=== PATIENT | female | born 1990 | race Caucasian/White ===

== ENCOUNTER 2016-12-13 23:50 | Emergency (ER) | payer OTHER ==
[2016-12-13 23:59] VITALS: BP 150/94; PULSE 74; TEMP 97.6; BMI 31.1
[2016-12-14] MEDS ORDERED: PSEUDOEPHEDRINE HCL 30 MG TABLET PO STA (01:52)
[2016-12-14] MEDS ORDERED: SULFAMETHOXAZOLE/TRIMETHOPRIM 800MG/160MG D.S. TABLET PO ONE (01:52)
[2016-12-14] MEDS ORDERED: ONDANSETRON *ODT* 4 MG TABLET SL ONE (01:52)
[2016-12-14] MEDS ORDERED: OXYCODONE/APAP 5/325MG COMBO TABLET PO ONE (01:52)
--- NOTE | 2016-12-14 01:52 | PDOC ---
History of Present Illness - General History Source: Patient Exam Limitations: No Limitations - History of Present Illness Initial Comments: 12/14/16 01:58 The patient is a 26 year old female with significant past medical history of HTN (non compliant with meds), hyperlipidemia, lupus and kidney disease who presents to the ED with 1 day of right ear pain. Patient states her pain initially began as a dull ache that built to a stabbing sharp pain and 10/10, in severity. She took tylenol earlier this evening with no improvement. Patient has had ear pain in the past, but never this bad. She states having chronic red eyes, which are normal. The patient denies fever, chills, cough, SOB, chest pain, and palpitations. The patient denies abdominal pain, nausea, vomiting, and diarrhea. Allergies: doxycycline, penicillin, clindamycin Past surgical history: Appendectomy Social history: No alcohol, tobacco or drug use reported. <Cornelia Montiel - Last Filed: 12/14/16 01:58> - General History Source: Patient <Jimbo Obrien - Last Filed: 12/14/16 02:25> - General Chief Complaint: Ear Problem Stated Complaint: EAR PROBLEM Time Seen by Provider: 12/14/16 01:51 Past History <Cornelia Montiel - Last Filed: 12/14/16 01:58> - Past Medical History Anemia: No Asthma: No Cancer: No Cardiac Disorders: Yes CVA: No COPD: No CHF: No Dementia: No Diabetes: No GI Disorders: No Disorders: Yes (kidney, LEAKS PROTEIN) HTN: Yes Hypercholesterolemia: No Liver Disease: No Seizures: No Thyroid Disease: No Other medical history: Lupus - Surgical History Abdominal Surgery: Yes Appendectomy: Yes Cardiac Surgery: No Cholecystectomy: No Lung Surgery: No Neurologic Surgery: No Orthopedic Surgery: No - Psycho/Social/Smoking Cessation Hx Anxiety: No Suicidal Ideation: No Smoking Status: No Smoking History: Never smoked Have you smoked in the past 12 months: No Number of Cigarettes Smoked Daily: 0 Hx Alcohol Use: No Drug/Substance Use Hx: No Substance Use Type: None Hx Substance Use Treatment: No <Jimbo Obrien - Last Filed: 12/14/16 02:25> - Past Medical History Allergies/Adverse Reactions: Allergies Allergy/AdvReac Type Severity Reaction Status Date / Time clindamycin Allergy Severe ANAPHLACTIC Verified 12/13/16 23:57 REACTION doxycycline Allergy Severe ANAPHYLACTIC Verified 12/13/16 23:57 REACTION Penicillins Allergy Severe ANAPHYLACTIC Verified 12/13/16 23:57 REACTION SEAFOOD Allergy Severe ANAPHYLACTIC Uncoded 12/13/16 23:57 REACTION Home Medications: Ambulatory Orders Ibuprofen 800 mg PO TID #30 tablet 12/14/16 Pseudoephedrine HCl [Sudafed] 30 mg PO Q6H #20 tablet 12/14/16 Sulfamethoxazole/Trimethoprim [Bactrim *Ds*] 1 tab PO BID #20 tablet 12/14/16 Review of Systems - Review of Systems Able to Perform ROS?: Yes Comments:: 12/14/16 01:58 CONSTITUTIONAL: Absent: fever, no chills, no fatigue EYES: Absent: visual changes ENT: +right ear pain Absent: no sore throat CARDIOVASCULAR: Absent: chest pain, no palpitations RESPIRATORY: Absent: cough, no SOB GI: Absent: abdominal pain, no nausea, no vomiting, no constipation, no diarrhea GENITOURINARY: Absent: dysuria, no frequency, no hematuria MUSKULOSKELETAL: Absent: back pain, no arthralgia, no myalgia SKIN: Absent: rash NEURO: Absent: headache <Bharrat,Cornelia - Last Filed: 12/14/16 01:58> *Physical Exam - Vital Signs Last Vital Signs Temp Pulse Resp BP Pulse Ox 97.6 F 74 18 150/94 100 12/13/16 23:57 12/13/16 23:57 12/13/16 23:57 12/13/16 23:57 12/13/16 23:57 - Physical Exam Comments: 12/14/16 01:58 GENERAL: Well-appearing, well-nourished. No apparent distress. HEENT: Normocephalic, atraumatic. PERRL, EOM intact. Mild scleral injection. Right ear canal is erythematous, TM is bulging, fluid behind TM, and positive otalgia. Left TM is normal. CARDIOVASCULAR: Normal S1, S2. Regular rate and rhythm. PULMONARY: Clear to auscultation bilaterally. ABDOMEN: Soft, non-distended, non-tender. EXTREMITIES: Normal ROM in all four extremities. No gross deformities. SKIN: Warm, dry. No rash NEUROLOGICAL: No focal neurological deficits. <Cornelia Montiel - Last Filed: 12/14/16 01:58> - Vital Signs Last Vital Signs Temp Pulse Resp BP Pulse Ox 97.6 F 74 18 150/94 100 12/13/16 23:57 12/13/16 23:57 12/13/16 23:57 12/13/16 23:57 12/13/16 23:57 <Jimbo Obrien - Last Filed: 12/14/16 02:25> Medical Decision Making - Medical Decision Making 12/14/16 02:25 Dr. Obrien: The scribe's documentation has been prepared under my direction and personally reviewed by me in its entirery. I confirm that the note above accurately reflects all work, treatment, procedures, and medical decision making performed by me. <Jimbo Obrien - Last Filed: 12/14/16 02:25> *DC/Admit/Observation/Transfer - Attestations Scribe Attestion: 12/14/16 01:59 Documentation prepared by Cornelia Montiel, acting as medical office assistant for Jimbo Obrien MD <Cornelia Montiel - Last Filed: 12/14/16 01:58> - Discharge Dispostion Admit: No <Jimbo Obrien - Last Filed: 12/14/16 02:25> Diagnosis at time of Disposition: Otitis media Qualifiers: Otitis media type: suppurative Laterality: right Chronicity: acute Spontaneous tympanic membrane rupture: without spontaneous rupture - Discharge Dispostion Disposition: HOME Condition at time of disposition: Stable - Prescriptions Prescriptions: Sulfamethoxazole/Trimethoprim [Bactrim *Ds*] 1 tab PO BID #20 tablet Ibuprofen 800 mg PO TID #30 tablet Pseudoephedrine HCl [Sudafed] 30 mg PO Q6H #20 tablet - Patient Instructions Printed Discharge Instructions: DI for Otitis Media (Middle Ear Infection)- Child, Middle Ear Infection
[2016-12-14] MEDS ORDERED: PSEUDOEPHEDRINE HCL 60 MG TABLET ONE (02:19)
[2016-12-14] MEDS ORDERED: SULFAMETHOXAZOLE/TRIMETHOPRIM 800MG/160MG D.S. TABLET ONE (02:19)
[2016-12-14] MEDS ORDERED: OXYCODONE/APAP 5/325MG COMBO TABLET ONE (02:19)
[2016-12-14] MEDS ORDERED: ONDANSETRON 8 MG TABLET (FP) PO ONE (02:20)
[2016-12-14] MEDS ORDERED: ONDANSETRON *ODT* 4 MG TABLET ONE (02:20)
== END 2016-12-14 02:51 | disposition home or self-care (01) ==
LOC: JER 23:50
DX: H66.91 Otitis media, unspecified, right ear (principal); I10 Essential (primary) hypertension; E78.5 Hyperlipidemia, unspecified; N28.9 Disorder of kidney and ureter, unspecified; M32.9 Systemic lupus erythematosus, unspecified
CPT/HCPCS: 99281-25

== ENCOUNTER 2017-02-14 18:41 | Inpatient (IN) | payer OTHER ==
[2017-02-14] MEDS ORDERED: ONDANSETRON 4 MG/2 ML VIAL ONE ×3 (18:53→23:34)
[2017-02-14 18:58] VITALS: BMI 29.2
[2017-02-14] MEDS ORDERED: ONDANSETRON 4 MG/2 ML VIAL IVPUSH ONE (19:50)
[2017-02-14] MEDS ORDERED: hydrALAZINE HCL 20 MG/ML VIAL IVPUSH ONE ×2 (19:50→22:24)
[2017-02-14] MEDS ORDERED: hydrALAZINE HCL 20 MG/ML VIAL ONE ×2 (19:58→22:49)
--- NOTE | 2017-02-14 20:01 | PDOC ---
History of Present Illness - General History Source: Patient Exam Limitations: No Limitations - History of Present Illness Initial Comments: 02/14/17 20:11 The patient is a 26 year old female with significant past medical history of HTN , hyperlipidemia, lupus and kidney disease who presents to the ED with persistent headache and dizziness that began earlier today. Patient reports she was in her usual state of health when she developed a headache that progressively gotten worse throughout the day with associated dizziness. States having 7 episodes of dizziness that she describes as feeling off balance. Denies LOC or changes in vision and states she was aware of each episode. Patient admits to being compliant with her blood pressure medications. She also has complaints of nausea and several episodes of vomiting that is secondary to her headache and dizziness. Denies lightheadedness, diaphoresis, chest pain, SOB , palpitations, jaw pain, shoulder pain, arm pain, or leg swelling. The patient denies fever, chills, cough, abdominal pain, and diarrhea. Allergies: doxycycline, penicillin, clindamycin Social history: No alcohol, tobacco or drug use reported. Past surgical history: Appendectomy PCP: Dr. Chris Cruz <Cornelia Montiel - Last Filed: 02/14/17 20:28> - General History Source: Patient <Jimbo Obrien - Last Filed: 02/16/17 06:20> - General Chief Complaint: Blood Pressure Problem Stated Complaint: DIZZY Time Seen by Provider: 02/14/17 20:01 Past History <Cornelia Montiel - Last Filed: 02/14/17 20:28> - Past Medical History Anemia: No Asthma: No Cancer: No Cardiac Disorders: Yes CVA: No COPD: No CHF: No Dementia: No Diabetes: No GI Disorders: No Disorders: Yes (kidney, LEAKS PROTEIN) HTN: Yes Hypercholesterolemia: No Liver Disease: No Seizures: No Thyroid Disease: No Other medical history: LUPUS. - Surgical History Abdominal Surgery: Yes Appendectomy: Yes Cardiac Surgery: No Cholecystectomy: No Lung Surgery: No Neurologic Surgery: No Orthopedic Surgery: No - Reproductive History Is Patient Now?: No - Psycho/Social/Smoking Cessation Hx Anxiety: No Suicidal Ideation: No Smoking Status: No Smoking History: Never smoked Have you smoked in the past 12 months: No Number of Cigarettes Smoked Daily: 0 Hx Alcohol Use: No Drug/Substance Use Hx: No Substance Use Type: None Hx Substance Use Treatment: No <Jimbo Obrien - Last Filed: 02/16/17 06:20> - Past Medical History Allergies/Adverse Reactions: Allergies Allergy/AdvReac Type Severity Reaction Status Date / Time clindamycin Allergy Severe ANAPHLACTIC Verified 02/14/17 18:54 REACTION doxycycline Allergy Severe ANAPHYLACTIC Verified 02/14/17 18:54 REACTION Penicillins Allergy Severe ANAPHYLACTIC Verified 02/14/17 18:54 REACTION shellfish derived Allergy Severe anaphylactic Verified 02/14/17 18:54 reaction SEAFOOD Allergy Severe ANAPHYLACTIC Uncoded 02/14/17 18:54 REACTION Home Medications: Ambulatory Orders NK [No Known Home Medication] 02/14/17 Review of Systems - Review of Systems Able to Perform ROS?: Yes Comments:: 02/14/17 20:11 CONSTITUTIONAL: Absent: fever, no chills, no fatigue EYES: Absent: visual changes ENT: Absent: ear pain, no sore throat CARDIOVASCULAR: Absent: chest pain, no palpitations RESPIRATORY: Absent: cough, no SOB GI: +nausea, vomiting Absent: abdominal pain, no constipation, no diarrhea GENITOURINARY: Absent: dysuria, no frequency, no hematuria MUSCULOSKELETAL: Absent: back pain, no arthralgia, no myalgia SKIN: Absent: rash NEURO: +headache, dizziness <Cornelia Montiel - Last Filed: 02/14/17 20:28> *Physical Exam - Vital Signs Last Vital Signs Temp Pulse Resp BP Pulse Ox 98.0 F 90 20 177/138 100 02/14/17 18:54 02/14/17 20:10 02/14/17 20:00 02/14/17 20:10 02/14/17 20:00 - Physical Exam Comments: 02/14/17 20:13 GENERAL: Well-appearing, well-nourished. No apparent distress. HEENT: Normocephalic, atraumatic. PERRL, EOM intact. CARDIOVASCULAR: Normal S1, S2. Regular rate and rhythm. PULMONARY: Clear to auscultation bilaterally. ABDOMEN: Soft, non-distended, non-tender. EXTREMITIES: Normal ROM in all four extremities. No gross deformities. SKIN: Warm, dry. No rash NEUROLOGICAL: No focal neurological deficits. <Cornelia Montiel - Last Filed: 02/14/17 20:28> - Vital Signs Last Vital Signs Temp Pulse Resp BP Pulse Ox 98.0 F 100 H 20 199/143 100 02/14/17 18:54 02/14/17 18:54 02/14/17 18:54 02/14/17 18:54 02/14/17 19:05 <Jimbo Obrien - Last Filed: 02/16/17 06:20> Heart Score/ECG Review - ECG Impressions Comment:: 02/14/17 20:29 NSR @89bpm Possible L atrial enlargement Borderline ECG <Cornelia Montiel - Last Filed: 02/14/17 20:28> ED Treatment Course - LABORATORY CBC & Chemistry Diagram: 02/14/17 20:15 - Medications Given in the ED: ED Medications Discontinued Medications Generic Name Dose Route Start Last Admin Trade Name Thangq PRN Reason Stop Dose Admin Hydralazine HCl 10 mg 02/14/17 19:50 02/14/17 20:05 Apresoline Injection - IVPUSH 02/14/17 19:51 10 mg ONCE ONE Administration Ondansetron HCl 4 mg 02/14/17 19:50 02/14/17 20:05 Zofran Injection IVPUSH 02/14/17 19:51 4 mg ONCE ONE Administration <Cornelia Montiel - Last Filed: 02/14/17 20:28> - LABORATORY CBC & Chemistry Diagram: 02/15/17 07:07 02/15/17 07:07 - RADIOLOGY Radiology Studies Ordered: Category Date Time Status HEAD CT WITHOUT CONTRAST [CT] Stat CT Scan 02/14/17 19:49 Ordered <Jimbo Obrien - Last Filed: 02/16/17 06:20> Medical Decision Making - Medical Decision Making 02/14/17 23:17 BP 150/110 at this time. 02/15/17 02:38 Pt still hypertensive, despite all medications given for pain or blood pressure. Pt will be admitted to Tele and started on Nitro drip 02/16/17 06:20 Dr. Obrien: The scribe's documentation has been prepared under my direction and personally reviewed by me in its entirery. I confirm that the note above accurately reflects all work, treatment, procedures, and medical decision making performed by me. <Jimbo Obrien - Last Filed: 02/16/17 06:20> *DC/Admit/Observation/Transfer - Attestations Scribe Attestion: 02/14/17 20:13 Documentation prepared by Cornelia Montiel, acting as medical assistant per diem for Jimbo Obrien MD <Cornelia Montiel - Last Filed: 02/14/17 20:28> - Discharge Dispostion Admit: Yes <Jimbo Obrien - Last Filed: 02/16/17 06:20> Diagnosis at time of Disposition: Uncontrolled hypertension - Referrals
[2017-02-14 20:34] LABS: BASOPHIL 0.6 % (0-2.0); EOSINOPHIL 1.1 % (0-4.5); MCH 29.5 pg (25.7-33.7); MCHC 33.6 g/dl (32.0-36.0); MEAN CELL VOLUME 87.7 fl (80-96); MEAN PLT VOLUME 9.1 fl (7.5-11.1); NEUTROPHILS 76.9 % (42.8-82.8); PLATELET COUNT 339 K/MM3 (134-434); RDW 12.7 % (11.6-15.6); WHITE BLOOD COUNT 13.3 K/mm3 (4.0-10.0)
[2017-02-14 20:46] LABS: INR 1.01 (0.82-1.09); PROTHROMBIN TIME (PATIENT) 11.1 SEC (9.98-11.88)
[2017-02-14] MEDS ORDERED: METOCLOPRAMIDE HCL INJECTION 10 MG/2 ML VIAL IVPUSH ONE (20:58)
[2017-02-14] MEDS ORDERED: morphine CARPU-JECT 2 MG/1 ML DISP.SYRIN IVPUSH ONE (20:58)
[2017-02-14] MEDS ORDERED: morphine CARPU-JECT 2 MG/1 ML DISP.SYRIN ONE (21:11)
[2017-02-14] MEDS ORDERED: morphine CARPU-JECT 4 MG/1 ML DISP.SYRIN ONE (21:12)
[2017-02-14] MEDS ORDERED: METOCLOPRAMIDE HCL INJECTION 10 MG/2 ML VIAL ONE (21:12)
[2017-02-14 22:54] LABS: ALBUMIN 1.9 g/dl (3.4-5.0); ANION GAP 11 (8-16); BILIRUBIN,TOTAL 0.2 mg/dL (0.2-1.0); CALCIUM 7.6 mg/dL (8.5-10.1); CO2 21 mmol/L (21-32); COCKROFT - GAULT 162.7835; CREATININE 0.6 mg/dL (0.55-1.02); GLUCOSE,RANDOM 111 mg/dL (74-106); SGOT/AST 14 U/L (15-37); SGPT/ALT 15 U/L (12-78); TOT PROT 4.8 g/dl (6.4-8.2)
[2017-02-14 22:58] LABS: ALK PHOS 57 U/L (45-117); TROPONIN I < 0.02 ng/ml (0.00-0.05)
[2017-02-14] MEDS ORDERED: LABETALOL HCL 5 MG/1 ML (100MG/20 ML VIAL) IVPUSH ONE (23:21)
[2017-02-14] MEDS ORDERED: LABETALOL HCL 5 MG/1 ML (200MG/40ML VIAL) IVPB ONE (23:34)
[2017-02-14] MEDS ORDERED: LORAZEPAM CARPU-JECT 2 MG/ML DISP.SYRIN IVPUSH ONE (23:52)
[2017-02-14] MEDS ORDERED: LORAZEPAM CARPU-JECT 2 MG/ML DISP.SYRIN ONE (23:57)
[2017-02-15] MEDS ORDERED: HYDROmorphone HCL CARPU-JECT 1 MG/1 ML DISP.SYRIN IVPUSH ONE (01:31)
[2017-02-15] MEDS ORDERED: HYDROmorphone HCL CARPU-JECT 1 MG/1 ML DISP.SYRIN ONE (02:20)
[2017-02-15] MEDS ORDERED: NITROGLYCERIN 25MG/D5W 250ML 250 ML IVPB SCH (02:45)
--- NOTE | 2017-02-15 03:09 | HP ---
CHIEF COMPLAINT:Headache, Dizziness PCP: Nancy Npehrologist: Kirill HISTORY OF PRESENT ILLNESS: Patient is a 26 year old female with PMH of Lupus Nephritis, CKD, HTN, HLD who presented to ED with headache for 1 day. Patient states she had a headache this morning that has progressively gotten worse. Pain is across bilateral forehead and radiates towards back of head. She states that she went to the gym today and afterwards the headache became much more severe and was accompanied by dizziness. She also has had several episodes of nausea & vomiting. Denies fever , chills, shortness of breath, visual changes, chest pain or palpitations. BP in ED found to be 199/143. Patient states she has been on antihypertensives for years but stopped taking them 2 months ago after implementing dieting & exercise into her lifestyle. ER course was notable for: (1)BP still uncontrolled after Hydralazine 10mg IV x2, Labetalol 20mg IV (2)Head CT (-) for acute pathology (3)Nitro drip started Recent Travel: NONE REPORTED PAST MEDICAL HISTORY: ABOVE PAST SURGICAL HISTORY: APPENDECTOMY Social History: Smoking: NONE REPORTED Alcohol: NONE REPORTED Drugs: NONE REPORTED Family History: DM (Father), GI issues (Mother) Allergies clindamycin Allergy (Severe, Verified 02/14/17 18:54) ANAPHLACTIC REACTION doxycycline Allergy (Severe, Verified 02/14/17 18:54) ANAPHYLACTIC REACTION Penicillins Allergy (Severe, Verified 02/14/17 18:54) ANAPHYLACTIC REACTION shellfish derived Allergy (Severe, Verified 02/14/17 18:54) anaphylactic reaction SEAFOOD Allergy (Severe, Uncoded 02/14/17 18:54) ANAPHYLACTIC REACTION HOME MEDICATIONS: Home Medications Medication Instructions Recorded NK [No Known Home Medication] 02/14/17 REVIEW OF SYSTEMS CONSTITUTIONAL: Absent: fever, chills, diaphoresis, generalized weakness, malaise, loss of appetite, weight change HEENT: Absent: rhinorrhea, nasal congestion, throat pain, throat swelling, difficulty swallowing, mouth swelling, ear pain, eye pain, visual changes CARDIOVASCULAR: (+)lightheadedness, Absent: chest pain, syncope, palpitations, irregular heart rate, peripheral edema RESPIRATORY: Absent: cough, shortness of breath, dyspnea with exertion, orthopnea, wheezing, stridor, hemoptysis GASTROINTESTINAL: (+)nausea, vomiting, Absent: abdominal pain, abdominal distension, diarrhea, constipation, melena, hematochezia GENITOURINARY: Absent: dysuria, frequency, urgency, hesitancy, hematuria, flank pain, genital pain MUSCULOSKELETAL: Absent: myalgia, arthralgia, joint swelling, back pain, neck pain SKIN: Absent: rash, itching, pallor HEMATOLOGIC/IMMUNOLOGIC: Absent: easy bleeding, easy bruising, lymphadenopathy, frequent infections ENDOCRINE: Absent: unexplained weight gain, unexplained weight loss, heat intolerance, cold intolerance NEUROLOGIC: (+)headache, dizziness, unsteady gait, Absent: focal weakness or paresthesias, seizure, mental status changes, bladder or bowel incontinence PSYCHIATRIC: Absent: anxiety, depression, suicidal or homicidal ideation, hallucinations. PHYSICAL EXAMINATION Vital Signs - 24 hr 02/14/17 02/14/17 02/14/17 18:54 19:05 20:00 Temperature 98.0 F Pulse Rate 100 H Pulse Rate [ 98 H Apical] Respiratory 20 20 Rate Blood Pressure 199/143 Blood Pressure 180/126 [Left Arm] O2 Sat by Pulse 100 100 100 Oximetry (%) 02/14/17 02/14/17 02/14/17 20:07 20:10 21:18 Temperature Pulse Rate Pulse Rate [ 90 90 88 Apical] Respiratory 20 Rate Blood Pressure Blood Pressure 197/137 177/138 159/119 [Left Arm] O2 Sat by Pulse 100 Oximetry (%) 02/14/17 02/14/17 22:24 23:41 Temperature Pulse Rate Pulse Rate [ 80 120 H Apical] Respiratory Rate Blood Pressure Blood Pressure 163/123 195/130 [Left Arm] O2 Sat by Pulse Oximetry (%) GENERAL: Awake, alert, and fully oriented, in mild distress due to headache. HEENT: Atraumatic, EOMI, PERRLA, No lymphadenopathy, Moist membranes LUNGS: Breath sounds equal, clear to auscultation bilaterally. No wheezes, and no crackles. No accessory muscle use. HEART: Regular rate and rhythm, normal S1 and S2 without murmur, rub or gallop. ABDOMEN: Soft, nontender, not distended, normoactive bowel sounds MUSCULOSKELETAL: Normal range of motion at all joints. No bony deformities or tenderness. No CVA tenderness. UPPER EXTREMITIES: 2+ pulses, warm, well-perfused. No cyanosis. No clubbing. No peripheral edema. LOWER EXTREMITIES: 2+ pulses, warm, well-perfused. No calf tenderness. Trace pitting edema. NEUROLOGICAL: Cranial nerves II-XII intact. Normal speech. Gait not observed. PSYCHIATRIC: Cooperative. Good eye contact. Appropriate mood and affect. SKIN: Warm, dry, normal turgor, no rashes or lesions noted, normal capillary refill. Laboratory Results - last 24 hr 02/14/17 02/14/17 02/14/17 20:15 20:15 20:15 WBC 13.3 H RBC 5.03 Hgb 14.8 Hct 44.1 MCV 87.7 MCHC 33.6 RDW 12.7 Plt Count 339 D MPV 9.1 Neutrophils % 76.9 Lymphocytes % 15.5 Monocytes % 5.9 Eosinophils % 1.1 Basophils % 0.6 INR 1.01 Sodium Potassium Chloride Carbon Dioxide Anion Gap BUN Creatinine Creat Clearance w eGFR Random Glucose Calcium Total Bilirubin AST ALT Alkaline Phosphatase Creatine Kinase Troponin I Total Protein Albumin Serum , Qual Negative 02/14/17 22:00 WBC RBC Hgb Hct MCV MCHC RDW Plt Count MPV Neutrophils % Lymphocytes % Monocytes % Eosinophils % Basophils % INR Sodium 143 Potassium 3.6 Chloride 111 H Carbon Dioxide 21 Anion Gap 11 BUN 11 Creatinine 0.6 D Creat Clearance w eGFR > 60 Random Glucose 111 H D Calcium 7.6 L Total Bilirubin 0.2 D AST 14 L D ALT 15 D Alkaline Phosphatase 57 Creatine Kinase 33 Troponin I < 0.02 Total Protein 4.8 L Albumin 1.9 L Serum , Qual ASSESSMENT/PLAN: 26 year old female with PMH of Lupus Nephritis, CKD, HTN, HLD who presented to ED with headache for 1 day. BP found to be 199/143. #Uncontrolled hypertension -likely secondary to CKD & recent poor compliance with anti-hypertensives (has been on Nadolol, Lisinopril) -given multiple IV pushes of hydralazine, Labetalol with poor control of BP -Currently BP better controlled on Nitro drip -admitted to telemetry for continuous cardiac monitoring -restarted Lisinopril, Nadolol #Headache -improving with BP control -Tylenol pain management -Head CT (-) #Hx of Lupus Nephritis -IVF NS @ 75cc/hr -f/u with [employer] Dr Roy in AM Prophylaxis -Early ambulation encouraged -no PPI indicated FEN: Sodium-controlled monitor electrolytes Visit type - Emergency Visit Emergency Visit: Yes ED Registration Date: 02/15/17 Care time: The patient presented to the Emergency Department on the above date and was hospitalized for further evaluation of their emergent condition. - New Patient This patient is new to me today: Yes Date on this admission: 02/15/17 - Critical Care Critical Care patient: No
[2017-02-15] MEDS ORDERED: NITROGLYCERIN 25MG/D5W 250ML 250 ML IVPB ONE (03:25)
--- NOTE | 2017-02-15 06:39 | PN ---
[id number] the resident's note and discussed the case with the resident. I agree with the resident's findings and plan as documented. SUBJECTIVE: 26 y/o female presented to ED with severe headache and several episodes of vomiting today. On examination BP found to be very elevated and patient admitted for controll of hypertension. PMH: Lupus nephritis. OBJECTIVE: CBCD WBC 13.3 K/mm3 (4.0-10.0) H 02/14/17 20:15 RBC 5.03 M/mm3 (3.60-5.2) 02/14/17 20:15 Hgb 14.8 GM/dL (10.7-15.3) 02/14/17 20:15 Hct 44.1 % (32.4-45.2) 02/14/17 20:15 MCV 87.7 fl (80-96) 02/14/17 20:15 MCHC 33.6 g/dl (32.0-36.0) 02/14/17 20:15 RDW 12.7 % (11.6-15.6) 02/14/17 20:15 Plt Count 339 K/MM3 (134-434) D 02/14/17 20:15 MPV 9.1 fl (7.5-11.1) 02/14/17 20:15 CMP Sodium 143 mmol/L (136-145) 02/14/17 22:00 Potassium 3.6 mmol/L (3.5-5.1) 02/14/17 22:00 Chloride 111 mmol/L (98-107) H 02/14/17 22:00 Carbon Dioxide 21 mmol/L (21-32) 02/14/17 22:00 Anion Gap 11 (8-16) 02/14/17 22:00 BUN 11 mg/dL (7-18) 02/14/17 22:00 Creatinine 0.6 mg/dL (0.55-1.02) D 02/14/17 22:00 Creat Clearance w eGFR > 60 (>60) 02/14/17 22:00 Random Glucose 111 mg/dL (74-106) H D 02/14/17 22:00 Calcium 7.6 mg/dL (8.5-10.1) L 02/14/17 22:00 Total Bilirubin 0.2 mg/dL (0.2-1.0) D 02/14/17 22:00 AST 14 U/L (15-37) L D 02/14/17 22:00 ALT 15 U/L (12-78) D 02/14/17 22:00 Alkaline Phosphatase 57 U/L (45-117) 02/14/17 22:00 Total Protein 4.8 g/dl (6.4-8.2) L 02/14/17 22:00 Albumin 1.9 g/dl (3.4-5.0) L 02/14/17 22:00 CARDIAC ENZYMES Creatine Kinase 33 IU/L (26-192) 02/14/17 22:00 Troponin I < 0.02 ng/ml (0.00-0.05) 02/14/17 22:00 ASSESSMENT AND PLAN: HTN Emergency most likely secondary to Lupus- Nitro IVPB titrate as needed and continue home medications. Patient counselled on medication compliance
[2017-02-15] MEDS ORDERED: SODIUM CHLORIDE 1,000 ML IV SCH ×3 (07:00→19:15)
[2017-02-15 07:44] LABS: MCH 30.1 pg (25.7-33.7); MCHC 34.5 g/dl (32.0-36.0); MEAN CELL VOLUME 87.2 fl (80-96); MEAN PLT VOLUME 8.3 fl (7.5-11.1); PLATELET COUNT 339 K/MM3 (134-434); WHITE BLOOD COUNT 14.4 K/mm3 (4.0-10.0)
[2017-02-15 08:09] LABS: ALBUMIN 2.1 g/dl (3.4-5.0); ANION GAP 9 (8-16); CO2 26 mmol/L (21-32); COCKROFT - GAULT 108.5195; CREATININE 0.9 mg/dL (0.55-1.02); GLUCOSE,RANDOM 126 mg/dL (74-106); SGOT/AST 15 U/L (15-37); SGPT/ALT 15 U/L (12-78)
[2017-02-15 08:13] LABS: ALK PHOS 62 U/L (45-117); BILIRUBIN,TOTAL 0.4 mg/dL (0.2-1.0)
[2017-02-15] MEDS ORDERED: LISINOPRIL 20 MG TABLET (FP) PO SCH (10:00)
[2017-02-15] MEDS ORDERED: NADOLOL 40 MG TABLET (FP) PO SCH ×2 (10:00→18:45)
[2017-02-15] MEDS ORDERED: ONDANSETRON 4 MG/2 ML VIAL ONE ×2 (10:18→13:38)
[2017-02-15] MEDS ORDERED: morphine CARPU-JECT 2 MG/1 ML DISP.SYRIN ONE ×2 (10:18→13:38)
[2017-02-15] MEDS: ONDANSETRON 4 MG/2 ML VIAL IVPB PRN ×2 (10:20→13:55)
[2017-02-15] MEDS: morphine CARPU-JECT 2 MG/1 ML DISP.SYRIN IVPUSH PRN ×2 (10:48→13:55)
[2017-02-15] MEDS ORDERED: LISINOPRIL 20 MG TABLET (FP) ONE ×2 (11:05→18:14)
[2017-02-15] MEDS ORDERED: NADOLOL 20 MG TABLET (FP) PO SCH (11:24)
--- NOTE | 2017-02-15 13:45 | CON.CARD ---
Consult Consult Specialty:: Cardiology Referred by:: BELKIS Hernandez Reason for Consultation:: hypertension - History of Present Illness Chief Complaint: headache, dizziness History of Present Illness: 26 year old woman history of HTN, SLE nephritis, chol, self dcd medications 1-2 months ago in favor of diet and TLC, tension headaches, workup for secondary hypertension negative in the past (unremarkable echo 2013, renal duplex negative 2015) came to ER with 1 day of frontal severe headache, nausea with vomiting and dizziness. Took tylenol with codiene and fell without loc. No head trauma. No palpitations, chest pain, orthopnea, pnd or edema. Baseline exercise tolerance is without limits. Given her PO meds (lisinopril 20mg and nadolol 20 mg) and hydralazine 10 mg iv x 2, labetolol x 1, started on ntg drip. - History Source History Provided By: Patient, Family Member, Medical Record Limitations to Obtaining History: No Limitations - Past Medical History [employer]: Yes: Other (tension headaches) Cardio/Vascular: Yes: HTN, Hyperlipdemia Renal/: Yes: Other (lupus nephritis) ...LMP: 11/27/15 ...: No Heme/Onc: Yes: Other (lupus anticoagulant) Rheumatology: Yes: Lupus - Past Surgical History Past Surgical History: Yes: Appendectomy, Tonsillectomy - Alcohol/Substance Use Hx Alcohol Use: No History of Substance Use: reports: None - Smoking History Smoking history: Never smoked Have you smoked in the past 12 months: No Aproximately how many cigarettes per day: 0 - Social History Usual Living Arrangement: With Spouse Home Medications - Allergies Allergies/Adverse Reactions: Allergies Allergy/AdvReac Type Severity Reaction Status Date / Time clindamycin Allergy Severe ANAPHLACTIC Verified 02/14/17 18:54 REACTION doxycycline Allergy Severe ANAPHYLACTIC Verified 02/14/17 18:54 REACTION Penicillins Allergy Severe ANAPHYLACTIC Verified 02/14/17 18:54 REACTION shellfish derived Allergy Severe anaphylactic Verified 02/14/17 18:54 reaction SEAFOOD Allergy Severe ANAPHYLACTIC Uncoded 02/14/17 18:54 REACTION - Home Medications Home Medications: Ambulatory Orders NK [No Known Home Medication] 02/14/17 Review of Systems - Review of Systems Constitutional: reports: No Symptoms Eyes: reports: No Symptoms HENT: reports: No Symptoms Neck: reports: No Symptoms, Decreased ROM Neurological: reports: Dizziness Pain Intensity: 8 Vital Signs: Vital Signs Temperature 98.0 F 02/14/17 18:54 Pulse Rate 78 02/15/17 12:57 Respiratory Rate 20 02/15/17 12:57 Blood Pressure 185/126 02/15/17 12:57 O2 Sat by Pulse Oximetry (%) 100 02/15/17 12:57 Constitutional: Yes: Well Nourished, No Distress, Calm Eyes: Yes: WNL, Conjunctiva Clear, EOM Intact HENT: Yes: WNL, Atraumatic, Normocephalic Neck: Yes: WNL, Supple, Trachea Midline Respiratory: Yes: WNL, Regular, CTA Bilaterally Gastrointestinal: Yes: WNL, Normal Bowel Sounds Renal/: Yes: WNL Cardiovascular: Yes: WNL, Regular Rate and Rhythm Musculoskeletal: Yes: WNL Extremities: Yes: WNL Edema: No Peripheral Pulses WNL: Yes Integumentary: Yes: WNL Neurological: Yes: WNL, Alert, Oriented ...Motor Strength: WNL Psychiatric: Yes: WNL, Alert, Oriented - Other Data Labs, Other Data: CBC, BMP 02/15/17 07:07 02/15/17 07:07 INR, PTT INR 1.01 (0.82-1.09) 02/14/17 20:15 Troponin, BNP 02/15/17 07:07 B-Natriuretic Peptide 881.79 H Troponin, BNP 02/15/17 07:07 B-Natriuretic Peptide 881.79 H Echo: Pending Ejection Fraction %: LVEF > or = 40 % Imaging - Results Chest X-ray: Report Reviewed (CLEMENTE) Cat Scan: Report Reviewed (negative) Problem List - Problems (1) Uncontrolled hypertension Assessment/Plan: Needs better pain and nausea control, as this will also contribute to her elevated blood pressure. Would increase lisinopril to 40 mg daily, increase nadolol to 40 mg daily, taper iv ntg to off. Echocardiogram Would not repeat TIMA umaña. Would start clonidine 0.1 mg bid if no relief on bp from higher dose nadolol and lisinopril. Check orthostatic blood pressure. Admit for evaluation. Code(s): I10 - ESSENTIAL (PRIMARY) HYPERTENSION
--- NOTE | 2017-02-15 15:41 | EKG ---
Test Reason : Blood Pressure : / mmHG Vent. Rate : 089 BPM Atrial Rate : 089 BPM P-R Int : 180 ms QRS Dur : 068 ms QT Int : 366 ms P-R-T Axes : 045 043 010 degrees QTc Int : 445 ms NORMAL SINUS RHYTHM POSSIBLE LEFT ATRIAL ENLARGEMENT BORDERLINE ECG WHEN COMPARED WITH ECG OF 18-MAY-2015 14:24, NO SIGNIFICANT CHANGE WAS FOUND Confirmed by HAMILTON GONZALEZ MD ([id number]) on 02/15/2017 3:41:02 PM Referred By: Confirmed By:HAMILTON GONZALEZ MD
[2017-02-15] MEDS: LISINOPRIL 20 MG TABLET (FP) PO SCH (18:17)
[2017-02-15] MEDS ORDERED: METOCLOPRAMIDE HCL INJECTION 10 MG/2 ML VIAL IVPB ONE (18:40)
[2017-02-15] MEDS ORDERED: methylPREDNISolone NA SUCC 125 MG/2 ML VIAL IVPB ONE (18:41)
--- NOTE | 2017-02-15 18:45 | PN ---
Physical Exam: SUBJECTIVE: Patient seen and examined in ED. Headache started three days ago after a workout. Muscles in neck felt tight and headache developed thereafter. Has been nauseous and vomiting today. OBJECTIVE: Vital Signs Period Temp Pulse Resp BP Sys/Sanders Pulse Ox Last 24 Hr 78-102 18-22 141-185/103-126 95-100 GENERAL: The patient is awake, alert, and fully oriented, in mild distress secondary to headache pain. HEAD: Normal with no signs of trauma. EYES: PERRL, extraocular movements intact, sclera injected appearance, conjunctiva clear. No ptosis. NECK: Trachea midline, bilateral SCMs are tense with point tenderness LUNGS: Breath sounds equal, clear to auscultation bilaterally, no wheezes, no crackles, no accessory muscle use. HEART: Regular rate and rhythm, S1, S2 without murmur, rub or gallop. ABDOMEN: Soft, nontender, nondistended, normoactive bowel sounds, no guarding, no rebound, no hepatosplenomegaly, no masses. EXTREMITIES: 2+ pulses, warm, well-perfused, no edema. NEUROLOGICAL: Cranial nerves II through XII grossly intact. Normal speech, gait not observed. Laboratory Results - last 24 hr 02/15/17 02/15/17 07:07 07:07 WBC 14.4 H RBC 4.87 Hgb 14.6 Hct 42.5 MCV 87.2 MCHC 34.5 RDW 13.0 Plt Count 339 MPV 8.3 Sodium 141 Potassium 4.1 Chloride 106 Carbon Dioxide 26 D Anion Gap 9 BUN 12 Creatinine 0.9 D Creat Clearance w eGFR > 60 Random Glucose 126 H Calcium 8.0 L Total Bilirubin 0.4 D AST 15 ALT 15 Alkaline Phosphatase 62 B-Natriuretic Peptide 881.79 H Total Protein 5.0 L Albumin 2.1 L Active Medications Generic Name Dose Route Start Last Admin Trade Name Freq PRN Reason Stop Dose Admin Acetaminophen 1,000 mg 02/15/17 06:55 Tylenol - PO Q6H PRN FEVER OR PAIN Cyclobenzaprine HCl 5 mg 02/15/17 19:00 Flexeril - PO TID SAMMIE Nitroglycerin/Dextrose 250 mls @ 6 mls/hr 02/15/17 02:45 02/15/17 16:30 Nitroglycerin 25mg/D5w 250ml IVPB 6 mcg/min TITR SAMMIE Titration 10 MCG/MIN Sodium Chloride 1,000 mls @ 125 mls/hr 02/15/17 07:00 Normal Saline - IV 02/15/17 14:59 ASDIR SAMMIE Lisinopril 40 mg 02/15/17 17:45 02/15/17 18:17 Prinivil PO 40 mg DAILY SAMMIE Administration Methylprednisolone Sodium Succinate 125 mg 02/15/17 18:41 Solu-Medrol - IVPB 02/15/17 18:42 ONCE ONE Metoclopramide HCl 10 mg 02/15/17 18:40 Reglan Injection - IVPB 02/15/17 18:41 ONCE ONE Nadolol 40 mg 02/15/17 18:45 Corgard - PO DAILY SAMMIE Ondansetron HCl 4 mg 02/15/17 03:41 02/15/17 13:55 Zofran Injection IVPB 4 mg Q6H PRN Administration NAUSEA ASSESSMENT/PLAN: 26 year-old woman with a PMH of HTN, HLD, and SLE nephritis, who self dc'd all medications 1-2 months ago in favor of diet and life-style changes. Admitted for hypertensive urgency. Hypertensive urgency --BP 197/137 on arrival --increase lisinopril to 40mg daily, nadolol to 40mg daily, taper nitro drip to off --add clonidine 0.1mg BID if needed --echo pending --orthostatics Tension headache Nausea/vomiting --CT head negative --solumedrol 125mg x 1 --Zofran, Reglan PRN --Flexeril PO TID --IV fluids F/E/N Fluids: NS @ 75mL/hr Electrolytes: replete as indicated Nutrition: low sodium DVT prophylaxis: oob, ambulation Dispo: continues to require inpatient care. Visit type - Emergency Visit Emergency Visit: Yes ED Registration Date: 02/15/17 Care time: The patient presented to the Emergency Department on the above date and was hospitalized for further evaluation of their emergent condition. - New Patient This patient is new to me today: Yes Date on this admission: 02/15/17 - Critical Care Critical Care patient: No
[2017-02-15] MEDS ORDERED: METOCLOPRAMIDE HCL INJECTION 10 MG/2 ML VIAL ONE (18:55)
[2017-02-15] MEDS ORDERED: methylPREDNISolone NA SUCC 125 MG/2 ML VIAL ONE (18:56)
[2017-02-15] MEDS ORDERED: CYCLOBENZAPRINE HCL 10 MG TABLET (FP) ONE (19:59)
[2017-02-15] MEDS: CYCLOBENZAPRINE HCL 10 MG TABLET (FP) PO SCH ×2 (20:09→22:12)
[2017-02-15] MEDS ORDERED: DEXAMETHASONE SOD PHOSPHATE 4 MG/1 ML VIAL IVPB SCH (21:00)
[2017-02-15] MEDS ORDERED: PT OWN MED DRAWER 7, Y5N ONE (22:05)
[2017-02-15] MEDS: ACETAMINOPHEN 500 MG TABLET (FP) PO PRN (22:11)
[2017-02-16] MEDS: CYCLOBENZAPRINE HCL 10 MG TABLET (FP) PO SCH ×3 (05:42→21:20)
[2017-02-16 07:36] LABS: BASOPHIL 0.2 % (0-2.0); MCH 30.7 pg (25.7-33.7); MCHC 35.2 g/dl (32.0-36.0); MEAN CELL VOLUME 87.1 fl (80-96); MEAN PLT VOLUME 8.7 fl (7.5-11.1); NEUTROPHILS 90.1 % (42.8-82.8); PLATELET COUNT 382 K/MM3 (134-434); RDW 12.9 % (11.6-15.6); WHITE BLOOD COUNT 12.9 K/mm3 (4.0-10.0)
[2017-02-16 08:02] LABS: ANION GAP 9 (8-16); CALCIUM 8.2 mg/dL (8.5-10.1); CO2 26 mmol/L (21-32); GLUCOSE,RANDOM 117 mg/dL (74-106); MAGNESIUM 1.9 mg/dL (1.8-2.4)
[2017-02-16 08:05] LABS: ALK PHOS 62 U/L (45-117); BILIRUBIN,TOTAL 0.5 mg/dL (0.2-1.0); CREATININE 0.8 mg/dL (0.55-1.02); PHOSPHOROUS 3.8 mg/dL (2.5-4.9); SGOT/AST 11 U/L (15-37); SGPT/ALT 12 U/L (12-78); TOT PROT 4.9 g/dl (6.4-8.2)
[2017-02-16] MEDS: ACETAMINOPHEN 500 MG TABLET (FP) PO PRN (08:45)
[2017-02-16] MEDS: LISINOPRIL 20 MG TABLET (FP) PO SCH (10:11)
[2017-02-16] MEDS: NADOLOL 40 MG TABLET (FP) PO SCH (10:12)
[2017-02-16] MEDS ORDERED: ACETAMINOPHEN/CAFFEINE/BUTALBITAL 1 TAB PO PRN (12:44)
[2017-02-16] MEDS ORDERED: SUMAtriptan SUCCINATE 50 MG TABLET PO ONE (12:45)
--- NOTE | 2017-02-16 12:50 | CONSULT ---
Consult - text type - Consultation Consultation Note: Neurology The patient is a 26 year old female with significant past medical history of HTN , hyperlipidemia, lupus and kidney disease who presents to the ED with persistent headache and dizziness that began earlier today. Patient reports she was in her usual state of health when she developed a headache that progressively gotten worse throughout the day with associated dizziness. States having 7 episodes of dizziness that she describes as feeling off balance. Denies LOC or changes in vision and states she was aware of each episode. Patient admits to being compliant with her blood pressure medications. Discussed with her several treatment options. WIll order Fioricet and Imitrex. Also offered short course of a few doses of steroids, but patient was reluctant for this. CT head reviewed and normal. Past History - Past Medical History Anemia: No Asthma: No Cancer: No Cardiac Disorders: Yes CVA: No COPD: No CHF: No Dementia: No Diabetes: No GI Disorders: No Disorders: Yes (kidney, LEAKS PROTEIN) HTN: Yes Hypercholesterolemia: No Liver Disease: No Seizures: No Thyroid Disease: No Other medical history: LUPUS. - Surgical History Abdominal Surgery: Yes Appendectomy: Yes Cardiac Surgery: No Cholecystectomy: No Lung Surgery: No Neurologic Surgery: No Orthopedic Surgery: No - Reproductive History Is Patient Now?: No - Psycho/Social/Smoking Cessation Hx Anxiety: No Suicidal Ideation: No Smoking Status: No Smoking History: Never smoked Have you smoked in the past 12 months: No Number of Cigarettes Smoked Daily: 0 Hx Alcohol Use: No Drug/Substance Use Hx: No Substance Use Type: None Hx Substance Use Treatment: No - Past Medical History Allergies/Adverse Reactions: Allergies Allergy/AdvReac Type Severity Reaction Status Date / Time clindamycin Allergy Severe ANAPHLACTIC Verified 02/14/17 18:54 REACTION doxycycline Allergy Severe ANAPHYLACTIC Verified 02/14/17 18:54 REACTION Penicillins Allergy Severe ANAPHYLACTIC Verified 02/14/17 18:54 REACTION shellfish derived Allergy Severe anaphylactic Verified 02/14/17 18:54 reaction SEAFOOD Allergy Severe ANAPHYLACTIC Uncoded 02/14/17 18:54 REACTION Review of Systems Absent: fever, no chills, no fatigue EYES: Absent: visual changes ENT: Absent: ear pain, no sore throat CARDIOVASCULAR: Absent: chest pain, no palpitations RESPIRATORY: Absent: cough, no SOB GI: +nausea, vomiting Absent: abdominal pain, no constipation, no diarrhea GENITOURINARY: Absent: dysuria, no frequency, no hematuria MUSCULOSKELETAL: Absent: back pain, no arthralgia, no myalgia SKIN: Absent: rash NEURO: +headache, dizziness *Physical Exam - Vital Signs Last Vital Signs Temp Pulse Resp BP Pulse Ox 98.0 F 90 20 177/138 100 02/14/17 18:54 02/14/17 20:10 02/14/17 20:00 02/14/17 20:10 02/14/17 20:00 GENERAL: Well-appearing, well-nourished. No apparent distress. HEENT: Normocephalic, atraumatic. PERRL, EOM intact. CARDIOVASCULAR: Normal S1, S2. Regular rate and rhythm. PULMONARY: Clear to auscultation bilaterally. ABDOMEN: Soft, non-distended, non-tender. EXTREMITIES: Normal ROM in all four extremities. No gross deformities. SKIN: Warm, dry. No rash NEUROLOGICAL: CN intact Strenght normal sensory intact Finger to nose normal Medical Decision Making 26 year old female with significant past medical history of HTN, hyperlipidemia , lupus and kidney disease who presents to the ED with persistent headache and dizziness that began earlier today. Patient reports she was in her usual state of health when she developed a headache that progressively gotten worse throughout the day with associated dizziness. States having 7 episodes of dizziness that she describes as feeling off balance. Denies LOC or changes in vision and states she was aware of each episode. Patient admits to being compliant with her blood pressure medications. Discussed with her several treatment options. WIll order Fioricet and Imitrex. Also offered short course of a few doses of steroids, but patient was reluctant for this. Recommend tighter BP control.
--- NOTE | 2017-02-16 13:21 | PN ---
Progress Note (short form) - Note Progress Note: Pt follows with Dr. Roy for her Renal function. Was last seen in the office in October. Will place consult for them to follow Thank you Taz Buenrostro DO
--- NOTE | 2017-02-16 13:43 | PN ---
Progress Note, Physician Chief Complaint: headache persists but improving slowly. History of Present Illness: 26 year old woman history of HTN, SLE nephritis, chol, self dcd medications 1-2 months ago in favor of diet and TLC, tension headaches, workup for secondary hypertension negative in the past (unremarkable echo 2013, renal duplex negative 2015) came to ER with 1 day of frontal severe headache, nausea with vomiting and dizziness. Took tylenol with codiene and fell without loc. No head trauma. No palpitations, chest pain, orthopnea, pnd or edema. Baseline exercise tolerance is without limits. Given her PO meds (lisinopril 20mg and nadolol 20 mg) and hydralazine 10 mg iv x 2, labetolol x 1, started on ntg drip. Echocardiogram 02/15/17 normal EF mild MR/TR - Current Medication List Current Medications: Active Medications Acetaminophen (Tylenol -) 1,000 mg PO Q6H PRN PRN Reason: FEVER OR PAIN Last Admin: 02/16/17 08:45 Dose: 1,000 mg Acetaminophen/Butalbital/Caffeine (Fioricet -) 1 tablet PO Q6H PRN PRN Reason: HEADACHE Cyclobenzaprine HCl (Flexeril -) 5 mg PO TID [facility] Last Admin: 02/16/17 05:42 Dose: 5 mg Sodium Chloride (Normal Saline -) 1,000 mls @ 75 mls/hr IV ASDIR [facility] Last Admin: 02/15/17 22:26 Dose: 75 mls/hr Lisinopril (Prinivil) 40 mg PO DAILY [facility] Last Admin: 02/16/17 10:11 Dose: 40 mg Nadolol (Corgard -) 40 mg PO DAILY [facility] Last Admin: 02/16/17 10:12 Dose: 40 mg Ondansetron HCl (Zofran Injection) 4 mg IVPB Q6H PRN PRN Reason: NAUSEA Last Admin: 02/15/17 13:55 Dose: 4 mg - Objective Vital Signs: Vital Signs Temperature 98.4 F 02/16/17 09:00 Pulse Rate 74 02/16/17 09:00 Respiratory Rate 18 02/16/17 09:00 Blood Pressure 142/98 02/16/17 09:00 O2 Sat by Pulse Oximetry (%) 94 L 02/15/17 21:40 Eyes: Yes: WNL, Conjunctiva Clear HENT: Yes: WNL, Atraumatic, Normocephalic Neck: Yes: WNL, Supple, Trachea Midline Cardiovascular: Yes: WNL, Regular Rate and Rhythm Respiratory: Yes: WNL, Regular, CTA Bilaterally Gastrointestinal: Yes: WNL, Normal Bowel Sounds Musculoskeletal: Yes: WNL Extremities: Yes: WNL Edema: No Integumentary: Yes: WNL Neurological: Yes: WNL, Alert, Oriented ...Motor Strength: WNL Psychiatric: Yes: WNL Labs: CBC, BMP 02/16/17 06:00 02/16/17 06:00 INR, PTT INR 1.01 (0.82-1.09) 02/14/17 20:15 Problem List - Problems (1) Uncontrolled hypertension Assessment/Plan: Continue imitrex and fiorcet for pain control, as this will also contribute to her elevated blood pressure. Continue lisinopril 40 mg daily, Continue nadolol 40 mg daily. Echocardiogram is normal. Would not repeat TIMA umaña. She is not orthostatic. Code(s): I10 - ESSENTIAL (PRIMARY) HYPERTENSION
--- NOTE | 2017-02-16 16:37 | PN ---
Physical Exam: SUBJECTIVE: Patient seen and examined at bedside. Headache is better but still 6 /10. Feels her trapezius muscles are tight and the pain radiates up into the back of her head. OBJECTIVE: Vital Signs Period Temp Pulse Resp BP Sys/Sanders Pulse Ox Last 24 Hr 97.7 F-99.4 F 73-88 18-20 122-158/86-114 94-97 GENERAL: The patient is awake, alert, and fully oriented, in no acute distress. HEAD: Normal with no signs of trauma. EYES: PERRL, extraocular movements intact, sclera anicteric, conjunctiva clear. No ptosis. NECK: Trachea midline, bilateral SCMs and trapezius muscles are tight, contracted with point tenderness LUNGS: Breath sounds equal, clear to auscultation bilaterally, no wheezes, no crackles, no accessory muscle use. HEART: Regular rate and rhythm, S1, S2 without murmur, rub or gallop. ABDOMEN: Soft, nontender, nondistended, normoactive bowel sounds, no guarding, no rebound, no hepatosplenomegaly, no masses. EXTREMITIES: 2+ pulses, warm, well-perfused, no edema. NEUROLOGICAL: Cranial nerves II through XII grossly intact. Normal speech, gait not observed. Laboratory Results - last 24 hr 02/16/17 02/16/17 06:00 06:00 WBC 12.9 H RBC 4.91 Hgb 15.0 Hct 42.8 MCV 87.1 MCHC 35.2 RDW 12.9 Plt Count 382 MPV 8.7 Neutrophils % 90.1 H Lymphocytes % 7.7 L D Monocytes % 2.0 L Eosinophils % 0.0 D Basophils % 0.2 Sodium 142 Potassium 4.5 Chloride 107 Carbon Dioxide 26 Anion Gap 9 BUN 13 Creatinine 0.8 Creat Clearance w eGFR > 60 Random Glucose 117 H Calcium 8.2 L Phosphorus 3.8 Magnesium 1.9 Total Bilirubin 0.5 D AST 11 L D ALT 12 Alkaline Phosphatase 62 Total Protein 4.9 L Albumin 2.0 L Active Medications Generic Name Dose Route Start Last Admin Trade Name Freq PRN Reason Stop Dose Admin Acetaminophen/Butalbital/Caffeine 1 tablet 02/16/17 12:44 Fioricet - PO Q6H PRN HEADACHE Cyclobenzaprine HCl 5 mg 02/15/17 19:00 02/16/17 14:34 Flexeril - PO 5 mg TID SAMMIE Administration Lisinopril 40 mg 02/15/17 17:45 02/16/17 10:11 Prinivil PO 40 mg DAILY SAMMIE Administration Nadolol 40 mg 02/16/17 10:00 02/16/17 10:12 Corgard - PO 40 mg DAILY SAMMIE Administration Ondansetron HCl 4 mg 02/15/17 03:41 02/15/17 13:55 Zofran Injection IVPB 4 mg Q6H PRN Administration NAUSEA ASSESSMENT/PLAN: 26 year-old woman with a PMH of HTN, HLD, and SLE nephritis, who self dc'd all medications 1-2 months ago in favor of diet and life-style changes. Admitted for hypertensive urgency. Hypertensive urgency --BP elevated again this afternoon 142/108 --add clonidine 0.1mg BID --continue lisinopril, nadolol --echo unremarkable Tension headache Nausea/vomiting --CT head negative --Imitrex, fioricet PRN --Zofran, Reglan PRN --Flexeril PO TID F/E/N Fluids: PO intake adequate Electrolytes: replete as indicated Nutrition: low sodium DVT prophylaxis: oob, ambulation Dispo: continues to require inpatient care. Visit type - Emergency Visit Emergency Visit: Yes ED Registration Date: 02/15/17 Care time: The patient presented to the Emergency Department on the above date and was hospitalized for further evaluation of their emergent condition. - New Patient This patient is new to me today: No - Critical Care Critical Care patient: No
[2017-02-16 16:43] LABS: URINE APPEARANCE CLEAR; URINE BILIRUBIN NEGATIVE (NEGATIVE); URINE COLOR LTYELLOW; URINE GLUCOSE (UA) NEGATIVE (NEGATIVE); URINE KETONE NEGATIVE (NEGATIVE); URINE LEUK ESTERASE NEGATIVE (NEGATIVE); URINE NITRITE NEGATIVE (NEGATIVE); URINE UROBILINOGEN NEGATIVE E.U./dl (0.2-1.0)
[2017-02-16 17:39] LABS: URINE BLOOD 1+ (NEGATIVE); URINE PROTEIN 3+ (NEGATIVE)
[2017-02-16 19:11] LABS: URINE BACTERIA RARE /hpf (NONE SEEN); URINE HYALINE CAST 5 /lpf; URINE MUCUS RARE; URINE RBC 12 /hpf (0-3); URINE WBC 2 /hpf (3-5)
[2017-02-17] MEDS: CYCLOBENZAPRINE HCL 10 MG TABLET (FP) PO SCH ×3 (05:57→22:19)
[2017-02-17] MEDS ORDERED: PT OWN MED DRAWER 7, Y5N ONE ×2 (10:14→23:03)
[2017-02-17] MEDS: cloNIDine HCL 0.1 MG TABLET PO SCH ×2 (10:17→22:18)
[2017-02-17] MEDS: LISINOPRIL 20 MG TABLET (FP) PO SCH (10:17)
[2017-02-17] MEDS: NADOLOL 40 MG TABLET (FP) PO SCH (10:18)
[2017-02-17] MEDS: ONDANSETRON 4 MG/2 ML VIAL IVPB PRN (10:32)
--- NOTE | 2017-02-17 12:17 | PN ---
Progress Note (short form) - Note Progress Note: Neurology The patient is a 26 year old female with significant past medical history of HTN , hyperlipidemia, lupus and kidney disease who presents to the ED with persistent headache and dizziness that began earlier today. Patient reports she was in her usual state of health when she developed a headache that progressively gotten worse throughout the day with associated dizziness. Imitrex tried yesterday and Fioricet this morning. Patient reports no relief. She feels it may be more cervicogenic and pointed to occipito-cervical junction. Has been given Flexiril as well. Past History - Past Medical History Anemia: No Asthma: No Cancer: No Cardiac Disorders: Yes CVA: No COPD: No CHF: No Dementia: No Diabetes: No GI Disorders: No Disorders: Yes (kidney, LEAKS PROTEIN) HTN: Yes Hypercholesterolemia: No Liver Disease: No Seizures: No Thyroid Disease: No Other medical history: LUPUS. - Surgical History Abdominal Surgery: Yes Appendectomy: Yes Cardiac Surgery: No Cholecystectomy: No Lung Surgery: No Neurologic Surgery: No Orthopedic Surgery: No - Reproductive History Is Patient Now?: No - Psycho/Social/Smoking Cessation Hx Anxiety: No Suicidal Ideation: No Smoking Status: No Smoking History: Never smoked Have you smoked in the past 12 months: No Number of Cigarettes Smoked Daily: 0 Hx Alcohol Use: No Drug/Substance Use Hx: No Substance Use Type: None Hx Substance Use Treatment: No - Past Medical History Allergies/Adverse Reactions: Allergies Allergy/AdvReac Type Severity Reaction Status Date / Time clindamycin Allergy Severe ANAPHLACTIC Verified 02/14/17 18:54 REACTION doxycycline Allergy Severe ANAPHYLACTIC Verified 02/14/17 18:54 REACTION Penicillins Allergy Severe ANAPHYLACTIC Verified 02/14/17 18:54 REACTION shellfish derived Allergy Severe anaphylactic Verified 02/14/17 18:54 reaction SEAFOOD Allergy Severe ANAPHYLACTIC Uncoded 02/14/17 18:54 REACTION Review of Systems Absent: fever, no chills, no fatigue EYES: Absent: visual changes ENT: Absent: ear pain, no sore throat CARDIOVASCULAR: Absent: chest pain, no palpitations RESPIRATORY: Absent: cough, no SOB GI: +nausea, vomiting Absent: abdominal pain, no constipation, no diarrhea GENITOURINARY: Absent: dysuria, no frequency, no hematuria MUSCULOSKELETAL: Absent: back pain, no arthralgia, no myalgia SKIN: Absent: rash NEURO: +headache, dizziness *Physical Exam - Vital Signs Vital Signs Temperature 97.6 F 02/17/17 10:25 Pulse Rate 70 02/17/17 10:25 Respiratory Rate 20 02/17/17 10:25 Blood Pressure 161/112 02/17/17 10:25 O2 Sat by Pulse Oximetry (%) 96 02/17/17 01:00 GENERAL: Well-appearing, well-nourished. No apparent distress. HEENT: Normocephalic, atraumatic. PERRL, EOM intact. CARDIOVASCULAR: Normal S1, S2. Regular rate and rhythm. PULMONARY: Clear to auscultation bilaterally. ABDOMEN: Soft, non-distended, non-tender. EXTREMITIES: Normal ROM in all four extremities. No gross deformities. SKIN: Warm, dry. No rash NEUROLOGICAL: CN intact Strenght normal sensory intact Finger to nose normal Medical Decision Making 26 year old female with significant past medical history of HTN, hyperlipidemia , lupus and kidney disease who presents to the ED with persistent headache and dizziness that began earlier today. Patient reports she was in her usual state of health when she developed a headache that progressively gotten worse throughout the day with associated dizziness. Imitrex tried yesterday and Fioricet this morning. Patient reports no relief. She feels it may be more cervicogenic and pointed to occipito-cervical junction. Has been given Flexiril as well. Consider low dose of generalized pain reliever (tramdol? ultram?) which may have patient's symptoms. May benefit from PT though not sure if this can done over the weekend.
--- NOTE | 2017-02-17 12:41 | PN ---
Progress Note, Physician Chief Complaint: still occipetal and cervical headache. History of Present Illness: 26 year old woman history of HTN, SLE nephritis, chol, self dcd medications 1-2 months ago in favor of diet and TLC, tension headaches, workup for secondary hypertension negative in the past (unremarkable echo 2013, renal duplex negative 2015) came to ER with 1 day of frontal severe headache, nausea with vomiting and dizziness. Took tylenol with codiene and fell without loc. No head trauma. No palpitations, chest pain, orthopnea, pnd or edema. Baseline exercise tolerance is without limits. Given her PO meds (lisinopril 20mg and nadolol 20 mg) and hydralazine 10 mg iv x 2, labetolol x 1, started on ntg drip. Echocardiogram 02/15/17 normal EF mild MR/TR - Current Medication List Current Medications: Active Medications Acetaminophen/Butalbital/Caffeine (Fioricet -) 1 tablet PO Q6H PRN PRN Reason: HEADACHE Last Admin: 02/17/17 10:17 Dose: 1 tablet Clonidine (Catapres -) 0.1 mg PO BID [facility] Last Admin: 02/17/17 10:17 Dose: 0.1 mg Cyclobenzaprine HCl (Flexeril -) 5 mg PO TID [facility] Last Admin: 02/17/17 05:57 Dose: Not Given Lisinopril (Prinivil) 40 mg PO DAILY [facility] Last Admin: 02/17/17 10:17 Dose: 40 mg Nadolol (Corgard -) 40 mg PO DAILY [facility] Last Admin: 02/17/17 10:18 Dose: 40 mg Ondansetron HCl (Zofran Injection) 4 mg IVPB Q6H PRN PRN Reason: NAUSEA Last Admin: 02/17/17 10:32 Dose: 4 mg - Objective Vital Signs: Vital Signs Temperature 97.6 F 02/17/17 10:25 Pulse Rate 70 02/17/17 10:25 Respiratory Rate 20 02/17/17 10:25 Blood Pressure 161/112 02/17/17 10:25 O2 Sat by Pulse Oximetry (%) 96 02/17/17 01:00 Eyes: Yes: WNL, Conjunctiva Clear HENT: Yes: WNL, Atraumatic, Normocephalic Neck: Yes: WNL, Supple, Trachea Midline Cardiovascular: Yes: WNL, Regular Rate and Rhythm Respiratory: Yes: WNL, Regular, CTA Bilaterally Gastrointestinal: Yes: WNL, Normal Bowel Sounds Musculoskeletal: Yes: WNL Extremities: Yes: WNL Edema: No Integumentary: Yes: WNL Neurological: Yes: WNL, Alert, Oriented ...Motor Strength: WNL Psychiatric: Yes: WNL Labs: CBC, BMP 02/16/17 06:00 02/16/17 06:00 INR, PTT INR 1.01 (0.82-1.09) 02/14/17 20:15 Problem List - Problems (1) Uncontrolled hypertension Assessment/Plan: Continue efforts for pain control, as this will also contribute to her elevated blood pressure. Continue lisinopril 40 mg daily, Continue nadolol 40 mg daily. Echocardiogram is normal. Would not repeat TIMA umaña. She is not orthostatic. Code(s): I10 - ESSENTIAL (PRIMARY) HYPERTENSION
[2017-02-17] MEDS ORDERED: IBUPROFEN 800 MG/8 ML IJ IVPB PRN (14:19)
--- NOTE | 2017-02-17 19:25 | PN ---
Physical Exam: SUBJECTIVE: Patient seen and examined. Has had no relief from headache. Today at 3:30pm developed wavy lines and blurry vision in right eye. Had similar episode two years ago when under a great deal of stress. OBJECTIVE: Vital Signs Period Temp Pulse Resp BP Sys/Sanders Pulse Ox Last 24 Hr 97.6 F-98.1 F 58-73 20-20 133-161/88-112 96-96 GENERAL: The patient is awake, alert, and fully oriented, in no acute distress. HEAD: Normal with no signs of trauma. EYES: PERRL, extraocular movements intact, sclera anicteric, conjunctiva clear. No ptosis. ENT: Ears normal, nares patent, oropharynx clear without exudates, moist mucous membranes. NECK: Trachea midline, full range of motion, supple. LUNGS: Breath sounds equal, clear to auscultation bilaterally, no wheezes, no crackles, no accessory muscle use. HEART: Regular rate and rhythm, S1, S2 without murmur, rub or gallop. ABDOMEN: Soft, nontender, nondistended, normoactive bowel sounds, no guarding, no rebound EXTREMITIES: 2+ pulses, warm, well-perfused, no edema. NEUROLOGICAL: Cranial nerves II through XII grossly intact. Normal speech, steady gait. Laboratory Results - last 24 hr 02/16/17 15:45 Urine RBC 12 Urine WBC 2 Ur Epithelial Cells Rare Urine Bacteria Rare Hyaline Casts 5 Urine Mucus Rare Current Medications Generic Name Dose Route Start Last Admin Trade Name Freq PRN Reason Stop Dose Admin Acetaminophen/Butalbital/Caffeine 1 tablet 02/16/17 12:44 02/17/17 10:17 Fioricet - PO 1 tablet Q6H PRN Administration HEADACHE Clonidine 0.1 mg 02/17/17 10:00 02/17/17 10:17 Catapres - PO 0.1 mg BID SAMMIE Administration Cyclobenzaprine HCl 5 mg 02/15/17 19:00 02/17/17 14:35 Flexeril - PO Not Given TID SAMMIE Hydralazine HCl 10 mg 02/17/17 20:00 Apresoline Injection - IVPUSH 02/17/17 20:01 ONCE ONE Hydralazine HCl 10 mg 02/17/17 22:00 Apresoline - PO TID SAMMIE Lisinopril 40 mg 02/15/17 17:45 02/17/17 10:17 Prinivil PO 40 mg DAILY SAMMIE Administration Nadolol 40 mg 02/16/17 10:00 02/17/17 10:18 Corgard - PO 40 mg DAILY SAMMIE Administration Ondansetron HCl 4 mg 02/15/17 03:41 02/17/17 10:32 Zofran Injection IVPB 4 mg Q6H PRN Administration NAUSEA ASSESSMENT/PLAN: 26 year-old woman with a PMH of HTN, HLD, and SLE nephritis, who self dc'd all medications 1-2 months ago in favor of diet and life-style changes. Admitted for hypertensive urgency, headache. Hypertensive urgency --BP remains elevated --clonidine 0.1mg BID --continue lisinopril, nadolol, clonidine, add hydralazine IVP x 1 and then PO --echo unremarkable Tension v. migraine headache with visual changes --onset of right eye visual disturbance described as wavy lines and double vision ("I see two clocks, one above the other") --MRI brain and c-spine pending --continue flexeril TID (patient agrees to take, previously refusing) --Naprosyn BID F/E/N Fluids: PO intake adequate Electrolytes: replete as indicated Nutrition: low sodium DVT prophylaxis: oob, ambulation Dispo: continues to require inpatient care. Visit type - Emergency Visit Emergency Visit: Yes ED Registration Date: 02/15/17 Care time: The patient presented to the Emergency Department on the above date and was hospitalized for further evaluation of their emergent condition. - New Patient This patient is new to me today: No - Critical Care Critical Care patient: No
[2017-02-17] MEDS ORDERED: hydrALAZINE HCL 20 MG/ML VIAL IVPUSH ONE (20:00)
[2017-02-17] MEDS: hydrALAZINE HCL 10 MG TABLET PO SCH (22:19)
[2017-02-17] MEDS: NAPROXEN 500 MG TABLET (FP) PO SCH (22:44)
[2017-02-18] MEDS: CYCLOBENZAPRINE HCL 10 MG TABLET (FP) PO SCH ×2 (05:33→13:51)
[2017-02-18] MEDS: hydrALAZINE HCL 10 MG TABLET PO SCH ×2 (05:34→13:52)
[2017-02-18 07:25] LABS: BASOPHIL 0.8 % (0-2.0); EOSINOPHIL 4.4 % (0-4.5); MCHC 34.1 g/dl (32.0-36.0); MEAN PLT VOLUME 8.5 fl (7.5-11.1); NEUTROPHILS 57.1 % (42.8-82.8); PLATELET COUNT 342 K/MM3 (134-434); WHITE BLOOD COUNT 10.8 K/mm3 (4.0-10.0)
[2017-02-18 07:44] LABS: ALBUMIN 1.8 g/dl (3.4-5.0); ALK PHOS 46 U/L (45-117); ANION GAP 9 (8-16); BILIRUBIN,TOTAL 0.3 mg/dL (0.2-1.0); CALCIUM 7.6 mg/dL (8.5-10.1); CO2 26 mmol/L (21-32); COCKROFT - GAULT 139.5275; CREATININE 0.7 mg/dL (0.55-1.02); GLUCOSE,RANDOM 90 mg/dL (74-106); MAGNESIUM 1.9 mg/dL (1.8-2.4); SGOT/AST 11 U/L (15-37); SGPT/ALT 13 U/L (12-78); TOT PROT 4.1 g/dl (6.4-8.2)
[2017-02-18 08:17] LABS: C-REACTIVE PROTEIN < 0.3 MG/DL (0.00-0.3)
[2017-02-18 09:16] LABS: ERYTHROCYTE SEDIMENTATION RATE 55 mm/hr (0-20)
[2017-02-18] MEDS: LISINOPRIL 20 MG TABLET (FP) PO SCH (10:13)
[2017-02-18] MEDS: cloNIDine HCL 0.1 MG TABLET PO SCH (10:13)
[2017-02-18] MEDS: NADOLOL 40 MG TABLET (FP) PO SCH (10:14)
--- NOTE | 2017-02-18 11:41 | PN ---
Progress Note, Physician Chief Complaint: still with cervical pain and occipetal headache - Current Medication List Current Medications: Active Medications Acetaminophen/Butalbital/Caffeine (Fioricet -) 1 tablet PO Q6H PRN PRN Reason: HEADACHE Last Admin: 02/17/17 10:17 Dose: 1 tablet Clonidine (Catapres -) 0.1 mg PO BID [facility] Last Admin: 02/18/17 10:13 Dose: 0.1 mg Cyclobenzaprine HCl (Flexeril -) 5 mg PO TID [facility] Last Admin: 02/18/17 05:33 Dose: 5 mg Hydralazine HCl (Apresoline -) 10 mg PO TID [facility] Last Admin: 02/18/17 05:34 Dose: 10 mg Lisinopril (Prinivil) 40 mg PO DAILY [facility] Last Admin: 02/18/17 10:13 Dose: 40 mg Nadolol (Corgard -) 40 mg PO DAILY [facility] Last Admin: 02/18/17 10:14 Dose: 40 mg Naproxen (Naprosyn -) 500 mg PO BID [facility] Last Admin: 02/17/17 22:44 Dose: 500 mg Ondansetron HCl (Zofran Injection) 4 mg IVPB Q6H PRN PRN Reason: NAUSEA Last Admin: 02/17/17 10:32 Dose: 4 mg - Objective Vital Signs: Vital Signs Temperature 98.0 F 02/18/17 09:00 Pulse Rate 65 02/18/17 09:00 Respiratory Rate 19 02/18/17 09:00 Blood Pressure 127/88 02/18/17 09:00 O2 Sat by Pulse Oximetry (%) 96 02/17/17 01:00 Eyes: Yes: WNL, Conjunctiva Clear HENT: Yes: WNL, Atraumatic, Normocephalic Neck: Yes: WNL, Supple, Trachea Midline Cardiovascular: Yes: WNL, Regular Rate and Rhythm Respiratory: Yes: WNL, Regular, CTA Bilaterally Gastrointestinal: Yes: WNL, Normal Bowel Sounds Musculoskeletal: Yes: WNL Extremities: Yes: WNL Edema: No Integumentary: Yes: WNL Neurological: Yes: WNL, Alert, Oriented ...Motor Strength: WNL Psychiatric: Yes: WNL Labs: CBC, BMP 02/18/17 06:15 02/18/17 06:15 INR, PTT INR 1.01 (0.82-1.09) 02/14/17 20:15 Problem List - Problems (1) Uncontrolled hypertension Assessment/Plan: BP is much better. Continue efforts for pain control, as this will also contribute to her elevated blood pressure. Continue current regimen. Echocardiogram is normal. Would not repeat TIMA CAMPBELL as outpatient. Code(s): I10 - ESSENTIAL (PRIMARY) HYPERTENSION
[2017-02-18] MEDS: NAPROXEN 500 MG TABLET (FP) PO SCH (11:44)
[2017-02-18 13:55] VITALS: BP 139/87; PULSE 60; TEMP 98.8
--- NOTE | 2017-02-18 17:16 | DS ---
Physical Exam: SUBJECTIVE: Patient seen and examined OBJECTIVE: Vital Signs Period Temp Pulse Resp BP Sys/Sanders Pulse Ox Last 24 Hr 97.8 F-98.8 F 57-65 18-20 104-148/59-103 96-96 PHYSICAL EXAM GENERAL: The patient is awake, alert, and fully oriented, in no acute distress. HEAD: Normal with no signs of trauma. EYES: PERRL, extraocular movements intact, sclera anicteric, conjunctiva clear. No ptosis. ENT: Ears normal, nares patent, oropharynx clear without exudates, moist mucous membranes. NECK: Trachea midline, full range of motion, supple. LUNGS: Breath sounds equal, clear to auscultation bilaterally, no wheezes, no crackles, no accessory muscle use. HEART: Regular rate and rhythm, S1, S2 without murmur, rub or gallop. ABDOMEN: Soft, nontender, nondistended, normoactive bowel sounds, no guarding, no rebound EXTREMITIES: 2+ pulses, warm, well-perfused, no edema. NEUROLOGICAL: Cranial nerves II through XII grossly intact. Normal speech, steady gait. Laboratory Results - last 24 hr 02/18/17 02/18/17 06:15 06:15 WBC 10.8 H RBC 4.59 Hgb 13.8 Hct 40.4 MCV 88.0 MCHC 34.1 RDW 13.0 Plt Count 342 MPV 8.5 Neutrophils % 57.1 D Lymphocytes % 31.6 D Monocytes % 6.1 D Eosinophils % 4.4 D Basophils % 0.8 D ESR 55 H Sodium 144 Potassium 4.0 Chloride 109 H Carbon Dioxide 26 Anion Gap 9 BUN 15 Creatinine 0.7 Creat Clearance w eGFR > 60 Random Glucose 90 D Calcium 7.6 L Magnesium 1.9 Total Bilirubin 0.3 D AST 11 L ALT 13 Alkaline Phosphatase 46 D C-Reactive Protein < 0.3 Total Protein 4.1 L Albumin 1.8 L HOSPITAL COURSE: Date of Admission:02/15/17 Date of Discharge: 02/18/17 26 year-old woman with a PMH of HTN, HLD, and SLE nephritis, who self dc'd all medications 1-2 months ago in favor of diet and life-style changes. Admitted for hypertensive urgency, headache. Hypertensive urgency --BP 197/137 on arrival --over the course of the hospital stay, four medications were required to bring BP under control: lisinopril 40mg, nadolol 40mg, clonidine 0.1mg BID, and hydralazine 10mg TID --02/16/17 Echo: LV normal; RV normal; mild MR, mild TR Tension v. 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 Lisinopril 2. Nadolol 3. Clonidine 4. Hydralazine Take these medications as directed. It is VERY important you follow up this week with Dr. Montano, your professor of fine art. As we discussed, you may also want to follow up with the following providers: Dr. Blaine Mukherjee - opthalmologist - info enclosed in this packet Dr. Joe Davis, professor of fine art at [employer]; [address] [place] [address] [address], [place] [address] [phone] Dr. Jennifer Brown - orthopedic surgeon - [facility] You have been provided with copies of imaging reports prepared during your hospital stay. If you want copies of the actual images you can obtain them from Medical Records during normal business hours. RETURN TO THE EMERGENCY ROOM FOR ANY NEW OR WORSENING SYMPTOMS. Referrals: Ania Roy MD [Staff Physician] - Disposition: HOME - Home Medications Comprehensive Discharge Medication List: Ambulatory Orders Clonidine HCl [Catapres -] 0.1 mg PO BID #60 tablet 02/18/17 Hydralazine HCl [Apresoline -] 10 mg PO TID #90 tablet 02/18/17 Lisinopril [Prinivil] 40 mg PO DAILY #30 tablet 02/18/17 Nadolol [Corgard -] 40 mg PO DAILY #30 tablet 02/18/17 This patient is new to me today: No Emergency Visit: Yes ED Registration Date: 02/15/17 Care time: The patient presented to the Emergency Department on the above date and was hospitalized for further evaluation of their emergent condition. Critical Care patient: No - Discharge Referral Referred to [facility] Med P.C.: No
== END 2017-02-18 17:51 | disposition home or self-care (01) | DRG 199 ==
LOC: JER 18:41 → JERBED 02-15 02:36 → UNDOADMOB 02-15 02:46 → JERBED 02-15 02:46 → OBSVTOIN 02-15 03:41 → J4S 02-15 21:39
PROVIDERS: ADMIT Internal Medicine; ATTEND Nurse Practitioner Acute Care
DX: I16.0 Hypertensive urgency (principal); M32.14 Glomerular disease in systemic lupus erythematosus; E78.00 Pure hypercholesterolemia, unspecified; G44.209 Tension-type headache, unspecified, not intractable; R11.2 Nausea with vomiting, unspecified; Z88.0 Allergy status to penicillin
CPT/HCPCS: 36415; 70450-TC; 70551-TC; 71010-TC; 72141-TC; 80053; 81003; 81015; 82550; 83735; 83880; 84100; 84484; 84703; 85025; 85027; 85610; 85651; 86140; 87086; 93005; 93010; 93306-TC; 99285-25; G0378

== ENCOUNTER 2017-11-20 03:06 | Inpatient (IN) | payer OTHER ==
[2017-11-20 03:29] VITALS: BMI 30.2
[2017-11-20] MEDS ORDERED: ONDANSETRON 4 MG/2 ML VIAL IVPUSH STA ×2 (03:33→05:28)
[2017-11-20] MEDS ORDERED: morphine CARPU-JECT 2 MG/1 ML DISP.SYRIN IVPUSH ONE (03:33)
[2017-11-20] MEDS ORDERED: morphine CARPU-JECT 10 MG/1 ML DISP.SYRIN ONE ×2 (03:34→17:49)
[2017-11-20] MEDS ORDERED: ONDANSETRON 4 MG/2 ML VIAL ONE ×4 (03:34→20:43)
--- NOTE | 2017-11-20 03:35 | PDOC ---
History of Present Illness - History of Present Illness Initial Comments: 11/20/17 03:42 The patient is a 27 year old female with significant past medical history of HTN , hyperlipidemia, lupus and kidney disease who presents to the ED with chest pain, back pain, dizziness and vomit that began around 11pm yesterday. Patient reports that out of nowhere she began experiencing a burning sensation down the right side of her chest that radiates to her back near her kidney. At first she thought she was laying on her side wrong but after an hour passed and the pain persisted, she realized that was not the case. She also admits to dizziness and vomiting. She denies SOB, fever, chills, cough, abdominal pain, dysuria, & frequency. She denies recent travel, denies taking control. Allergies: doxycycline, penicillin, clindamycin Social history: No alcohol, tobacco or drug use reported. Past surgical history: Appendectomy PCP: Dr. Chris Cruz <Nayeli Troy - Last Filed: 11/20/17 03:58> - General History Source: Patient <Jimbo Obrien - Last Filed: 11/20/17 19:16> - General Chief Complaint: Pain, Acute Stated Complaint: KIDNEY PAIN Time Seen by Provider: 11/20/17 03:31 Past History <Nayeli Troy - Last Filed: 11/20/17 03:58> - Past Medical History Anemia: No Asthma: No Cancer: No Cardiac Disorders: Yes CVA: No COPD: No CHF: No Dementia: No Diabetes: No GI Disorders: No Disorders: Yes (kidney, LEAKS PROTEIN) HTN: Yes Hypercholesterolemia: No Liver Disease: No Seizures: No Thyroid Disease: No - Surgical History Abdominal Surgery: Yes Appendectomy: Yes Cardiac Surgery: No Cholecystectomy: No Lung Surgery: No Neurologic Surgery: No Orthopedic Surgery: No - Suicide/Smoking/Psychosocial Hx Smoking Status: No Smoking History: Never smoked Have you smoked in the past 12 months: No Number of Cigarettes Smoked Daily: 0 Information on smoking cessation initiated: No Hx Alcohol Use: No Drug/Substance Use Hx: No Substance Use Type: None Hx Substance Use Treatment: No <Jimbo Obrien - Last Filed: 11/20/17 19:16> - Past Medical History Allergies/Adverse Reactions: Allergies Allergy/AdvReac Type Severity Reaction Status Date / Time clindamycin Allergy Severe ANAPHLACTIC Verified 11/20/17 03:26 REACTION doxycycline Allergy Severe ANAPHYLACTIC Verified 11/20/17 03:26 REACTION Penicillins Allergy Severe ANAPHYLACTIC Verified 11/20/17 03:26 REACTION shellfish derived Allergy Severe anaphylactic Verified 11/20/17 03:26 reaction SEAFOOD Allergy Severe ANAPHYLACTIC Uncoded 11/20/17 03:26 REACTION Home Medications: Ambulatory Orders Lisinopril [Prinivil] 40 mg PO DAILY #30 tablet 02/18/17 Review of Systems - Review of Systems Comments:: 11/20/17 03:43 CONSTITUTIONAL: Absent: fever, no chills, no fatigue EYES: Absent: visual changes ENT: Absent: ear pain, no sore throat CARDIOVASCULAR: Absent: chest pain, no palpitations RESPIRATORY: Absent: cough, no SOB GI: Absent: abdominal pain, no nausea, no vomiting, no constipation, no diarrhea GENITOURINARY: Absent: dysuria, no frequency, no hematuria MUSCULOSKELETAL: Present: right-sided CVA tenderness. Absent: no arthralgia, no myalgia SKIN: Absent: rash <Nayeli Troy - Last Filed: 11/20/17 03:58> *Physical Exam - Vital Signs Last Vital Signs Temp Pulse Resp BP Pulse Ox 97.6 F 89 14 200/150 100 11/20/17 03:27 11/20/17 03:27 11/20/17 03:27 11/20/17 03:27 11/20/17 03:27 - Physical Exam Comments: 11/20/17 03:44 GENERAL: Well-appearing, well-nourished. Moderate distress HEENT: Normocephalic, atraumatic. PERRL, EOM intact. CARDIOVASCULAR: Normal S1, S2. Regular rate and rhythm. PULMONARY: Clear to auscultation bilaterally. ABDOMEN: Soft, non-distended, non-tender. BACK: Right CVA tenderness. EXTREMITIES: Normal ROM in all four extremities. No gross deformities. SKIN: Warm, dry. No rash NEUROLOGICAL: No focal neurological deficits. <Nayeli Troy - Last Filed: 11/20/17 03:58> - Vital Signs Last Vital Signs Temp Pulse Resp BP Pulse Ox 97.6 F 89 14 200/150 100 11/20/17 03:27 11/20/17 03:27 11/20/17 03:27 11/20/17 03:27 11/20/17 03:27 <Jimbo Obrien - Last Filed: 11/20/17 19:16> Heart Score/ECG Review - ECG Intrepretation Comment:: 11/20/17 03:58 Normal sinus rhythm Possible left atrial enlargement Vent rate. 72 bpm <Nayeli Troy - Last Filed: 11/20/17 03:58> ED Treatment Course - LABORATORY CBC & Chemistry Diagram: 11/20/17 03:55 11/20/17 03:55 <Jimbo Obrien - Last Filed: 11/20/17 19:16> Medical Decision Making - Medical Decision Making 11/20/17 05:[address] Micah: The scribe's documentation has been prepared under my direction and personally reviewed by me in its entirery. I confirm that the note above accurately reflects all work, treatment, procedures, and medical decision making performed by me. All labs include urinalysis return to be normal. Patient has frequent urinary tract infections, actual symptoms. Patient will receive antibiotics and encouraged to follow up with her primary care physician. 11/20/17 19:16 Pt is now admitted for further evaluation. <Jimbo Obrien - Last Filed: 11/20/17 19:16> *DC/Admit/Observation/Transfer - Attestations Scribe Attestion: 11/20/17 03:45 Documentation prepared by Nayeli Troy, acting as medical support assistant for Jimbo Obrien MD. <Nayeli Troy - Last Filed: 11/20/17 03:58> <Jimbo Obrien - Last Filed: 11/20/17 19:16> Diagnosis at time of Disposition: Right flank pain Lupus (systemic lupus erythematosus) Qualifiers: Systemic lupus erythematosus type: unspecified Systemic lupus erythematosus organ involvement: unspecified Qualified Code(s): M32.9 - Systemic lupus erythematosus, unspecified - Discharge Dispostion Condition at time of disposition: Fair
[2017-11-20 04:07] LABS: BASO % 0.7 % (0-2.0); HEMATOCRIT 46.1 % (32.4-45.2); HEMOGLOBIN 15.7 GM/dL (10.7-15.3); LYMPH % 19.9 % (8-40); MCH 29.8 pg (25.7-33.7); MEAN CELL VOLUME 87.9 fl (80-96); MEAN PLT VOLUME 9.4 fl (7.5-11.1); NEUT % 69.4 % (42.8-82.8); PLATELET COUNT 360 K/MM3 (134-434); RBC 5.25 M/mm3 (3.60-5.2); RDW 13.1 % (11.6-15.6); WHITE BLOOD COUNT 11.9 K/mm3 (4.0-10.0)
[2017-11-20 04:18] LABS: INR 0.91 (0.82-1.09); PROTHROMBIN TIME (PATIENT) 10.3 SEC (9.98-11.88)
[2017-11-20 04:31] LABS: ALBUMIN 2.2 g/dl (3.4-5.0); ANION GAP 11 (8-16); BILIRUBIN,TOTAL 0.3 mg/dL (0.2-1.0); BLOOD UREA NITROGEN 11 mg/dL (7-18); CALCIUM 7.8 mg/dL (8.5-10.1); CHLORIDE 110 mmol/L (98-107); CO2 23 mmol/L (21-32); CREATININE 0.8 mg/dL (0.55-1.02); GLUCOSE,RANDOM 100 mg/dL (74-106); SGPT/ALT 20 U/L (12-78); SODIUM 144 mmol/L (136-145); TOT PROT 5.2 g/dl (6.4-8.2)
[2017-11-20 04:33] LABS: ALK PHOS 66 U/L (45-117)
[2017-11-20] MEDS ORDERED: HYDROmorphone HCL CARPU-JECT 1 MG/1 ML DISP.SYRIN IVPUSH ONE ×2 (04:33→08:15)
[2017-11-20] MEDS ORDERED: METOCLOPRAMIDE HCL INJECTION 10 MG/2 ML VIAL IVPUSH ONE (04:33)
[2017-11-20 04:36] LABS: MAGNESIUM 1.7 mg/dL (1.8-2.4); SGOT/AST 26 U/L (15-37)
[2017-11-20] MEDS ORDERED: METOCLOPRAMIDE HCL INJECTION 10 MG/2 ML VIAL ONE (04:38)
[2017-11-20] MEDS ORDERED: HYDROmorphone HCL CARPU-JECT 1 MG/1 ML DISP.SYRIN ONE ×2 (04:38→08:53)
[2017-11-20 05:13] LABS: URINE APPEARANCE CLEAR; URINE BILIRUBIN NEGATIVE (NEGATIVE); URINE BLOOD NEGATIVE (NEGATIVE); URINE COLOR STRAW; URINE GLUCOSE (UA) NEGATIVE (NEGATIVE); URINE KETONE NEGATIVE (NEGATIVE); URINE LEUK ESTERASE NEGATIVE (NEGATIVE); URINE NITRITE NEGATIVE (NEGATIVE); URINE UROBILINOGEN NEGATIVE mg/dL (0.2-1.0)
[2017-11-20 05:30] LABS: URINE PROTEIN 3+ (NEGATIVE)
[2017-11-20 05:31] LABS: EPI CELLS RARE /HPF (FEW); URINE BACTERIA RARE /hpf (NONE SEEN); URINE HYALINE CAST 4 /lpf; URINE MUCUS RARE
[2017-11-20] MEDS ORDERED: LEVOFLOXACIN 500 MG IVPB 500 MG/100 ML BAG IVPB ONE ×2 (05:45→05:49)
[2017-11-20] MEDS ORDERED: hydrALAZINE HCL 20 MG/ML VIAL IVPUSH ONE (06:32)
[2017-11-20] MEDS ORDERED: hydrALAZINE HCL 20 MG/ML VIAL ONE ×2 (06:34→18:11)
[2017-11-20] MEDS ORDERED: ONDANSETRON 4 MG/2 ML VIAL IVPUSH ONE (08:15)
[2017-11-20] MEDS ORDERED: SODIUM CHLORIDE 1,000 ML IV ONE (08:15)
--- NOTE | 2017-11-20 08:33 | PDOC ---
*Physical Exam - Vital Signs Last Vital Signs Temp Pulse Resp BP Pulse Ox 97.6 F 122 H 22 175/135 99 11/20/17 03:27 11/20/17 08:01 11/20/17 08:01 11/20/17 08:01 11/20/17 08:01 <Ashtyn Rashid - Last Filed: 11/20/17 09:40> - Vital Signs Last Vital Signs Temp Pulse Resp BP Pulse Ox 97.6 F 122 H 22 175/135 99 11/20/17 03:27 11/20/17 08:01 11/20/17 08:01 11/20/17 08:01 11/20/17 08:01 - Physical Exam Comments: 11/20/17 08:29 Blood pressure 160 systolic, heart rate 1:30 in the setting of recurring pain and now nausea/vomiting, actively retching and spitting saliva Slight discomfort to the right flank, no bruising or swelling Abdomen is benign, cardiopulmonary exam is normal Neurologically intact <Carlos Orosco - Last Filed: 11/20/17 09:53> ED Treatment Course - LABORATORY CBC & Chemistry Diagram: 11/20/17 03:55 11/20/17 03:55 - ADDITIONAL ORDERS Additional order review: Laboratory Results 11/20/17 11/20/17 11/20/17 04:05 04:05 03:55 PT with INR INR Sodium 144 Potassium 4.0 Chloride 110 H Carbon Dioxide 23 Anion Gap 11 BUN 11 Creatinine 0.8 Creat Clearance w eGFR > 60 Random Glucose 100 Calcium 7.8 L Magnesium 1.7 L Total Bilirubin 0.3 AST 26 D ALT 20 D Alkaline Phosphatase 66 Creatine Kinase 72 Troponin I < 0.02 Total Protein 5.2 L D Albumin 2.2 L Serum , Qual Negative Urine Color Straw Urine Appearance Clear Urine pH 7.0 Ur Specific [place] 1.010 Urine Protein 3+ H Urine Glucose (UA) Negative Urine Ketones Negative Urine Blood Negative Urine Nitrite Negative Urine Bilirubin Negative Urine Urobilinogen Negative Ur Leukocyte Esterase Negative Urine WBC (Auto) 3 Urine RBC (Auto) 2 Ur Epithelial Cells Rare Urine Bacteria Rare Hyaline Casts 4 Urine Mucus Rare 11/20/17 03:55 PT with INR 10.30 INR 0.91 Sodium Potassium Chloride Carbon Dioxide Anion Gap BUN Creatinine Creat Clearance w eGFR Random Glucose Calcium Magnesium Total Bilirubin AST ALT Alkaline Phosphatase Creatine Kinase Troponin I Total Protein Albumin Serum , Qual Urine Color Urine Appearance Urine pH Ur Specific [place] Urine Protein Urine Glucose (UA) Urine Ketones Urine Blood Urine Nitrite Urine Bilirubin Urine Urobilinogen Ur Leukocyte Esterase Urine WBC (Auto) Urine RBC (Auto) Ur Epithelial Cells Urine Bacteria Hyaline Casts Urine Mucus 11/20/17 03:55 RBC 5.25 H MCV 87.9 MCHC 34.0 RDW 13.1 MPV 9.4 D Neutrophils % 69.4 D Lymphocytes % 19.9 D Monocytes % 6.0 Eosinophils % 4.0 Basophils % 0.7 - Medications Given in the ED: ED Medications Discontinued Medications Generic Name Dose Route Start Last Admin Trade Name Freq PRN Reason Stop Dose Admin Hydralazine HCl 10 mg 11/20/17 06:32 11/20/17 06:42 Apresoline Injection - IVPUSH 11/20/17 06:33 10 mg ONCE ONE Administration Hydromorphone HCl 0.5 mg 11/20/17 04:33 11/20/17 04:37 Dilaudid Injection - IVPUSH 11/20/17 04:34 0.5 mg ONCE ONE Administration Hydromorphone HCl 1 mg 11/20/17 08:15 11/20/17 09:03 Dilaudid Injection - IVPUSH 11/20/17 08:16 1 mg ONCE ONE Administration Levofloxacin 500 mg in 100 mls @ 100 mls/hr 11/20/17 05:45 11/20/17 06:01 Levaquin 500 Mg Premixed Ivpb - IVPB 11/20/17 06:44 100 mls/hr ONCE ONE Administration Sodium Chloride 1,000 mls @ 1,000 mls/hr 11/20/17 08:15 11/20/17 09:04 Normal Saline - IV 11/20/17 09:14 1,000 mls/hr ONCE ONE Administration Metoclopramide HCl 10 mg 11/20/17 04:33 11/20/17 04:37 Reglan Injection - IVPUSH 11/20/17 04:34 10 mg ONCE ONE Administration Morphine Sulfate 8 mg 11/20/17 03:33 11/20/17 03:59 Morphine Injection - IVPUSH 11/20/17 03:34 8 mg ONCE ONE Administration Ondansetron HCl 4 mg 11/20/17 03:33 11/20/17 03:59 Zofran Injection IVPUSH 11/20/17 03:34 4 mg ONCE STA Administration Ondansetron HCl 4 mg 11/20/17 05:28 11/20/17 05:35 Zofran Injection IVPUSH 11/20/17 05:29 4 mg ONCE STA Administration Ondansetron HCl 4 mg 11/20/17 08:15 11/20/17 09:00 Zofran Injection IVPUSH 11/20/17 08:16 4 mg ONCE ONE Administration <Ashtyn Rashid - Last Filed: 11/20/17 09:40> - LABORATORY CBC & Chemistry Diagram: 11/20/17 03:55 11/20/17 03:55 - ADDITIONAL ORDERS Additional order review: Laboratory Results 11/20/17 11/20/17 11/20/17 04:05 04:05 03:55 PT with INR INR Sodium 144 Potassium 4.0 Chloride 110 H Carbon Dioxide 23 Anion Gap 11 BUN 11 Creatinine 0.8 Creat Clearance w eGFR > 60 Random Glucose 100 Calcium 7.8 L Magnesium 1.7 L Total Bilirubin 0.3 AST 26 D ALT 20 D Alkaline Phosphatase 66 Creatine Kinase 72 Troponin I < 0.02 Total Protein 5.2 L D Albumin 2.2 L Serum , Qual Negative Urine Color Straw Urine Appearance Clear Urine pH 7.0 Ur Specific [place] 1.010 Urine Protein 3+ H Urine Glucose (UA) Negative Urine Ketones Negative Urine Blood Negative Urine Nitrite Negative Urine Bilirubin Negative Urine Urobilinogen Negative Ur Leukocyte Esterase Negative Urine WBC (Auto) 3 Urine RBC (Auto) 2 Ur Epithelial Cells Rare Urine Bacteria Rare Hyaline Casts 4 Urine Mucus Rare 11/20/17 03:55 PT with INR 10.30 INR 0.91 Sodium Potassium Chloride Carbon Dioxide Anion Gap BUN Creatinine Creat Clearance w eGFR Random Glucose Calcium Magnesium Total Bilirubin AST ALT Alkaline Phosphatase Creatine Kinase Troponin I Total Protein Albumin Serum , Qual Urine Color Urine Appearance Urine pH Ur Specific [place] Urine Protein Urine Glucose (UA) Urine Ketones Urine Blood Urine Nitrite Urine Bilirubin Urine Urobilinogen Ur Leukocyte Esterase Urine WBC (Auto) Urine RBC (Auto) Ur Epithelial Cells Urine Bacteria Hyaline Casts Urine Mucus 11/20/17 03:55 RBC 5.25 H MCV 87.9 MCHC 34.0 RDW 13.1 MPV 9.4 D Neutrophils % 69.4 D Lymphocytes % 19.9 D Monocytes % 6.0 Eosinophils % 4.0 Basophils % 0.7 - RADIOLOGY Radiology Studies Ordered: Category Date Time Status CHEST X-RAY PORTABLE* [RAD] Stat Radiology 11/20/17 08:18 Ordered - Medications Given in the ED: ED Medications Discontinued Medications Generic Name Dose Route Start Last Admin Trade Name Freq PRN Reason Stop Dose Admin Hydralazine HCl 10 mg 11/20/17 06:32 11/20/17 06:42 Apresoline Injection - IVPUSH 11/20/17 06:33 10 mg ONCE ONE Administration Hydromorphone HCl 0.5 mg 11/20/17 04:33 11/20/17 04:37 Dilaudid Injection - IVPUSH 11/20/17 04:34 0.5 mg ONCE ONE Administration Levofloxacin 500 mg in 100 mls @ 100 mls/hr 11/20/17 05:45 11/20/17 06:01 Levaquin 500 Mg Premixed Ivpb - IVPB 11/20/17 06:44 100 mls/hr ONCE ONE Administration Metoclopramide HCl 10 mg 11/20/17 04:33 11/20/17 04:37 Reglan Injection - IVPUSH 11/20/17 04:34 10 mg ONCE ONE Administration Morphine Sulfate 8 mg 11/20/17 03:33 11/20/17 03:59 Morphine Injection - IVPUSH 11/20/17 03:34 8 mg ONCE ONE Administration Ondansetron HCl 4 mg 11/20/17 03:33 11/20/17 03:59 Zofran Injection IVPUSH 11/20/17 03:34 4 mg ONCE STA Administration Ondansetron HCl 4 mg 11/20/17 05:28 11/20/17 05:35 Zofran Injection IVPUSH 11/20/17 05:29 4 mg ONCE STA Administration <Carlos Orosco - Last Filed: 11/20/17 09:53> Medical Decision Making - Medical Decision Making 11/20/17 08:29 Received signout on this 27-year-old female with significant medical history of hypertension, lupus presents with acute onset of right flank/mid back pain that began acutely last night while lying in bed. Associated symptoms of nausea/ vomiting, no urinary complaints. Noted to be hypertensive on arrival, treated with hydralazine with some response Received morphine and then hydromorphone for pain with some relief, pain now recurring Labs notable for white count of 14, normal creatinine, urinalysis with low white and red blood cells. Initial suspicion of dysuria so she was treated empirically with antibiotics. CT of the abdomen and pelvis without contrast was ordered and shows no acute pathology. Discussed risk of possible renal infarct or vascular process given her history of lupus and significantly elevated blood pressures. Patient has severe contrast ALLERGY, so will defer IV contrast study at this time. Treat pain and nausea, reassess blood pressure 1 more comfortable. We'll check renal ultrasound with Dopplers, will need admission. Primary physician is Dr. Cruz, hospitalist called. 11/20/17 09:[address] Bartholomew, accepted for inpatient med/surg by Dr. Thompson <Carlos Orosco - Last Filed: 11/20/17 09:53> *DC/Admit/Observation/Transfer <Ashtyn Rashid - Last Filed: 11/20/17 09:40> - Discharge Dispostion Admit: Yes <Carlos Orosco - Last Filed: 11/20/17 09:53> Diagnosis at time of Disposition: Right flank pain Lupus (systemic lupus erythematosus) Qualifiers: Systemic lupus erythematosus type: unspecified Systemic lupus erythematosus organ involvement: unspecified Qualified Code(s): M32.9 - Systemic lupus erythematosus, unspecified - Discharge Dispostion Condition at time of disposition: Fair - Referrals Referrals: Chris Cruz MD [Primary Care Provider] - - Patient Instructions - Post Discharge Activity
--- NOTE | 2017-11-20 09:34 | HP ---
CHIEF COMPLAINT: Back pain radiating to chest PCP: Dr. Cruz Cardio: Dr. Alonzo Nephro: Dr. Roy HISTORY OF PRESENT ILLNESS: 27 y/o F w/PMH of lupus nephritis, HTN, frequent UTIs presents to the ER with sudden onset of R sided lower back pain (rated 10/10) that started at approximately 11 pm yesterday night. The pain radiated from back to chest but there was no radiation elsewhere including to jaw or to arms. Pt also denies any tearing type pain in chest. She states this is the first time she has felt this combination of symptoms and symptoms did not change with position. She did not take any medication to help relieve symptoms. She has felt nauseous due to pain and has vomited since arriving in ER. Vomitus was clear in color with no blood. She states she is only on lisinopril for blood pressure management and has run out of her lisinopril for 1 week now otherwise she had been taking the medication as prescribed. She denies fevers, chills, SOB, abdominal pain, lower extremity swelling, dysuria, constipation, diarrhea, blood in urine, HU, photophobia, visual changes , focal weakness, dysarthria, light-headedness, sick contacts, recent travel. Pain is now better at time of interview (rated 6/10). Pt states she feels better as BP has come down. Pt also states she has had hypertensive emergency/urgency in the past when she did not take her anti-hypertensives. Pt also mentioned that her diagnosis of lupus nephritis is not definitive and she had her second kidney biopsy in October and is awaiting results for biopsy. ER course was notable for: (1) Abd/Pelvis non-contrast CT (pt has severe contrast allergy); CXR (2) HZN, Levaquin, dilaudid, morphine, zofran, reglan (3) Recent Travel: denies PAST MEDICAL HISTORY: Lupus nephritis (on-going investigation for definitive diagnosis); HTN, frequent UTIs PAST SURGICAL HISTORY: appendectomy, tonsillectomy, "ortho surgeries in past" as per pt Social History: Smoking: denies Alcohol: denies Drugs: denies Family History: Father: Diabetes Allergies clindamycin Allergy (Severe, Verified 11/20/17 03:26) ANAPHLACTIC REACTION doxycycline Allergy (Severe, Verified 11/20/17 03:26) ANAPHYLACTIC REACTION Penicillins Allergy (Severe, Verified 11/20/17 03:26) ANAPHYLACTIC REACTION shellfish derived Allergy (Severe, Verified 11/20/17 03:26) anaphylactic reaction SEAFOOD Allergy (Severe, Uncoded 11/20/17 03:26) ANAPHYLACTIC REACTION HOME MEDICATIONS: Home Medications Medication Instructions Recorded Lisinopril [Prinivil] 40 mg PO DAILY #30 tablet 02/18/17 REVIEW OF SYSTEMS CONSTITUTIONAL: Absent: fever, chills HEENT: Absent: visual changes CARDIOVASCULAR: +chest pain (radiated from R back), palpitations Absent: syncope, lightheadedness, peripheral edema RESPIRATORY: Absent: cough, shortness of breath, dyspnea with exertion GASTROINTESTINAL: +nausea, vomiting Absent: abdominal pain, abdominal distension, diarrhea, constipation, hematochezia GENITOURINARY: Absent: dysuria, frequency NEUROLOGIC: Absent: headache, focal weakness, dizziness PHYSICAL EXAMINATION Vital Signs - 24 hr 11/20/17 11/20/17 11/20/17 03:27 06:37 08:01 Temperature 97.6 F Pulse Rate 89 Pulse Rate [ 96 H 122 H Right Apical] Respiratory 14 18 22 Rate Blood Pressure 200/150 Blood Pressure 186/132 175/135 [Right Arm] O2 Sat by Pulse 100 98 99 Oximetry (%) GENERAL: Awake, alert, and fully oriented, in no acute distress. EYES: Pupils equal, round and reactive to light, extraocular movements intact, sclera anicteric, conjunctiva clear. EARS, NOSE, THROAT: Moist mucous membranes. NECK: Normal range of motion LUNGS: Breath sounds equal, clear to auscultation bilaterally. No wheezes, and no crackles. No accessory muscle use. HEART: Tachycardic, normal S1 and S2 without murmur, rub or gallop. ABDOMEN: Soft, nontender, not distended, normoactive bowel sounds, no guarding, no rebound, no masses. MUSCULOSKELETAL: +R CVA tenderness. 5/5 UE strength bilaterally. LOWER EXTREMITIES: warm, well-perfused. No peripheral edema. NEUROLOGICAL: Cranial nerves II-XII grossly intact. Normal speech. No uvula deviation. B/L UE strength 5/5 and equal. Facial muscles symmetrical and equal in strength. PSYCHIATRIC: Cooperative. Good eye contact. Appropriate mood and affect. SKIN: Warm, dry Laboratory Results - last 24 hr 11/20/17 11/20/17 11/20/17 03:55 03:55 03:55 WBC 11.9 H RBC 5.25 H Hgb 15.7 H D Hct 46.1 H MCV 87.9 MCH 29.8 MCHC 34.0 RDW 13.1 Plt Count 360 MPV 9.4 D Neutrophils % 69.4 D Lymphocytes % 19.9 D Monocytes % 6.0 Eosinophils % 4.0 Basophils % 0.7 PT with INR 10.30 INR 0.91 Sodium 144 Potassium 4.0 Chloride 110 H Carbon Dioxide 23 Anion Gap 11 BUN 11 Creatinine 0.8 Creat Clearance w eGFR > 60 Random Glucose 100 Calcium 7.8 L Magnesium 1.7 L Total Bilirubin 0.3 AST 26 D ALT 20 D Alkaline Phosphatase 66 Creatine Kinase 72 Troponin I < 0.02 Total Protein 5.2 L D Albumin 2.2 L Serum , Qual Urine Color Urine Appearance Urine pH Ur Specific [place] Urine Protein Urine Glucose (UA) Urine Ketones Urine Blood Urine Nitrite Urine Bilirubin Urine Urobilinogen Ur Leukocyte Esterase Urine WBC (Auto) Urine RBC (Auto) Ur Epithelial Cells Urine Bacteria Hyaline Casts Urine Mucus 11/20/17 11/20/17 04:05 04:05 WBC RBC Hgb Hct MCV MCH MCHC RDW Plt Count MPV Neutrophils % Lymphocytes % Monocytes % Eosinophils % Basophils % PT with INR INR Sodium Potassium Chloride Carbon Dioxide Anion Gap BUN Creatinine Creat Clearance w eGFR Random Glucose Calcium Magnesium Total Bilirubin AST ALT Alkaline Phosphatase Creatine Kinase Troponin I Total Protein Albumin Serum , Qual Negative Urine Color Straw Urine Appearance Clear Urine pH 7.0 Ur Specific [place] 1.010 Urine Protein 3+ H Urine Glucose (UA) Negative Urine Ketones Negative Urine Blood Negative Urine Nitrite Negative Urine Bilirubin Negative Urine Urobilinogen Negative Ur Leukocyte Esterase Negative Urine WBC (Auto) 3 Urine RBC (Auto) 2 Ur Epithelial Cells Rare Urine Bacteria Rare Hyaline Casts 4 Urine Mucus Rare Imaging: CXR: No acute pathology Abd/Pelvis non-contrast CT: 1. No evidence of urinary tract calculi or obstructive uropathy. 2. Large L adnexal cyst, otherwise normal CT scan of the abdomen and pelvis with no evidence of acute pathology. Active Medications Heparin Sodium (Porcine) (Heparin -) 5,000 unit SQ TID SAMMIE Last Admin: 11/20/17 14:26 Dose: Not Given Hydralazine HCl (Apresoline Injection -) 10 mg IVPUSH Q6H PRN PRN Reason: HYPERTENSION Last Admin: 11/20/17 18:15 Dose: 10 mg Lisinopril (Prinivil) 40 mg PO DAILY SAMMIE Morphine Sulfate (Morphine Injection -) 2 mg IVPUSH Q4H PRN PRN Reason: PAIN LEVEL 6-10 Last Admin: 11/20/17 18:00 Dose: 2 mg Morphine Sulfate (Morphine Injection -) 1 mg IVPUSH Q4H PRN PRN Reason: PAIN LEVEL 1-5 Ondansetron HCl (Zofran Injection) 4 mg IVPUSH Q6H PRN PRN Reason: NAUSEA AND/OR VOMITING ASSESSMENT/PLAN: 27 y/o F w/PMH of lupus nephritis, HTN, frequent UTIs presents to the ER with sudden onset of R sided lower back pain (rated 10/10) found to have elevated BP at 200/150 on initial presentation. Admitted for hypertensive emergency. -Hypertensive Emergency -Goal BP <160/110 over next 24 hours -c/w lisinopril 40 mg PO qd (home med) starting tomorrow -c/w hydralazine 10 mg IVP q4H until BP under control. To be stopped once BP controlled. -Monitor vitals q4h -Neuro checks q6h -F/u Renal U/S w/dopplers; Inital trop neg. F/u trops. -Nausea secondary to pain and hypertensive emergency -Zofran 4mg IV q6h -Monitor QTc interval -R lower back pain secondary to possible hypertensive emergency -Morphine 2mg IV q4h PRN for pain 6-10 -Morphine 1mg IV q4h PRN for pain 1-5 -May come down on pain meds as pt improves -f/u Renal U/S w/dopplers -pt w/no urinary symptoms and negative UA - will not start abx at this time, unlikely to be UTI/pyelo at this time. -DVT ppx -Heparin 5000 units SQ q8h -FEN -No fluids at this time -Monitor electrolytes. Mg repleted. -Regular diet -Dispo: -Admit to m/s Problem List - Problem (1) Lupus nephritis Code(s): M32.14 - GLOMERULAR DISEASE IN SYSTEMIC LUPUS ERYTHEMATOSUS (2) Hypertensive emergency Code(s): I16.1 - HYPERTENSIVE EMERGENCY (3) Flank pain Code(s): R10.9 - UNSPECIFIED ABDOMINAL PAIN (4) Leukocytosis Code(s): D72.829 - ELEVATED WHITE BLOOD CELL COUNT, UNSPECIFIED Visit type - Emergency Visit Emergency Visit: Yes ED Registration Date: 11/20/17 Care time: The patient presented to the Emergency Department on the above date and was hospitalized for further evaluation of their emergent condition. - New Patient This patient is new to me today: Yes Date on this admission: 11/20/17 - Critical Care Critical Care patient: No
[2017-11-20] MEDS ORDERED: morphine CARPU-JECT 10 MG/1 ML DISP.SYRIN IVPUSH PRN (09:35)
--- NOTE | 2017-11-20 10:20 | EKG ---
Test Reason : Blood Pressure : / mmHG Vent. Rate : 072 BPM Atrial Rate : 072 BPM P-R Int : 174 ms QRS Dur : 070 ms QT Int : 414 ms P-R-T Axes : 020 011 -01 degrees QTc Int : 453 ms NORMAL SINUS RHYTHM POSSIBLE LEFT ATRIAL ENLARGEMENT BORDERLINE ECG WHEN COMPARED WITH ECG OF 14-FEB-2017 19:03, NO SIGNIFICANT CHANGE WAS FOUND Confirmed by YAHAIRA CHERRY, DMITRY ([id number]) on 11/20/2017 10:20:11 AM Referred By: Confirmed By:DMITRY SYED MD
[2017-11-20] MEDS ORDERED: MAGNESIUM SULF 50% (8.12 MEQ/2 ML-1 GM VIAL) IVPB ONE (10:40)
--- NOTE | 2017-11-20 11:23 | PN ---
Teaching Attending Note Name of Resident: Harley Ascencio ATTENDING PHYSICIAN STATEMENT I saw and evaluated the patient. I reviewed the resident's note and discussed the case with the resident. I agree with the resident's findings and plan as documented. SUBJECTIVE: This is a 27 year old woman with history of HTN, hyperlipidemia, lupus nephritis, frequent UTIs who comes to the ER with severe right low back pain with nausea and vomiting. Symptoms started around 11 pm last night. She denies fever, chills, dysuria, hematuria, urinary frequency. She reports running out of lisinopril about 1 week ago. OBJECTIVE: Vital Signs Period Temp Pulse Resp BP Sys/Sanders Pulse Ox Last 24 Hr 97.6 F 89-122 14-22 162-200/132-150 98-100 HEART: S1S2, tachycardic LUNGS: Clear ABDOMEN: Soft, non-tender, non-distended, normal BS, (+) right CVA tenderness EXTREMITIES: No edema Laboratory Tests 11/20/17 11/20/17 11/20/17 03:55 03:55 03:55 WBC 11.9 H RBC 5.25 H Hgb 15.7 H D Hct 46.1 H MCV 87.9 MCH 29.8 MCHC 34.0 RDW 13.1 Plt Count 360 MPV 9.4 D Neutrophils % 69.4 D Lymphocytes % 19.9 D Monocytes % 6.0 Eosinophils % 4.0 Basophils % 0.7 PT with INR 10.30 INR 0.91 Sodium 144 Potassium 4.0 Chloride 110 H Carbon Dioxide 23 Anion Gap 11 BUN 11 Creatinine 0.8 Creat Clearance w eGFR > 60 Random Glucose 100 Calcium 7.8 L Magnesium 1.7 L Total Bilirubin 0.3 AST 26 D ALT 20 D Alkaline Phosphatase 66 Creatine Kinase 72 Troponin I < 0.02 Total Protein 5.2 L D Albumin 2.2 L Serum , Qual Urine Color Urine Appearance Urine pH Ur Specific [place] Urine Protein Urine Glucose (UA) Urine Ketones Urine Blood Urine Nitrite Urine Bilirubin Urine Urobilinogen Ur Leukocyte Esterase Urine WBC (Auto) Urine RBC (Auto) Ur Epithelial Cells Urine Bacteria Hyaline Casts Urine Mucus 11/20/17 11/20/17 04:05 04:05 WBC RBC Hgb Hct MCV MCH MCHC RDW Plt Count MPV Neutrophils % Lymphocytes % Monocytes % Eosinophils % Basophils % PT with INR INR Sodium Potassium Chloride Carbon Dioxide Anion Gap BUN Creatinine Creat Clearance w eGFR Random Glucose Calcium Magnesium Total Bilirubin AST ALT Alkaline Phosphatase Creatine Kinase Troponin I Total Protein Albumin Serum , Qual Negative Urine Color Straw Urine Appearance Clear Urine pH 7.0 Ur Specific [place] 1.010 Urine Protein 3+ H Urine Glucose (UA) Negative Urine Ketones Negative Urine Blood Negative Urine Nitrite Negative Urine Bilirubin Negative Urine Urobilinogen Negative Ur Leukocyte Esterase Negative Urine WBC (Auto) 3 Urine RBC (Auto) 2 Ur Epithelial Cells Rare Urine Bacteria Rare Hyaline Casts 4 Urine Mucus Rare Home Medications Medication Instructions Recorded Lisinopril [Prinivil] 40 mg PO DAILY #30 tablet 02/18/17 ASSESSMENT AND PLAN: This is a 27 year old woman with a history of HTN, hyperlipidemia, lupus nephritis, and frequent UTIs who presented to the ED with severe right low back pain, nausea, and vomiting. She was found to have BP 200/150, WBC 11.9, Mg 1.7, 3+ proteinuria. 1. Hypertensive urgency - Continue Hydralazine - Restart Lisinopril once BP is better controlled 2. Right flank pain - No evidence of UTI/pyelonephritis - has leukocytosis and tachycardia, but no fever, no pyuria - No evidence of nephrolithiasis on CT - Renal US ordered 3. Hypomagnesemia - Supplement magnesium 4. Lupus nephritis
[2017-11-20] MEDS ORDERED: MAGNESIUM 1GM/D5W - 1 GM/100 ML IVPB IVPB ONE (11:30)
[2017-11-20] MEDS: HEPARIN NA (PORCINE) 5,000 UNITS/ML 1ML VIAL SQ SCH ×2 (14:26→22:23)
[2017-11-20] MEDS: morphine CARPU-JECT 10 MG/1 ML DISP.SYRIN IVPUSH PRN (18:00)
[2017-11-20] MEDS: hydrALAZINE HCL 20 MG/ML VIAL IVPUSH PRN (18:15)
[2017-11-20] MEDS: ONDANSETRON 4 MG/2 ML VIAL IVPUSH PRN (20:49)
[2017-11-20] MEDS ORDERED: METOPROLOL TARTRATE 5 MG/5 ML VIAL IVPUSH ONE (23:30)
[2017-11-20] MEDS ORDERED: METOPROLOL TARTRATE 5 MG/5 ML VIAL ONE (23:32)
[2017-11-21] MEDS: HEPARIN NA (PORCINE) 5,000 UNITS/ML 1ML VIAL SQ SCH ×3 (06:30→22:54)
[2017-11-21] MEDS ORDERED: morphine CARPU-JECT 10 MG/1 ML DISP.SYRIN ONE ×2 (06:36→19:32)
[2017-11-21] MEDS: morphine CARPU-JECT 10 MG/1 ML DISP.SYRIN IVPUSH PRN ×2 (06:45→19:50)
[2017-11-21] MEDS: hydrALAZINE HCL 20 MG/ML VIAL IVPUSH PRN (07:07)
[2017-11-21 07:29] LABS: BASO % 0.5 % (0-2.0); EOS % 0.7 % (0-4.5); HEMATOCRIT 44.5 % (32.4-45.2); HEMOGLOBIN 15.1 GM/dL (10.7-15.3); LYMPH % 15.1 % (8-40); MCH 30.1 pg (25.7-33.7); MEAN CELL VOLUME 88.6 fl (80-96); MONO % 6.5 % (3.8-10.2); NEUT % 77.2 % (42.8-82.8); PLATELET COUNT 365 K/MM3 (134-434); RBC 5.02 M/mm3 (3.60-5.2); WHITE BLOOD COUNT 18.3 K/mm3 (4.0-10.0)
[2017-11-21 07:53] LABS: ALBUMIN 2.2 g/dl (3.4-5.0); ANION GAP 10 (8-16); BLOOD UREA NITROGEN 12 mg/dL (7-18); CALCIUM 8.4 mg/dL (8.5-10.1); CHLORIDE 107 mmol/L (98-107); CO2 24 mmol/L (21-32); GLUCOSE,RANDOM 94 mg/dL (74-106); MAGNESIUM 1.9 mg/dL (1.8-2.4); POTASSIUM 3.7 mmol/L (3.5-5.1); SGOT/AST 16 U/L (15-37); SGPT/ALT 16 U/L (12-78); SODIUM 141 mmol/L (136-145)
[2017-11-21 07:55] LABS: ALK PHOS 57 U/L (45-117); BILIRUBIN,TOTAL 0.6 mg/dL (0.2-1.0)
--- NOTE | 2017-11-21 08:37 | PN ---
Physical Exam: SUBJECTIVE: Patient seen and examined by me this AM. - Pt complaining of diffuse BL HU. Still complaining of lightheadness. N/V overnight, no hematemesis. BL trace LE edema. OBJECTIVE: Vital Signs Intake & Output 11/18/17 11/19/17 11/20/17 11/21/17 23:59 23:59 23:59 23:59 Weight 74.843 kg Period Temp Pulse Resp BP Sys/Sanders Pulse Ox Last 24 Hr 97.9 F-99.4 F 96-128 18-20 161-183/105-152 96-100 GENERAL: The patient is awake, alert, and fully oriented, in no acute distress. HEAD: Normal with no signs of trauma. EYES: PERRL, extraocular movements intact, sclera anicteric, conjunctiva clear. No ptosis. ENT: Ears normal, nares patent, oropharynx clear without exudates, moist mucous membranes. NECK: Trachea midline, full range of motion, supple. LUNGS: Trace crackles at bases, slight wheezing in LLL. no accessory muscle use. HEART: Tachycardic. Regular rate and rhythm, S1, S2 without murmur, rub or gallop. ABDOMEN: Soft, nontender, nondistended, normoactive bowel sounds, no guarding, no rebound, no hepatosplenomegaly, no masses. R CVA tenderness, RLQ/RUQ tenderness. EXTREMITIES: 2+ pulses, warm, well-perfused, Trace non-pitting edema to knees BL. NEUROLOGICAL: Cranial nerves II through XII grossly intact. Normal speech, gait not observed. PSYCH: Normal mood, normal affect. SKIN: Warm, dry, normal turgor, no rashes or lesions noted Laboratory Results - last 24 hr CBC, BMP 11/21/17 07:11 11/21/17 07:08 11/20/17 11/21/17 11/21/17 11:50 07:08 07:11 WBC 18.3 H D RBC 5.02 Hgb 15.1 Hct 44.5 MCV 88.6 MCH 30.1 MCHC 34.0 RDW 13.0 Plt Count 365 MPV 9.0 Neutrophils % 77.2 Lymphocytes % 15.1 D Monocytes % 6.5 Eosinophils % 0.7 D Basophils % 0.5 Sodium 141 Potassium 3.7 Chloride 107 Carbon Dioxide 24 Anion Gap 10 BUN 12 Creatinine 1.0 Creat Clearance w eGFR > 60 Random Glucose 94 Calcium 8.4 L Magnesium 1.9 Total Bilirubin 0.6 D AST 16 D ALT 16 Alkaline Phosphatase 57 Troponin I < 0.02 Total Protein 5.0 L Albumin 2.2 L Active Medications Generic Name Dose Route Start Last Admin Trade Name Freq PRN Reason Stop Dose Admin Heparin Sodium (Porcine) 5,000 unit 11/20/17 14:00 11/21/17 06:30 Heparin - SQ 5,000 unit TID SAMMIE Administration Hydralazine HCl 10 mg 11/20/17 10:32 11/21/17 07:07 Apresoline Injection - IVPUSH 10 mg Q6H PRN Administration HYPERTENSION Hydralazine HCl 10 mg 11/21/17 14:00 Apresoline - PO TID SAMMIE Lisinopril 40 mg 11/21/17 10:00 Prinivil PO DAILY SAMMIE Morphine Sulfate 2 mg 11/20/17 09:35 11/20/17 18:00 Morphine Injection - IVPUSH 2 mg Q4H PRN Administration PAIN LEVEL 6-10 Morphine Sulfate 1 mg 11/20/17 09:35 11/21/17 06:45 Morphine Injection - IVPUSH 1 mg Q4H PRN Administration PAIN LEVEL 1-5 Ondansetron HCl 4 mg 11/20/17 10:40 11/20/17 20:49 Zofran Injection IVPUSH 4 mg Q6H PRN Administration NAUSEA AND/OR VOMITING No recent micro CXR: No acute pathology Abd/Pelvis non-contrast CT: 1. No evidence of urinary tract calculi or obstructive uropathy. 2. Large L adnexal cyst, otherwise normal CT scan of the abdomen and pelvis with no evidence of acute pathology. ASSESSMENT/PLAN: 27 yo woman w/ pmh of HTN, lupus nephritis who presents with hypertensive urgency, R flank/back pain and N/V in the setting of one week of non-compliance w/ home BP meds (lisinopril). #Hypertensive Urgency - suspected multifactorial etiology; anxiety, noncompliance, dehydration and/or infection - Cardiac monitoring - Cardiology consulted, recs appreciated - Hydralazine TID - Labetalol 10mg IV PRN q4h - IVFs - Anxiolytic - valium PO - Vitals q4h - C/w home lisinopril - Morphine for pain control #Leukocytosis - Likely reactive from stress, however must r/o infectious process ; Pt afebrile; WBC ~18 today - u/a neg - CT abdomen/pelvis negative for any acute infectious pathology - Trend fever, WBC curve - Repeat CXR after hydration given RLL rales on exam #R Flank Pain - MSK vs. gastroenteritis - Consider RUQ U/S - Morphine for pain control #Persistent N/V - HTN vs. Stress vs. gastroenteritis - Zofran 4mg prn for N/V # Anxiety - Valium PO PRN PPX Heparin SubQ PPI FEN NS 83cc/hr Daily BMPs Cardiac diet Plan discussed with attending, Dr. Tonya Mcfadden, PGY1 Visit type - Emergency Visit Emergency Visit: Yes ED Registration Date: 11/20/17 Care time: The patient presented to the Emergency Department on the above date and was hospitalized for further evaluation of their emergent condition. - New Patient This patient is new to me today: Yes Date on this admission: 11/22/17 - Critical Care Critical Care patient: No
[2017-11-21] MEDS ORDERED: ONDANSETRON 4 MG/2 ML VIAL ONE ×2 (09:17→19:32)
[2017-11-21] MEDS ORDERED: LISINOPRIL 20 MG TABLET (FP) ONE (09:17)
[2017-11-21] MEDS: LISINOPRIL 20 MG TABLET (FP) PO SCH (09:19)
[2017-11-21] MEDS: ONDANSETRON 4 MG/2 ML VIAL IVPUSH PRN ×2 (09:19→19:50)
[2017-11-21] MEDS ORDERED: diazePAM CARPU-JECT 10 MG/2 ML DISP.SYRIN IVPUSH ONE ×2 (10:05→10:15)
[2017-11-21] MEDS ORDERED: SODIUM CHLORIDE 1,000 ML IV STA (10:05)
[2017-11-21] MEDS ORDERED: LABETALOL HCL 5 MG/1 ML (200MG/40ML VIAL) IVPB ONE (10:50)
[2017-11-21] MEDS: LABETALOL HCL 5 MG/1 ML (100MG/20 ML VIAL) IVPUSH PRN ×2 (10:57→16:40)
[2017-11-21] MEDS ORDERED: LORazepam 2 MG/ML SDV VIAL IVPUSH ONE (11:04)
[2017-11-21] MEDS ORDERED: LORazepam 2 MG/ML SDV VIAL ONE (11:27)
--- NOTE | 2017-11-21 11:34 | EKG ---
Test Reason : Blood Pressure : / mmHG Vent. Rate : 122 BPM Atrial Rate : 122 BPM P-R Int : 150 ms QRS Dur : 070 ms QT Int : 330 ms P-R-T Axes : 052 028 021 degrees QTc Int : 470 ms SINUS TACHYCARDIA POSSIBLE LEFT ATRIAL ENLARGEMENT BORDERLINE ECG WHEN COMPARED WITH ECG OF 20-NOV-2017 03:54, VENT. RATE HAS INCREASED BY 50 BPM Confirmed by ILSA CHERRY, GIANFRANCO ([id number]) on 11/21/2017 11:34:01 AM Referred By: Confirmed By:GIANFRANCO ROSENBAUM MD
--- NOTE | 2017-11-21 12:50 | PN ---
Teaching Attending Note Name of Resident: Sunny Mcfadden ATTENDING PHYSICIAN STATEMENT Time of evaluation: 9:15 AM I saw and evaluated the patient. I reviewed the resident's note and discussed the case with the resident. I agree with the resident's findings and plan as documented. SUBJECTIVE: Patient seen and examined. right sided flank pain improved. Some headache and nausea earlier, none currently. Also anxious, has been vomiting with minimal PO intake. patient reports had right sided 'burning' flank back pain with burning radiating across her chest. Was followed by nausea, vomitting and has had minimal oral intake over last 3 days. Denies any urinary symptoms. Positive chills but no fevers. No chest pain, palpitations, dyspnea noted. reports anxiety from the above. OBJECTIVE: Vital Signs Period Temp Pulse Resp BP Sys/Sanders Pulse Ox Last 24 Hr 97.9 F-99.4 F 96-128 18-20 133-183/91-152 95-100 Intake & Output 11/18/17 11/19/17 11/20/17 11/21/17 23:59 23:59 23:59 23:59 Weight 165 lb General: sitting in bed, anxious, restless but in no acute distress CVS:S1S2 regular tachycardic Chest: few right basilar rales Abdomen: soft, NT, ND, positive bowel sounds, no CVA tenderness Extremities: no edema, strong bilateral radial and DP pulses neuro; AAOX3, PERRLA, EOMI, power 5/5, facial symmetry Active Medications Generic Name Dose Route Start Last Admin Trade Name Freq PRN Reason Stop Dose Admin Heparin Sodium (Porcine) 5,000 unit 11/20/17 14:00 11/21/17 06:30 Heparin - SQ 5,000 unit TID SAMMIE Administration Hydralazine HCl 10 mg 11/20/17 10:32 11/21/17 07:07 Apresoline Injection - IVPUSH 10 mg Q6H PRN Administration HYPERTENSION Hydralazine HCl 10 mg 11/21/17 14:00 Apresoline - PO TID SAMMIE Sodium Chloride 1,000 mls @ 83 mls/hr 11/21/17 12:30 Normal Saline - IV ASDIR SAMMIE Labetalol HCl 10 mg 11/21/17 10:03 11/21/17 10:57 Normodyne Injection - IVPUSH 10 mg Q4H PRN Administration High blood pressure Lisinopril 40 mg 11/21/17 10:00 11/21/17 09:19 Prinivil PO 40 mg DAILY SAMMIE Administration Morphine Sulfate 2 mg 11/20/17 09:35 11/20/17 18:00 Morphine Injection - IVPUSH 2 mg Q4H PRN Administration PAIN LEVEL 6-10 Morphine Sulfate 1 mg 11/20/17 09:35 11/21/17 06:45 Morphine Injection - IVPUSH 1 mg Q4H PRN Administration PAIN LEVEL 1-5 Ondansetron HCl 4 mg 11/20/17 10:40 11/21/17 09:19 Zofran Injection IVPUSH 4 mg Q6H PRN Administration NAUSEA AND/OR VOMITING Laboratory Results - last 24 hr 11/21/17 11/21/17 07:08 07:11 WBC 18.3 H D RBC 5.02 Hgb 15.1 Hct 44.5 MCV 88.6 MCH 30.1 MCHC 34.0 RDW 13.0 Plt Count 365 MPV 9.0 Neutrophils % 77.2 Lymphocytes % 15.1 D Monocytes % 6.5 Eosinophils % 0.7 D Basophils % 0.5 Sodium 141 Potassium 3.7 Chloride 107 Carbon Dioxide 24 Anion Gap 10 BUN 12 Creatinine 1.0 Creat Clearance w eGFR > 60 Random Glucose 94 Calcium 8.4 L Magnesium 1.9 Total Bilirubin 0.6 D AST 16 D ALT 16 Alkaline Phosphatase 57 Total Protein 5.0 L Albumin 2.2 L ASSESSMENT AND PLAN: 27 yof with PMHX of lupus nephritis, HTN, admitted with hypertensive urgency, right flank pain, nausea, vomitting with decresaed PO intake and not taking her lisinopril over last 1 week. -Hypertensive urgency, suspect multifactorial from medication non compliance, hypovolumia mediated vasocontriction, pain and anxiety, no s/s concerning for neurological process or end organ damage currently -Nausea/vomiting, ?food poisoning vs related to hypertension -Right flank pain, ?musculoskeletal, no chest symptoms or EKG changes concerning for cardiac/thoracic process -Leucocytosis, ?stress mediated, r/o infectious process Plan: Trial 1L IVF bolus if BP improves, place on standing hydration. Valium 5 mg IV trial, for anxiety and right flank symptoms. If clinical improvement, will place on prn dosing. u/a and CT A/p Neg for infectious process. right basilar rales, CT chest to r/o infectious process. May repeat CXR post hydration if indicated. Change hydralazine to labetalol IV prn. Lisinopril resumed. Start hydralazine TID. Cardiology consulted with Dr. Darby. telemetry and close vitals monitoring. No neurological symptoms or concerning headache to warrant additional imaging, monitor for now. DVTPPX with heparin Dispo - pending improvement in clinical symptoms. Plan discussed with patient in detail, all questions answered.
[2017-11-21] MEDS: hydrALAZINE HCL 10 MG TABLET PO SCH ×2 (14:46→22:54)
[2017-11-21] MEDS: SODIUM CHLORIDE 1,000 ML IV SCH (14:47)
--- NOTE | 2017-11-21 15:12 | CON.CARD ---
Consult Consult Specialty:: Cardiology Reason for Consultation:: Chest pain - History of Present Illness Chief Complaint: Chest pain History of Present Illness: This is a 27 year old female with a PMH of HTN, HLD, Lupus and kidney disease. She presents to the ED with chest pain, back pain, dizziness and vomit that began around 11pm yesterday. She states that the chest pain was right sided and started in her right lower flank and radiated up towards the right side of her chest. The chest pain resolved on its own. - Past Medical History SYSTEM CONSULTANT: Yes: Other (tension headaches) Cardio/Vascular: Yes: HTN, Hyperlipdemia Renal/: Yes: Other (lupus nephritis) ...LMP: 02/14/17 Rheumatology: Yes: Lupus - Past Surgical History Past Surgical History: Yes: Appendectomy, Tonsillectomy - Alcohol/Substance Use Hx Alcohol Use: No History of Substance Use: reports: None - Smoking History Smoking history: Never smoked Have you smoked in the past 12 months: No Aproximately how many cigarettes per day: 0 - Social History Usual Living Arrangement: With Spouse Home Medications - Allergies Allergies/Adverse Reactions: Allergies Allergy/AdvReac Type Severity Reaction Status Date / Time clindamycin Allergy Severe ANAPHLACTIC Verified 11/20/17 03:26 REACTION doxycycline Allergy Severe ANAPHYLACTIC Verified 11/20/17 03:26 REACTION Penicillins Allergy Severe ANAPHYLACTIC Verified 11/20/17 03:26 REACTION shellfish derived Allergy Severe anaphylactic Verified 11/20/17 03:26 reaction SEAFOOD Allergy Severe ANAPHYLACTIC Uncoded 11/20/17 03:26 REACTION - Home Medications Home Medications: Ambulatory Orders Lisinopril [Prinivil] 40 mg PO DAILY #30 tablet 02/18/17 Review of Systems Findings/Remarks: As per HPI Vital Signs: Vital Signs Temperature 98.4 F 11/21/17 14:00 Pulse Rate 115 H 11/21/17 14:00 Respiratory Rate 16 11/21/17 14:00 Blood Pressure 164/102 11/21/17 14:00 O2 Sat by Pulse Oximetry (%) 95 11/21/17 09:00 Constitutional: Yes: No Distress HENT: Yes: WNL Neck: Yes: WNL Respiratory: Yes: CTA Bilaterally Gastrointestinal: Yes: Soft Cardiovascular: Yes: Regular Rate and Rhythm (NL S1S12, No MRHG) JVD: No Murmur: Yes: Systolic Murmur Extremities: Yes: WNL Edema: No Neurological: Yes: Alert, Oriented (NL S1S2, No MRHG) - Other Data Labs, Other Data: CBC, BMP 11/21/17 07:11 11/21/17 07:08 INR, PTT INR 0.91 (0.82-1.09) 11/20/17 03:55 Assessment/Plan Chest pain Atypical for cardiac pain and not typical for pericarditis However, would obtain an Echocardiogram to rule out pericardial effusion and vegetation. Tachycardia noted, it is a reactive sinus tachycardia secondary to pain, infection, and/or a Lupus flare No need to artificially slow with beta blockers, rather would try to determine and treat the underlying cause HTN 164/102 mmHg presently Was lower earlier Continue Lisinopril May require additional agents such as Norvasc Will follow with you.
[2017-11-21] MEDS ORDERED: diazePAM 2 MG TABLET ONE (16:44)
[2017-11-21] MEDS: diazePAM 2 MG TABLET PO PRN (16:46)
[2017-11-22] MEDS: HEPARIN NA (PORCINE) 5,000 UNITS/ML 1ML VIAL SQ SCH ×3 (05:45→22:18)
[2017-11-22] MEDS: hydrALAZINE HCL 10 MG TABLET PO SCH (05:45)
--- NOTE | 2017-11-22 06:10 | PN ---
Physical Exam: SUBJECTIVE: Patient seen and examined by me this AM - No major overnight events. Denies any further N/V. Still w/ BL dull headache, which patient states is secondary to neck pain from laying in bed. Still with R- sided back pain, but now endorses worsening RLQ pain radiating along inguinal canal to groin. Pt denies any hx of gallstones. Denies any chest pain, SOB, couhg, N/V, peripheral numbness/weakness, vision changes, dysuria, diarrhea. Pt endorses no BM since admission. OBJECTIVE: Vital Signs Intake & Output 11/19/17 11/20/17 11/21/17 11/22/17 23:59 23:59 23:59 23:59 Intake Total 415 Balance 415 Weight 74.843 kg Period Temp Pulse Resp BP Sys/Sanders Pulse Ox Last 24 Hr 98.0 F-99.3 F 115-135 16-20 133-164/87-128 95-99 GENERAL: The patient is awake, alert, and fully oriented, in no acute distress. HEAD: Normal with no signs of trauma. EYES: PERRL, extraocular movements intact, sclera anicteric, conjunctiva clear. No ptosis. ENT: Ears normal, nares patent, oropharynx clear without exudates, moist mucous membranes. NECK: Trachea midline, full range of motion, supple. LUNGS: CTABL. No wheezes, rhonchi or crackles noted. no accessory muscle use. HEART: Tachycardic. Regular rate and rhythm, S1, S2 without murmur, rub or gallop. ABDOMEN: Very TTP in RUQ/RLQ. Negative rebound tenderness. Negative rovsing. Negative samayoa's sign. Negative malaika/matthew oleary sign. Soft, nondistended, normoactive bowel sounds, voluntary guarding noted, no hepatosplenomegaly, no masses. Mild R CVA tenderness EXTREMITIES: 2+ pulses, warm, well-perfused, Trace non-pitting edema to knees BL. NEUROLOGICAL: Cranial nerves II through XII grossly intact. Normal speech, gait not observed. PSYCH: Normal mood, normal affect. SKIN: Warm, dry, normal turgor, no rashes or lesions noted Laboratory Results - last 24 hr CBC, BMP 11/22/17 05:35 11/22/17 05:35 11/21/17 11/21/17 07:08 07:11 WBC 18.3 H D RBC 5.02 Hgb 15.1 Hct 44.5 MCV 88.6 MCH 30.1 MCHC 34.0 RDW 13.0 Plt Count 365 MPV 9.0 Neutrophils % 77.2 Lymphocytes % 15.1 D Monocytes % 6.5 Eosinophils % 0.7 D Basophils % 0.5 Sodium 141 Potassium 3.7 Chloride 107 Carbon Dioxide 24 Anion Gap 10 BUN 12 Creatinine 1.0 Creat Clearance w eGFR > 60 Random Glucose 94 Calcium 8.4 L Magnesium 1.9 Total Bilirubin 0.6 D AST 16 D ALT 16 Alkaline Phosphatase 57 Total Protein 5.0 L Albumin 2.2 L Active Medications Generic Name Dose Route Start Last Admin Trade Name Freq PRN Reason Stop Dose Admin Diazepam 2 mg 11/21/17 13:30 11/21/17 16:46 Valium - PO 2 mg Q6H PRN Administration ANXIETY Heparin Sodium (Porcine) 5,000 unit 11/20/17 14:00 11/22/17 05:45 Heparin - SQ 5,000 unit TID SAMMIE Administration Hydralazine HCl 10 mg 11/21/17 14:00 11/22/17 05:45 Apresoline - PO 10 mg TID SAMMIE Administration Sodium Chloride 1,000 mls @ 83 mls/hr 11/21/17 12:30 11/21/17 14:47 Normal Saline - IV 83 mls/hr ASDIR SAMMIE Administration Labetalol HCl 10 mg 11/21/17 10:03 11/21/17 16:40 Normodyne Injection - IVPUSH 10 mg Q4H PRN Administration High blood pressure Lisinopril 40 mg 11/21/17 10:00 11/21/17 09:19 Prinivil PO 40 mg DAILY SAMMIE Administration Morphine Sulfate 2 mg 11/20/17 09:35 11/20/17 18:00 Morphine Injection - IVPUSH 2 mg Q4H PRN Administration PAIN LEVEL 6-10 Morphine Sulfate 1 mg 11/20/17 09:35 11/21/17 19:50 Morphine Injection - IVPUSH 1 mg Q4H PRN Administration PAIN LEVEL 1-5 Ondansetron HCl 4 mg 11/20/17 10:40 11/21/17 19:50 Zofran Injection IVPUSH 4 mg Q6H PRN Administration NAUSEA AND/OR VOMITING No micro pending CXR: No acute pathology Abd/Pelvis non-contrast CT: 1. No evidence of urinary tract calculi or obstructive uropathy. 2. Large L adnexal cyst, otherwise normal CT scan of the abdomen and pelvis with no evidence of acute pathology. Chest CT 11/21 - 1. Essentially clear lungs. 2. Small hiatal hernia. 3. Hyperattenuating fluid level within the gallbladder may be artifactual or secondary to sludge and/or cholelithiasis. Renal U/S 11/20 - IMPRESSION: Bilateral echogenic kidneys compatible with chronic medical renal disease. 10 mm echogenic density in the right renal upper/ midportion without posterior shadowing that may represent an angiomyolipoma. There is no evidence of hydronephrosis in both kidneys. Normal vascular flow in the renal artery and vein of both kidneys Non-Con CT head 11/22 - No evidence of a focal intracranial lesion or hemorrhage seen. TVUS 11/22 - IMPRESSION: Large ovarian/paraovarian cyst is again seen in the lower pelvis, in the midline posterior to the uterus and abutting the right and left ovary, the side of which is not clear on this exam. It is unchanged in size since prior CT scan of the abdomen and pelvis dated 11/20/2012 and has slightly increased in size since prior pelvis ultrasound dated 08/31/2016. No doppler evidence of torsion per addendum, however sensitivity 70% Abdominal U/S 11/22 - IMPRESSION: 1. Questionable right renal mass. CT follow-up recommended. 2. Otherwise normal abdominal sonogram. Please see above discussion. ASSESSMENT/PLAN: 27 yo woman w/ pmh of HTN, lupus nephritis who presents with hypertensive urgency, R flank/back pain and N/V in the setting of one week of non-compliance w/ home BP meds (lisinopril). Pt now complaining of new 6/10 RLQ pain, radiating to groin, worsened by positioning. Concerning for ovarian torsion vs. rupture given prior ovarian cyst on imaging. #Hypertensive Urgency - likely multifactorial etiology; Most likely secondary to renal dz with anxiety/pain component; renal doppler negative last year - c/w cardiac monitoring - Cardiology consulted - Renal consulted - d/c hydralazine given risk of drug induced lupus. 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 SBO vs. other etiology #Lupus nephritis - Bx proven w/ nephrotic syndrom - Renal consulted - f/u ESR, CRP, TOBIAS - No indication for immunosuppression per renal recs #Leukocytosis - likely reactive; downtrending 17.6 -> 15.2 today - u/a neg - CT abdomen/pelvis negative for any acute infectious pathology - Trend fever, WBC curve - Repeat CXR after hydration given RLL rales on exam #HU - non-con CT negative - likely chronic from neck injury; possible secondary to hypertension - Fioricet for pain relief #Persistent N/V - HTN vs. Stress vs. gastroenteritis - c/w Zofran 4mg prn for N/V # Anxiety - Valium PO PRN PPX Heparin SubQ PPI FEN NS 83cc/hr Daily BMPs Cardiac diet Plan discussed with attending, Dr. Tonya Mcfadden, PGY1 Visit type - Emergency Visit Emergency Visit: Yes ED Registration Date: 11/20/17 Care time: The patient presented to the Emergency Department on the above date and was hospitalized for further evaluation of their emergent condition. - New Patient This patient is new to me today: No - Critical Care Critical Care patient: No
--- NOTE | 2017-11-22 07:39 | MSN ---
Progress Note (short form) - Note Progress Note: SUBJECTIVE CC: chest pain HPI: Pt is a 27 y/o F with PMHx HTN and lupus nephritis who was seen at the ED for R flank pain, R chest pain, back pain, n/v, dizziness and decreased PO intake over last 1 week. She sees budget director, Dr. Roy in [place] and PCP is Dr. Cruz. Pt was seen and examined today. Overnight, pt had a few episodes of tachycardia ranging 140s on tele. She is now 122 BPM on tele. Otherwise, no other acute events. Today, pt c/o progressively worsening headache that starts in occipital region and radiates around both sides of head and in "hair line" region. She states it is worse than yesterday and she has had headaches like this at home, for which she takes Excedrin. She also reports that she woke up with abdominal pressure, states it felt "like gas" and it hurt to sit up this morning. It has improved since the AM and she can now ambulate to the restroom. The abdominal pressure is in the R flank radiating to the groin. Her last BM was 2 days ago; she reports it was a little soft. She denies feeling constipated, any difficulty or pain when urinating. Back pain has improved since admission. She felt "thumping in my chest" yesterday PM but denies it currently. She denies fever, nausea, vomiting, chills and reports her appetite has improved, though she is "taking it light". She felt light headed this morning but denies loss of consciousness. She states her current budget director is a bit aggressive in treatment plan and expressed she is searching for a different budget director. OBJECTIVE Last Vital Signs Temp Pulse Resp BP Pulse Ox 99.3 F 120 H 18 159/100 97 11/22/17 06:00 11/22/17 06:00 11/22/17 06:00 11/22/17 06:00 11/21/17 23:13 General: Pt was sitting up in bed, in no acute distress. Breathing comfortably on room air. Eyes: No scleroicterus. Clear conjunctiva. PERRLA. EOMI. Throat: Moist mucus membranes. Good dentition. Heart: Tachycardic rate, regular rhythm. No murmurs or rubs appreciated. Lungs: Clear to auscultation B/L. Equal breath sounds. No crackles, rales or rhonchi appreciated. Abdomen: Non distended. Normoactive bowel sounds in all four quadrants. Tympanic to percussion in all four quadrants. Tender to light and deep palpation in RLQ - localized sharp pain. Diffusely tender to palpation in suprapubic and LLQ. Negative obturator sign, psoas sign, rebound tenderness, Rovsing's sign, negative straight leg raise test. Extremities: 2+ radial pulses. 2+ DP pulses. Trace edema at B/L ankles. Neurological: CN II-XII grossly intact. Gag reflex not tested. Intact to light sensation all throughout UE and LE. Symmetric sensation. Gait is slow but coordinated. CBC, BMP 11/22/17 05:35 11/22/17 05:35 Laboratory Results - last 24 hr 11/22/17 11/22/17 11/22/17 05:35 05:35 05:35 WBC 17.6 H RBC 4.57 Hgb 13.7 Hct 41.1 MCV 89.9 MCH 30.0 MCHC 33.4 RDW 13.2 Plt Count 321 MPV 9.2 Neutrophils % 81.0 Lymphocytes % 10.4 D Monocytes % 7.9 Eosinophils % 0.4 Basophils % 0.3 Sodium 142 Potassium 3.6 Chloride 109 H Carbon Dioxide 24 Anion Gap 9 BUN 9 Creatinine 0.9 Creat Clearance w eGFR > 60 Random Glucose 95 Calcium 7.2 L Magnesium 1.7 L Cancelled Total Bilirubin 0.7 AST 11 L ALT 13 Alkaline Phosphatase 51 Total Protein 4.2 L Albumin 1.8 L Active Medications Generic Name Dose Route Start Last Admin Trade Name Freq PRN Reason Stop Dose Admin Acetaminophen/Butalbital/Caffeine 1 tablet 11/22/17 14:01 Fioricet - PO Q6H PRN HEADACHE Amlodipine Besylate 5 mg 11/22/17 14:00 Norvasc - PO DAILY SAMMIE Diazepam 2 mg 11/21/17 13:30 11/22/17 09:03 Valium - PO 2 mg Q6H PRN Administration ANXIETY Heparin Sodium (Porcine) 5,000 unit 11/20/17 14:00 11/22/17 05:45 Heparin - SQ 5,000 unit TID SAMMIE Administration Sodium Chloride 1,000 mls @ 83 mls/hr 11/21/17 12:30 11/22/17 09:03 Normal Saline - IV 83 mls/hr ASDIR SAMMIE Administration Labetalol HCl 10 mg 11/21/17 10:03 11/22/17 11:28 Normodyne Injection - IVPUSH 10 mg Q4H PRN Administration High blood pressure Lisinopril 40 mg 11/21/17 10:00 11/22/17 09:03 Prinivil PO 40 mg DAILY SAMMIE Administration Morphine Sulfate 2 mg 11/20/17 09:35 11/20/17 18:00 Morphine Injection - IVPUSH 2 mg Q4H PRN Administration PAIN LEVEL 6-10 Morphine Sulfate 1 mg 11/20/17 09:35 11/21/17 19:50 Morphine Injection - IVPUSH 1 mg Q4H PRN Administration PAIN LEVEL 1-5 Ondansetron HCl 4 mg 11/20/17 10:40 11/21/17 19:50 Zofran Injection IVPUSH 4 mg Q6H PRN Administration NAUSEA AND/OR VOMITING Home Medications Medication Instructions Recorded Lisinopril [Prinivil] 40 mg PO DAILY #30 tablet 02/18/17 08/31/16 (previous visit) - Transvaginal US 1. no Doppler evidence of ovarian torsion 2. Nonspecific 8 x 6.7 x 5.3 cm unilocular R ovarian cyst noted which appears increased in size in comparison to prior US study of 12/10/2015. On prior exam, this R ovarian cyst had maximum diameter of approximately 6.4 cm. CXR: No acute pathology Abd/Pelvis non-contrast CT: 1. No evidence of urinary tract calculi or obstructive uropathy. 2. Large L adnexal cyst, otherwise normal CT scan of the abdomen and pelvis with no evidence of acute pathology. Renal U/S 11/20 - IMPRESSION: Bilateral echogenic kidneys compatible with chronic medical renal disease. 10 mm echogenic density in the right renal upper/ midportion without posterior shadowing that may represent an angiomyolipoma. There is no evidence of hydronephrosis in both kidneys. Normal vascular flow in the renal artery and vein of both kidneys Chest CT 11/21 11:06 - IMPRESSION: 1. Essentially clear lungs. 2. Small hiatal hernia. 3. Hyperattenuating fluid level within the gallbladder may be artifactual or secondary to sludge and/or cholelithiasis. Abd US stat - pending official read Transvaginal US - pending AUSTYN Ab with reflex, Complement total CH50 stat, DNA ab-ds, Sjogrens AB SSA, SSB - pending Urine Cr - pending Urine total protein, random, stat - pending CT head - pending EKG - pending CRP, ESR - pending Urine Test Results Urine Color Straw 11/20/17 04:05 Urine Appearance Clear 11/20/17 04:05 Urine pH 7.0 (5.0-8.0) 11/20/17 04:05 Ur Specific [place] 1.010 (1.001-1.035) 11/20/17 04:05 Urine Protein 3+ (NEGATIVE) H 11/20/17 04:05 Urine Glucose (UA) Negative (NEGATIVE) 11/20/17 04:05 Urine Ketones Negative (NEGATIVE) 11/20/17 04:05 Urine Blood Negative (NEGATIVE) 11/20/17 04:05 Urine Nitrite Negative (NEGATIVE) 11/20/17 04:05 Urine Bilirubin Negative (NEGATIVE) 11/20/17 04:05 Ur Leukocyte Esterase Negative (NEGATIVE) 11/20/17 04:05 Ur Epithelial Cells Rare /HPF (FEW) 11/20/17 04:05 Urine Bacteria Rare /hpf (NONE SEEN) 11/20/17 04:05 Urine Mucus Rare 11/20/17 04:05 ASSESSMENT Pt is a 27 y/o F with PMHx HTN and lupus nephritis who was seen at the ED for chest pain, back pain, n/v, dizziness and decreased PO intake over last 1 week. She was admitted with hypertensive urgency. PLAN 1. Hypertensive urgency * likely 2/2 multifactorial process * pt has not taken home med Lisinopril 40 mg PO daily for the last 3 weeks, pt reports her medications ran out. Pt was very anxious upon arrival and reported poor PO intake, can have component of vasoconstriction due to hypovolemia. Also , may be secondary to pain. * Valium 2mg PO q6h PRN anxiety to r/o component anxiety induced HTN * Zofran 4mg IV q6h PRN n/v. Symptoms likely secondary to HTN urgency. * EKG ordered given tachycardic episodes overnight. 2. Headache from occipital to frontal lobe * likely secondary to tension headache given musculoskeletal strain, sleeping in hospital environment and previous hx of neck injury * neurological physical exam was negative; likely not neurological etiology * Head CT stat ordered to r/o intracranial pathology 3. R flank pain, R chest pain, back pain * likely lupus flare vs. 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 * Cardiology consulted -- Dr. Darby - chest pain, atypical for cardiac etiology , not typical for pericarditis. Recommended EKG to r/o pericardial effusion and vegetation. Tachycardic likely reactive sinus tachycardia secondary to pain, infection and/or lupus flare. States no need to artificially slow HR with BB; determine and tx underlying cause. Continue lisinopril; may add additional such as Norvasc. * Nephro consult -- given hx of lupus nephritis -- Dr. Buenrostro: Started Norvasc 5mg PO daily in addition to other HTN meds. Ordered serology for lupus nephritis. check UPCr. No acute indication for immunosuppressive meds at this time. Change NS to 1/2 NS if pt needs IVF. Abd pain, etiology unclear. ? possibility of thrombosis given hx of antiphospholipid syndrome. D/C Hydralazine 10mg TID * UA and CT were negative for renal pathology. will f/u on lupus repeat serology , urine Cr, urine total protein, CRP, ESR, Abd US and Transvag US * Lisinopril 40 mg PO daily, Labetalol 10 mg IV q4h PRN 4. Leukocytosis * likely stress induced vs. infectious etiology * WBC count has improved from yesterday. 18.3 yesterday, 17.6 today. * UA and CT abdomen - negative for infectious pathology. CT chest showed hyperattenuating fluid that may be artifact, sludge or cholelithiasis. Given negative Pearson's sign and CT of abdomen/pelvis negative for stones; no clinical suspicion at this time for liver/gallbladder pathology. * F/u on transvag US, abdomen US and all serum/urine studies to r/o infectious source. 3. Lupus nephritis * Will monitor for now, pt not on any home medications. * plan as per above, nephro consult recommendations 4. FEN * fluids: NS 1000 mls @83 cc/hr --> will change to 1/2 NS as per nephro rec. * electrolytes: hyperchloremia, will monitor, likely secondary to dehydration and contraction alkalosis. * nutrition: cardiac diet, vegan. 5. PPX * DVT ppx: Hep 5000U SQ * GI ppx: no indications for stress ulcer ppx at this time. 6. Dispo * Tele - pt is tachycardic and hypertensive still.
[2017-11-22 07:42] LABS: BASO % 0.3 % (0-2.0); EOS % 0.4 % (0-4.5); HEMATOCRIT 41.1 % (32.4-45.2); HEMOGLOBIN 13.7 GM/dL (10.7-15.3); LYMPH % 10.4 % (8-40); MCHC 33.4 g/dl (32.0-36.0); MEAN CELL VOLUME 89.9 fl (80-96); MEAN PLT VOLUME 9.2 fl (7.5-11.1); MONO % 7.9 % (3.8-10.2); PLATELET COUNT 321 K/MM3 (134-434); RBC 4.57 M/mm3 (3.60-5.2); RDW 13.2 % (11.6-15.6); WHITE BLOOD COUNT 17.6 K/mm3 (4.0-10.0)
[2017-11-22 08:23] LABS: CHLORIDE 109 mmol/L (98-107); POTASSIUM 3.6 mmol/L (3.5-5.1); SODIUM 142 mmol/L (136-145)
[2017-11-22 08:32] LABS: ALBUMIN 1.8 g/dl (3.4-5.0); ALK PHOS 51 U/L (45-117); ANION GAP 9 (8-16); BILIRUBIN,TOTAL 0.7 mg/dL (0.2-1.0); BLOOD UREA NITROGEN 9 mg/dL (7-18); CALCIUM 7.2 mg/dL (8.5-10.1); CO2 24 mmol/L (21-32); CREATININE 0.9 mg/dL (0.55-1.02); GLUCOSE,RANDOM 95 mg/dL (74-106); SGOT/AST 11 U/L (15-37); SGPT/ALT 13 U/L (12-78); TOT PROT 4.2 g/dl (6.4-8.2)
[2017-11-22] MEDS: SODIUM CHLORIDE 1,000 ML IV SCH ×2 (09:03→12:30)
[2017-11-22] MEDS: LISINOPRIL 20 MG TABLET (FP) PO SCH (09:03)
[2017-11-22] MEDS: diazePAM 2 MG TABLET PO PRN ×2 (09:03→17:20)
[2017-11-22] MEDS: LABETALOL HCL 5 MG/1 ML (100MG/20 ML VIAL) IVPUSH PRN ×2 (11:28→17:20)
[2017-11-22 12:46] LABS: MAGNESIUM 1.7 mg/dL (1.8-2.4)
--- NOTE | 2017-11-22 13:35 | PN ---
Teaching Attending Note Name of Resident: Sunny Mcfadden ATTENDING PHYSICIAN STATEMENT Time of evaluation: 10:30 Am I saw and evaluated the patient. I reviewed the resident's note and discussed the case with the resident. I agree with the resident's findings and plan as documented. SUBJECTIVE: Patient seen and examined. Some headache today, valium helps with headache. Right flank pain resolved, but some right sided abdominal pain today. No chest pain, palpitations, dyspnea, dizziness or urinary symptoms. Has been urinating well. OBJECTIVE: Vital Signs Period Temp Pulse Resp BP Sys/Sanders Pulse Ox Last 24 Hr 98.4 F-99.3 F 97-135 16-18 139-173/87-128 97 Intake & Output 11/19/17 11/20/17 11/21/17 11/22/17 23:59 23:59 23:59 23:59 Intake Total 415 Balance 415 Weight 165 lb General: ambulating in room, anxious but no acute distress CVS:S1S2 regular, tachycardic Chest: CTAB, no rales or wheezing abdomen: soft, RLQ/right keyona-umbilical/RMQ tenderness on deep palpation, no voluntary or involuntary guarding or rigidity, positive bowel sounds, no CVA tenderness. Extremities: positive pulses bilaterally, trace pedal edema NeuroAAOx3, power 5/5, EOMI, PERRLA, sensation positive to light touch and symmetric bilaterally, toes down going Active Medications Generic Name Dose Route Start Last Admin Trade Name Freq PRN Reason Stop Dose Admin Amlodipine Besylate 5 mg 11/22/17 14:00 Norvasc - PO DAILY SAMMIE Diazepam 2 mg 11/21/17 13:30 11/22/17 09:03 Valium - PO 2 mg Q6H PRN Administration ANXIETY Heparin Sodium (Porcine) 5,000 unit 11/20/17 14:00 11/22/17 05:45 Heparin - SQ 5,000 unit TID SAMMIE Administration Sodium Chloride 1,000 mls @ 83 mls/hr 11/21/17 12:30 11/22/17 09:03 Normal Saline - IV 83 mls/hr ASDIR SAMMIE Administration Labetalol HCl 10 mg 11/21/17 10:03 11/22/17 11:28 Normodyne Injection - IVPUSH 10 mg Q4H PRN Administration High blood pressure Lisinopril 40 mg 11/21/17 10:00 11/22/17 09:03 Prinivil PO 40 mg DAILY SAMMIE Administration Morphine Sulfate 2 mg 11/20/17 09:35 11/20/17 18:00 Morphine Injection - IVPUSH 2 mg Q4H PRN Administration PAIN LEVEL 6-10 Morphine Sulfate 1 mg 11/20/17 09:35 11/21/17 19:50 Morphine Injection - IVPUSH 1 mg Q4H PRN Administration PAIN LEVEL 1-5 Ondansetron HCl 4 mg 11/20/17 10:40 11/21/17 19:50 Zofran Injection IVPUSH 4 mg Q6H PRN Administration NAUSEA AND/OR VOMITING Laboratory Results - last 24 hr 11/22/17 11/22/17 11/22/17 05:35 05:35 05:35 WBC 17.6 H RBC 4.57 Hgb 13.7 Hct 41.1 MCV 89.9 MCH 30.0 MCHC 33.4 RDW 13.2 Plt Count 321 MPV 9.2 Neutrophils % 81.0 Lymphocytes % 10.4 D Monocytes % 7.9 Eosinophils % 0.4 Basophils % 0.3 Sodium 142 Potassium 3.6 Chloride 109 H Carbon Dioxide 24 Anion Gap 9 BUN 9 Creatinine 0.9 Creat Clearance w eGFR > 60 Random Glucose 95 Calcium 7.2 L Magnesium 1.7 L Cancelled Total Bilirubin 0.7 AST 11 L ALT 13 Alkaline Phosphatase 51 Total Protein 4.2 L Albumin 1.8 L telemetry: Sinus tach 140s overnight ASSESSMENT AND PLAN: 27 yof with PMHX of lupus nephritis, HTN, admitted with hypertensive urgency, right flank pain, nausea, vomitting with decresaed PO intake and not taking her lisinopril over last 1 week. -Hypertensive urgency, improved, with new right sided abdominal pain and some headache today -right sided abdominal pain, r/o pelvic/ovarian etiology/torsion -Nausea/vomiting, ?food poisoning vs related to hypertension, resolved -Right flank pain, resolved now -Leucocytosis, ?stress mediated, r/o infectious process -?H/o Lupus nephritis Plan: BP improved with hydration, benzos and resumption of oral anti-hypertensives. Continue lisinopril, hydralazine, increase hyralazine to 10 mg QID. Labetalol prn. Right sided abdominal pain and tenderness today. patient is s/p appendectomy. Evidence of right ovarian cyst on prior imaging. check Abdominal /pelvic/transvaginal ultrasound, gynecology consult. Serial exams. Unclear if leucocytosis from the same. CT chest neg for infectious process. Gall bladder findings noted, abdominal ultrasound as above. Headache persistent, but improved from valium. Has prior similar history when seen by neurology. Will place on fioricet. Check CT brain but low suspicion for now. H/o lupus nephritis, hypertensive now, nephrology consult with Dr. Roy ( patient has seen her in the past). Cardiology input appreciated. repeat 2D echo. telemetry and close vitals monitoring. DVTPPX with heparin Dispo - pending improvement in clinical symptoms. Plan discussed with patient in detail, all questions answered.
[2017-11-22] MEDS ORDERED: ACETAMINOPHEN/CAFFEINE/BUTALBITAL 1 TAB PO PRN (14:01)
--- NOTE | 2017-11-22 14:11 | CON.NEP ---
Consult Consult Specialty:: Nephrology Referred by:: Dr. Peña Reason for Consultation:: Hypertensive Uregency, Lupus Nephritis - History of Present Illness Chief Complaint: Flank pain History of Present Illness: This is a 27 year old woman with PMhx of Lupus Nephritis (biopsy proven) with nephrotic syndrome and preserved kidney function, Hypertension and Anti- phosphlipid Ab + (? syndrome) presented with flank pain and admitted with hypertensive urgency. Pt denies any systemic symptoms of SLE. No Hx of DVT in the past. No N/V/D. Flank pain has now moved to the anterior abdomen. No Fever, chills, dysuria, hematuria. Pt on Lisinopril. Denies any NSAID use. 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: Other (tension headaches) Cardio/Vascular: Yes: HTN, Hyperlipdemia Renal/: Yes: Other (lupus nephritis) ...LMP: 10/20/17 ...: No Rheumatology: Yes: Lupus - Past Surgical History Past Surgical History: Yes: Appendectomy, Tonsillectomy - Alcohol/Substance Use Hx Alcohol Use: No History of Substance Use: reports: None - Smoking History Smoking history: Never smoked Have you smoked in the past 12 months: No Aproximately how many cigarettes per day: 0 - Social History Usual Living Arrangement: With Spouse Home Medications - Allergies Allergies/Adverse Reactions: Allergies Allergy/AdvReac Type Severity Reaction Status Date / Time clindamycin Allergy Severe ANAPHLACTIC Verified 11/20/17 03:26 REACTION doxycycline Allergy Severe ANAPHYLACTIC Verified 11/20/17 03:26 REACTION Penicillins Allergy Severe ANAPHYLACTIC Verified 11/20/17 03:26 REACTION shellfish derived Allergy Severe anaphylactic Verified 11/20/17 03:26 reaction SEAFOOD Allergy Severe ANAPHYLACTIC Uncoded 11/20/17 03:26 REACTION - Home Medications Home Medications: Ambulatory Orders Lisinopril [Prinivil] 40 mg PO DAILY #30 tablet 02/18/17 Review of Systems - Review of Systems Constitutional: reports: No Symptoms Eyes: reports: No Symptoms HENT: reports: No Symptoms Neck: reports: No Symptoms Cardiovascular: reports: Palpitations. denies: Chest Pain, Edema Respiratory: denies: Cough, Orthopnea, SOB, Wheezing Gastrointestinal: reports: Abdominal Pain Genitourinary: reports: Flank Pain Musculoskeletal: reports: No Symptoms Integumentary: reports: No Symptoms Nephrology Consult - Height Height: 5 ft 2 in - Weight Weight: 74.843 kg - BMI Body Mass Index (BMI): 30.2 - Lab Results CBC,BMP: CBC, BMP 11/22/17 05:35 11/22/17 05:35 Anion Gap: Anion Gap Anion Gap 9 (8-16) 11/22/17 05:35 - Imaging Chest X-ray: Report Reviewed Cat Scan: Report Reviewed - Physical Examination Vital Signs: Vital Signs Temperature 99.3 F 11/22/17 06:00 Pulse Rate 97 H 11/22/17 11:29 Respiratory Rate 18 11/22/17 06:00 Blood Pressure 157/109 11/22/17 11:29 O2 Sat by Pulse Oximetry (%) 97 11/21/17 23:13 Constitutional: Yes: No Distress Eyes: Yes: Conjunctiva Clear HENT: Yes: Atraumatic Neck: Yes: Supple Cardiovascular: Yes: Tachycardia, S1, S2. No: JVD, Rub Respiratory: Yes: Regular, CTA Bilaterally Renal/: No: Anuria, Bladder Distention, CVA Tenderness - Left, CVA Tenderness - Right, Daniels Present Extremities: No: Cold, Cool, Cyanosis Edema: No Neurological: Yes: Alert, Oriented Assessment/Plan 27 year old woman with PMhx of Lupus Nephritis (biopsy proven) with nephrotic syndrome and preserved kidney function, Hypertension and Anti-phosphlipid Ab + ( ? syndrome) presented with flank pain and admitted with hypertensive urgency. #Hypertensive Urgency Goal BP < 160/100 today D/c Hydralazine continue Linsinopril 40mg Daily start amlodpine 5mg daily, can give additional 5mg this evening if BP not controlled Renal Artery Doppler done last year was negative Pain control, anti-anxiety meds Low salt diet change NS to 1/2 NS if pt warrents IVF #Hx of Lupus Nephritis with proteinuria Will repeat all serologic studies check UPCR no acute indication for immunosuppressive meds trend BUN/Cr #Abd pain etiology unclear to have Vaginal US pain control no stones seen on CT given hx of antiphospholipid syndrome ? possiblity of thrombosis #Leukocytosis trend check cultures Thank you Taz Buenrostro Do
[2017-11-22] MEDS ORDERED: SODIUM CHLORIDE 0.45% 1,000 ML IV SCH (15:15)
[2017-11-22] MEDS ORDERED: MAGNESIUM SULF 50% (8.12 MEQ/2 ML-1 GM VIAL) IVPB ONE (16:00)
[2017-11-22] MEDS: amLODIPine BESYLATE 5 MG TABLET (FP) PO SCH (16:25)
[2017-11-22] MEDS ORDERED: morphine CARPU-JECT 10 MG/1 ML DISP.SYRIN IVPUSH ONE (17:59)
[2017-11-22] MEDS ORDERED: DEXTROSE 5%-0.45% SALINE 1,000 ML IV SCH (21:00)
[2017-11-22] MEDS: SENNOSIDES 8.6MG TABLET (FP) PO SCH (22:19)
[2017-11-22 22:27] LABS: HEMATOCRIT 41.9 % (32.4-45.2); HEMOGLOBIN 14.2 GM/dL (10.7-15.3); MCH 30.3 pg (25.7-33.7); MCHC 33.9 g/dl (32.0-36.0); MEAN CELL VOLUME 89.5 fl (80-96); MEAN PLT VOLUME 9.4 fl (7.5-11.1); PLATELET COUNT 346 K/MM3 (134-434); RBC 4.68 M/mm3 (3.60-5.2); RDW 13.1 % (11.6-15.6); WHITE BLOOD COUNT 15.2 K/mm3 (4.0-10.0)
--- NOTE | 2017-11-22 22:28 | CONS ---
DATE OF CONSULTATION: 11/22/2017 TIME OF CONSULTATION: 9 p.m. REASON FOR CONSULTATION: Right-sided pelvic pain. The patient is a 27-year-old female, 2, para 1-0-0-1, with 1 previous section and past medical history of lupus and lupus nephritis, who was admitted from the emergency room with complaint of right-sided abdominal pain radiating to the flank and groin area, and was in hypertensive crisis, was admitted for abdominal pain. CT scan and transvaginal sonogram were done. The patient has a prior history of ovarian cyst and sonogram showed a large 9 x 6 x 8.5 x 5.6 cm lower pelvic simple cyst. The patient was admitted on Sunday and still continues to have pain. I was asked to see the patient today. On examination, patient states that the pain is scale of 6 out of 10 after being medicated for pain. Abdomen was soft. No rebound. Tender lower pelvic area with palpation. No CVA tenderness. Pelvic exam: Patient has her period, started yesterday. Vagina with moderate amount of dark blood discharge. Cervix was no gross lesion. Uterus and adnexa were tender with palpable cystic mass in the pelvic area, mostly in the midline to the right side and tender. IMPRESSION: Pelvic pain consistent with a large simple cyst, possible para-ovarian cyst, although torsion of the ovary could not be ruled out despite sonogram showing blood flow to the ovary. In view of severe pain, and patient being symptomatic and possibility of torsion of the ovary, was advised surgical intervention. [facility], therefore will place at n.p.o. and will ask for medical clearance from her medical certification specialist and medical doctor prior to surgery. Patient agreed to have surgery. HOSSEIN ROBLEDO M.D. [id number]
--- NOTE | 2017-11-22 23:47 | HOSP ---
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 Pt is currently tachycardic 117, hypertensive 153/91, and in significant pain despite morphine. Pt states the pain is in her right abdomen, nonradiating, 7/10 , sharp. VS 99.3F, HR 117, BP 153/91, RR 12, 97% on RA. AAOx3 HEENT: moist membranes, NCAT, PERRL, EOMI Cardiac: tachycardic, S1, S2 no murmurs appreciated Lungs: CTAL b/l Abdomen: +BS, soft. RLQ TTP with rebound and guarding. Pearson's negative. No organomegally detected. Extremities: trace edema. Strong pulses Pt is a 27 y/o F w/ PMH SLE, Lupus nephritis, s/p appendectomy in 1995 who presented to ED with R sided abdominal pain. #HTN/Tachycardia -BP brought down from 200/150 to 153/91 during hospital stay. -HR 117 -EKG sig for twi in V1-V6, poor R progression. Tn neg on 11/20/2017 -possibly due to pain #Pain control Pt has been receiving morphine IV. -increased morphine to 2 q6 for pain 1-5 HTN and Tachycardia improved during hospital stay. Medically optimized for surgery pending labs. Physical Examination Vital Signs: Vital Signs Temperature 99.3 F 11/22/17 06:00 Pulse Rate 97 H 11/22/17 11:29 Respiratory Rate 18 11/22/17 06:00 Blood Pressure 157/109 11/22/17 11:29 O2 Sat by Pulse Oximetry (%) 97 11/22/17 09:00 Labs: CBC, BMP 11/22/17 14:18 11/22/17 05:35 Visit type - Emergency Visit Emergency Visit: No - New Patient This patient is new to me today: Yes Date on this admission: 11/23/17 - Critical Care Critical Care patient: No
[2017-11-23] MEDS: diazePAM 2 MG TABLET PO PRN (01:27)
--- NOTE | 2017-11-23 04:53 | PN ---
Physical Exam: SUBJECTIVE: Patient seen and examined by me this AM - Pt seen by Dr. Mar last night. Per note, wishes to take pt to OR this AM for ovarian cyst removal. - Pt states pain is better controlled today. However, now complaining of L sided pain and discomfort, primarily in LLQ, worsened by voiding and movement. Pt states HU resolved since yesterday, able to sleep better overnight. Denies any fever, HU, vision changes, CP, cough, dysuria, N/V, peripheral numbness/ weakness. No BM overnight. - Per medical record review, patient w/ LEFT ovarian cyst, however crosses midline so appear to be continuous with R ovary. Multiple conflicting radiologic reads. OBJECTIVE: Vital Signs Intake & Output 11/20/17 11/21/17 11/22/17 11/23/17 23:59 23:59 23:59 23:59 Intake Total 415 1000 Balance 415 1000 Weight 74.843 kg 74.843 kg Period Temp Pulse Resp BP Sys/Sanders Pulse Ox Last 24 Hr 98.7 F-99.3 F 97-122 16-18 151-173/88-124 97-97 GENERAL: The patient is awake, alert, and fully oriented, in no acute distress, lying in bed HEAD: Normal with no signs of trauma. EYES: PERRL, extraocular movements intact, sclera anicteric, conjunctiva clear. No ptosis. ENT: Ears normal, nares patent, oropharynx clear without exudates, moist mucous membranes. NECK: Trachea midline, full range of motion, supple. LUNGS: CTABL. no wheezes, no crackles, no accessory muscle use. HEART: Regular rate and rhythm, S1, S2 without murmur, rub or gallop. ABDOMEN: TTP in LUQ/LLQ. + rebound tenderness. Soft abdomen. normoactive bowel sounds, no hepatosplenomegaly, no masses. Negative samayoa's EXTREMITIES: 2+ pulses, warm, well-perfused, no edema. Trace non-pitting edema BL to knees. NEUROLOGICAL: Cranial nerves II through XII grossly intact. Normal speech, gait not observed. 5/5 strength in all extremities. Sensation to light touch preserved diffusely. PSYCH: Normal mood, normal affect. SKIN: Warm, dry, normal turgor, no rashes or lesions noted Laboratory Results - last 24 hr CBC, BMP 11/22/17 14:18 11/22/17 05:35 11/22/17 11/22/17 11/22/17 05:35 05:35 05:35 WBC 17.6 H RBC 4.57 Hgb 13.7 Hct 41.1 MCV 89.9 MCH 30.0 MCHC 33.4 RDW 13.2 Plt Count 321 MPV 9.2 Neutrophils % 81.0 Lymphocytes % 10.4 D Monocytes % 7.9 Eosinophils % 0.4 Basophils % 0.3 Sodium 142 Potassium 3.6 Chloride 109 H Carbon Dioxide 24 Anion Gap 9 BUN 9 Creatinine 0.9 Creat Clearance w eGFR > 60 Random Glucose 95 Calcium 7.2 L Magnesium 1.7 L Cancelled Total Bilirubin 0.7 AST 11 L ALT 13 Alkaline Phosphatase 51 Total Protein 4.2 L Albumin 1.8 L Beta HCG, Quant 11/22/17 11/22/17 14:18 18:35 WBC 15.2 H RBC 4.68 Hgb 14.2 Hct 41.9 MCV 89.5 MCH 30.3 MCHC 33.9 RDW 13.1 Plt Count 346 MPV 9.4 Neutrophils % Lymphocytes % Monocytes % Eosinophils % Basophils % Sodium Potassium Chloride Carbon Dioxide Anion Gap BUN Creatinine Creat Clearance w eGFR Random Glucose Calcium Magnesium Total Bilirubin AST ALT Alkaline Phosphatase Total Protein Albumin Beta HCG, Quant < 1.0 Active Medications Generic Name Dose Route Start Last Admin Trade Name Freq PRN Reason Stop Dose Admin Acetaminophen/Butalbital/Caffeine 1 tablet 11/22/17 14:01 Fioricet - PO Q6H PRN HEADACHE Amlodipine Besylate 5 mg 11/22/17 14:00 11/22/17 16:25 Norvasc - PO 5 mg DAILY SAMMIE Administration Diazepam 2 mg 11/21/17 13:30 11/23/17 01:27 Valium - PO 2 mg Q6H PRN Administration ANXIETY Docusate Sodium 100 mg 11/23/17 10:00 Colace - PO DAILY SAMMIE Heparin Sodium (Porcine) 5,000 unit 11/20/17 14:00 11/22/17 22:18 Heparin - SQ 5,000 unit TID SAMMIE Administration Dextrose/Sodium Chloride 1,000 mls @ 83 mls/hr 11/22/17 21:00 11/22/17 22:18 D5-1/2ns - IV 83 mls/hr ASDIR SAMMIE Administration Labetalol HCl 10 mg 11/21/17 10:03 11/22/17 17:20 Normodyne Injection - IVPUSH 10 mg Q4H PRN Administration High blood pressure Lisinopril 40 mg 11/21/17 10:00 11/22/17 09:03 Prinivil PO 40 mg DAILY SAMMIE Administration Morphine Sulfate 2 mg 11/20/17 09:35 11/20/17 18:00 Morphine Injection - IVPUSH 2 mg Q4H PRN Administration PAIN LEVEL 6-10 Ondansetron HCl 4 mg 11/20/17 10:40 11/21/17 19:50 Zofran Injection IVPUSH 4 mg Q6H PRN Administration NAUSEA AND/OR VOMITING Senna 1 tab 11/22/17 22:00 11/22/17 22:19 Senna - PO Not Given BID SAMMIE No micro pending CXR: No acute pathology Abd/Pelvis non-contrast CT: 1. No evidence of urinary tract calculi or obstructive uropathy. 2. Large L adnexal cyst, otherwise normal CT scan of the abdomen and pelvis with no evidence of acute pathology. Chest CT 11/21 - 1. Essentially clear lungs. 2. Small hiatal hernia. 3. Hyperattenuating fluid level within the gallbladder may be artifactual or secondary to sludge and/or cholelithiasis. Renal U/S 11/20 - IMPRESSION: Bilateral echogenic kidneys compatible with chronic medical renal disease. 10 mm echogenic density in the right renal upper/ midportion without posterior shadowing that may represent an angiomyolipoma. There is no evidence of hydronephrosis in both kidneys. Normal vascular flow in the renal artery and vein of both kidneys Non-Con CT head 11/22 - No evidence of a focal intracranial lesion or hemorrhage seen. TVUS 11/22 - IMPRESSION: Large ovarian/paraovarian cyst is again seen in the lower pelvis, in the midline posterior to the uterus and abutting the right and left ovary, the side of which is not clear on this exam. It is unchanged in size since prior CT scan of the abdomen and pelvis dated 11/20/2012 and has slightly increased in size since prior pelvis ultrasound dated 08/31/2016. No doppler evidence of torsion per addendum, however sensitivity 70% Abdominal U/S 11/22 - IMPRESSION: 1. Questionable right renal mass. CT follow-up recommended. 2. Otherwise normal abdominal sonogram. Please see above discussion. ASSESSMENT/PLAN: 27 yo woman w/ pmh of HTN, lupus nephritis who presents with hypertensive urgency, R flank/back pain and N/V in the setting of one week of non-compliance w/ home BP meds (lisinopril). #R ovarian cyst/abdominal pain - likely secondary to mass effect from ovarian cyst - NPO after midnight - OR w/ Dr. Mar today for cyst removal - Post-op care per surgical team - GC/Chlamydia panel - B-HCG #Hypertensive Urgency - better controlled overnight; systolics in 150s - Amlodipine 5mg for HTN - D/c'ed hydralazine yesterday 2/2 risk of DIL - Labetalol PRN IV push q4h for HTN, tachy - cardiac monitoring - cardiology consulted, recs appreciated - morphine for pain control, valium for anxiety #Leukocytosis - likely reactive at this point; no signs of active infection - No fever overnight - WBC 15.2 yesterday, downtrending - monitor for infectious symptoms #Lupus nephritis - bx confirmed - renal consulted - f/u LN studies - daily BMPs, monitor CR - No immunosuppresant per renal #HU - resolved - Fiorecet for HU - Morphine for pain control #Anxiety - Valium for anxiety PO #constipation -senna, colace PPX Heparin SubQ PPI FEN NS 83cc/hr, however pt refused overnight due to arm pain Daily BMPs NPO after midnight Plan discussed with attending, Dr. Tonya Mcfadden, PGY1 Visit type - Emergency Visit Emergency Visit: Yes ED Registration Date: 11/20/17 Care time: The patient presented to the Emergency Department on the above date and was hospitalized for further evaluation of their emergent condition. - New Patient This patient is new to me today: No - Critical Care Critical Care patient: No
[2017-11-23] MEDS: HEPARIN NA (PORCINE) 5,000 UNITS/ML 1ML VIAL SQ SCH (06:10)
[2017-11-23 06:42] LABS: BASO % 0.5 % (0-2.0); EOS % 1.9 % (0-4.5); HEMATOCRIT 39.4 % (32.4-45.2); HEMOGLOBIN 13.4 GM/dL (10.7-15.3); LYMPH % 14.4 % (8-40); MCH 30.7 pg (25.7-33.7); MCHC 34.2 g/dl (32.0-36.0); MEAN CELL VOLUME 89.8 fl (80-96); MEAN PLT VOLUME 9.1 fl (7.5-11.1); MONO % 7.6 % (3.8-10.2); NEUT % 75.6 % (42.8-82.8); PLATELET COUNT 313 K/MM3 (134-434); RBC 4.38 M/mm3 (3.60-5.2); RDW 12.9 % (11.6-15.6); WHITE BLOOD COUNT 12.7 K/mm3 (4.0-10.0)
[2017-11-23 07:01] LABS: INR 1.05 (0.82-1.09); PROTHROMBIN TIME (PATIENT) 11.9 SEC (9.98-11.88)
[2017-11-23 07:04] LABS: ACTIVATED PTT 32.1 SECONDS (26.9-34.4)
[2017-11-23 07:24] LABS: ALBUMIN 1.6 g/dl (3.4-5.0); ANION GAP 8 (8-16); BILIRUBIN,TOTAL 0.8 mg/dL (0.2-1.0); BLOOD UREA NITROGEN 7 mg/dL (7-18); CALCIUM 7.6 mg/dL (8.5-10.1); CHLORIDE 108 mmol/L (98-107); CO2 26 mmol/L (21-32); CREATININE 0.8 mg/dL (0.55-1.02); GLUCOSE,RANDOM 93 mg/dL (74-106); POTASSIUM 3.8 mmol/L (3.5-5.1); SGOT/AST 40 U/L (15-37); SGPT/ALT 35 U/L (12-78); SODIUM 142 mmol/L (136-145); TOT PROT 4.1 g/dl (6.4-8.2)
[2017-11-23 07:25] LABS: ALK PHOS 53 U/L (45-117)
--- NOTE | 2017-11-23 07:25 | MSN ---
Progress Note (short form) - Note Progress Note: SUBJECTIVE CC: RLQ/LLQ abdominal pressure HPI: Pt is a 27 y/o F with PMHx HTN, lupus nephritis, s/p appendectomy who was seen at the ED for R flank pain, R chest pain, back pain, n/v, dizziness and decreased PO intake over last 1 week. She sees transcribing machine operator, Dr. Roy in [place] and PCP is Dr. Cruz. Pt was seen and examined today. Overnight, hospitalist team was called by Ob/ Cardiac Exercise Physiologist (Dr. Griggs) for pre-op optimization for ovarian cystectomy. Pt was tachycardic at 117 BPM, BP 153/91 and in significant pain despite Valium, and 4mg Morphine. EKG was significant for TWI in V1-V6 with poor R progression. She was medically optimized for surgery pending labs. Pt was kept NPO post MN for possibility of OR in AM for ovarian cystectomy. She c/o L sided abdominal pain medicated with valium with good effect. She refused IVF and was educated for need for hydration. Pt currently menstruating. Pt seen and examined today. She denies feeling thumping in chest, no nausea, vomiting, fever, chills, no lightheadness. She c/o mild headache occipital to frontal region, improved from yesterday. She reports her pain is aggravated with movement. She has been intubated in past; she reports pneumonia after intubation for C section in 2010, and as a child, for her tonsillectomy and appendectomy, she reports violent outbursts post procedure. She believes this may be due to previous childhood trauama. She has never had problems during her surgeries or problems waking up after intubation. OBJECTIVE Last Vital Signs Temp Pulse Resp BP Pulse Ox 99.3 F 120 H 18 159/100 97 11/22/17 06:00 11/22/17 06:00 11/22/17 06:00 11/22/17 06:00 11/21/17 23:13 General: Pt was sitting up in bed, in no acute distress. Breathing comfortably on room air. Eyes: No scleroicterus. Clear conjunctiva. PERRLA. EOMI. Throat: Moist mucus membranes. Good dentition. Heart: Tachycardic rate, regular rhythm. No murmurs or rubs appreciated. Lungs: Clear to auscultation B/L. Equal breath sounds. No crackles, rales or rhonchi appreciated. Abdomen: Non distended. Normoactive bowel sounds in all four quadrants. Tympanic to percussion in all four quadrants. Tender to light and deep palpation in RLQ - localized, pressure. Pain in suprapubic area. Extremities: 2+ radial pulses. 2+ DP pulses. Trace edema at B/L ankles. Neurological: CN II-XII grossly intact. Gag reflex not tested. Intact to light sensation all throughout UE and LE. Symmetric sensation. CBC, BMP 11/23/17 05:35 11/23/17 05:35 Laboratory Results - last 24 hr 11/22/17 11/22/17 11/23/17 14:18 18:35 05:35 WBC 15.2 H RBC 4.68 Hgb 14.2 Hct 41.9 MCV 89.5 MCH 30.3 MCHC 33.9 RDW 13.1 Plt Count 346 MPV 9.4 Neutrophils % Lymphocytes % Monocytes % Eosinophils % Basophils % ESR PT with INR INR PTT (Actin FS) Sodium 142 Potassium 3.8 Chloride 108 H Carbon Dioxide 26 Anion Gap 8 BUN 7 Creatinine 0.8 Creat Clearance w eGFR > 60 Random Glucose 93 Calcium 7.6 L Magnesium 2.0 Total Bilirubin 0.8 AST 40 H ALT 35 Alkaline Phosphatase 53 Creatine Kinase 23 L Troponin I < 0.02 C-Reactive Protein 11.8 H Total Protein 4.1 L Albumin 1.6 L Beta HCG, Quant < 1.0 U Random Total Protein Urine Creatinine Blood Type Antibody Screen 11/23/17 11/23/17 11/23/17 05:35 05:35 06:00 WBC 12.7 H RBC 4.38 Hgb 13.4 Hct 39.4 MCV 89.8 MCH 30.7 MCHC 34.2 RDW 12.9 Plt Count 313 MPV 9.1 Neutrophils % 75.6 Lymphocytes % 14.4 D Monocytes % 7.6 Eosinophils % 1.9 D Basophils % 0.5 ESR 74 H PT with INR 11.90 H INR 1.05 PTT (Actin FS) 32.1 Sodium Potassium Chloride Carbon Dioxide Anion Gap BUN Creatinine Creat Clearance w eGFR Random Glucose Calcium Magnesium Total Bilirubin AST ALT Alkaline Phosphatase Creatine Kinase Cancelled Troponin I Cancelled C-Reactive Protein Total Protein Albumin Beta HCG, Quant U Random Total Protein Urine Creatinine Blood Type Antibody Screen 11/23/17 11/23/17 06:20 09:40 WBC RBC Hgb Hct MCV MCH MCHC RDW Plt Count MPV Neutrophils % Lymphocytes % Monocytes % Eosinophils % Basophils % ESR PT with INR INR PTT (Actin FS) Sodium Potassium Chloride Carbon Dioxide Anion Gap BUN Creatinine Creat Clearance w eGFR Random Glucose Calcium Magnesium Total Bilirubin AST ALT Alkaline Phosphatase Creatine Kinase Troponin I C-Reactive Protein Total Protein Albumin Beta HCG, Quant U Random Total Protein 276 H Urine Creatinine 38.1 Blood Type B POSITIVE Antibody Screen Negative INR, PTT INR 1.05 (0.82-1.09) 11/23/17 05:35 Active Medications Generic Name Dose Route Start Last Admin Trade Name Freq PRN Reason Stop Dose Admin Acetaminophen/Butalbital/Caffeine 1 tablet 11/22/17 14:01 Fioricet - PO Q6H PRN HEADACHE Amlodipine Besylate 5 mg 11/22/17 14:00 11/22/17 16:25 Norvasc - PO 5 mg DAILY SAMMIE Administration Diazepam 2 mg 11/21/17 13:30 11/23/17 01:27 Valium - PO 2 mg Q6H PRN Administration ANXIETY Docusate Sodium 100 mg 11/23/17 10:00 Colace - PO DAILY [facility] Heparin Sodium (Porcine) 5,000 unit 11/20/17 14:00 11/23/17 06:10 Heparin - SQ Not Given TID [facility] Dextrose/Sodium Chloride 1,000 mls @ 83 mls/hr 11/22/17 21:00 11/22/17 22:18 D5-1/2ns - IV 83 mls/hr ASDIR SAMMIE Administration Labetalol HCl 10 mg 11/21/17 10:03 11/22/17 17:20 Normodyne Injection - IVPUSH 10 mg Q4H PRN Administration High blood pressure Lisinopril 40 mg 11/21/17 10:00 11/22/17 09:03 Prinivil PO 40 mg DAILY SAMMIE Administration Morphine Sulfate 2 mg 11/20/17 09:35 11/20/17 18:00 Morphine Injection - IVPUSH 2 mg Q4H PRN Administration PAIN LEVEL 6-10 Ondansetron HCl 4 mg 11/20/17 10:40 11/21/17 19:50 Zofran Injection IVPUSH 4 mg Q6H PRN Administration NAUSEA AND/OR VOMITING Senna 1 tab 11/22/17 22:00 11/22/17 22:19 Senna - PO Not Given BID SAMMIE Home Medications Medication Instructions Recorded Lisinopril [Prinivil] 40 mg PO DAILY #30 tablet 02/18/17 08/31/16 (previous visit) - Transvaginal US 1. no Doppler evidence of ovarian torsion 2. Nonspecific 8 x 6.7 x 5.3 cm unilocular R ovarian cyst noted which appears increased in size in comparison to prior US study of 12/10/2015. On prior exam, this R ovarian cyst had maximum diameter of approximately 6.4 cm. CXR: No acute pathology Abd/Pelvis non-contrast CT: 1. No evidence of urinary tract calculi or obstructive uropathy. 2. Large L adnexal cyst, otherwise normal CT scan of the abdomen and pelvis with no evidence of acute pathology. Renal U/S 11/20 - IMPRESSION: Bilateral echogenic kidneys compatible with chronic medical renal disease. 10 mm echogenic density in the right renal upper/ midportion without posterior shadowing that may represent an angiomyolipoma. There is no evidence of hydronephrosis in both kidneys. Normal vascular flow in the renal artery and vein of both kidneys Chest CT 11/21 11:06 - IMPRESSION: 1. Essentially clear lungs. 2. Small hiatal hernia. 3. Hyperattenuating fluid level within the gallbladder may be artifactual or secondary to sludge and/or cholelithiasis. Non-Con CT head 11/22 - No evidence of a focal intracranial lesion or hemorrhage seen. TVUS 11/22 - IMPRESSION: Large ovarian/paraovarian cyst is again seen in the lower pelvis, in the midline posterior to the uterus and abutting the right and left ovary, the side of which is not clear on this exam. It is unchanged in size since prior CT scan of the abdomen and pelvis dated 11/20/2012 and has slightly increased in size since prior pelvis ultrasound dated 08/31/2016. No doppler evidence of torsion per addendum, however sensitivity 70% Abdominal U/S 11/22 - IMPRESSION: 1. Questionable right renal mass. CT follow-up recommended. 2. Otherwise normal abdominal sonogram. Please see above discussion. AUSTYN Ab with reflex, Complement total CH50 stat, DNA ab-ds, Sjogrens AB SSA, SSB - pending Urine Cr - pending Urine total protein, random, stat - pending CRP, ESR - pending Urine Test Results Urine Color Straw 11/20/17 04:05 Urine Appearance Clear 11/20/17 04:05 Urine pH 7.0 (5.0-8.0) 11/20/17 04:05 Ur Specific [place] 1.010 (1.001-1.035) 11/20/17 04:05 Urine Protein 3+ (NEGATIVE) H 11/20/17 04:05 Urine Glucose (UA) Negative (NEGATIVE) 11/20/17 04:05 Urine Ketones Negative (NEGATIVE) 11/20/17 04:05 Urine Blood Negative (NEGATIVE) 11/20/17 04:05 Urine Nitrite Negative (NEGATIVE) 11/20/17 04:05 Urine Bilirubin Negative (NEGATIVE) 11/20/17 04:05 Ur Leukocyte Esterase Negative (NEGATIVE) 11/20/17 04:05 Ur Epithelial Cells Rare /HPF (FEW) 11/20/17 04:05 Urine Bacteria Rare /hpf (NONE SEEN) 11/20/17 04:05 Urine Mucus Rare 11/20/17 04:05 ASSESSMENT Pt is a 27 y/o F with PMHx HTN and lupus nephritis who was seen at the ED for chest pain, back pain, n/v, dizziness and decreased PO intake over last 1 week. She was admitted with hypertensive urgency. PLAN 1. R flank pain, R chest pain, back pain * likely mass effect from R ovarian cyst. * Cardiology consult - note appreciated. Not likely cardiac etiology. * f/u serology for lupus nephritis * UA and CT were negative for renal pathology. will f/u on lupus repeat serology , urine Cr, urine total protein, CRP, ESR. * TV US showing enlarged cyst from previously; ELECTRICAL ENGINEERING TECHNICIAN saw pt and she will undergo ovarian cystectomy today. * Norvasc 5mg PO daily, Lisinopril 40 mg PO daily, Labetalol 10 mg IV q4h PRN; Senna 1 tab PO BID, Colace 100mg PO daily for constipation 2. Hypertensive urgency * likely 2/2 multifactorial process * pt has not taken home med Lisinopril 40 mg PO daily for the last 3 weeks, pt reports her medications ran out. Pt was very anxious upon arrival and reported poor PO intake, can have component of vasoconstriction due to hypovolemia. Also , may be secondary to pain. * Valium 2mg PO q6h PRN anxiety to r/o component anxiety induced HTN * Zofran 4mg IV q6h PRN n/v. Symptoms likely secondary to HTN urgency. * EKG indicating TWI in V1-V6, poor R wave progression, likely secondary to pain and vasospasm. Will speak to cardio regarding new TWI. 3. Headache from occipital to frontal lobe * likely secondary to tension headache given musculoskeletal strain, sleeping in hospital environment, anxiety and previous hx of neck injury * neurological physical exam was negative; likely not neurological etiology * Head CT negative for intracranial pathology * mild today, Fioricet PRN 4. Leukocytosis * likely stress induced * WBC count has improved from yesterday. 18.3 11/21, 17.6 11/22. 12.7 today. * UA and CT abdomen - negative for infectious pathology. CT chest showed hyperattenuating fluid that may be artifact, sludge or cholelithiasis. Given negative Pearson's sign and CT of abdomen/pelvis negative for stones; no clinical suspicion at this time for liver/gallbladder pathology. * TV US showing enlarged cyst from previous TV US in 2016. Will undergo cystectomy today. 5. Lupus nephritis * Will monitor for now, pt not on any home medications. * plan as per above, nephro consult recommendations 6. FEN * fluids: 1/2 NS 1000mls @83 mls/hr * electrolytes: chem panel, pending for today. f/u. * nutrition: NPO 6. PPX * DVT ppx: D/C Hep for surgery today. * GI ppx: no indications for stress ulcer ppx at this time. 7. Dispo * Tele
[2017-11-23] MEDS: LISINOPRIL 20 MG TABLET (FP) PO SCH (09:21)
[2017-11-23] MEDS: amLODIPine BESYLATE 5 MG TABLET (FP) PO SCH (09:21)
[2017-11-23] MEDS: morphine CARPU-JECT 10 MG/1 ML DISP.SYRIN IVPUSH PRN (09:41)
[2017-11-23] MEDS: SENNOSIDES 8.6MG TABLET (FP) PO SCH ×2 (09:45→22:51)
[2017-11-23 10:00] LABS: URINE CREATININE 38.1 mg/dL (20-320)
[2017-11-23] MEDS ORDERED: DOCUSATE SODIUM 100 MG CAPSULE (FP) PO SCH (10:00)
[2017-11-23 10:12] LABS: ERYTHROCYTE SEDIMENTATION RATE 74 mm/hr (0-20)
--- NOTE | 2017-11-23 12:11 | PN ---
Progress Note (short form) - Note Progress Note: Renal follow up for Lupus Nephropathy Pt seen and examined at the bedside awake and alert looks comfortable has right LUQ pain NPO for OR today BP improved no sob, chest pain, abd pain, N/V/D Vital Signs Temperature 98.1 F 11/23/17 09:00 Pulse Rate 98 H 11/23/17 09:00 Respiratory Rate 18 11/23/17 09:00 Blood Pressure 149/100 11/23/17 09:00 O2 Sat by Pulse Oximetry (%) 97 11/22/17 21:00 Intake & Output 11/20/17 11/21/17 11/22/17 11/23/17 23:59 23:59 23:59 23:59 Intake Total 415 1000 600 Balance 415 1000 600 Weight 74.843 kg 74.843 kg NAD tachycardic CTA Trace edema, no clubbing or cyanosis CBC, BMP 11/23/17 05:35 11/23/17 05:35 Current Medications Acetaminophen/Butalbital/Caffeine (Fioricet -) 1 tablet PO Q6H PRN PRN Reason: HEADACHE Amlodipine Besylate (Norvasc -) 5 mg PO DAILY [facility] Last Admin: 11/23/17 09:21 Dose: 5 mg Diazepam (Valium -) 2 mg PO Q6H PRN PRN Reason: ANXIETY Last Admin: 11/23/17 01:27 Dose: 2 mg Docusate Sodium (Colace -) 100 mg PO DAILY [facility] Last Admin: 11/23/17 09:45 Dose: Not Given Dextrose/Sodium Chloride (D5-1/2ns -) 1,000 mls @ 83 mls/hr IV ASDIR [facility] Last Admin: 11/22/17 22:18 Dose: 83 mls/hr Labetalol HCl (Normodyne Injection -) 10 mg IVPUSH Q4H PRN PRN Reason: High blood pressure Last Admin: 11/22/17 17:20 Dose: 10 mg Lisinopril (Prinivil) 40 mg PO DAILY [facility] Last Admin: 11/23/17 09:21 Dose: 40 mg Morphine Sulfate (Morphine Injection -) 2 mg IVPUSH Q4H PRN PRN Reason: PAIN LEVEL 6-10 Last Admin: 11/23/17 09:41 Dose: 2 mg Ondansetron HCl (Zofran Injection) 4 mg IVPUSH Q6H PRN PRN Reason: NAUSEA AND/OR VOMITING Last Admin: 11/21/17 19:50 Dose: 4 mg Senna (Senna -) 1 tab PO BID SAMMIE Last Admin: 11/23/17 09:45 Dose: Not Given 27 year old woman with PMhx of Lupus Nephritis (biopsy proven) with nephrotic syndrome and preserved kidney function, Hypertension and Anti-phosphlipid Ab + ( ? syndrome) presented with flank pain and admitted with hypertensive urgency. #Hypertensive Urgency BP has improved with Lisinopril and Amlodpine Continue low salt diet pain control can titate meds to goal BP < 140/90 during the hospitization #Hx of Lupus Nephritis with proteinuria Most recent biopsy report reviewed case discussed with Dr. 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 At this time her renal function is stable and she has nephrotic range proteinuria based on her UPCR She should be maintained on ACEi and statin if her lipids are abnormal persistent nephrotic range proteinuria is a indication for immunosuppressive therapy but no urgency to start that as a inpatient she is to follow up with Dr. Roy as a outpatient #Abd pain for OR today for adnexal cyst removal pain control #Leukocytosis improving Thank you Taz Buenrostro Do
--- NOTE | 2017-11-23 13:26 | EKG ---
Test Reason : Blood Pressure : / mmHG Vent. Rate : 101 BPM Atrial Rate : 101 BPM P-R Int : 154 ms QRS Dur : 070 ms QT Int : 336 ms P-R-T Axes : 036 018 -01 degrees QTc Int : 435 ms SINUS TACHYCARDIA T WAVE ABNORMALITY, CONSIDER ANTERIOR ISCHEMIA ABNORMAL ECG WHEN COMPARED WITH ECG OF 21-NOV-2017 10:40, NO SIGNIFICANT CHANGE WAS FOUND Confirmed by MD ANTHONY, NAY ([id number]) on 11/23/2017 1:26:40 PM Referred By: HOSPITALIST Confirmed By:NAY CRUZ MD
--- NOTE | 2017-11-23 14:11 | PN ---
Teaching Attending Note Name of Resident: Sunny Mcfadden ATTENDING PHYSICIAN STATEMENT Time of evaluation: 10:15 AM I saw and evaluated the patient. I reviewed the resident's note and discussed the case with the resident. I agree with the resident's findings and plan as documented. SUBJECTIVE: Patient seen and examined, still with right sided abdominal pain. Headache resolved. no chest pain, palpitations, dyspnea, dizziness, or urinary symptoms. Flank pain resolved. OBJECTIVE: Vital Signs Period Temp Pulse Resp BP Sys/Sanders Pulse Ox Last 24 Hr 98.1 F-99.6 F 98-122 16-18 149-167/79-124 97 Intake & Output 11/20/17 11/21/17 11/22/17 11/23/17 23:59 23:59 23:59 23:59 Intake Total 415 1000 600 Balance 415 1000 600 Weight 165 lb 165 lb General: lying in bed in no acute distress Abdomen:soft RLQ/right keyona-umbilical tenderness, minimal right sided tenderness when palpating LLQ, no voluntary or involuntary guarding or rigidity , positive bowel sounds extremities: no edema Neuro AAOx3, facial symmetry, power 5/5, PERRLA, EOMI Active Medications Generic Name Dose Route Start Last Admin Trade Name Freq PRN Reason Stop Dose Admin Acetaminophen/Butalbital/Caffeine 1 tablet 11/22/17 14:01 Fioricet - PO Q6H PRN HEADACHE Amlodipine Besylate 5 mg 11/22/17 14:00 11/23/17 09:21 Norvasc - PO 5 mg DAILY [facility] Administration Diazepam 2 mg 11/21/17 13:30 11/23/17 01:27 Valium - PO 2 mg Q6H PRN Administration ANXIETY Docusate Sodium 100 mg 11/23/17 10:00 11/23/17 09:45 Colace - PO Not Given DAILY [facility] Dextrose/Sodium Chloride 1,000 mls @ 83 mls/hr 11/22/17 21:00 11/22/17 22:18 D5-1/2ns - IV 83 mls/hr ASDIR [facility]E Administration Labetalol HCl 10 mg 11/21/17 10:03 11/22/17 17:20 Normodyne Injection - IVPUSH 10 mg Q4H PRN Administration High blood pressure Lisinopril 40 mg 11/21/17 10:00 11/23/17 09:21 Prinivil PO 40 mg DAILY [facility] Administration Morphine Sulfate 2 mg 11/20/17 09:35 11/23/17 09:41 Morphine Injection - IVPUSH 2 mg Q4H PRN Administration PAIN LEVEL 6-10 Ondansetron HCl 4 mg 11/20/17 10:40 11/21/17 19:50 Zofran Injection IVPUSH 4 mg Q6H PRN Administration NAUSEA AND/OR VOMITING Senna 1 tab 11/22/17 22:00 11/23/17 09:45 Senna - PO Not Given BID [facility] Laboratory Results - last 24 hr 11/22/17 11/22/17 11/23/17 14:18 18:35 05:35 WBC 15.2 H RBC 4.68 Hgb 14.2 Hct 41.9 MCV 89.5 MCH 30.3 MCHC 33.9 RDW 13.1 Plt Count 346 MPV 9.4 Neutrophils % Lymphocytes % Monocytes % Eosinophils % Basophils % ESR PT with INR INR PTT (Actin FS) Sodium 142 Potassium 3.8 Chloride 108 H Carbon Dioxide 26 Anion Gap 8 BUN 7 Creatinine 0.8 Creat Clearance w eGFR > 60 Random Glucose 93 Calcium 7.6 L Magnesium 2.0 Total Bilirubin 0.8 AST 40 H ALT 35 Alkaline Phosphatase 53 Creatine Kinase 23 L Troponin I < 0.02 C-Reactive Protein 11.8 H Total Protein 4.1 L Albumin 1.6 L Beta HCG, Quant < 1.0 U Random Total Protein Urine Creatinine Blood Type Antibody Screen 11/23/17 11/23/17 11/23/17 05:35 05:35 06:00 WBC 12.7 H RBC 4.38 Hgb 13.4 Hct 39.4 MCV 89.8 MCH 30.7 MCHC 34.2 RDW 12.9 Plt Count 313 MPV 9.1 Neutrophils % 75.6 Lymphocytes % 14.4 D Monocytes % 7.6 Eosinophils % 1.9 D Basophils % 0.5 ESR 74 H PT with INR 11.90 H INR 1.05 PTT (Actin FS) 32.1 Sodium Potassium Chloride Carbon Dioxide Anion Gap BUN Creatinine Creat Clearance w eGFR Random Glucose Calcium Magnesium Total Bilirubin AST ALT Alkaline Phosphatase Creatine Kinase Cancelled Troponin I Cancelled C-Reactive Protein Total Protein Albumin Beta HCG, Quant U Random Total Protein Urine Creatinine Blood Type Antibody Screen 11/23/17 11/23/17 06:20 09:40 WBC RBC Hgb Hct MCV MCH MCHC RDW Plt Count MPV Neutrophils % Lymphocytes % Monocytes % Eosinophils % Basophils % ESR PT with INR INR PTT (Actin FS) Sodium Potassium Chloride Carbon Dioxide Anion Gap BUN Creatinine Creat Clearance w eGFR Random Glucose Calcium Magnesium Total Bilirubin AST ALT Alkaline Phosphatase Creatine Kinase Troponin I C-Reactive Protein Total Protein Albumin Beta HCG, Quant U Random Total Protein 276 H Urine Creatinine 38.1 Blood Type B POSITIVE Antibody Screen Negative EKG sinus tachycardia 101, T wave inversion in III, aVF, V1-V6 (present on EKG on 11/21, overall unchanged) 2D echo reviewed Abdominal/Transvaginal ultrasound noted. ASSESSMENT AND PLAN: 27 yof with PMHX of lupus nephritis, HTN, admitted with hypertensive urgency, right flank pain, nausea, vomitting with decresaed PO intake and not taking her lisinopril over last 1 week. -Hypertensive urgency, improved, with new right sided abdominal pain and some headache today -right sided abdominal pain, possible intermittent adnexal cyst torsion -Nausea/vomiting, ?food poisoning vs related to hypertension, resolved -Right flank pain, resolved now -Leucocytosis, ?stress mediated, r/o infectious process -?H/o Lupus nephritis Plan: Gynecology input appreciated. PLan for adnexal cyst removal today. HR/BP improved, however suspect secondary to severe pain from above. Continue lisinopril, norvasc, and labetalolol prn. EKG with non specific changes overall unchanged from admission, 2D echo non concerning and neg Troponin, no concern for ACs or acute process currently. Cardiology input appreciated. Update cardiology of the same. BP improved with hydration, benzos and resumption of oral anti-hypertensives. Headache resolved, CT head neg for acute process. Nephrology input appreciated. Continue telemetry. DVTPPX with heparin, on hold for OR. Dispo - plan for OR today. Plan discussed with patient in detail, all questions answered.
[2017-11-23] MEDS ORDERED: ONDANSETRON 4 MG/2 ML VIAL IVPUSH PRN ×2 (15:03→16:18)
[2017-11-23] MEDS ORDERED: LACTATED RINGERS SOLUTION 1,000 ML IV SCH ×2 (15:15→16:30)
[2017-11-23] MEDS ORDERED: MIDAZOLAM HCL 2 MG/2 ML SINGLE DOSE VIAL ONE (15:21)
[2017-11-23] MEDS ORDERED: ROCURONIUM BROMIDE 50 MG/5 ML VIAL ONE (15:21)
--- NOTE | 2017-11-23 15:23 | PN ---
Progress Note, Physician Chief Complaint: RLQ pain Plan for OR for laparoscopic cyst removal No chest pain or sob. History of Present Illness: This is a 27 year old female with a PMH of HTN, HLD, Lupus and kidney disease. She presents to the ED with chest pain, back pain, dizziness and vomit that began around 11pm yesterday. She states that the chest pain was right sided and started in her right lower flank and radiated up towards the right side of her chest. The chest pain resolved on its own. - Current Medication List Current Medications: Active Medications Acetaminophen/Butalbital/Caffeine (Fioricet -) 1 tablet PO Q6H PRN PRN Reason: HEADACHE Amlodipine Besylate (Norvasc -) 5 mg PO DAILY [facility] Last Admin: 11/23/17 09:21 Dose: 5 mg Diazepam (Valium -) 2 mg PO Q6H PRN PRN Reason: ANXIETY Last Admin: 11/23/17 01:27 Dose: 2 mg Docusate Sodium (Colace -) 100 mg PO DAILY [facility] Last Admin: 11/23/17 09:45 Dose: Not Given Fentanyl (Sublimaze Injection -) 50 mcg IVPUSH Q5M PRN PRN Reason: PAIN-PACU ORDER X 4 DOSES ONLY Dextrose/Sodium Chloride (D5-1/2ns -) 1,000 mls @ 83 mls/hr IV ASDIR [facility] Last Admin: 11/22/17 22:18 Dose: 83 mls/hr Lactated Ringer's (Lactated Ringers Solution) 1,000 mls @ 75 mls/hr IV ASDIR [facility] Labetalol HCl (Normodyne Injection -) 10 mg IVPUSH Q4H PRN PRN Reason: High blood pressure Last Admin: 11/22/17 17:20 Dose: 10 mg Lisinopril (Prinivil) 40 mg PO DAILY [facility] Last Admin: 11/23/17 09:21 Dose: 40 mg Morphine Sulfate (Morphine Injection -) 2 mg IVPUSH Q4H PRN PRN Reason: PAIN LEVEL 6-10 Last Admin: 11/23/17 09:41 Dose: 2 mg Ondansetron HCl (Zofran Injection) 4 mg IVPUSH Q6H PRN PRN Reason: NAUSEA AND/OR VOMITING Last Admin: 11/21/17 19:50 Dose: 4 mg Ondansetron HCl (Zofran Injection) 4 mg IVPUSH Q6H PRN PRN Reason: NAUSEA AND/OR VOMITING Senna (Senna -) 1 tab PO BID [facility] Last Admin: 11/23/17 09:45 Dose: Not Given - Objective Vital Signs: Vital Signs Temperature 98.1 F 11/23/17 09:00 Pulse Rate 98 H 11/23/17 09:00 Respiratory Rate 18 11/23/17 09:00 Blood Pressure 149/100 11/23/17 09:00 O2 Sat by Pulse Oximetry (%) 97 11/23/17 09:00 Constitutional: Yes: Mild Distress Neck: Yes: Supple Cardiovascular: Yes: Tachycardia, S1, S2. No: JVD, Murmur Respiratory: Yes: CTA Bilaterally Gastrointestinal: Yes: Normal Bowel Sounds Edema: No Labs: CBC, BMP 11/23/17 05:35 11/23/17 05:35 INR, PTT INR 1.05 (0.82-1.09) 11/23/17 05:35 Assessment/Plan This is a 27 year old female with a PMH of HTN, HLD, Lupus and kidney disease. She has severe RLQ abdominal pain and with plan for abdominal laparoscopic surgery for cyst removal. Currently denies any chest pain or sob. No pnd, orthopnea, or palpitations. Sinus tachy on telemetry with no arrhythmias. EKG with nonspecific anterior T wave abnormalities. No cardiac complaints. Cardiac enzymes negative. Echocardiogram unremarkable with normal LV systolic function/wall motion. On erick-i and amlodipine for BP control. Has room to increase amlodipine. Give labetalol IV as needed as prefer BP below 150/90 for surgery. BP should also improve with pain relief/control. No further cardiac testing at this time. No known cardiac contraindications to surgery.
[2017-11-23] MEDS ORDERED: LIDOCAINE HCL/PF 2% SDV 5ML VIAL ONE (15:24)
[2017-11-23] MEDS ORDERED: oxyCODONE HCL 5 MG TABLET PO PRN (16:18)
--- NOTE | 2017-11-23 16:49 | PN ---
Progress Note (short form) - Note Progress Note: Patient seen an examined at bedside 27 yo known patient to our practice with hx/o HTN, Lupus, kidney disease with known hx/o right ovarian cyst (seen in 2015) admitted on 11/20/17 for chest pain, right-sided back pain, nausea and vomiting. She underwent CT and pelvic ultrasound which revealed a 9.6 cm pelvic mass. 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 Vogel, acute abdomen, recommended gynecologic surgical intervention Cleared by Primary Team and Cardiology for surgery Reviewed risks of procedure including infection, bleeding requiring transfusion , damage to surrounding organs such as bowel, bladder and ureters, risk of oophorectomy, risk of conversion to laparotomy. Reviewed hx/o prior surgeries makes patient at a higher risk of complication. Patient expressed understanding, will proceed to OR Full consult to follow
[2017-11-23] MEDS ORDERED: VANCOMYCIN 1,000 MG VIAL (RESTRICTED TO ID ONLY) IVPB ONE (16:50)
[2017-11-23] MEDS ORDERED: DEXAMETHASONE SOD PHOSPHATE 4 MG/1 ML VIAL ONE (17:33)
[2017-11-23] MEDS ORDERED: VANCOMYCIN 1,000 MG VIAL (RESTRICTED TO ID ONLY) ONE (17:33)
[2017-11-23] MEDS ORDERED: PHENYLEPHRINE HCL 10 MG/1 ML SINGLE DOSE VIAL ONE (17:33)
[2017-11-23] MEDS ORDERED: NEOSTIGMINE METHYLSULFATE 0.5 MG/ML - 10 ML MDV ONE (17:54)
[2017-11-23] MEDS ORDERED: GLYCOPYRROLATE 0.2 MG/1 ML VIAL ONE (19:27)
[2017-11-23] MEDS ORDERED: ONDANSETRON 4 MG/2 ML VIAL ONE (19:56)
--- NOTE | 2017-11-23 19:56 | OP ---
Operative Note - Note: Operative Date: 11/23/17 Pre-Operative Diagnosis: right adnexal mass Operation: laparoscopic right adnexal cystectomy, cystoscopy Findings: >10 cm smooth-walled cyst, separate from the ovary, likely arising from right fallopian tube, torsed > 2 times; normal ovaries bilaterally; cystoscopy R ureter stented without issue Post-Operative Diagnosis: Same as Pre-op Surgeon: Rufina Gautam (intraop consult: Jc) Bolt Sawyer: Philip Clarke Anesthesiologist/AUTO LOCATOR: Neda Khan Anesthesia: General Specimens Removed: right adnexal cyst, cyst fluid, pelvic washing Estimated Blood Loss (mls): 10 Operative Report Dictated: Yes
[2017-11-23] MEDS ORDERED: SIMETHICONE 80 MG TAB.CHEW (FP) PO PRN ×2 (20:02→20:15)
--- NOTE | 2017-11-23 20:02 | CON.OBG ---
Consult Consult Specialty:: gynecology - History of Present Illness Chief Complaint: adnexal cyst, pain History of Present Illness: 27 yo with PMH of HTN, lupus, kidney disease admitted 11/20 with chief complaint of R sided back pain radiating to chest, nausea and vomiting. She was admitted for BP management, underwent CT and ultrasound, noted to have 9 cm pelvic mass. Patient noted to have continued pain, gynecology consulted for possible surgical management. Patient's history is significant for an ED evaluation in 12/2015 for right-sided pelvic pain. She underwent pelvic imaging which revealed a 6.3 cm simple appearing right ovarian cyst with low suspicion of torsion. She followed up as an outpatient in our office, but has since been lost to follow up. She reports continued pain, however improved since admission. She denies nausea or vomiting. She denies chest pain or shortness of breast. She is currently NPO. She also reports her menses started today. 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 COVERER: Yes: Other (tension headaches) Cardio/Vascular: Yes: HTN, Hyperlipdemia Renal/: Yes: Other (lupus nephritis) ...LMP: 10/20/17 ...: No Rheumatology: Yes: Lupus - Past Surgical History Past Surgical History: Yes: Appendectomy, Tonsillectomy Additional Surgical History: Delivery - Alcohol/Substance Use Hx Alcohol Use: No History of Substance Use: reports: None - Smoking History Smoking history: Never smoked Have you smoked in the past 12 months: No Aproximately how many cigarettes per day: 0 - Social History Usual Living Arrangement: With Spouse Home Medications - Allergies Allergies/Adverse Reactions: Allergies Allergy/AdvReac Type Severity Reaction Status Date / Time clindamycin Allergy Severe ANAPHLACTIC Verified 11/20/17 03:26 REACTION doxycycline Allergy Severe ANAPHYLACTIC Verified 11/20/17 03:26 REACTION Penicillins Allergy Severe ANAPHYLACTIC Verified 11/20/17 03:26 REACTION shellfish derived Allergy Severe anaphylactic Verified 11/20/17 03:26 reaction SEAFOOD Allergy Severe ANAPHYLACTIC Uncoded 11/20/17 03:26 REACTION - Home Medications Home Medications: Ambulatory Orders Lisinopril [Prinivil] 40 mg PO DAILY #30 tablet 02/18/17 Family Disease History - Family Disease History Family History: Unremarkable Review of Systems - Review of Systems Constitutional: reports: No Symptoms HENT: reports: No Symptoms Neck: reports: No Symptoms Respiratory: reports: No Symptoms Musculoskeletal: reports: Other (Right sided pain, as described above) Integumentary: reports: No Symptoms Neurological: reports: No Symptoms Endocrine: reports: No Symptoms Hematology/Lymphatic: reports: No Symptoms Psychiatric: reports: No Symptoms 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 Signs: Vital Signs Temperature 97.9 F 11/23/17 13:00 Pulse Rate 110 H 11/23/17 13:00 Respiratory Rate 18 11/23/17 13:00 Blood Pressure 150/100 11/23/17 13:00 O2 Sat by Pulse Oximetry (%) 97 11/23/17 09:00 Constitutional: Yes: Calm Cardiovascular: Yes: Regular Rate and Rhythm Respiratory: Yes: Regular Gastrointestinal: Yes: Soft, Other (right sided tenderness, + rebound/guarding) Pelvis: Yes: Other (fullness noted in cul de sac) External Genitalia: Yes: Normal Vaginal Exam: Yes: Normal Cervix: Yes: Normal Uterus: Yes: Enlarged, Other (anteflexed) Edema: No Integumentary: Yes: WNL Neurological: Yes: Alert, Oriented Psychiatric: Yes: Alert, Oriented Labs: CBC, BMP 11/23/17 05:35 11/23/17 05:35 Assessment/Plan 27 yo right adnexal mass pelvic pain 1. Reviewed current imaging and laboratory studies as well as previous inpatient and outpatient images and records. Large mass likely arising from right adnexa. Given patient's acute abdomen will plan for surgical removal 2. Reviewed risks including but not limited to infection, bleeding, damage to surrounding organs such as bowel, bladder and ureters. Reviewed risk of conversion to laparotomy given hx/o prior abdominal surgeries. Reviewed risk of oophorectomy. Written consent obtained 3. Cleared by cardiology and primary team for surgery 4. Will proceed to OR
[2017-11-23] MEDS: ONDANSETRON 4 MG/2 ML VIAL IVPUSH PRN (20:05)
[2017-11-23] MEDS ORDERED: ACETAMINOPHEN 1000 MG/100 ML VIAL (NON FORMULARY) IVPB ONE (20:06)
[2017-11-23] MEDS ORDERED: ACETAMINOPHEN INJECTION 100 ML IVPB ONE (20:06)
[2017-11-23] MEDS ORDERED: HYDROmorphone HCL CARPU-JECT 2 MG/1 ML DISP.SYRIN ONE (20:07)
[2017-11-23] MEDS ORDERED: diazePAM 2 MG TABLET PO PRN (20:15)
[2017-11-23] MEDS: HYDROmorphone HCL CARPU-JECT 1 MG/1 ML DISP.SYRIN IVPUSH PRN ×2 (20:15→20:30)
[2017-11-23] MEDS ORDERED: DEXTROSE 5%-0.45% SALINE 1,000 ML IV SCH (20:15)
--- NOTE | 2017-11-23 23:48 | PN ---
Progress Note (short form) - Note Progress Note: Patient underwent laparoscopic right adnexal cystectomy. Intraoperative urology consult obtained for inability to identify right ureter. Dr. Greene performed cystocopy and stenting of right ureter, noted to be patent and low suspicion of ureteral injury. Reviewed surgical findings with patient and . Plan for routine postoperative care: 1. Routine care as per primary team 2. Will f/u final pathology 3. Regular diet ordered 4. Daniels DC'd 5. Encouraged oral pain control PRN 6. Patient to follow up next week for incision check, to call our office for appointment 7. DC planning as per primary team; postoperative surgical criteria for discharge to include voiding, passing flatus, adequate pain control and tolerating oral intake
[2017-11-24] MEDS: oxyCODONE HCL 5 MG TABLET PO PRN ×2 (06:54→12:26)
[2017-11-24 07:31] LABS: HEMATOCRIT 39.4 % (32.4-45.2); HEMOGLOBIN 13.3 GM/dL (10.7-15.3); MCH 30.2 pg (25.7-33.7); MCHC 33.6 g/dl (32.0-36.0); MEAN PLT VOLUME 9.3 fl (7.5-11.1); PLATELET COUNT 349 K/MM3 (134-434); RBC 4.38 M/mm3 (3.60-5.2); RDW 12.8 % (11.6-15.6); WHITE BLOOD COUNT 16.9 K/mm3 (4.0-10.0)
--- NOTE | 2017-11-24 07:40 | PN ---
Progress Note, Physician Chief Complaint: Cardiology follow up Abdominal pain controlled. No chest pain Telem NSR History of Present Illness: This is a 27 year old female with a PMH of HTN, HLD, Lupus and kidney disease. She presents to the ED with chest pain, back pain, dizziness and vomit that began around 11pm yesterday. She states that the chest pain was right sided and started in her right lower flank and radiated up towards the right side of her chest. The chest pain resolved on its own. She is post laperoscopic cystectomy. - Current Medication List Current Medications: Active Medications Acetaminophen/Butalbital/Caffeine (Fioricet -) 1 tablet PO Q6H PRN PRN Reason: HEADACHE Amlodipine Besylate (Norvasc -) 5 mg PO DAILY [facility] Diazepam (Valium -) 2 mg PO Q6H PRN PRN Reason: ANXIETY Last Admin: 11/24/17 01:20 Dose: 2 mg Docusate Sodium (Colace -) 100 mg PO DAILY [facility] Hydromorphone HCl (Dilaudid Injection -) 0.5 mg IVPUSH Q10M PRN PRN Reason: PAIN-PACU ORDER X 4 DOSES ONLY Last Admin: 11/23/17 20:30 Dose: 0.5 mg Dextrose/Sodium Chloride (D5-1/2ns -) 1,000 mls @ 83 mls/hr IV ASDIR [facility] Last Admin: 11/23/17 22:51 Dose: Not Given Labetalol HCl (Normodyne Injection -) 10 mg IVPUSH Q4H PRN PRN Reason: High blood pressure Lisinopril (Prinivil) 40 mg PO DAILY [facility] Ondansetron HCl (Zofran Injection) 4 mg IVPUSH Q6H PRN PRN Reason: NAUSEA AND/OR VOMITING Last Admin: 11/23/17 20:05 Dose: 4 mg Oxycodone HCl (Roxicodone -) 5 mg PO Q4H PRN PRN Reason: Pain Level > 4 Stop: 11/24/17 16:17 Last Admin: 11/24/17 06:54 Dose: 5 mg Senna (Senna -) 1 tab PO BID [facility] Last Admin: 11/23/17 22:51 Dose: Not Given Simethicone (Mylicon -) 80 mg PO QID PRN PRN Reason: GAS - Objective Vital Signs: Vital Signs Temperature 97.9 F 11/24/17 06:00 Pulse Rate 87 11/24/17 06:00 Respiratory Rate 18 11/24/17 06:00 Blood Pressure 139/61 11/24/17 06:00 O2 Sat by Pulse Oximetry (%) 97 11/23/17 22:00 Constitutional: Yes: Well Nourished, No Distress Eyes: Yes: WNL HENT: Yes: WNL Neck: Yes: WNL Cardiovascular: Yes: WNL, Regular Rate and Rhythm Respiratory: Yes: WNL, Regular, CTA Bilaterally Edema: No Labs: INR, PTT INR 1.05 (0.82-1.09) 11/23/17 05:35 Problem List - Problems (1) Flank pain Code(s): R10.9 - UNSPECIFIED ABDOMINAL PAIN Assessment/Plan 27 year old female with a PMH of HTN, HLD, Lupus and kidney disease. She has severe RLQ abdominal pain status post laparoscopic surgery for cyst removal. Currently denies any chest pain or sob. No pnd, orthopnea, or palpitations. on telemetry with no arrhythmias. EKG with nonspecific anterior T wave abnormalities. No cardiac complaints. Cardiac enzymes negative. Echocardiogram unremarkable with normal LV systolic function/wall motion. Her BP is reasonably controlled. COntinue pain relief and current anti hypertensives. Telemetry can be discontinued. Will see as needed.
[2017-11-24 08:06] LABS: CHLORIDE 106 mmol/L (98-107); POTASSIUM 4.2 mmol/L (3.5-5.1); SODIUM 138 mmol/L (136-145)
[2017-11-24 08:18] LABS: ALBUMIN 1.6 g/dl (3.4-5.0); ALK PHOS 55 U/L (45-117); ANION GAP 10 (8-16); BILIRUBIN,TOTAL 0.5 mg/dL (0.2-1.0); BLOOD UREA NITROGEN 18 mg/dL (7-18); CALCIUM 7.6 mg/dL (8.5-10.1); CO2 22 mmol/L (21-32); CREATININE 1.5 mg/dL (0.55-1.02); GLUCOSE,RANDOM 123 mg/dL (74-106); MAGNESIUM 2.1 mg/dL (1.8-2.4); PHOSPHOROUS 5.1 mg/dL (2.5-4.9); SGOT/AST 19 U/L (15-37); SGPT/ALT 23 U/L (12-78); TOT PROT 4.5 g/dl (6.4-8.2)
--- NOTE | 2017-11-24 08:31 | PN ---
Progress Note (short form) - Note Progress Note: Post op day#1.S/P Laproscopic ovarian cystectomy and cystoscopy under GA uneventful.Patient stable.No any anesthesia related problem.Patient DC from the anesthesia care.
[2017-11-24] MEDS ORDERED: BISACODYL 10 MG SUPP.RECT PR ONE (08:54)
[2017-11-24] MEDS ORDERED: POLYETHYLENE GLYCOL 3350 119 GM BTL PO ONE (08:55)
[2017-11-24] MEDS: SENNOSIDES 8.6MG TABLET (FP) PO SCH ×2 (09:33→23:48)
--- NOTE | 2017-11-24 09:34 | OP ---
DATE OF OPERATION: 11/23/2017 ATTENDING PHYSICIAN: Kale Mukherjee MD PREOPERATIVE DIAGNOSIS: Right adnexal mass and pain. POSTOPERATIVE DIAGNOSIS: Right adnexal mass. SURGERY: Laparoscopic right adnexal cystectomy and cystoscopy. FINDINGS: Greater than 10-cm smooth walled cyst from the ovary likely arising from a right fallopian tube torsed more than 2 times, normal ovaries bilaterally. Right cystoscopy revealed a right ureter that was stented without issue. SURGEON: Kale Mukherjee MD NAILHEAD OPERATOR: Philip Clarke MD INTRAOPERATIVE CONSULTATION: Gurpreet Ingram MD ANESTHESIA: General. SPECIMENS REMOVED: Right adnexa cyst wall, cyst fluid, and pelvic washing. ESTIMATED BLOOD LOSS: 10 mL. INDICATIONS: The patient is a 27-year-old with a known history of right ovarian cyst who presented to the emergency room for pain. She was admitted for pain control and was felt to have a 10-cm adnexal cyst. Given the amount of pain, she was taken to the operating room after medical and cardiac optimization. She was counseled regarding risks, benefits, alternatives, and complications of procedure including infection, bleeding, damage to surrounding organs such as bowel, bladder, and ureters, conversion to laparotomy, oophorectomy. She expressed understanding and was brought to the operating room. DESCRIPTION OF PROCEDURE: When anesthesia was found to be adequate, the patient was prepped and draped in the normal sterile fashion and placed in dorsal lithotomy position using Smith stirrups. A speculum was placed in the patient's vagina. A Hulka uterine manipulator was placed, and a Daniels catheter was placed. Attention was brought to the abdomen. A 5-mm incision was made to the abdomen. The intraperitoneal placement was confirmed using waterdrop test, and the abdomen was insufflated with carbon dioxide gas to an operating pressure of 18 mmHg. A 5-mm trocar was placed under direct visualization. A 5-mm trocar was placed on the right lower quadrant and left lower quadrant under direct visualization. At this point in time, she was the a large, smooth-walled cyst that appeared to be necrotic on the cul-de-sac. The ovaries were identified and noted to be normal bilaterally. The fallopian tube was noted to be twisted several times, and the fallopian tube was transected using the LigaSure and freed the adnexal mass. The adnexal mass was then drain using a needle, and approximately 100 mL of serosanguineous fluid was drained. The cyst wall was then removed from the 11-mm port site on the left lower quadrant, and all specimens were sent to Pathology. At this point in time, we identified the right ureter that was noted not to be peristalsing, so Urology was consulted, and Dr. Ingram presented. Cystoscopy was performed, right ureteral jet was noted from the ostia and a stent was placed to the right ureter. Attention was brought to the abdominal cavity. The abdomen was insufflated, and the area of dissection was noted not to have any urinoma or bleeding or any visual signs of injury to the ureter, so the stent and the Daniels were removed. All pedicles were found to be hemostatic. The pneumoperitoneum was released. All instruments were removed from the abdomen. The skin was closed using 4-0 Monocryl in an interrupted fashion. The patient was awaken from anesthesia and brought to the recovery room in stable condition. KALE MUKHERJEE M.D. [id number] MTDD
[2017-11-24] MEDS ORDERED: amLODIPine BESYLATE 5 MG TABLET (FP) PO SCH (10:00)
[2017-11-24] MEDS ORDERED: LISINOPRIL 20 MG TABLET (FP) PO SCH (10:00)
[2017-11-24] MEDS ORDERED: BISACODYL 10 MG SUPP.RECT RC ONE (10:00)
[2017-11-24] MEDS ORDERED: POLYETHYLENE GLYCOL 3350 119 GM BTL PO PRN (10:00)
[2017-11-24] MEDS ORDERED: DOCUSATE SODIUM 100 MG CAPSULE (FP) PO SCH (10:00)
[2017-11-24] MEDS ORDERED: SODIUM CHLORIDE 1,000 ML IV STA (10:42)
[2017-11-24] MEDS: DOCUSATE SODIUM 100 MG CAPSULE (FP) PO SCH ×2 (12:26→23:48)
--- NOTE | 2017-11-24 13:17 | PN ---
Teaching Attending Note Name of Resident: . ATTENDING PHYSICIAN STATEMENT SUBJECTIVE: patient seen and examined. soreness around surgical site but prior severe pain resolved. Passing gas but no BM since 11/20. No chest pain, palpitations, dyspnea , headache noted. OBJECTIVE: Vital Signs Period Temp Pulse Resp BP Sys/Sanders Pulse Ox Last 24 Hr 97.9 F-99.2 F 87-128 16-18 136-160/61-101 95-98 Intake & Output 11/21/17 11/22/17 11/23/17 11/24/17 23:59 23:59 23:59 23:59 Intake Total 415 1000 3000 Output Total 310 Balance 415 1000 2690 Weight 165 lb general; sitting in bed in no acute disterss Abdomen: mild tenderness around laparoscopic site, no RLQ/RMQ tenderness noted, no voluntary or involuntary guarding or rigidity, occsional bowel sounds extremities: no edema Chest: CTAB, no rales or wheezing Active Medications Generic Name Dose Route Start Last Admin Trade Name Freq PRN Reason Stop Dose Admin Acetaminophen/Butalbital/Caffeine 1 tablet 11/23/17 20:15 Fioricet - PO Q6H PRN HEADACHE Amlodipine Besylate 5 mg 11/24/17 10:00 11/24/17 09:34 Norvasc - PO 5 mg DAILY SAMMIE Administration Docusate Sodium 100 mg 11/24/17 10:00 11/24/17 12:26 Colace - PO 100 mg BID SAMMIE Administration Sodium Chloride 1,000 mls @ 100 mls/hr 11/24/17 10:45 Normal Saline - IV ASDIR SAMMIE Labetalol HCl 10 mg 11/23/17 20:15 Normodyne Injection - IVPUSH Q4H PRN High blood pressure Lisinopril 40 mg 11/24/17 10:00 11/24/17 09:33 Prinivil PO 40 mg DAILY SAMMIE Administration Ondansetron HCl 4 mg 11/23/17 20:15 11/23/17 20:05 Zofran Injection IVPUSH 4 mg Q6H PRN Administration NAUSEA AND/OR VOMITING Oxycodone HCl 5 mg 11/23/17 20:15 11/24/17 12:26 Roxicodone - PO 11/24/17 16:17 5 mg Q4H PRN Administration Pain Level > 4 Polyethylene Glycol 17 gm 11/24/17 10:00 11/24/17 12:28 Miralax (For Daily Use) - PO 17 grams DAILY PRN Administration CONSTIPATION Senna 1 tab 11/23/17 22:00 11/24/17 09:33 Senna - PO 1 tab BID SAMMIE Administration Simethicone 80 mg 11/23/17 20:15 11/24/17 09:33 Mylicon - PO 80 mg QID PRN Administration GAS Laboratory Results - last 24 hr 11/24/17 11/24/17 06:00 06:00 WBC 16.9 H D RBC 4.38 Hgb 13.3 Hct 39.4 MCV 90.0 MCH 30.2 MCHC 33.6 RDW 12.8 Plt Count 349 MPV 9.3 Sodium 138 Potassium 4.2 Chloride 106 Carbon Dioxide 22 Anion Gap 10 BUN 18 Creatinine 1.5 H Creat Clearance w eGFR 41.65 Random Glucose 123 H Calcium 7.6 L Phosphorus 5.1 H Magnesium 2.1 Total Bilirubin 0.5 D AST 19 ALT 23 Alkaline Phosphatase 55 Total Protein 4.5 L Albumin 1.6 L ASSESSMENT AND PLAN: 27 yof with PMHX of lupus nephritis, HTN, admitted with hypertensive urgency, right flank pain, nausea, vomitting with decresaed PO intake and not taking her lisinopril over last 1 week. -right adnexal cyst torsion s/p resection 11/23 -MARIBEL, LIkely hyopvolumic from NPO, minimal oral intake. -Hypertensive urgency from pain/torsion, improved -Sinus tachycardia, improved -Leuccoytosis, recurrent likely post operative -Lupus nephritis Plan: Doing well post op. 1L IVF bolus and increase IVF to 100 ml/hr. Strict I/Os. Already received lisinopril this Am, will need to hold if creatinine fails to improve. Continue ACEi/Amlodipine and labetalol prn for now. Aggressive bowel regimen. D/c valium. oxycodone for pain control, taper to off as improves. DVTPPX with heparin dispo planning in 24 hours if renal function improved and no new events. Plan discussed with patient in detail, all questions answered.
--- NOTE | 2017-11-24 13:54 | PN ---
Progress Note (SOAP) - Subjective Chief Complaint: Feels better postop, pain decreased. History of Present Illness: POD# 1 s/p laparoscopic excision of right adnexal mass, cystoscopy, right ureteral stenting - Current Medications Current Medications: Active Medications Acetaminophen/Butalbital/Caffeine (Fioricet -) 1 tablet PO Q6H PRN PRN Reason: HEADACHE Amlodipine Besylate (Norvasc -) 5 mg PO DAILY [facility] Last Admin: 11/24/17 09:34 Dose: 5 mg Docusate Sodium (Colace -) 100 mg PO BID [facility] Last Admin: 11/24/17 12:26 Dose: 100 mg Heparin Sodium (Porcine) (Heparin -) 5,000 unit SQ TID [facility] Sodium Chloride (Normal Saline -) 1,000 mls @ 100 mls/hr IV ASDIR [facility] Labetalol HCl (Normodyne Injection -) 10 mg IVPUSH Q4H PRN PRN Reason: High blood pressure Lisinopril (Prinivil) 40 mg PO DAILY [facility] Last Admin: 11/24/17 09:33 Dose: 40 mg Ondansetron HCl (Zofran Injection) 4 mg IVPUSH Q6H PRN PRN Reason: NAUSEA AND/OR VOMITING Last Admin: 11/23/17 20:05 Dose: 4 mg Oxycodone HCl (Roxicodone -) 5 mg PO Q4H PRN PRN Reason: Pain Level > 4 Stop: 11/24/17 16:17 Last Admin: 11/24/17 12:26 Dose: 5 mg Polyethylene Glycol (Miralax (For Daily Use) -) 17 gm PO DAILY PRN PRN Reason: CONSTIPATION Last Admin: 11/24/17 12:28 Dose: 17 grams Senna (Senna -) 1 tab PO BID [facility] Last Admin: 11/24/17 09:33 Dose: 1 tab Simethicone (Mylicon -) 80 mg PO QID PRN PRN Reason: GAS Last Admin: 11/24/17 09:33 Dose: 80 mg - Objective Vital Signs: Vital Signs Temperature 97.9 F 11/24/17 06:00 Pulse Rate 87 11/24/17 06:00 Respiratory Rate 18 11/24/17 10:00 Blood Pressure 139/61 11/24/17 06:00 O2 Sat by Pulse Oximetry (%) 97 11/24/17 08:42 Constitutional: Yes: Well Nourished, No Distress, Calm HENT: Yes: WNL, Atraumatic, Normocephalic Neck: Yes: WNL, Supple, Trachea Midline Cardiovascular: Yes: WNL, Regular Rate and Rhythm Respiratory: Yes: WNL, Regular, CTA Bilaterally Gastrointestinal: Yes: WNL, Normal Bowel Sounds, Soft Musculoskeletal: Yes: WNL Extremities: Yes: WNL Edema: No Integumentary: Yes: WNL Wound/Incision: Yes: Clean/Dry, Well Approximated, Sutures Intact, Dressing Removed Neurological: Yes: WNL, Alert, Oriented ...Motor Strength: Yes: WNL Psychiatric: Yes: WNL Labs Lab Results: CBC, BMP 11/24/17 06:00 11/24/17 06:00 Assessment/Plan POD# 1 s/p laparoscopic excision of right adnexal mass, cystoscopy, right ureteral stenting (stent twas removed intraop). Pt is doing well postop. I reviewed operative findings and surgery with the patient. Postop instructions were also reviewed. Advised to f/u in office after discharge w/in 1-2 week. Further medical management per Medical team. VOCATIONAL COUNSELOR will sign off. Please re- consult, if needed.
[2017-11-24] MEDS: SODIUM CHLORIDE 1,000 ML IV SCH (14:23)
[2017-11-24] MEDS: HEPARIN NA (PORCINE) 5,000 UNITS/ML 1ML VIAL SQ SCH ×2 (14:55→23:48)
[2017-11-24] MEDS: ONDANSETRON 4 MG/2 ML VIAL IVPUSH PRN (14:55)
[2017-11-24] MEDS: ACETAMINOPHEN/CAFFEINE/BUTALBITAL 1 TAB PO PRN (23:51)
[2017-11-25] MEDS: LABETALOL HCL 5 MG/1 ML (100MG/20 ML VIAL) IVPUSH PRN ×2 (02:14→15:30)
[2017-11-25] MEDS: HEPARIN NA (PORCINE) 5,000 UNITS/ML 1ML VIAL SQ SCH ×3 (06:31→21:31)
[2017-11-25 07:23] LABS: BASO % 0.4 % (0-2.0); EOS % 2.7 % (0-4.5); HEMATOCRIT 35.4 % (32.4-45.2); HEMOGLOBIN 11.9 GM/dL (10.7-15.3); LYMPH % 21.6 % (8-40); MCH 30.3 pg (25.7-33.7); MCHC 33.7 g/dl (32.0-36.0); MEAN PLT VOLUME 8.3 fl (7.5-11.1); MONO % 8.2 % (3.8-10.2); NEUT % 67.1 % (42.8-82.8); PLATELET COUNT 361 K/MM3 (134-434); RBC 3.94 M/mm3 (3.60-5.2); RDW 12.7 % (11.6-15.6); WHITE BLOOD COUNT 13.5 K/mm3 (4.0-10.0)
[2017-11-25 07:25] LABS: ANION GAP 8 (8-16); BLOOD UREA NITROGEN 19 mg/dL (7-18); CALCIUM 7.7 mg/dL (8.5-10.1); CHLORIDE 110 mmol/L (98-107); CO2 26 mmol/L (21-32); CREATININE 1.6 mg/dL (0.55-1.02); GLUCOSE,RANDOM 86 mg/dL (74-106); POTASSIUM 3.6 mmol/L (3.5-5.1); SODIUM 144 mmol/L (136-145)
[2017-11-25] MEDS: amLODIPine BESYLATE 10 MG TABLET (FP) PO SCH (09:00)
--- NOTE | 2017-11-25 10:20 | PN ---
Teaching Attending Note Name of Resident: . ATTENDING PHYSICIAN STATEMENT Time of evaluation: 9:30 AM SUBJECTIVE: Patient seen and examined. Some soreness around the surgical site but no prior abdominal or flank pain. Voiding freely, no suprapubic or flank pain. No headache or new concerns. Had a BM yesterday. OBJECTIVE: Vital Signs Period Temp Pulse Resp BP Sys/Sanders Pulse Ox Last 24 Hr 97.8 F-98.1 F 81-96 18-20 142-165/84-104 Intake & Output 11/22/17 11/23/17 11/24/17 11/25/17 23:59 23:59 23:59 23:59 Intake Total 1000 3000 1900 Output Total 310 1000 Balance 1000 2690 1900 -1000 Weight 165 lb General: lying in bed in no acute distress Abdomen: soreness around the surgical site, no RLQ/suprapubic/CVA tenderness, no voluntary or involuntary guarding or rigidity, positive bowel sounds, ND Extremities: no edema Chest: CTAB, no rales or wheezing Active Medications Generic Name Dose Route Start Last Admin Trade Name Freq PRN Reason Stop Dose Admin Acetaminophen/Butalbital/Caffeine 1 tablet 11/23/17 20:15 11/24/17 23:51 Fioricet - PO 1 tablet Q6H PRN Administration HEADACHE Amlodipine Besylate 10 mg 11/25/17 10:00 11/25/17 09:00 Norvasc - PO 10 mg DAILY SAMMIE Administration Docusate Sodium 100 mg 11/24/17 10:00 11/25/17 10:21 Colace - PO Not Given BID SAMMIE Heparin Sodium (Porcine) 5,000 unit 11/24/17 14:00 11/25/17 06:31 Heparin - SQ 5,000 unit TID SAMMIE Administration Sodium Chloride 1,000 mls @ 100 mls/hr 11/24/17 10:45 11/24/17 14:23 Normal Saline - IV 100 mls/hr ASDIR SAMMIE Administration Labetalol HCl 10 mg 11/23/17 20:15 11/25/17 02:14 Normodyne Injection - IVPUSH 10 mg Q4H PRN Administration High blood pressure Ondansetron HCl 4 mg 11/23/17 20:15 11/24/17 14:55 Zofran Injection IVPUSH 4 mg Q6H PRN Administration NAUSEA AND/OR VOMITING Polyethylene Glycol 17 gm 11/24/17 10:00 11/24/17 12:28 Miralax (For Daily Use) - PO 17 grams DAILY PRN Administration CONSTIPATION Senna 1 tab 11/23/17 22:00 11/25/17 10:21 Senna - PO Not Given BID SAMMIE Simethicone 80 mg 11/23/17 20:15 11/24/17 09:33 Mylicon - PO 80 mg QID PRN Administration GAS Laboratory Results - last 24 hr 11/22/17 11/25/17 11/25/17 18:35 05:45 05:45 WBC 13.5 H RBC 3.94 Hgb 11.9 D Hct 35.4 MCV 90.0 MCH 30.3 MCHC 33.7 RDW 12.7 Plt Count 361 MPV 8.3 D Neutrophils % 67.1 Lymphocytes % 21.6 D Monocytes % 8.2 Eosinophils % 2.7 Basophils % 0.4 Sodium 144 Potassium 3.6 Chloride 110 H Carbon Dioxide 26 Anion Gap 8 BUN 19 H Creatinine 1.6 H Random Glucose 86 Calcium 7.7 L TOBIAS Screen Negative SS-A/Ro Antibody 2.3 H SS-B/La Antibody <0.2 Double Strand DNA Ab 11 H Renal ultrasound pending ASSESSMENT AND PLAN: 27 yof with PMHX of lupus nephritis, HTN, admitted with hypertensive urgency, right flank pain, nausea, vomitting with decresaed PO intake and not taking her lisinopril over last 1 week. -right adnexal cyst torsion s/p resection 11/23 -MARIBEL, LIkely hyopvolumic from NPO, minimal oral intake. -Hypertensive urgency from pain/torsion, improved -Sinus tachycardia, improved -Leuccoytosis, recurrent likely post operative -Lupus nephritis Plan: Doing well post op. Still with MARIBEL, Continue IVF, hold lisinopril. Strict I/Os, discussed with patient and RN, to check post voidal urine. Check renal ultrasound as patient with right ureteral stent. Discussed with renal/urology if concerns. Increase amlodipine to 10 mg daily for now. Labetalol prn Bowel regimen, d/c narcotics, encourage ambualation. . DVTPPX with heparin dispo planning on hold given persistent MARIBEL and need for further monitoring and management. . Plan discussed with patient in detail, all questions answered
[2017-11-25] MEDS: DOCUSATE SODIUM 100 MG CAPSULE (FP) PO SCH ×2 (10:21→21:30)
[2017-11-25] MEDS: SENNOSIDES 8.6MG TABLET (FP) PO SCH ×2 (10:21→21:30)
[2017-11-25] MEDS: SODIUM CHLORIDE 1,000 ML IV SCH (11:00)
--- NOTE | 2017-11-25 22:25 | PN ---
Progress Note (short form) - Note Progress Note: lupus nephritis with normal renal function s/p ovarian cystectomy pain management now with elevated s creatinine Current Medications Acetaminophen/Butalbital/Caffeine (Fioricet -) 1 tablet PO Q6H PRN PRN Reason: HEADACHE Last Admin: 11/24/17 23:51 Dose: 1 tablet Amlodipine Besylate (Norvasc -) 10 mg PO DAILY [facility] Last Admin: 11/25/17 09:00 Dose: 10 mg Docusate Sodium (Colace -) 100 mg PO BID [facility] Last Admin: 11/25/17 21:30 Dose: Not Given Heparin Sodium (Porcine) (Heparin -) 5,000 unit SQ TID [facility] Last Admin: 11/25/17 21:31 Dose: 5,000 unit Sodium Chloride (Normal Saline -) 1,000 mls @ 100 mls/hr IV ASDIR [facility] Last Admin: 11/25/17 11:00 Dose: 100 mls/hr Labetalol HCl (Normodyne Injection -) 10 mg IVPUSH Q4H PRN PRN Reason: High blood pressure Last Admin: 11/25/17 15:30 Dose: 10 mg Ondansetron HCl (Zofran Injection) 4 mg IVPUSH Q6H PRN PRN Reason: NAUSEA AND/OR VOMITING Last Admin: 11/24/17 14:55 Dose: 4 mg Polyethylene Glycol (Miralax (For Daily Use) -) 17 gm PO DAILY PRN PRN Reason: CONSTIPATION Last Admin: 11/24/17 12:28 Dose: 17 grams Senna (Senna -) 1 tab PO BID [facility] Last Admin: 11/25/17 21:30 Dose: Not Given Simethicone (Mylicon -) 80 mg PO QID PRN PRN Reason: GAS Last Admin: 11/24/17 09:33 Dose: 80 mg Last Vital Signs Temp Pulse Resp BP Pulse Ox 98 F 98 H 20 136/89 98 11/25/17 18:09 11/25/17 18:09 11/25/17 18:09 11/25/17 18:09 11/25/17 09:00 c/o mild brief chilliness no dysuria mild sore throat from intubation no dry mouth or dizziness Lungs clear Heart reg rrr Abd soft nontender ext no edema CBC, BMP 11/25/17 05:45 11/25/17 05:45 IMP MARIBEL likely prerenal from decreased fluid intake HTN better control Plan- agree with holding acei and agree with trial of IVF monitor follow up labs urine output
[2017-11-26] MEDS: HEPARIN NA (PORCINE) 5,000 UNITS/ML 1ML VIAL SQ SCH ×3 (06:32→21:30)
--- NOTE | 2017-11-26 06:49 | PN ---
Physical Exam: SUBJECTIVE: Patient seen and examined by me this AM - POD3 from ovarian cyst removal and R ureteral stent placement; BM on night of 11/25; + menses - No overnight events; slept well - Pt complaining of abdominal pain tenderness. Frequent urination overnight, leading to abdominal pain; otherwise only complaining of occasional flushing, dry cough. Denies fever/chills, SOB, CP, N/V, peripheral numbness, diarrhea, constipation, melena. +menses, small amount of blood OBJECTIVE: Vital Signs Intake & Output 11/23/17 11/24/17 11/25/17 11/26/17 23:59 23:59 23:59 23:59 Intake Total 3000 7033 659 8928 Output Total 310 1800 4000 Balance 2690 1900 -1100 -2800 Period Temp Pulse Resp BP Sys/Sanders Pulse Ox Last 24 Hr 97.7 F-98.7 F 69-102 18-20 136-166/86-109 95-98 GENERAL: The patient is awake, alert, and fully oriented, in no acute distress, lying in bed HEAD: Normal with no signs of trauma. EYES: PERRL, extraocular movements intact, sclera anicteric, conjunctiva clear. No ptosis. ENT: Ears normal, nares patent, oropharynx clear without exudates, moist mucous membranes. NECK: Trachea midline, full range of motion, supple. LUNGS: Trace expiratory wheezing in upper lung cruz on exam. no crackles, no accessory muscle use. HEART: Regular rate and rhythm, S1, S2 without murmur, rub or gallop. ABDOMEN: Incisions C/d/i. Soft, NT, ND. normoactive bowel sounds, no hepatosplenomegaly, no masses. Negative samayoa's EXTREMITIES: 2+ pulses, warm, well-perfused, no edema. Still with Trace non- pitting edema BL to knees. NEUROLOGICAL: Cranial nerves II through XII grossly intact. Normal speech, gait not observed. 5/5 strength in all extremities. Sensation to light touch preserved diffusely. PSYCH: Normal mood, normal affect. SKIN: Warm, dry, normal turgor, no rashes or lesions noted Laboratory Results - last 24 hr CBC, BMP 11/25/17 05:45 11/25/17 05:45 11/25/17 11/25/17 11/25/17 05:45 05:45 10:50 WBC 13.5 H RBC 3.94 Hgb 11.9 D Hct 35.4 MCV 90.0 MCH 30.3 MCHC 33.7 RDW 12.7 Plt Count 361 MPV 8.3 D Neutrophils % 67.1 Lymphocytes % 21.6 D Monocytes % 8.2 Eosinophils % 2.7 Basophils % 0.4 Sodium 144 Potassium 3.6 Chloride 110 H Carbon Dioxide 26 Anion Gap 8 BUN 19 H Creatinine 1.6 H Random Glucose 86 Calcium 7.7 L Urine Osmolality 222 L Ur Random Sodium Urine Creatinine 11/25/17 11/25/17 10:50 10:50 WBC RBC Hgb Hct MCV MCH MCHC RDW Plt Count MPV Neutrophils % Lymphocytes % Monocytes % Eosinophils % Basophils % Sodium Potassium Chloride Carbon Dioxide Anion Gap BUN Creatinine Random Glucose Calcium Urine Osmolality Ur Random Sodium 70 Urine Creatinine 33.5 Active Medications Generic Name Dose Route Start Last Admin Trade Name Freq PRN Reason Stop Dose Admin Acetaminophen/Butalbital/Caffeine 1 tablet 11/23/17 20:15 11/24/17 23:51 Fioricet - PO 1 tablet Q6H PRN Administration HEADACHE Amlodipine Besylate 10 mg 11/25/17 10:00 11/25/17 09:00 Norvasc - PO 10 mg DAILY SAMMIE Administration Docusate Sodium 100 mg 11/24/17 10:00 11/25/17 21:30 Colace - PO Not Given BID [facility] Heparin Sodium (Porcine) 5,000 unit 11/24/17 14:00 11/26/17 06:32 Heparin - SQ 5,000 unit TID SAMMIE Administration Sodium Chloride 1,000 mls @ 100 mls/hr 11/24/17 10:45 11/25/17 11:00 Normal Saline - IV 100 mls/hr ASDIR SAMMIE Administration Labetalol HCl 10 mg 11/23/17 20:15 11/25/17 15:30 Normodyne Injection - IVPUSH 10 mg Q4H PRN Administration High blood pressure Ondansetron HCl 4 mg 11/23/17 20:15 11/24/17 14:55 Zofran Injection IVPUSH 4 mg Q6H PRN Administration NAUSEA AND/OR VOMITING Polyethylene Glycol 17 gm 11/24/17 10:00 11/24/17 12:28 Miralax (For Daily Use) - PO 17 grams DAILY PRN Administration CONSTIPATION Senna 1 tab 11/23/17 22:00 11/25/17 21:30 Senna - PO Not Given BID SAMMIE Simethicone 80 mg 11/23/17 20:15 11/24/17 09:33 Mylicon - PO 80 mg QID PRN Administration GAS No micro pending CXR: No acute pathology Abd/Pelvis non-contrast CT: 1. No evidence of urinary tract calculi or obstructive uropathy. 2. Large L adnexal cyst, otherwise normal CT scan of the abdomen and pelvis with no evidence of acute pathology. Chest CT 11/21 - 1. Essentially clear lungs. 2. Small hiatal hernia. 3. Hyperattenuating fluid level within the gallbladder may be artifactual or secondary to sludge and/or cholelithiasis. Renal U/S 11/20 - IMPRESSION: Bilateral echogenic kidneys compatible with chronic medical renal disease. 10 mm echogenic density in the right renal upper/ midportion without posterior shadowing that may represent an angiomyolipoma. There is no evidence of hydronephrosis in both kidneys. Normal vascular flow in the renal artery and vein of both kidneys Non-Con CT head 11/22 - No evidence of a focal intracranial lesion or hemorrhage seen. TVUS 11/22 - IMPRESSION: Large ovarian/paraovarian cyst is again seen in the lower pelvis, in the midline posterior to the uterus and abutting the right and left ovary, the side of which is not clear on this exam. It is unchanged in size since prior CT scan of the abdomen and pelvis dated 11/20/2012 and has slightly increased in size since prior pelvis ultrasound dated 08/31/2016. No doppler evidence of torsion per addendum, however sensitivity 70% Abdominal U/S 11/22 - IMPRESSION: 1. Questionable right renal mass. CT follow-up recommended. 2. Otherwise normal abdominal sonogram. Please see above discussion. Renal U/s 11/25 - No pathology noted. No hydro. ASSESSMENT/PLAN: 27 yo woman w/ pmh of HTN, lupus nephritis who presents with hypertensive urgency, R flank/back pain and N/V in the setting of one week of non-compliance w/ home BP meds (lisinopril). #R ovarian cyst/abdominal pain - likely secondary to mass effect from ovarian cyst - POD2, monitor for post-op complications; mild surgical site tenderness - hypotonic IVFs - strict Is and Os - Pain well controlled, +BM - Encourage ambulation, off narcotics - S/P R renal stent placement; copious urination - Zofran for N/V #Hypertensive Urgency - better controlled overnight; systolics in 150s - Labetalol 200mg PO - Amlodipine increased to 10mg over weekend - Labetalol PRN IV push q4h for HTN, tachy - cardiac monitoring - cardiology consulted, recs appreciated - tylenol for pain control, fever #Lupus nephritis/MARIBEL - bx confirmed - Trend Cr. Zenith 1.6 on 11/25. Downtrending with hydration - renal consulted, recs appreciated - CRP, ESR elevated. DS DNA + - daily BMPs, monitor CR - No immunosuppressants as inpatient, but will likely require them for proteinuria and active likely active lupus infection - urine EOS to r/o AIN #HU - - Fiorecet for HU #sore throat - like due to intubation - cepacol lozenges #constipation -senna, colace, miralax -simethacone for gas pain - magnesium citrate PPX Heparin SubQ FEN 1/2NS 60cc/hr Daily BMPs, trend Cr Regular diet Plan discussed with attending, Dr. Tonya Mcfadden, PGY1 Visit type - Emergency Visit Emergency Visit: Yes ED Registration Date: 11/20/17 Care time: The patient presented to the Emergency Department on the above date and was hospitalized for further evaluation of their emergent condition. - New Patient This patient is new to me today: No - Critical Care Critical Care patient: No
--- NOTE | 2017-11-26 07:29 | MSN ---
Progress Note (short form) - Note Progress Note: SUBJECTIVE CC: RLQ/LLQ abdominal pressure; post op day 3 ovarian cyst removal & R ureteral stent placement HPI: Pt is a 27 y/o F post op day 3 ovarian cyst removal & R ureteral stent placement with PMHx HTN, lupus nephritis, s/p appendectomy. Pt was seen and examined today. No overnight events. Pt currently menstruating. Advanced to regular diet. Pt can ambulate freely. C/o pain around surgical site. She reports hot flashes and clammy, episodic and lasts for seconds. She reports last BM was 2 days ago, but this is normal for her. She states she is eating a little but throat is still sore. Pt has not noted any drainage around incision site. Denies feeling palpitations, heart racing, thumping in chest and reports drinking copious amounts of ice water because "it soothes my throat" and having to urinate frequently. Pt attributes this to increased intake of fluids and IVF. She denies vomiting, chills, fever, and states pain in abdomen has improved. OBJECTIVE Last Vital Signs Temp Pulse Resp BP Pulse Ox 98.1 F 69 20 150/101 95 11/26/17 06:00 11/26/17 06:00 11/26/17 06:00 11/26/17 06:00 11/25/17 21:00 General: Pt was sitting up in bed, in no acute distress. Breathing comfortably on room air. Eyes: No scleroicterus. Clear conjunctiva. PERRLA. EOMI. Throat: Moist mucus membranes with erythema noted . Good dentition. Heart: Regular rate, regular rhythm. S1/S2. No murmurs or gallops appreciated. Lungs: Clear to auscultation B/L. Equal breath sounds. No crackles, rales or rhonchi appreciated. Abdomen: Non distended. Normoactive bowel sounds in all four quadrants. Tympanic to percussion in all four quadrants. Incisions on B/L flank clean, dry , no drainage or pus noted. No pain to light or deep palpation in all four quadrants. Extremities: 2+ radial pulses. 2+ DP pulses. Neurological: CN II-XII grossly intact. Gag reflex not tested. Intact to light sensation all throughout UE and LE. Symmetric sensation. CBC, BMP 11/26/17 08:55 11/26/17 08:55 Laboratory Results - last 24 hr 11/26/17 11/26/17 08:55 08:55 WBC 9.6 RBC 4.34 Hgb 13.2 D Hct 39.0 MCV 89.9 MCH 30.5 MCHC 33.9 RDW 12.6 Plt Count 409 MPV 8.2 Neutrophils % 69.3 Lymphocytes % 17.7 Monocytes % 7.0 Eosinophils % 5.8 H D Basophils % 0.2 Sodium 144 Potassium 3.7 Chloride 109 H Carbon Dioxide 28 Anion Gap 7 L BUN 13 Creatinine 1.4 H Random Glucose 89 Calcium 7.6 L Magnesium 1.6 L Active Medications Generic Name Dose Route Start Last Admin Trade Name Freq PRN Reason Stop Dose Admin Acetaminophen/Butalbital/Caffeine 1 tablet 11/23/17 20:15 11/24/17 23:51 Fioricet - PO 1 tablet Q6H PRN Administration HEADACHE Amlodipine Besylate 10 mg 11/25/17 10:00 11/25/17 09:00 Norvasc - PO 10 mg DAILY SAMMIE Administration Docusate Sodium 100 mg 11/24/17 10:00 11/25/17 21:30 Colace - PO Not Given BID [facility] Heparin Sodium (Porcine) 5,000 unit 11/24/17 14:00 11/26/17 06:32 Heparin - SQ 5,000 unit TID SAMMIE Administration Sodium Chloride 1,000 mls @ 100 mls/hr 11/24/17 10:45 11/25/17 11:00 Normal Saline - IV 100 mls/hr ASDIR SAMMIE Administration Labetalol HCl 10 mg 11/23/17 20:15 11/25/17 15:30 Normodyne Injection - IVPUSH 10 mg Q4H PRN Administration High blood pressure Ondansetron HCl 4 mg 11/23/17 20:15 11/24/17 14:55 Zofran Injection IVPUSH 4 mg Q6H PRN Administration NAUSEA AND/OR VOMITING Polyethylene Glycol 17 gm 11/24/17 10:00 11/24/17 12:28 Miralax (For Daily Use) - PO 17 grams DAILY PRN Administration CONSTIPATION Senna 1 tab 11/23/17 22:00 11/25/17 21:30 Senna - PO Not Given BID [facility] Simethicone 80 mg 11/23/17 20:15 11/24/17 09:33 Mylicon - PO 80 mg QID PRN Administration GAS Home Medications Medication Instructions Recorded Lisinopril [Prinivil] 40 mg PO DAILY #30 tablet 02/18/17 08/31/16 (previous visit) - Transvaginal US 1. no Doppler evidence of ovarian torsion 2. Nonspecific 8 x 6.7 x 5.3 cm unilocular R ovarian cyst noted which appears increased in size in comparison to prior US study of 12/10/2015. On prior exam, this R ovarian cyst had maximum diameter of approximately 6.4 cm. CXR: No acute pathology Abd/Pelvis non-contrast CT: 1. No evidence of urinary tract calculi or obstructive uropathy. 2. Large L adnexal cyst, otherwise normal CT scan of the abdomen and pelvis with no evidence of acute pathology. Renal U/S 11/20 - IMPRESSION: Bilateral echogenic kidneys compatible with chronic medical renal disease. 10 mm echogenic density in the right renal upper/ midportion without posterior shadowing that may represent an angiomyolipoma. There is no evidence of hydronephrosis in both kidneys. Normal vascular flow in the renal artery and vein of both kidneys Chest CT 11/21 11:06 - IMPRESSION: 1. Essentially clear lungs. 2. Small hiatal hernia. 3. Hyperattenuating fluid level within the gallbladder may be artifactual or secondary to sludge and/or cholelithiasis. Non-Con CT head 11/22 - No evidence of a focal intracranial lesion or hemorrhage seen. VUS 11/22 - IMPRESSION: Large ovarian/paraovarian cyst is again seen in the lower pelvis, in the midline posterior to the uterus and abutting the right and left ovary, the side of which is not clear on this exam. It is unchanged in size since prior CT scan of the abdomen and pelvis dated 11/20/2012 and has slightly increased in size since prior pelvis ultrasound dated 08/31/2016. No doppler evidence of torsion per addendum, however sensitivity 70% Abdominal U/S 11/22 - IMPRESSION: 1. Questionable right renal mass. CT follow-up recommended. 2. Otherwise normal abdominal sonogram. Please see above discussion. US Kidney/Renal 11/25/17 1112 Impression: No hydronephrosis is seen. There is no definite sonographic abnormality on the current exam. Prior ultrasound studies of 11/22/2017 and 11/20/2017 described possible 1 cm right renal echogenic and right renal 2.3 cm lesions which were very likely artifactual in nature versus due to normal variant lobulation. Review of noncontrast CT studies performed on 11/20/2017, 12/10/2015 and 10/09/2009 demonstrate no obvious interval change in regards to the kidneys. However, given the previously described ultrasound reports noncontrast MRI evaluation is suggested to document lack of a focal mass lesion, as an outpatient unless otherwise clinically indicated. AUSTYN Ab with reflex, Complement total CH50 stat, DNA ab-ds, Sjogrens AB SSA, SSB - pending Urine total protein, random, stat - pending CRP, ESR - pending ASSESSMENT Pt is a 27 y/o F with PMHx HTN and lupus nephritis who was seen at the ED for chest pain, back pain, n/v, dizziness and decreased PO intake over last 1 week. She was admitted with hypertensive urgency. PLAN 1. POD 3 s/p ovarian cyst removal & R ureteral stent placement * pain prior to surgery likely mass effect from R ovarian cyst. Tachycardia likely 2/2 pain. * f/u serology for lupus nephritis * UA and CT were negative for renal pathology. * FENA * US Kidney/Renal negative for hydronephrosis. * Norvasc 5mg PO daily, Labetalol 10 mg IV q4h PRN; Senna 1 tab PO BID, Colace 100mg PO daily for constipation; PEG 17 g PO daily * Milicon 80 mg PO QID PRN gas * pt is off narcotics, on current bowel regimen. 2. MARIBEL secondary to AIN. * pre-renal azotemia --> intrinsic etiology * likely secondary to decreased PO intake, dehydration * FENA 2.3%; BUN/Cr ratio 11.9 -- likely intrinsic etiology * possible ATN from contrast induced nephropathy? * SLE is associated with AIN. * Pt not on any drugs sterotypically ass. AIN. * Order urine eosinophils. * BUN/Cr 11/24 18/1.5; 11/25 191.6 * nephrology consult * strict I&Os; will check post void urine. 3. Hypertensive urgency upon admission * likely 2/2 multifactorial process * noncompliance with home med Lisinopril x 3 weeks prior to admission; anxiety; vasoconstriction due to hyopvolemia; pain. * known hx of lupus nephritis; bx proven. * Zofran 4mg IV q6h PRN n/v. Symptoms likely secondary to HTN urgency. 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 4. Leukocytosis * likely stress induced from procedure and pain * now wnl. resolved. * no need for abx at this time. 5. Headache from occipital to frontal lobe * Resolved. No need to renew Fioricet. * likely secondary to tension headache given stereotypical presentation, musculoskeletal strain, sleeping in hospital environment, anxiety and previous hx of neck injury * neurological physical exam was negative; likely not neurological etiology * Head CT negative for intracranial pathology 6. Lupus nephritis * Will monitor for now, pt not on any home medications. Complicated by current AIN. * nephro consult recommendations 6. FEN * fluids: IVF 1/2 NS 1000mls @60cc/hr * electrolytes: replete Mg 300 ml PO PRN, max 2 doses. * nutrition: regular diet. 6. PPX * DVT ppx: Hep 5000U SQ TID * GI ppx: no indications for stress ulcer ppx at this time. 7. Dispo * dispo planning on hold pending normalization of BUN/Cr
--- NOTE | 2017-11-26 07:46 | PN ---
Teaching Attending Note Name of Resident: Sunny Mcfadden ATTENDING PHYSICIAN STATEMENT Time of evaluation: I saw and evaluated the patient. I reviewed the resident's note and discussed the case with the resident. I agree with the resident's findings and plan as documented. SUBJECTIVE: Patient seen and examined, soreness around surgical site improved, no new complaints, urinating well. OBJECTIVE: Vital Signs Period Temp Pulse Resp BP Sys/Sandesr Pulse Ox Last 24 Hr 97.7 F-98.7 F 69-102 18-20 136-166/86-109 95-98 Intake & Output 11/23/17 11/24/17 11/25/17 11/26/17 23:59 23:59 23:59 23:59 Intake Total 3000 1799 877 4196 Output Total 310 1800 4000 Balance 2690 1900 -1100 -2800 General: lying in bed in no acute distress CVS;S1s2 regular Chest: No rales or wheezing abdomen: some soreness around surgical site, NT otherwise, ND, no voluntary or involuntary guarding or rigidity, positive bowel sounds, soft Extremities: no edema Active Medications Generic Name Dose Route Start Last Admin Trade Name Freq PRN Reason Stop Dose Admin Acetaminophen/Butalbital/Caffeine 1 tablet 11/23/17 20:15 11/24/17 23:51 Fioricet - PO 1 tablet Q6H PRN Administration HEADACHE Amlodipine Besylate 10 mg 11/25/17 10:00 11/25/17 09:00 Norvasc - PO 10 mg DAILY SAMMIE Administration Docusate Sodium 100 mg 11/24/17 10:00 11/25/17 21:30 Colace - PO Not Given BID [facility] Heparin Sodium (Porcine) 5,000 unit 11/24/17 14:00 11/26/17 06:32 Heparin - SQ 5,000 unit TID SAMMIE Administration Sodium Chloride 1,000 mls @ 100 mls/hr 11/24/17 10:45 11/25/17 11:00 Normal Saline - IV 100 mls/hr ASDIR SAMMIE Administration Labetalol HCl 10 mg 11/23/17 20:15 11/25/17 15:30 Normodyne Injection - IVPUSH 10 mg Q4H PRN Administration High blood pressure Ondansetron HCl 4 mg 11/23/17 20:15 11/24/17 14:55 Zofran Injection IVPUSH 4 mg Q6H PRN Administration NAUSEA AND/OR VOMITING Polyethylene Glycol 17 gm 11/24/17 10:00 11/24/17 12:28 Miralax (For Daily Use) - PO 17 grams DAILY PRN Administration CONSTIPATION Senna 1 tab 11/23/17 22:00 11/25/17 21:30 Senna - PO Not Given BID SAMMIE Simethicone 80 mg 11/23/17 20:15 11/24/17 09:33 Mylicon - PO 80 mg QID PRN Administration GAS Laboratory Results - last 24 hr 11/25/17 11/25/17 11/25/17 10:50 10:50 10:50 Urine Osmolality 222 L Ur Random Sodium 70 Urine Creatinine 33.5 ASSESSMENT AND PLAN: 27 yof with PMHX of lupus nephritis, HTN, admitted with hypertensive urgency, right flank pain, nausea, vomitting with decresaed PO intake and not taking her lisinopril over last 1 week. -right adnexal cyst torsion s/p resection 11/23 -MARIBEL, LIkely hyopvolumic from NPO, minimal oral intake. -Hypertensive urgency from pain/torsion, improved -Sinus tachycardia, improved -Leuccoytosis, recurrent likely post operative -Lupus nephritis Plan: Doing well post op. Still with MARIBEL, Continue IVF, hold lisinopril. Strict I/Os, discussed with patient and RN, to check post voidal urine. Significant diuresis last 24 hours, ?post obstructive diuresis post stent placement. Continue hydration. Renal ultrasound noted, no obstructive process, outpatient MRI for lesion.Renal input appreciated, discuss with urology if concerns.. Amlodipine 10 mg daily for now. Labetalol prn Bowel regimen, off narcotics, encourage ambualation. . DVTPPX with heparin dispo planning on hold given persistent MARIBEL and need for further monitoring and management. . Plan discussed with patient in detail, all questions answered
[2017-11-26 09:12] LABS: BASO % 0.2 % (0-2.0); EOS % 5.8 % (0-4.5); HEMOGLOBIN 13.2 GM/dL (10.7-15.3); LYMPH % 17.7 % (8-40); MCH 30.5 pg (25.7-33.7); MCHC 33.9 g/dl (32.0-36.0); MEAN CELL VOLUME 89.9 fl (80-96); MEAN PLT VOLUME 8.2 fl (7.5-11.1); NEUT % 69.3 % (42.8-82.8); PLATELET COUNT 409 K/MM3 (134-434); RBC 4.34 M/mm3 (3.60-5.2); RDW 12.6 % (11.6-15.6); WHITE BLOOD COUNT 9.6 K/mm3 (4.0-10.0)
[2017-11-26 09:28] LABS: ANION GAP 7 (8-16); BLOOD UREA NITROGEN 13 mg/dL (7-18); CALCIUM 7.6 mg/dL (8.5-10.1); CHLORIDE 109 mmol/L (98-107); CO2 28 mmol/L (21-32); CREATININE 1.4 mg/dL (0.55-1.02); GLUCOSE,RANDOM 89 mg/dL (74-106); MAGNESIUM 1.6 mg/dL (1.8-2.4); POTASSIUM 3.7 mmol/L (3.5-5.1); SODIUM 144 mmol/L (136-145)
[2017-11-26] MEDS: amLODIPine BESYLATE 10 MG TABLET (FP) PO SCH (10:15)
[2017-11-26] MEDS: SENNOSIDES 8.6MG TABLET (FP) PO SCH ×2 (10:15→21:31)
[2017-11-26] MEDS: DOCUSATE SODIUM 100 MG CAPSULE (FP) PO SCH ×2 (10:15→21:32)
[2017-11-26] MEDS: SODIUM CHLORIDE 1,000 ML IV SCH (10:15)
[2017-11-26] MEDS ORDERED: SODIUM CHLORIDE 1,000 ML IV SCH (11:55)
[2017-11-26] MEDS ORDERED: LABETALOL HCL 5 MG/1 ML (100MG/20 ML VIAL) IVPUSH ONE (12:15)
[2017-11-26] MEDS: SODIUM CHLORIDE 0.45% 1,000 ML IV SCH (13:00)
[2017-11-26] MEDS ORDERED: BENZOCAINE/MENTH/CETYLPYRD CL 1 EACH LOZENGE MM PRN (13:08)
[2017-11-26] MEDS ORDERED: MAGNESIUM CITRATE 300 ML BOTTLE PO PRN (14:01)
--- NOTE | 2017-11-26 16:05 | PN ---
Progress Note (short form) - Note Progress Note: Renal follow up for Lupus Nephropathy Pt seen and examined at the bedside has some sorness in the abd no pain making urine no sob, chest pain no blood in urine Vital Signs Temperature 98.3 F 11/26/17 14:00 Pulse Rate 95 H 11/26/17 14:00 Respiratory Rate 20 11/26/17 14:00 Blood Pressure 157/101 11/26/17 14:00 O2 Sat by Pulse Oximetry (%) 95 11/25/17 21:00 Intake & Output 11/23/17 11/24/17 11/25/17 11/26/17 23:59 23:59 23:59 23:59 Intake Total 3000 0539 243 8931 Output Total 310 1800 4000 Balance 2690 1900 -1100 -2800 NAD tachycardic CTA Trace edema, no clubbing or cyanosis CBC, BMP 11/26/17 08:55 11/26/17 08:55 Current Medications Acetaminophen/Butalbital/Caffeine (Fioricet -) 1 tablet PO Q6H PRN PRN Reason: HEADACHE Last Admin: 11/24/17 23:51 Dose: 1 tablet Amlodipine Besylate (Norvasc -) 10 mg PO DAILY [facility] Last Admin: 11/26/17 10:15 Dose: 10 mg Benzocaine/Menthol (Cepacol Lozenge -) 1 each MM PRN PRN PRN Reason: SORE THROAT Docusate Sodium (Colace -) 100 mg PO BID [facility] Last Admin: 11/26/17 10:15 Dose: Not Given Heparin Sodium (Porcine) (Heparin -) 5,000 unit SQ TID [facility] Last Admin: 11/26/17 14:00 Dose: 5,000 unit Sodium Chloride (1/2 Normal Saline) 1,000 mls @ 60 mls/hr IV ASDIR [facility] Last Admin: 11/26/17 13:00 Dose: 60 mls/hr Labetalol HCl (Normodyne -) 200 mg PO Q6H PRN PRN Reason: HYPERTENSION Magnesium Citrate (Citroma -) 300 ml PO Q48H PRN PRN Reason: CONSTIPATION Ondansetron HCl (Zofran Injection) 4 mg IVPUSH Q6H PRN PRN Reason: NAUSEA AND/OR VOMITING Last Admin: 11/24/17 14:55 Dose: 4 mg Polyethylene Glycol (Miralax (For Daily Use) -) 17 gm PO DAILY PRN PRN Reason: CONSTIPATION Last Admin: 11/24/17 12:28 Dose: 17 grams Senna (Senna -) 1 tab PO BID SAMMIE Last Admin: 11/26/17 10:15 Dose: Not Given Simethicone (Mylicon -) 80 mg PO QID PRN PRN Reason: GAS Last Admin: 11/24/17 09:33 Dose: 80 mg 27 year old woman with PMhx of Lupus Nephritis (biopsy proven) with nephrotic syndrome and preserved kidney function, Hypertension and Anti-phosphlipid Ab + ( ? syndrome) presented with flank pain and admitted with hypertensive urgency. #Acute Kidney Injury s/p adnexal cyst removal with stenting of ureter ? intra-op hypotension no NSAIDs or other nephrotoxins listed in the MAR agree with holding ACEi pending improvement in renal function continue hypotonic IVF for now US showed no obstruction trend BUN/Cr for now #Hypertensive Urgency BP high off ACEi start Labetalol 200mg Q6h PRN for BP > 150/90 continue Amlodpine 10mg Daily #Hx of Lupus Nephritis with proteinuria TOBIAS negative, Anit-DS DNA +, anti SSa/ Ro Ab + pt with nephrotic range proteinuira on ACEi will likely need immunosuppressive medication for management of proteinura but will not require any changes in management as inpatient Thank you Taz Buenrostro Do
[2017-11-26] MEDS: ONDANSETRON 4 MG/2 ML VIAL IVPUSH PRN (17:30)
[2017-11-26] MEDS: LABETALOL HCL 200 MG TABLET (FP) PO PRN (21:28)
[2017-11-26] MEDS: ACETAMINOPHEN 325 MG TABLET (FP) PO PRN (21:28)
[2017-11-27 00:06] LABS: COMPLEMENT TOTAL(CH50) 35 U/mL (42-60)
--- NOTE | 2017-11-27 03:42 | PN ---
Physical Exam: SUBJECTIVE: Patient seen and examined - Still with nonproductive cough. Endorsed 3hours of flushing, diaphoresis w/ temp of 101.7, which summarily resolved. Endorse fatigue overnight to nursing. Passing flatus, +BM overnight. Still with good urination. Mild occipital HU, however this is baseline for pt. Denies lightheadness, chills, CP, chest tightness, N/v, abdominal pain, LE edema, diarrhea, constipation. OBJECTIVE: Vital Signs Intake & Output 11/24/17 11/25/17 11/26/17 11/27/17 23:59 23:59 23:59 23:59 Intake Total 9241 194 1558 Output Total 1800 4000 Balance 1900 -1100 -2500 Period Temp Pulse Resp BP Sys/Sanders Pulse Ox Last 24 Hr 98.1 F-101.7 F 69-126 18-20 145-167/84-116 94-95 GENERAL: The patient is awake, alert, and fully oriented, in no acute distress, lying in bed HEAD: Normal with no signs of trauma. EYES: PERRL, extraocular movements intact, sclera anicteric, conjunctiva clear. No ptosis. ENT: Ears normal, nares patent, oropharynx clear without exudates, moist mucous membranes. NECK: Trachea midline, full range of motion, supple. LUNGS: Bibasilar rales. Trace expiratory wheezing in upper lung cruz BL. No crackles, no accessory muscle use. HEART: Regular rate and rhythm, S1, S2 without murmur, rub or gallop. ABDOMEN: Incisions C/d/i, no drainage, erythema. Soft, NT, ND. normoactive bowel sounds, no hepatosplenomegaly, no masses. Negative samayoa's EXTREMITIES: 2+ pulses, warm, well-perfused, no edema. Still with Trace non- pitting edema BL to knees. NEUROLOGICAL: Cranial nerves II through XII grossly intact. Normal speech, gait not observed. 5/5 strength in all extremities. Sensation to light touch preserved diffusely. PSYCH: Normal mood, normal affect. SKIN: Warm, dry, normal turgor, no rashes or lesions noted Laboratory Results - last 24 hr CBC, BMP 11/27/17 15:20 11/27/17 05:35 11/26/17 08:55 11/26/17 08:55 11/22/17 11/26/17 11/26/17 18:35 08:55 08:55 WBC 9.6 RBC 4.34 Hgb 13.2 D Hct 39.0 MCV 89.9 MCH 30.5 MCHC 33.9 RDW 12.6 Plt Count 409 MPV 8.2 Neutrophils % 69.3 Lymphocytes % 17.7 Monocytes % 7.0 Eosinophils % 5.8 H D Basophils % 0.2 Sodium 144 Potassium 3.7 Chloride 109 H Carbon Dioxide 28 Anion Gap 7 L BUN 13 Creatinine 1.4 H Random Glucose 89 Calcium 7.6 L Magnesium 1.6 L Tot Complement (CH50) 35 L Active Medications Generic Name Dose Route Start Last Admin Trade Name Freq PRN Reason Stop Dose Admin Acetaminophen 650 mg 11/26/17 17:50 11/26/17 21:28 Tylenol - PO 650 mg Q6H PRN Administration PAIN LEVEL 6-10 Acetaminophen/Butalbital/Caffeine 1 tablet 11/23/17 20:15 11/24/17 23:51 Fioricet - PO 1 tablet Q6H PRN Administration HEADACHE Amlodipine Besylate 10 mg 11/25/17 10:00 11/26/17 10:15 Norvasc - PO 10 mg DAILY [facility] Administration Benzocaine/Menthol 1 each 11/26/17 13:08 Cepacol Lozenge - MM PRN PRN SORE THROAT Docusate Sodium 100 mg 11/24/17 10:00 11/26/17 21:32 Colace - PO Not Given BID [facility] Heparin Sodium (Porcine) 5,000 unit 11/24/17 14:00 11/26/17 21:30 Heparin - SQ 5,000 unit TID SAMMIE Administration Sodium Chloride 1,000 mls @ 60 mls/hr 11/26/17 12:30 11/26/17 13:00 1/2 Normal Saline IV 60 mls/hr ASDIR SAMMIE Administration Labetalol HCl 200 mg 11/26/17 12:19 11/26/17 21:28 Normodyne - PO 200 mg Q6H PRN Administration HYPERTENSION Magnesium Citrate 300 ml 11/26/17 14:01 Citroma - PO Q48H PRN CONSTIPATION Ondansetron HCl 4 mg 11/23/17 20:15 11/26/17 17:30 Zofran Injection IVPUSH 4 mg Q6H PRN Administration NAUSEA AND/OR VOMITING Polyethylene Glycol 17 gm 11/24/17 10:00 11/24/17 12:28 Miralax (For Daily Use) - PO 17 grams DAILY PRN Administration CONSTIPATION Senna 1 tab 11/23/17 22:00 11/26/17 21:31 Senna - PO Not Given BID [facility] Simethicone 80 mg 11/23/17 20:15 11/24/17 09:33 Mylicon - PO 80 mg QID PRN Administration GAS No micro CXR 11/20: No acute pathology Abd/Pelvis non-contrast CT 11/20: 1. No evidence of urinary tract calculi or obstructive uropathy. 2. Large L adnexal cyst, otherwise normal CT scan of the abdomen and pelvis with no evidence of acute pathology. Chest CT 11/21 - 1. Essentially clear lungs. 2. Small hiatal hernia. 3. Hyperattenuating fluid level within the gallbladder may be artifactual or secondary to sludge and/or cholelithiasis. Renal U/S 11/20 - IMPRESSION: Bilateral echogenic kidneys compatible with chronic medical renal disease. 10 mm echogenic density in the right renal upper/ midportion without posterior shadowing that may represent an angiomyolipoma. There is no evidence of hydronephrosis in both kidneys. Normal vascular flow in the renal artery and vein of both kidneys Non-Con CT head 11/22 - No evidence of a focal intracranial lesion or hemorrhage seen. TVUS 11/22 - IMPRESSION: Large ovarian/paraovarian cyst is again seen in the lower pelvis, in the midline posterior to the uterus and abutting the right and left ovary, the side of which is not clear on this exam. It is unchanged in size since prior CT scan of the abdomen and pelvis dated 11/20/2012 and has slightly increased in size since prior pelvis ultrasound dated 08/31/2016. No doppler evidence of torsion per addendum, however sensitivity 70% Abdominal U/S 11/22 - IMPRESSION: 1. Questionable right renal mass. CT follow-up recommended. 2. Otherwise normal abdominal sonogram. Please see above discussion. Renal U/s 11/25 - No pathology noted. No hydro CXR 11/25 - No acute pathology noted. Renal u/s 11/27 - IMPRESSION: Both kidneys appear morphologically unremarkable. Right kidney is isoechoic to the adjacent liver parenchyma which is within normal limits. Correlate clinically for further evaluation. . ASSESSMENT/PLAN: 27 yo woman w/ pmh of HTN, lupus nephritis who presents with hypertensive urgency, R flank/back pain and N/V in the setting of one week of non-compliance w/ home BP meds (lisinopril). 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 DS DNA + during admission; elevated FENA; Renal U/S 11/27 normal, no hydro - Slight increase in Cr today 1.4 -> 1.6. IVFs D/c'ed as likely not pre-renal - renal consulted, recs appreciated - f/u urine EOS to r/o AIN - daily BMPs, monitor CR - No immunosuppressants as inpatient, but will likely require them for proteinuria and active likely active lupus infection - Outpt renal f/u #Fever -101.7 overnight; CxR w/ no pathology noted. UA neg for infection - Trend fever curve, WBC - monitor for infectious symptoms - Tylenol for pain control - f/u influenza swab - If hypoxic, tachycardic -> consider CT-PE, as hx of APS #HU - - Fiorecet for HU #sore throat - like due to intubation - cepacol lozenges #constipation -senna, colace, miralax for constipation -simethacone for gas pain - magnesium citrate PPX Heparin SubQ FEN PO fluids Daily BMPs, trend Cr Regular diet Plan discussed with attending, Dr. Heriberto Mcfadden, PGY1 Visit type - Emergency Visit Emergency Visit: Yes ED Registration Date: 11/20/17 Care time: The patient presented to the Emergency Department on the above date and was hospitalized for further evaluation of their emergent condition. - New Patient This patient is new to me today: No - Critical Care Critical Care patient: No
[2017-11-27] MEDS: HEPARIN NA (PORCINE) 5,000 UNITS/ML 1ML VIAL SQ SCH ×3 (05:53→21:00)
--- NOTE | 2017-11-27 06:56 | MSN ---
Progress Note (short form) - Note Progress Note: SUBJECTIVE CC: RLQ/LLQ abdominal pressure; post op day 4 ovarian cyst removal & R ureteral stent placement HPI: Pt is a 27 y/o F post op day 4 ovarian cyst removal & R ureteral stent placement with PMHx HTN, lupus nephritis, s/p appendectomy. Pt was seen and examined today. Overnight, pt was noted to have temp 101.7 orally and feeling fatigued. B/P 159/108 with soft abdomen. Hospitalist team notified and Tylenol 650 mg PO given and Labetalol 200 mg PO for B/P control. Pt had BM yesterday with normal size, consistency and color. Pt reports she has had a "wet cough" since yesterday; the cough began first then she began experiencing sinus pressure. She also reports feeling "hot and sweaty" for approximately 3 hours until the fever went down. She feels warm now but denies diaphoresis. She denies sputum production and reports mucus production from nose was a little bit green yesterday and a bit of dried blood but otherwise clean. She denies burning with urine, difference in smell, blood in urine other than a small drop of blood yesterday AM (pt just finished menstruating). She states she has decreased amount of urine production compared to yesterday but attributes this to decreased IVF. She reports a headache that is in occipital to frontal lobe and was given fioricet. She denies blurry vision , vomiting, dizziness, unsteady gait and says in the AM she had trouble focusing her eyes but believes this is due to hospital environment. OBJECTIVE Last Vital Signs Temp Pulse Resp BP Pulse Ox 99.8 F H 101 H 18 142/89 94 L 11/27/17 06:00 11/27/17 06:00 11/27/17 06:00 11/27/17 06:00 11/26/17 21:00 General: Pt was sitting up in bed, in no acute distress. Breathing comfortably on room air. Face: Sinus pressure, nontender to palpation. Eyes: No scleroicterus. Clear conjunctiva. PERRLA. EOMI. Throat: Moist mucus membranes with erythema noted in posterior pharynx. Improved from yesterday. Good dentition. Heart: Tachycardic rate, regular rhythm. S1/S2. No murmurs or gallops appreciated. Lungs: Clear to auscultation B/L. Equal breath sounds. No crackles, rales or rhonchi appreciated. Abdomen: Nondistended, nontender. Normoactive bowel sounds in all four quadrants. Tympanic to percussion in all four quadrants. Incisions on B/L flank clean, dry, no drainage or pus noted. No pain to light or deep palpation in all four quadrants. Extremities: 2+ radial pulses. 2+ DP pulses. Neurological: Gag reflex not tested. Intact to light sensation all throughout UE and LE. Symmetric sensation. CBC, BMP 11/26/17 08:55 11/27/17 05:35 Laboratory Results - last 24 hr 11/22/17 11/27/17 18:35 05:35 Sodium 141 Potassium 3.5 Chloride 106 Carbon Dioxide 26 Anion Gap 10 BUN 13 Creatinine 1.6 H Creat Clearance w eGFR 38.67 Random Glucose 93 Calcium 7.4 L Phosphorus 5.4 H Magnesium 1.8 Total Bilirubin 0.2 D AST 41 H ALT 30 Alkaline Phosphatase 57 Total Protein 4.3 L Albumin 1.6 L Tot Complement (CH50) 35 L Active Medications Generic Name Dose Route Start Last Admin Trade Name Freq PRN Reason Stop Dose Admin Acetaminophen 650 mg 11/26/17 17:50 11/26/17 21:28 Tylenol - PO 650 mg Q6H PRN Administration PAIN LEVEL 6-10 Acetaminophen/Butalbital/Caffeine 1 tablet 11/23/17 20:15 11/24/17 23:51 Fioricet - PO 1 tablet Q6H PRN Administration HEADACHE Amlodipine Besylate 10 mg 11/25/17 10:00 11/26/17 10:15 Norvasc - PO 10 mg DAILY [facility] Administration Benzocaine/Menthol 1 each 11/26/17 13:08 Cepacol Lozenge - MM PRN PRN SORE THROAT Docusate Sodium 100 mg 11/24/17 10:00 11/26/17 21:32 Colace - PO Not Given BID [facility] Heparin Sodium (Porcine) 5,000 unit 11/24/17 14:00 11/27/17 05:53 Heparin - SQ Not Given TID [facility] Sodium Chloride 1,000 mls @ 60 mls/hr 11/26/17 12:30 11/26/17 13:00 1/2 Normal Saline IV 60 mls/hr ASDIR SAMMIE Administration Labetalol HCl 200 mg 11/26/17 12:19 11/26/17 21:28 Normodyne - PO 200 mg Q6H PRN Administration HYPERTENSION Magnesium Citrate 300 ml 11/26/17 14:01 Citroma - PO Q48H PRN CONSTIPATION Ondansetron HCl 4 mg 11/23/17 20:15 11/26/17 17:30 Zofran Injection IVPUSH 4 mg Q6H PRN Administration NAUSEA AND/OR VOMITING Polyethylene Glycol 17 gm 11/24/17 10:00 11/24/17 12:28 Miralax (For Daily Use) - PO 17 grams DAILY PRN Administration CONSTIPATION Senna 1 tab 11/23/17 22:00 11/26/17 21:31 Senna - PO Not Given BID SAMMIE Simethicone 80 mg 11/23/17 20:15 11/24/17 09:33 Mylicon - PO 80 mg QID PRN Administration GAS Home Medications Medication Instructions Recorded Lisinopril [Prinivil] 40 mg PO DAILY #30 tablet 02/18/17 08/31/16 (previous visit) - Transvaginal US 1. no Doppler evidence of ovarian torsion 2. Nonspecific 8 x 6.7 x 5.3 cm unilocular R ovarian cyst noted which appears increased in size in comparison to prior US study of 12/10/2015. On prior exam, this R ovarian cyst had maximum diameter of approximately 6.4 cm. CXR: No acute pathology Abd/Pelvis non-contrast CT: 1. No evidence of urinary tract calculi or obstructive uropathy. 2. Large L adnexal cyst, otherwise normal CT scan of the abdomen and pelvis with no evidence of acute pathology. Renal U/S 11/20 - IMPRESSION: Bilateral echogenic kidneys compatible with chronic medical renal disease. 10 mm echogenic density in the right renal upper/ midportion without posterior shadowing that may represent an angiomyolipoma. There is no evidence of hydronephrosis in both kidneys. Normal vascular flow in the renal artery and vein of both kidneys Chest CT 11/21 11:06 - IMPRESSION: 1. Essentially clear lungs. 2. Small hiatal hernia. 3. Hyperattenuating fluid level within the gallbladder may be artifactual or secondary to sludge and/or cholelithiasis. Non-Con CT head 11/22 - No evidence of a focal intracranial lesion or hemorrhage seen. VUS 11/22 - IMPRESSION: Large ovarian/paraovarian cyst is again seen in the lower pelvis, in the midline posterior to the uterus and abutting the right and left ovary, the side of which is not clear on this exam. It is unchanged in size since prior CT scan of the abdomen and pelvis dated 11/20/2012 and has slightly increased in size since prior pelvis ultrasound dated 08/31/2016. No doppler evidence of torsion per addendum, however sensitivity 70% Abdominal U/S 11/22 - IMPRESSION: 1. Questionable right renal mass. CT follow-up recommended. 2. Otherwise normal abdominal sonogram. Please see above discussion. US Kidney/Renal 11/25/17 1112 Impression: No hydronephrosis is seen. There is no definite sonographic abnormality on the current exam. Prior ultrasound studies of 11/22/2017 and 11/20/2017 described possible 1 cm right renal echogenic and right renal 2.3 cm lesions which were very likely artifactual in nature versus due to normal variant lobulation. Review of noncontrast CT studies performed on 11/20/2017, 12/10/2015 and 10/09/2009 demonstrate no obvious interval change in regards to the kidneys. However, given the previously described ultrasound reports noncontrast MRI evaluation is suggested to document lack of a focal mass lesion, as an outpatient unless otherwise clinically indicated. ASSESSMENT Pt is a 27 y/o F with PMHx HTN and lupus nephritis who was seen at the ED for chest pain, back pain, n/v, dizziness and decreased PO intake over last 1 week. She was admitted with hypertensive urgency and underwent ovarian cyst removal & R ureteral stent placement on 11/23, now POD 4. PLAN 1. Fever * pending CBC for today * UA, CXR - f/u results, pending * r/o UTI, atelectasis. * if SOB, consider PE gordon. given hx of antiphospholipid syndrome, pt is hypercoagulable. 2. POD 4 s/p ovarian cyst removal & R ureteral stent placement * pain prior to surgery likely mass effect from R ovarian cyst. Tachycardia likely 2/2 pain. * UA and CT were negative for renal pathology. * 11/25 US Kidney/Renal negative for hydronephrosis. Will order repeat renal US today. * Norvasc 10mg PO daily, Labetalol 200mg Q6h PRN for BP >150/90; Senna 1 tab PO BID, Colace 100mg PO daily for constipation; PEG 17 g PO daily * Milicon 80 mg PO QID PRN gas * Cepacol lozenge 1 each PRN for sore throat 2/2 intubation * pt is off narcotics, on current bowel regimen. 3. MARIBEL secondary to AIN. * 11/26 FENA 2.0%; BUN/Cr 9.2 -- likely intrinsic etiology BUN/Cr ratio <20:1; FENA greater than or equal to 2.0% * SLE is associated with AIN. However, acute increase in BUN/Cr likely not secondary to lupus nephritis, as per nephro. Unknown etiology at this time. * Pt not on any nephrotoxic drugs sterotypically ass. w/ AIN. * f/u urine eosinophils. * BUN/Cr 11/26 13/1.4; 11/27 13/1.6 * nephrology consult - Dr. Buenrostro: initial Us showed no obstruction; will repeat US today. check UA, UCx today as well. check FeNa. can d/c IVF hydration as pt appears to be evolemic at this time 4. Hypertensive urgency upon admission * likely 2/2 multifactorial process * noncompliance with home med Lisinopril x 3 weeks prior to admission; anxiety; vasoconstriction due to hypovolemia; pain. * known hx of lupus nephritis; bx proven. * Zofran 4mg IV q6h PRN n/v. Norvasc 10mg PO daily, Labetalol 200mg Q6h PRN for BP >150/90 * Will need close f/u as outpt for HTN control 5. Lupus nephritis * Will monitor for now, pt not on any home medications. Complicated by current AIN. * TOBIAS negative, Anti DS DNA +, anti SSA/Ro Ab + * nephro consult: pt with nephrotic range proteinuria on ACEI; pt will likely need immunosuppressive medication for management of proteinuria; no changes to current management as inpatient. plan for MARIBEL as per above. 6. FEN * fluids: IVF 1/2 NS 1000mls @60cc/hr --> will D/C as per nephro. * electrolytes: wnl * nutrition: regular diet. 7. PPX * DVT ppx: Hep 5000U SQ TID; pt ambulating freely * GI ppx: no indications for stress ulcer ppx at this time. 8. Dispo * dispo planning on hold pending normalization of BUN/Cr and no fever for 24 hr.
[2017-11-27 07:33] LABS: CHLORIDE 106 mmol/L (98-107); POTASSIUM 3.5 mmol/L (3.5-5.1); SODIUM 141 mmol/L (136-145)
[2017-11-27] MEDS: ACETAMINOPHEN/CAFFEINE/BUTALBITAL 1 TAB PO PRN ×2 (07:50→17:39)
[2017-11-27 09:12] LABS: ALBUMIN 1.6 g/dl (3.4-5.0); ANION GAP 10 (8-16); BILIRUBIN,TOTAL 0.2 mg/dL (0.2-1.0); BLOOD UREA NITROGEN 13 mg/dL (7-18); CALCIUM 7.4 mg/dL (8.5-10.1); CO2 26 mmol/L (21-32); CREATININE 1.6 mg/dL (0.55-1.02); GLUCOSE,RANDOM 93 mg/dL (74-106); MAGNESIUM 1.8 mg/dL (1.8-2.4); PHOSPHOROUS 5.4 mg/dL (2.5-4.9); SGOT/AST 41 U/L (15-37); SGPT/ALT 30 U/L (12-78); TOT PROT 4.3 g/dl (6.4-8.2)
[2017-11-27 09:13] LABS: ALK PHOS 57 U/L (45-117)
[2017-11-27] MEDS: amLODIPine BESYLATE 10 MG TABLET (FP) PO SCH (09:43)
[2017-11-27] MEDS: DOCUSATE SODIUM 100 MG CAPSULE (FP) PO SCH ×2 (09:44→21:00)
[2017-11-27] MEDS: SENNOSIDES 8.6MG TABLET (FP) PO SCH ×2 (09:44→21:00)
--- NOTE | 2017-11-27 11:30 | PN ---
Progress Note (short form) - Note Progress Note: Renal follow up for Lupus Nephropathy Pt seen and examined at the bedside + cough + fever overnight has some discomfort at the icision site when coughing making urine, no hematuria or dysuria no N/V/D on IVF Vital Signs Temperature 99.8 F H 11/27/17 06:00 Pulse Rate 101 H 11/27/17 06:00 Respiratory Rate 18 11/27/17 06:00 Blood Pressure 142/89 11/27/17 06:00 O2 Sat by Pulse Oximetry (%) 94 L 11/26/17 21:00 Intake & Output 11/24/17 11/25/17 11/26/17 11/27/17 23:59 23:59 23:59 23:59 Intake Total 3562 429 4262 960 Output Total 1800 4000 Balance 1900 -1100 -2180 960 NAD tachycardic CTA Trace edema, no clubbing or cyanosis CBC, BMP 11/26/17 08:55 11/27/17 05:35 Selected Entries 11/23/17 05:48 Blood Pressure 150/79 Laboratory Tests 11/26/17 11/27/17 18:00 05:35 Calcium 7.4 L Phosphorus 5.4 H Magnesium 1.8 Albumin 1.6 L Urine Eosinophils Pending Current Medications Acetaminophen (Tylenol -) 650 mg PO Q6H PRN PRN Reason: PAIN LEVEL 6-10 Last Admin: 11/26/17 21:28 Dose: 650 mg Acetaminophen/Butalbital/Caffeine (Fioricet -) 1 tablet PO Q6H PRN PRN Reason: HEADACHE Last Admin: 11/27/17 07:50 Dose: 1 tablet Amlodipine Besylate (Norvasc -) 10 mg PO DAILY [facility] Last Admin: 11/27/17 09:43 Dose: 10 mg Benzocaine/Menthol (Cepacol Lozenge -) 1 each MM PRN PRN PRN Reason: SORE THROAT Docusate Sodium (Colace -) 100 mg PO BID [facility] Last Admin: 11/27/17 09:44 Dose: Not Given Heparin Sodium (Porcine) (Heparin -) 5,000 unit SQ TID [facility] Last Admin: 11/27/17 05:53 Dose: Not Given Sodium Chloride (1/2 Normal Saline) 1,000 mls @ 60 mls/hr IV ASDIR [facility] Last Admin: 11/26/17 13:00 Dose: 60 mls/hr Labetalol HCl (Normodyne -) 200 mg PO Q6H PRN PRN Reason: HYPERTENSION Last Admin: 11/26/17 21:28 Dose: 200 mg Magnesium Citrate (Citroma -) 300 ml PO Q48H PRN PRN Reason: CONSTIPATION Ondansetron HCl (Zofran Injection) 4 mg IVPUSH Q6H PRN PRN Reason: NAUSEA AND/OR VOMITING Last Admin: 11/26/17 17:30 Dose: 4 mg Polyethylene Glycol (Miralax (For Daily Use) -) 17 gm PO DAILY PRN PRN Reason: CONSTIPATION Last Admin: 11/24/17 12:28 Dose: 17 grams Senna (Senna -) 1 tab PO BID [facility] Last Admin: 11/27/17 09:44 Dose: Not Given Simethicone (Mylicon -) 80 mg PO QID PRN PRN Reason: GAS Last Admin: 11/24/17 09:33 Dose: 80 mg 27 year old woman with PMhx of Lupus Nephritis (biopsy proven) with nephrotic syndrome and preserved kidney function, Hypertension and Anti-phosphlipid Ab + ( ? syndrome) presented with flank pain and admitted with hypertensive urgency. #Acute Kidney Injury Renal function stable Cr 1.5-1.6 etiology of acute change in Cr unclear no overt hypotension noted, no nephrotoxic meds given intial Us showed no obstruction will repeat US today check UA, UCx today as well check FeNa can d/c IVF hydration as pt appears to be evolemic at this time #Hypertensive Urgency continue Labetalol and Amlodpine #Hx of Lupus Nephritis with proteinuria TOBIAS negative, Anit-DS DNA +, anti SSa/ Ro Ab + pt with nephrotic range proteinuira on ACEi will likely need immunosuppressive medication for management of proteinura but will not require any changes in management as inpatient Thank you Taz Buenrostro Do
--- NOTE | 2017-11-27 13:30 | PN ---
Teaching Attending Note Name of Resident: Sunny Mcfadden ATTENDING PHYSICIAN STATEMENT I saw and evaluated the patient. I reviewed the resident's note and discussed the case with the resident. I agree with the resident's findings and plan as documented. SUBJECTIVE:c/o nonproductive cough. states she felt very warm and diaphoretic last ngiht. correlated with documented fever 101.7. states symptoms lasted for 3H and then dissipated. currently has cough. denies CP, SOB,fever, chills, Nv/c/ d, rhinorrhea, CP, palpitations, hemoptysis OBJECTIVE: Last Vital Signs Temp Pulse Resp BP Pulse Ox 99.8 F H 101 H 18 142/89 94 L 11/27/17 06:00 11/27/17 06:00 11/27/17 06:00 11/27/17 06:00 11/26/17 21:00 General NAD HEENT no sinus tenderness, some pharynx erythema no enlarged tonsils or exudate on the tonsils CV S1 s2 RRR no murmur/rub/gallop Lungs CTA B/L No wheezing/rales/rhonchi Abdomen soft NT/ND surgical incisions with good approximations. no drainage Extremities no pedal edema ASSESSMENT AND PLAN: 27 yo F with PMHX of lupus nephritis, HTN, admitted with hypertensive urgency, right flank pain, nausea, vomitting with decreased PO intake and not taking her lisinopril over last 1 week. Course was complicated by development of R adnexal cyst torsion 1. HTN urgency- resolved. BP controlled with norvasc. received labetolol x1 last night with improvement 2. R adnexal cyst torsion- s/p resection 11/23. pain mostly resolved. surgical incisions healing well. pain controlled. will need to f/u with health center assistant in 1-2 weeks 3. Fever- Tm 101.7. possible atelectasis. no correlating leukocytosis. non productive cough with some pharynx erythema can be from ETT from surgery. on cepacol lozenges. check UA, influenza and CXR. concern for PE due to antiphospholipid syndrome with recent surgery however unable to obtain CTPE with elevated Cr. will monitor for now. pt looks comfortable. saturating well on RA. will monitor for now. if worsens can consider VQ scan. 4. MARIBEL- elevated Fena. slight uptrend today. no clear etiology to justify increase. no hydro on initial imaging. will repeat renal u/s today. d/c IVF. renal on board. 5. constipation- resolved. cont stool softeners 6. Lupus nephritis 7. DVT ppx- hep sq 8. will monitor overnight for recurrent fevers and kidney function. if improves can d/c home in AM
[2017-11-27 13:32] LABS: URINE APPEARANCE CLEAR; URINE BILIRUBIN NEGATIVE (NEGATIVE); URINE BLOOD NEGATIVE (NEGATIVE); URINE COLOR LTYELLOW; URINE GLUCOSE (UA) NEGATIVE (NEGATIVE); URINE KETONE NEGATIVE (NEGATIVE); URINE LEUK ESTERASE NEGATIVE (NEGATIVE); URINE NITRITE NEGATIVE (NEGATIVE); URINE UROBILINOGEN NEGATIVE mg/dL (0.2-1.0)
[2017-11-27 13:42] LABS: URINE PROTEIN 3+ (NEGATIVE)
[2017-11-27 14:04] LABS: EPI CELLS RARE /HPF (FEW); URINE HYALINE CAST 4 /lpf; URINE MUCUS RARE
[2017-11-27 14:13] LABS: URINE CREATININE 68.3 mg/dL (20-320)
[2017-11-27 16:34] LABS: HEMOGLOBIN 13.4 GM/dL (10.7-15.3); MCHC 33.6 g/dl (32.0-36.0); MEAN CELL VOLUME 89.1 fl (80-96); MEAN PLT VOLUME 8.2 fl (7.5-11.1); PLATELET COUNT 378 K/MM3 (134-434); RBC 4.48 M/mm3 (3.60-5.2); RDW 12.7 % (11.6-15.6); WHITE BLOOD COUNT 7.6 K/mm3 (4.0-10.0)
[2017-11-28] MEDS: HEPARIN NA (PORCINE) 5,000 UNITS/ML 1ML VIAL SQ SCH (05:03)
--- NOTE | 2017-11-28 06:38 | PN ---
Physical Exam: SUBJECTIVE: Patient seen and examined by me this AM - Pt febrile again overnight to 102.6, refusing tylenol as "she needs to let her body deal with it". Still with nonproductive cough for the last two days. Pt denies any chills, dizziness, vision changes, CP, SOB, N/V, LE edema. Endorse mild abdominal/back soreness due to persistent coughing. Denies any dysuria, diarrhea, rashes. No other overnight events. - Pt started on heparin gtt this AM for presumptive PE, given hx of APS, tachycardia, cough etc. However, pt refusing heparin gtt, fluids. Sent for V/Q scan and will restart heparin if + OBJECTIVE: Vital Signs Intake & Output 11/25/17 11/26/17 11/27/17 11/28/17 23:59 23:59 23:59 23:59 Intake Total 700 1820 1940 Output Total 1800 4000 3100 1000 Balance -1100 -2180 -1160 -1000 Period Temp Pulse Resp BP Sys/Sanders Pulse Ox Last 24 Hr 98.7 F-102.6 F 99-116 18-20 141-166/72-104 94-96 GENERAL: The patient is awake, alert, and fully oriented, in no acute distress, lying in bed. Appears fatigued. HEAD: Normal with no signs of trauma. EYES: PERRL, extraocular movements intact, sclera anicteric, conjunctiva clear. No ptosis. ENT: Ears normal, nares patent, oropharynx clear without exudates, moist mucous membranes. NECK: Trachea midline, full range of motion, supple. LUNGS: Decreased breath sounds at bases. No crackles, no accessory muscle use. HEART: Regular rate and rhythm, S1, S2 without murmur, rub or gallop. ABDOMEN: Incisions C/d/i, no drainage, purulence, erythema. Soft, NT, ND. normoactive bowel sounds, no hepatosplenomegaly, no masses. Negative samayoa's. No CVA tenderness. EXTREMITIES: 2+ pulses, warm, well-perfused, no edema. Still with Trace edema BL to knees. NEUROLOGICAL: Cranial nerves II through XII grossly intact. Normal speech, gait not observed. 5/5 strength in all extremities. Sensation to light touch preserved diffusely. PSYCH: Normal mood, normal affect. SKIN: Warm, dry, normal turgor, no rashes or lesions noted Laboratory Results - last 24 hr CBC, BMP 11/28/17 05:35 11/28/17 05:35 11/27/17 11/27/17 11/27/17 05:35 11:00 11:00 WBC RBC Hgb Hct MCV MCH MCHC RDW Plt Count MPV Sodium 141 Potassium 3.5 Chloride 106 Carbon Dioxide 26 Anion Gap 10 BUN 13 Creatinine 1.6 H Creat Clearance w eGFR 38.67 Random Glucose 93 Calcium 7.4 L Phosphorus 5.4 H Magnesium 1.8 Total Bilirubin 0.2 D AST 41 H ALT 30 Alkaline Phosphatase 57 Total Protein 4.3 L Albumin 1.6 L Urine Color Ltyellow Urine Appearance Clear Urine pH 6.0 Ur Specific [place] 1.009 Urine Protein 3+ H Urine Glucose (UA) Negative Urine Ketones Negative Urine Blood Negative Urine Nitrite Negative Urine Bilirubin Negative Urine Urobilinogen Negative Ur Leukocyte Esterase Negative Urine WBC (Auto) 3 Urine RBC (Auto) 2 Ur Epithelial Cells Rare Hyaline Casts 4 Urine Mucus Rare Ur Random Sodium Cancelled Ur Random Potassium Ur Random Chloride Urine Creatinine 11/27/17 11/27/17 11:00 15:20 WBC 7.6 RBC 4.48 Hgb 13.4 Hct 40.0 MCV 89.1 MCH 30.0 MCHC 33.6 RDW 12.7 Plt Count 378 MPV 8.2 Sodium Potassium Chloride Carbon Dioxide Anion Gap BUN Creatinine Creat Clearance w eGFR Random Glucose Calcium Phosphorus Magnesium Total Bilirubin AST ALT Alkaline Phosphatase Total Protein Albumin Urine Color Urine Appearance Urine pH Ur Specific [place] Urine Protein Urine Glucose (UA) Urine Ketones Urine Blood Urine Nitrite Urine Bilirubin Urine Urobilinogen Ur Leukocyte Esterase Urine WBC (Auto) Urine RBC (Auto) Ur Epithelial Cells Hyaline Casts Urine Mucus Ur Random Sodium 81 Ur Random Potassium 16.0 Ur Random Chloride 81 Urine Creatinine 68.3 Active Medications Generic Name Dose Route Start Last Admin Trade Name Freq PRN Reason Stop Dose Admin Acetaminophen 650 mg 11/26/17 17:50 11/26/17 21:28 Tylenol - PO 650 mg Q6H PRN Administration PAIN LEVEL 6-10 Acetaminophen/Butalbital/Caffeine 1 tablet 11/23/17 20:15 11/27/17 17:39 Fioricet - PO 1 tablet Q6H PRN Administration HEADACHE Amlodipine Besylate 10 mg 11/25/17 10:00 11/27/17 09:43 Norvasc - PO 10 mg DAILY SAMMIE Administration Benzocaine/Menthol 1 each 11/26/17 13:08 Cepacol Lozenge - MM PRN PRN SORE THROAT Docusate Sodium 100 mg 11/24/17 10:00 11/27/17 21:00 Colace - PO Not Given BID [facility] Heparin Sodium (Porcine) 5,000 unit 11/24/17 14:00 11/28/17 05:03 Heparin - SQ Not Given TID [facility] Labetalol HCl 200 mg 11/26/17 12:19 11/26/17 21:28 Normodyne - PO 200 mg Q6H PRN Administration HYPERTENSION Magnesium Citrate 300 ml 11/26/17 14:01 Citroma - PO Q48H PRN CONSTIPATION Ondansetron HCl 4 mg 11/23/17 20:15 11/26/17 17:30 Zofran Injection IVPUSH 4 mg Q6H PRN Administration NAUSEA AND/OR VOMITING Polyethylene Glycol 17 gm 11/24/17 10:00 11/24/17 12:28 Miralax (For Daily Use) - PO 17 grams DAILY PRN Administration CONSTIPATION Senna 1 tab 11/23/17 22:00 11/27/17 21:00 Senna - PO Not Given BID [facility] Simethicone 80 mg 11/23/17 20:15 11/24/17 09:33 Mylicon - PO 80 mg QID PRN Administration GAS No micro CXR 11/20: No acute pathology Abd/Pelvis non-contrast CT 11/20: 1. No evidence of urinary tract calculi or obstructive uropathy. 2. Large L adnexal cyst, otherwise normal CT scan of the abdomen and pelvis with no evidence of acute pathology. Chest CT 11/21 - 1. Essentially clear lungs. 2. Small hiatal hernia. 3. Hyperattenuating fluid level within the gallbladder may be artifactual or secondary to sludge and/or cholelithiasis. Renal U/S 11/20 - IMPRESSION: Bilateral echogenic kidneys compatible with chronic medical renal disease. 10 mm echogenic density in the right renal upper/ midportion without posterior shadowing that may represent an angiomyolipoma. There is no evidence of hydronephrosis in both kidneys. Normal vascular flow in the renal artery and vein of both kidneys Non-Con CT head 11/22 - No evidence of a focal intracranial lesion or hemorrhage seen. TVUS 11/22 - IMPRESSION: Large ovarian/paraovarian cyst is again seen in the lower pelvis, in the midline posterior to the uterus and abutting the right and left ovary, the side of which is not clear on this exam. It is unchanged in size since prior CT scan of the abdomen and pelvis dated 11/20/2012 and has slightly increased in size since prior pelvis ultrasound dated 08/31/2016. No doppler evidence of torsion per addendum, however sensitivity 70% Abdominal U/S 11/22 - IMPRESSION: 1. Questionable right renal mass. CT follow-up recommended. 2. Otherwise normal abdominal sonogram. Please see above discussion. Renal U/s 11/25 - No pathology noted. No hydro CXR 11/25 - No acute pathology noted. Renal u/s 11/27 - IMPRESSION: Both kidneys appear morphologically unremarkable. Right kidney is isoechoic to the adjacent liver parenchyma which is within normal limits. Correlate clinically for further evaluation. LE duplex 11/27 - No evidence of DVTs CXR 11/28 - no pathology noted V/Q scan 11/28 - read pending ASSESSMENT/PLAN: 27 yo woman w/ pmh of HTN, lupus nephritis who presents with hypertensive urgency, R flank/back pain and N/V in the setting of one week of non-compliance w/ home BP meds (lisinopril). #R/o PE/Fever/tachycardia -102.6 overnight; CXR nrml today. UA neg for infection ; elevated Ddimer 1935; cannot received CTPE due to severe anaphylaxic reaction - Trend fever curve, WBC - monitor for infectious symptoms - Tylenol for pain control - flu negative - heparin gtt for presumptive PE, even though low probability; V/Q scan this PM ; read pending; patient has been refusing heparin today, however will restart heparin gtt if V/Q positive for PE - f/u V/Q scan; If + restart heparin gtt per PE protocol - Pulm consulted, recs appreciated - Monitor respiratory status #R ovarian cyst/abdominal pain - likely secondary to mass effect from ovarian cyst - POD5, monitor for post-op complications; abdominen mildly tender from cough fits - restart fluids D5w-1/2NS - strict Is and Os - Pain well controlled on tylenol - S/P R renal stent placement - Zofran for N/V - 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 DS DNA + during admission; elevated FENA; Renal U/S 11/27 normal, no hydro - Cr continues to uptrend 1.9. restarted IVFs; FeNa equivocal at 1.3 - renal consulted, recs appreciated - f/u urine EOS to r/o AIN - daily BMPs, monitor CR - No immunosuppressants as inpatient, but will likely require them for proteinuria and active likely active lupus infection - Outpt renal f/u #HU - - Fiorecet for HU #sore throat/cough - like due to intubation - cepacol lozenges - robitussin #constipation -senna, colace, miralax for constipation -simethacone for gas pain as needed - magnesium citrate for constipation PPX Pt refusing heparin gtt until V/Q scan results FEN PO fluids Daily BMPs, trend Cr Regular diet Plan discussed with attending, Dr. Heriberto Mcfadden, PGY1 Visit type - Emergency Visit Emergency Visit: Yes ED Registration Date: 11/20/17 Care time: The patient presented to the Emergency Department on the above date and was hospitalized for further evaluation of their emergent condition. - New Patient This patient is new to me today: No - Critical Care Critical Care patient: No
[2017-11-28 06:53] LABS: ANION GAP 9 (8-16); BLOOD UREA NITROGEN 12 mg/dL (7-18); CALCIUM 7.3 mg/dL (8.5-10.1); CHLORIDE 103 mmol/L (98-107); CO2 28 mmol/L (21-32); CREATININE 1.9 mg/dL (0.55-1.02); GLUCOSE,RANDOM 95 mg/dL (74-106); MAGNESIUM 1.7 mg/dL (1.8-2.4); PHOSPHOROUS 3.7 mg/dL (2.5-4.9); POTASSIUM 3.5 mmol/L (3.5-5.1); SODIUM 140 mmol/L (136-145)
--- NOTE | 2017-11-28 07:11 | MSN ---
Progress Note (short form) - Note Progress Note: SUBJECTIVE CC: RLQ/LLQ abdominal pressure; post op day 5 ovarian cyst removal & R ureteral stent placement HPI: Pt is a 27 y/o F post op day 5 ovarian cyst removal & R ureteral stent placement with PMHx HTN, lupus nephritis, s/p appendectomy. Pt was seen and examined today. Pt developed fever of 102.6 F overnight; as per nursing, pt refused Tylenol and Labetolol. Today, pt reports feeling very fatigued with episodic coughing. Her cough is nonproductive with no hemoptysis. Her appetite is unchanged. She has no changes in urinary frequency and reports she has drank approximately 3 containers of water since last night. She reports no blood in urine. She still c/o headache from occipital to frontal that is relieved with Fioricet. She reports soreness in abdomen attributed to coughing but denies pain. She states she used her incentive spirometer and blows up to 1000, used 3-4x since last night. Denies SOB except during coughing, leg swelling, rash, nausea, vomiting, diarrhea, lightheadness, blurry vision, unsteady gait, previous hx of blood clots, miscarriages, seizures in past. She states when she had her son, he was born 3 mo premature. His delivery was complicated by preeclampsia vs. lupus flare, severe rash, greatly increased blood pressure and proteinuria. OBJECTIVE Last Vital Signs Temp Pulse Resp BP Pulse Ox 100.6 F H 112 H 18 141/72 96 11/28/17 05:57 11/28/17 05:57 11/28/17 05:57 11/28/17 05:57 11/27/17 21:00 General: Pt was sitting up in bed, in no acute distress. Breathing comfortably on room air. Coughing episodically. Face: Sinus pressure, tender to palpation in ethmoid and sphenoid (temples) region. Eyes: No scleroicterus. Clear conjunctiva. PERRLA. EOMI. Throat: Moist mucus membranes. Erythema resolved. Good dentition. No cervical lymphadenopathy. No thyromegaly or goiters noted on palpation. Heart: Tachycardic rate, regular rhythm. S1/S2. No murmurs or gallops appreciated. Lungs: Inspiratory and expiratory wheezing noted in upper lobes b/l. Decreased breath sounds in lower lobes. Equal breath sounds otherwise. No crackles, rales or rhonchi appreciated. Abdomen: Nondistended, nontender. Normoactive bowel sounds in all four quadrants. Tympanic to percussion in all four quadrants. Incisions on B/L flank clean, dry, no drainage or pus noted. No pain to light or deep palpation in all four quadrants. Extremities: 2+ radial pulses. 2+ DP pulses. Neurological: Gag reflex not tested. Intact to light sensation all throughout UE and LE. Symmetric sensation. CBC, BMP 11/28/17 05:35 11/28/17 05:35 Laboratory Results - last 24 hr 11/27/17 11/27/17 11/27/17 05:35 11:00 11:00 WBC RBC Hgb Hct MCV MCH MCHC RDW Plt Count MPV Neutrophils % Lymphocytes % Monocytes % Eosinophils % Basophils % D-Dimer Sodium Potassium Chloride Carbon Dioxide 26 Anion Gap 10 BUN 13 Creatinine 1.6 H Creat Clearance w eGFR 38.67 Random Glucose 93 Calcium 7.4 L Phosphorus 5.4 H Magnesium 1.8 Total Bilirubin 0.2 D AST 41 H ALT 30 Alkaline Phosphatase 57 Total Protein 4.3 L Albumin 1.6 L Urine Color Ltyellow Urine Appearance Clear Urine pH 6.0 Ur Specific [place] 1.009 Urine Protein 3+ H Urine Glucose (UA) Negative Urine Ketones Negative Urine Blood Negative Urine Nitrite Negative Urine Bilirubin Negative Urine Urobilinogen Negative Ur Leukocyte Esterase Negative Urine WBC (Auto) 3 Urine RBC (Auto) 2 Ur Epithelial Cells Rare Hyaline Casts 4 Urine Mucus Rare Ur Random Sodium Cancelled Ur Random Potassium Ur Random Chloride Urine Creatinine 11/27/17 11/27/17 11/28/17 11:00 15:20 05:35 WBC 7.6 8.6 RBC 4.48 4.33 Hgb 13.4 13.1 Hct 40.0 38.5 MCV 89.1 88.9 MCH 30.0 30.2 MCHC 33.6 34.0 RDW 12.7 12.6 Plt Count 378 332 MPV 8.2 8.3 Neutrophils % 80.4 Lymphocytes % 8.5 D Monocytes % 7.2 Eosinophils % 3.3 Basophils % 0.6 D-Dimer Sodium Potassium Chloride Carbon Dioxide Anion Gap BUN Creatinine Creat Clearance w eGFR Random Glucose Calcium Phosphorus Magnesium Total Bilirubin AST ALT Alkaline Phosphatase Total Protein Albumin Urine Color Urine Appearance Urine pH Ur Specific [place] Urine Protein Urine Glucose (UA) Urine Ketones Urine Blood Urine Nitrite Urine Bilirubin Urine Urobilinogen Ur Leukocyte Esterase Urine WBC (Auto) Urine RBC (Auto) Ur Epithelial Cells Hyaline Casts Urine Mucus Ur Random Sodium 81 Ur Random Potassium 16.0 Ur Random Chloride 81 Urine Creatinine 68.3 11/28/17 11/28/17 05:35 05:35 WBC RBC Hgb Hct MCV MCH MCHC RDW Plt Count MPV Neutrophils % Lymphocytes % Monocytes % Eosinophils % Basophils % D-Dimer 1935 H Sodium 140 Potassium 3.5 Chloride 103 Carbon Dioxide 28 Anion Gap 9 BUN 12 Creatinine 1.9 H Creat Clearance w eGFR Random Glucose 95 Calcium 7.3 L Phosphorus 3.7 Magnesium 1.7 L Total Bilirubin AST ALT Alkaline Phosphatase Total Protein Albumin Urine Color Urine Appearance Urine pH Ur Specific [place] Urine Protein Urine Glucose (UA) Urine Ketones Urine Blood Urine Nitrite Urine Bilirubin Urine Urobilinogen Ur Leukocyte Esterase Urine WBC (Auto) Urine RBC (Auto) Ur Epithelial Cells Hyaline Casts Urine Mucus Ur Random Sodium Ur Random Potassium Ur Random Chloride Urine Creatinine Active Medications Generic Name Dose Route Start Last Admin Trade Name Freq PRN Reason Stop Dose Admin Acetaminophen 650 mg 11/26/17 17:50 11/26/17 21:28 Tylenol - PO 650 mg Q6H PRN Administration PAIN LEVEL 6-10 Acetaminophen/Butalbital/Caffeine 1 tablet 11/23/17 20:15 11/28/17 07:58 Fioricet - PO 1 tablet Q6H PRN Administration HEADACHE Amlodipine Besylate 10 mg 11/25/17 10:00 11/28/17 11:06 Norvasc - PO 10 mg DAILY SAMMIE Administration Benzocaine/Menthol 1 each 11/26/17 13:08 Cepacol Lozenge - MM PRN PRN SORE THROAT Docusate Sodium 100 mg 11/24/17 10:00 11/28/17 11:07 Colace - PO Not Given BID [facility] Guaifenesin 10 ml 11/28/17 08:09 Robitussin - PO Q6H PRN COUGH Heparin Sodium (Porcine) 1,000 unit 11/28/17 08:57 Heparin - IVPUSH PRN PRN Heparin Heparin Sodium (Porcine) 5,000 unit 11/28/17 08:57 Heparin - IVPUSH PRN PRN Heparin HEPARIN SOD,PORK IN 0.45% NACL 25,000 units in 500 mls @ 20 mls/hr 11/28/17 09 :00 Heparin-1/2ns 25,000 Units/500 IVPB TITR SAMMIE Protocol 1,000 UNITS/HR Dextrose/Sodium Chloride 1,000 mls @ 100 mls/hr 11/28/17 13:15 D5-1/2ns - IV ASDIR SAMMIE Labetalol HCl 200 mg 11/26/17 12:19 11/26/17 21:28 Normodyne - PO 200 mg Q6H PRN Administration HYPERTENSION Magnesium Citrate 300 ml 11/26/17 14:01 Citroma - PO Q48H PRN CONSTIPATION Ondansetron HCl 4 mg 11/23/17 20:15 11/26/17 17:30 Zofran Injection IVPUSH 4 mg Q6H PRN Administration NAUSEA AND/OR VOMITING Polyethylene Glycol 17 gm 11/24/17 10:00 11/24/17 12:28 Miralax (For Daily Use) - PO 17 grams DAILY PRN Administration CONSTIPATION Senna 1 tab 11/23/17 22:00 11/28/17 11:07 Senna - PO Not Given BID [facility] Simethicone 80 mg 11/23/17 20:15 11/24/17 09:33 Mylicon - PO 80 mg QID PRN Administration GAS Home Medications Medication Instructions Recorded Lisinopril [Prinivil] 40 mg PO DAILY #30 tablet 02/18/17 08/31/16 (previous visit) - Transvaginal US 1. no Doppler evidence of ovarian torsion 2. Nonspecific 8 x 6.7 x 5.3 cm unilocular R ovarian cyst noted which appears increased in size in comparison to prior US study of 12/10/2015. On prior exam, this R ovarian cyst had maximum diameter of approximately 6.4 cm. CXR: No acute pathology Abd/Pelvis non-contrast CT: 1. No evidence of urinary tract calculi or obstructive uropathy. 2. Large L adnexal cyst, otherwise normal CT scan of the abdomen and pelvis with no evidence of acute pathology. Renal U/S 11/20 - IMPRESSION: Bilateral echogenic kidneys compatible with chronic medical renal disease. 10 mm echogenic density in the right renal upper/ midportion without posterior shadowing that may represent an angiomyolipoma. There is no evidence of hydronephrosis in both kidneys. Normal vascular flow in the renal artery and vein of both kidneys Chest CT 11/21 11:06 - IMPRESSION: 1. Essentially clear lungs. 2. Small hiatal hernia. 3. Hyperattenuating fluid level within the gallbladder may be artifactual or secondary to sludge and/or cholelithiasis. Non-Con CT head 11/22 - No evidence of a focal intracranial lesion or hemorrhage seen. VUS 11/22 - IMPRESSION: Large ovarian/paraovarian cyst is again seen in the lower pelvis, in the midline posterior to the uterus and abutting the right and left ovary, the side of which is not clear on this exam. It is unchanged in size since prior CT scan of the abdomen and pelvis dated 11/20/2012 and has slightly increased in size since prior pelvis ultrasound dated 08/31/2016. No doppler evidence of torsion per addendum, however sensitivity 70% Abdominal U/S 11/22 - IMPRESSION: 1. Questionable right renal mass. CT follow-up recommended. 2. Otherwise normal abdominal sonogram. Please see above discussion. US Kidney/Renal 11/25/17 1112 Impression: No hydronephrosis is seen. There is no definite sonographic abnormality on the current exam. Prior ultrasound studies of 11/22/2017 and 11/20/2017 described possible 1 cm right renal echogenic and right renal 2.3 cm lesions which were very likely artifactual in nature versus due to normal variant lobulation. Review of noncontrast CT studies performed on 11/20/2017, 12/10/2015 and 10/09/2009 demonstrate no obvious interval change in regards to the kidneys. However, given the previously described ultrasound reports noncontrast MRI evaluation is suggested to document lack of a focal mass lesion, as an outpatient unless otherwise clinically indicated. 11/27 18:40 No evidence of DVT US/KIDNEY / RENAL US [id number] IMPRESSION: Both kidneys appear morphologically unremarkable. Right kidney is isoechoic to the adjacent liver parenchyma which is within normal limits. Correlate clinically for further evaluation. ASSESSMENT Pt is a 27 y/o F with PMHx HTN and lupus nephritis who was seen at the ED for chest pain, back pain, n/v, dizziness and decreased PO intake over last 1 week. She was admitted with hypertensive urgency and underwent ovarian cyst removal & R ureteral stent placement on 11/23, now POD 5. PLAN 1. Fever * CBC wnl, no leukocytosis. * UA, CXR - no abnormalities; r/o UTI, atelectasis. incentive spirometer. * if SOB, consider PE gordon. given hx of antiphospholipid syndrome, pt is hypercoagulable. * D-dimer elevated 1935; pulmonary consult ordered for V/Q scan and hep drip started; No evidence of DVT yesterday on US * as per pulmonary, V/Q scan ordered due to low-moderate index suspicion for PE , hx antiphospholipid ab + and recent surgery. Normal CXR will increase sensitivity. * f/u V/Q scan; pt is allergic to contrast due to shellfish allergy - anaphylaxis, can not tolerate CTA. * Wells Score 3.0 - moderate risk, 16.2% chance of PE in ED population. Tachycardic, surgery in previous 4 wks. * Immunologic studies ordered; will f/u. * Robitussin 10ml PO q6h for symptomatic relief of cough. 2. POD 5 s/p ovarian cyst removal & R ureteral stent placement * pain prior to surgery likely mass effect from R ovarian cyst. Tachycardia likely 2/2 pain vs. PE. * UA and CT were negative for renal pathology. * 11/25 US Kidney/Renal negative for hydronephrosis. Renal US negative for acute pathology. * Norvasc 10mg PO daily, Labetalol 200mg Q6h PRN for BP >150/90; Senna 1 tab PO BID, Colace 100mg PO daily for constipation; PEG 17 g PO daily * Pt was refusing PRN Labetalol this AM but is compliant with Norvasc 10 mg PO daily with BPs 140-150s systolic. * Can D/C Milicon 80 mg PO QID PRN gas; pt is asymptomatic and has not used since 11/24. * Can D/C Cepacol lozenge 1 each PRN for sore throat 2/2 intubation; pt is not tolerating, reports she feels like vomiting when using. * pt is off narcotics, on current bowel regimen with good BMs. 3. MARIBEL secondary to AIN. * 11/27 FENA 1.3%; indeterminate * SLE is intrinsic pathology associated with AIN. However, acute increase in BUN /Cr likely not secondary to lupus nephritis flare, as per nephro. Unknown etiology at this time. * UA wnl; UCx contaminated and indeterminate. No physical exam findings of UTI. US no acute pathology. * Pt not on any nephrotoxic drugs sterotypically ass. w/ AIN. * BUN/Cr 11/27 13/1.6; 11/28 12/1.9 * Will restart IVF D51/2NS 1000mls @100cc/hr to clear out kidneys due to acute increase in Cr. * As per nephro; serum eosinophils are improved. FENA 1.3% indeterminate. Dr. Roy will see. Repeat kidney bx if renal fxn no improvement. 4. Hypertensive urgency upon admission * likely 2/2 multifactorial process * noncompliance with home med Lisinopril x 3 weeks prior to admission; anxiety; vasoconstriction due to hypovolemia; pain. * known hx of lupus nephritis; bx proven. * Zofran 4mg IV q6h PRN n/v. Norvasc 10mg PO daily, Labetalol 200mg Q6h PRN for BP >150/90 (last administered 11/26/17 21:28) * Will need close f/u as outpt for HTN control 5. Lupus nephritis * Will monitor for now, pt not on any home medications. Complicated by current AIN. * TOBIAS negative, Anti DS DNA +, anti SSA/Ro Ab + * nephro consult: pt with nephrotic range proteinuria on ACEI; pt will likely need immunosuppressive medication for management of proteinuria; no changes to current management as inpatient. plan for MARIBEL as per above. * Immunologic studies ordered; will f/u. 6. FEN * fluids: D51/2NS 1000mls @100cc/hr * electrolytes: wnl * nutrition: regular diet. 7. PPX * DVT ppx: Hep 5000U SQ TID; pt ambulating freely * GI ppx: no indications for stress ulcer ppx at this time. 8. Dispo * dispo planning on hold pending normalization of BUN/Cr and no fever for 24 hr.
[2017-11-28 07:52] LABS: BASO % 0.6 % (0-2.0); EOS % 3.3 % (0-4.5); HEMATOCRIT 38.5 % (32.4-45.2); HEMOGLOBIN 13.1 GM/dL (10.7-15.3); LYMPH % 8.5 % (8-40); MCH 30.2 pg (25.7-33.7); MEAN CELL VOLUME 88.9 fl (80-96); MEAN PLT VOLUME 8.3 fl (7.5-11.1); MONO % 7.2 % (3.8-10.2); NEUT % 80.4 % (42.8-82.8); PLATELET COUNT 332 K/MM3 (134-434); RBC 4.33 M/mm3 (3.60-5.2); RDW 12.6 % (11.6-15.6); WHITE BLOOD COUNT 8.6 K/mm3 (4.0-10.0)
[2017-11-28] MEDS ORDERED: MAGNESIUM SULF 50% (8.12 MEQ/2 ML-1 GM VIAL) IVPB ONE (07:57)
[2017-11-28] MEDS: ACETAMINOPHEN/CAFFEINE/BUTALBITAL 1 TAB PO PRN (07:58)
[2017-11-28] MEDS ORDERED: guaiFENesin 200 MG/10 ML 10 ML UNIT-DOSE CUPS PO PRN (08:09)
[2017-11-28] MEDS ORDERED: HEPARIN NA (PORCINE) 5,000 UNITS/ML 1ML VIAL IVPUSH PRN ×2 (08:57)
[2017-11-28] MEDS ORDERED: MAGNESIUM CL 64 MG TABLET.SA PO ONE (09:00)
[2017-11-28] MEDS ORDERED: HEPARIN SOD,PORK IN 0.45% NACL 25,000 UNITS/500 ML INFUS.BAG IVPB SCH (09:00)
[2017-11-28] MEDS: amLODIPine BESYLATE 10 MG TABLET (FP) PO SCH (11:06)
[2017-11-28] MEDS: SENNOSIDES 8.6MG TABLET (FP) PO SCH ×2 (11:07→21:08)
[2017-11-28] MEDS: DOCUSATE SODIUM 100 MG CAPSULE (FP) PO SCH ×2 (11:07→21:08)
--- NOTE | 2017-11-28 11:48 | PN ---
Progress Note (short form) - Note Progress Note: Renal follow up for Lupus Nephropathy Pt seen and examined at the bedside has mild cough no chest pain or sob no abd pain no rash on skin + fever Vital Signs Temperature 99.8 F H 11/28/17 09:13 Pulse Rate 98 H 11/28/17 09:13 Respiratory Rate 18 11/28/17 09:13 Blood Pressure 124/86 11/28/17 09:13 O2 Sat by Pulse Oximetry (%) 96 11/27/17 21:00 Intake & Output 11/25/17 11/26/17 11/27/17 11/28/17 23:59 23:59 23:59 23:59 Intake Total 700 1820 1940 750 Output Total 1800 4000 3100 1600 Balance -1100 -2180 -1160 -850 NAD tachycardic CTA Trace edema, no clubbing or cyanosis CBC, BMP 11/28/17 05:35 11/28/17 05:35 Laboratory Tests 11/28/17 05:35 Calcium 7.3 L Phosphorus 3.7 Magnesium 1.7 L Current Medications Acetaminophen (Tylenol -) 650 mg PO Q6H PRN PRN Reason: PAIN LEVEL 6-10 Last Admin: 11/26/17 21:28 Dose: 650 mg Acetaminophen/Butalbital/Caffeine (Fioricet -) 1 tablet PO Q6H PRN PRN Reason: HEADACHE Last Admin: 11/28/17 07:58 Dose: 1 tablet Amlodipine Besylate (Norvasc -) 10 mg PO DAILY [facility] Last Admin: 11/28/17 11:06 Dose: 10 mg Benzocaine/Menthol (Cepacol Lozenge -) 1 each MM PRN PRN PRN Reason: SORE THROAT Docusate Sodium (Colace -) 100 mg PO BID [facility] Last Admin: 11/28/17 11:07 Dose: Not Given Guaifenesin (Robitussin -) 10 ml PO Q6H PRN PRN Reason: COUGH Heparin Sodium (Porcine) (Heparin -) 1,000 unit IVPUSH PRN PRN PRN Reason: Heparin Heparin Sodium (Porcine) (Heparin -) 5,000 unit IVPUSH PRN PRN PRN Reason: Heparin HEPARIN SOD,PORK IN 0.45% NACL (Heparin-1/2ns 25,000 Units/500) 25,000 units in 500 mls @ 20 mls/hr IVPB TITR SAMMIE; 1,000 UNITS/HR PRN Reason: Protocol Labetalol HCl (Normodyne -) 200 mg PO Q6H PRN PRN Reason: HYPERTENSION Last Admin: 11/26/17 21:28 Dose: 200 mg Magnesium Citrate (Citroma -) 300 ml PO Q48H PRN PRN Reason: CONSTIPATION Ondansetron HCl (Zofran Injection) 4 mg IVPUSH Q6H PRN PRN Reason: NAUSEA AND/OR VOMITING Last Admin: 11/26/17 17:30 Dose: 4 mg Polyethylene Glycol (Miralax (For Daily Use) -) 17 gm PO DAILY PRN PRN Reason: CONSTIPATION Last Admin: 11/24/17 12:28 Dose: 17 grams Senna (Senna -) 1 tab PO BID SAMMIE Last Admin: 11/28/17 11:07 Dose: Not Given Simethicone (Mylicon -) 80 mg PO QID PRN PRN Reason: GAS Last Admin: 11/24/17 09:33 Dose: 80 mg 27 year old woman with PMhx of Lupus Nephritis (biopsy proven) with nephrotic syndrome and preserved kidney function, Hypertension and Anti-phosphlipid Ab + ( ? syndrome) presented with flank pain and admitted with hypertensive urgency. #Acute Kidney Injury s/p OR adenxal cyst removal/Hx of Membranous Lupus Nephritis Cr allie to 1.9 today, pt is non-oliguric pt appears evolemic at this time repeat US showed no obstruction no overt hypotension noted no nephrotoxic meds noted serum eiosinphils improved FeNa was 1.35% indeterminate Anti-DS DNA +, TOBIAS negative, CH50 is low (C3/C4 levels pending) Case discussed with Dr. Roy who will review her records and see her as well if renal function w/o improvement pt may warrent repeat biospy #Hypertenson continue Labetalol and Amlodpine #Fevers of unclear etiology Urine Cx w/o any significant growth UA negative for infection CXR negative Thank you Taz Buenrostro Do
--- NOTE | 2017-11-28 12:06 | CON.PULM ---
Consult Consult Specialty:: PULMONARY Referred by:: CHRISTOPHER Reason for Consultation:: CONCERNS FOR PE - History of Present Illness Chief Complaint: COUGH/FEVER History of Present Illness: 27 y/o F w/PMH of lupus nephritis, HTN, frequent UTIs presents to the ER with sudden onset of R sided lower back pain (rated 10/10) . The pain radiated from back to chest. She states this is the first time she has felt this combination of symptoms and no change with position. She did not take any medication to help relieve symptoms. She has felt nauseous due to pain and has vomited upon arriving to ER. She states she is on lisinopril for blood pressure management and has run out of her lisinopril for 1 week now otherwise she had been taking the medication as prescribed. She denies fevers, chills, SOB, abdominal pain, lower extremity swelling, dysuria, constipation, diarrhea, blood in urine, HU, photophobia, visual changes , focal weakness, light-headedness, sick contacts, recent travel. Pt also states she has had hypertensive emergency/urgency in the past when she did not take her anti-hypertensives. Pt also mentioned that her diagnosis of lupus nephritis is not definitive and she had her second kidney biopsy in October and is awaiting results for biopsy. I have been asked to evaluate for possible PE. Patient has since had a laparoscopic removal of a right pelvic mass on the , path is pending. 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 No: Pulmonary Hypertension Pulmonary: Yes: Pneumonia (in past). No: COPD Gastrointestinal: No: Ascites, Cancer, Irritable Bowel Disease, Ulcerative Colitis Renal/: Yes: Renal Inusuff, UTI, Other (lupus nephritis) ...LMP: 10/20/17 ...: No Heme/Onc: Yes: Other (antiphospholipid positive as per patient). No: Anemia Rheumatology: Yes: Lupus - Past Surgical History Past Surgical History: Yes: Appendectomy, Tonsillectomy Additional Surgical History: Delivery - Alcohol/Substance Use Hx Alcohol Use: No History of Substance Use: reports: None - Smoking History Smoking history: Never smoked Have you smoked in the past 12 months: No Aproximately how many cigarettes per day: 0 - Social History Usual Living Arrangement: With Spouse Place of : [facility] History of Recent Travel: No Home Medications - Allergies Allergies/Adverse Reactions: Allergies Allergy/AdvReac Type Severity Reaction Status Date / Time clindamycin Allergy Severe ANAPHLACTIC Verified 11/20/17 03:26 REACTION doxycycline Allergy Severe ANAPHYLACTIC Verified 11/20/17 03:26 REACTION Penicillins Allergy Severe ANAPHYLACTIC Verified 11/20/17 03:26 REACTION shellfish derived Allergy Severe anaphylactic Verified 11/20/17 03:26 reaction SEAFOOD Allergy Severe ANAPHYLACTIC Uncoded 11/20/17 03:26 REACTION - Home Medications Home Medications: Ambulatory Orders Lisinopril [Prinivil] 40 mg PO DAILY #30 tablet 02/18/17 Family Disease History - Family Disease History Family History: Unremarkable Review of Systems - Review of Systems Constitutional: reports: Fever. denies: Chills, Night Sweats Eyes: denies: Blurred Vision HENT: denies: Difficult Swallowing Neck: denies: Decreased ROM Cardiovascular: denies: Chest Pain, Shortness of Breath Respiratory: reports: Cough. denies: Hemoptysis, Orthopnea Gastrointestinal: denies: Abdominal Pain Genitourinary: reports: No Symptoms Breasts: reports: No Symptoms Reported Musculoskeletal: reports: No Symptoms Neurological: reports: No Symptoms Physical Exam Vital Sings: Vital Signs Temperature 99.8 F H 11/28/17 09:13 Pulse Rate 98 H 11/28/17 09:13 Respiratory Rate 18 11/28/17 09:13 Blood Pressure 124/86 11/28/17 09:13 O2 Sat by Pulse Oximetry (%) 96 11/27/17 21:00 Constitutional: Yes: Calm Eyes: Yes: EOM Intact HENT: Yes: Normocephalic Neck: Yes: Trachea Midline Cardiovascular: Yes: Regular Rate and Rhythm, S1, S2 Respiratory: Yes: CTA Bilaterally Gastrointestinal: Yes: Soft Edema: No Neurological: Yes: Alert Labs: CBC, BMP 11/28/17 05:35 11/28/17 05:35 rest reviewed Imaging - Results Chest X-ray: Report Reviewed, Image Reviewed Cat Scan: Report Reviewed, Image Reviewed EKG: Report Reviewed, Image Reviewed Other: Other (echo) Problem List - Problems (1) Fever Code(s): R50.9 - FEVER, UNSPECIFIED (2) Hypertensive emergency Code(s): I16.1 - HYPERTENSIVE EMERGENCY (3) Lupus (systemic lupus erythematosus) Code(s): M32.9 - SYSTEMIC LUPUS ERYTHEMATOSUS, UNSPECIFIED Qualifiers: Systemic lupus erythematosus type: unspecified Systemic lupus erythematosus organ involvement: unspecified Qualified Code(s): M32.9 - Systemic lupus erythematosus, unspecified (4) Lupus nephritis Code(s): M32.14 - GLOMERULAR DISEASE IN SYSTEMIC LUPUS ERYTHEMATOSUS (5) Chills Code(s): R68.83 - CHILLS (WITHOUT FEVER) Assessment/Plan LOW-MODERATE INDEX OF SUSPICION FOR PE ELEVATED D-DIMER COULD BE ON BASIS OF RENAL INSUFFICIENCY/SLE/SURGERY/INFECTION HOWEVER GIVEN HER HISTORY OF ANTIPHOSPOLIPIDS AND RECENT SURGERY INCREASE HER RISK FOR PE VENOUS DUPLEX WAS NEGATIVE FOR DVT NORMAL CXR WILL INCREASE SENSITIVITY OF V/Q SCAN AGREE WITH PMD TO R/O PE WITH V/Q IV HEPARIN WAS STARTED PER PMD WILL FOLLOW THANK YOU, Shamar BRYAN MD
--- NOTE | 2017-11-28 12:47 | PN ---
Teaching Attending Note Name of Resident: Sunny Mcfadden ATTENDING PHYSICIAN STATEMENT I saw and evaluated the patient. I reviewed the resident's note and discussed the case with the resident. I agree with the resident's findings and plan as documented. SUBJECTIVE:continues to have non productive cough, worsening from yesterday. fever and chills last night. states she is urinating well. denies CP, dyspnea, N /V/C/D, abdominal pain OBJECTIVE: Last Vital Signs Temp Pulse Resp BP Pulse Ox 99.8 F H 98 H 18 124/86 96 11/28/17 09:13 11/28/17 09:13 11/28/17 09:13 11/28/17 09:13 11/27/17 21:00 General NAD CV S1 s2 RRR no murmur/rub/gallop Lungs CTA B/L No wheezing/rales/rhonchi Abdomen soft NT/ND surgical incisions with good approximations. no drainage Extremities no pedal edema ASSESSMENT AND PLAN: 27 yo F with PMHX of lupus nephritis, HTN, admitted with hypertensive urgency, right flank pain, nausea, vomitting with decreased PO intake and not taking her lisinopril over last 1 week. Course was complicated by development of R adnexal cyst torsion 1. HTN urgency-improved but still above goal. did not receive any extra labetolol. on norvasc. 2. R adnexal cyst torsion- s/p resection 11/23. pain mostly resolved. surgical incisions healing well. pain controlled. 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 Fever- Tm 102.6 high clinical concern for PE as pt is tachycardic with fevers. no sign of infection. normal leukocytosis, normal UA and CXR and no abdominal pain. doppler negative. ddimer is high however could likely also be due to SLE and recent surgery. unable to do CTPE due to anaphylactic reaction to shellfish as well as worsening kidney function. will start hep ggt. Pulmonary consult for VQ scan. 4. MARIBEL- elevated Fena. continues to trend up. no sign of insult. will start low dose IVF. renal u/s negative for hydro. spoke with renal. may require repeat Bx if continues to worsen 5. constipation- resolved. cont stool softeners 6. Lupus nephritis 7. DVT ppx- hep ggt
[2017-11-28] MEDS ORDERED: DEXTROSE 5%-0.45% SALINE 1,000 ML IV SCH (13:15)
[2017-11-28] MEDS: SODIUM CHLORIDE 0.45% 1,000 ML IV SCH (13:26)
--- NOTE | 2017-11-28 13:26 | PATH ---
Surgical Pathology Report Patient Name: ROYAL FITZGERALD [facility]. Rec. #: [id number] /Age/Gender: 1990 (Age: 27) / F Account: [id number] Location: 4 SO PEDS/ADOL Taken: 11/23/2017 Received: 11/26/2017 Reported: 11/28/2017 Physicians: Gay Castaneda M.D. Specimen(s) Received RIGHT ADNEXAL MASS Clinical History Right pelvic mass Final Diagnosis RIGHT ADNEXAL MASS, EXCISION: BENIGN SEROUS CYSTADENOMA WITH EXTENSIVE HEMORRHAGE AND VASCULAR CONGESTION CONSISTENT WITH TORSION. PORTION OF BENIGN FALLOPIAN TUBE WITH VASCULAR CONGESTION CONSISTENT WITH TORSION PRESENT. Comment: Recommend correlation with clinical findings and follow up as clinically indicated. Electronically Signed Orion Lambert M.D. Gross Description Received in formalin labeled "right adnexal mass," is a 10.5 x 6.0 x 2.3 cm aggregate of brown matthew, irregular portions of hemorrhagic soft tissue, possibly consistent with a disrupted cyst. Sectioning reveals red-brown, hemorrhagic blood clot. Concrete Mixer Truck Driver sections are submitted in 8 cassettes. /11/26/2017 saudi/11/26/2017
--- NOTE | 2017-11-28 15:25 | PATH ---
Cytology Non-Gynecological Report Patient Name: ROYAL FITZGERALD [facility]. Rec. #: [id number] /Age/Gender: 1990 (Age: 27) / F Account: [id number] Location: 4 SO PEDS/ADOL Taken: 11/23/2017 Received: 11/26/2017 Reported: 11/28/2017 Physicians: Rufina Castaneda M.D. Specimen(s) Received FLUID FROM RIGHT ADNEXAL MASS Clinical History Right adnexal mass Final Diagnosis ADNEXAL MASS, RIGHT, FLUID FOR CYTOLOGY: SATISFACTORY FOR EVALUATION. NO MALIGNANT CELLS IDENTIFIED. RARE MACROPHAGES AND SCATTERED CUBOIDAL CYST LINING CELLS IN A BACKGROUND OF CELLULAR DEBRIS CONSISTENT WITH CYST CONTENTS. Comment: See concurrent material ([id number] and [id number]). Electronically Signed Corin Nguyen M.D. Gross Description Approximately 100 cc of bloody fluid received fresh. Two cytofunnels and one cellblock prepared.
--- NOTE | 2017-11-28 15:30 | PATH ---
Cytology Non-Gynecological Report Patient Name: ROYAL FITZGERALD [facility]. Rec. #: [id number] /Age/Gender: 1990 (Age: 27) / F Account: [id number] Location: 4 SO PEDS/ADOL Taken: 11/23/2017 Received: 11/26/2017 Reported: 11/28/2017 Physicians: Rufina Castaneda M.D. Specimen(s) Received PERITONEAL FLUID Clinical History Right adnexal mass Final Diagnosis ABDOMINAL FLUID FOR CYTOLOGY: SATISFACTORY FOR EVALUATION. NO MALIGNANT CELLS IDENTIFIED. MESOTHELIAL CELLS PRESENT. Comment: See concurrent material ([id number] and [id number]). Electronically Signed Corin Nguyen M.D. Gross Description Approximately 50 cc of bloody fluid received fresh. Two cytofunnels and one cellblock prepared.
[2017-11-28] MEDS ORDERED: PT OWN MED DRAWER 7, Y5N ONE (15:32)
[2017-11-28] MEDS: LABETALOL HCL 200 MG TABLET (FP) PO PRN (16:02)
[2017-11-28] MEDS: ACETAMINOPHEN 325 MG TABLET (FP) PO PRN (16:02)
--- NOTE | 2017-11-28 17:55 | HOSP ---
Physical Examination Vital Signs: Vital Signs Temperature 102.0 F H 11/28/17 15:55 Pulse Rate 96 H 11/28/17 15:55 Respiratory Rate 16 11/28/17 15:55 Blood Pressure 156/106 11/28/17 15:55 O2 Sat by Pulse Oximetry (%) 96 11/27/17 21:00 Labs: CBC, BMP 11/28/17 05:35 11/28/17 05:35 Hospitalist Encounter Assessment: Patient was sent for V/Q scan today to r/o PE. Findings of V/Q scan: No mismatched perfusion defect to suggest Pulmonary Embolism. Infiltrate on Left lower lobe. Patient has been informed she doesn't have a Pulmonary embolism and has to be treated for LLL Pneumonia with IV antibiotics. A/P: # Hospital acquired Pneumonia Will start patient on IV Levofloxacin 750mg Daily (creatinine clearance is 52 so dose doesn't need to be adjusted. Will repeat creatinine in AM and adjust as needed) Qtc checked: 470. Case discussed with Dr. Louis and Dr. Huntley. Visit type - Emergency Visit Emergency Visit: Yes ED Registration Date: 11/20/17 Care time: The patient presented to the Emergency Department on the above date and was hospitalized for further evaluation of their emergent condition. - New Patient This patient is new to me today: No - Critical Care Critical Care patient: No
[2017-11-28] MEDS: LEVOFLOXACIN 750 MG IVPB 750 MG/150 ML BAG IVPB SCH (20:09)
[2017-11-28] MEDS ORDERED: IBUPROFEN 800 MG/8 ML IJ IVPB ONE ×2 (21:00→23:45)
--- NOTE | 2017-11-29 05:43 | PN ---
Physical Exam: SUBJECTIVE: Patient seen and examined by me this AM - Pt with V/q scan neg for PE yesterday, however suspicious for LLL PNA. Pt started on levaquin for coverage. - Complaining of back and abdominal pain from persistent coughing overnight, given ibuprofen IV. Unable to tolerate full IV infusion of ibuprofen, refused due to pain. Still with productive cough and fevers overnight. Pt complaining of bladder distension and post-void pain, voiding frequently overnight. OBJECTIVE: Vital Signs Intake & Output 11/26/17 11/27/17 11/28/17 11/29/17 23:59 23:59 23:59 23:59 Intake Total 1820 1940 2250 Output Total 4000 3100 4500 300 Balance -2180 -1160 -2250 -300 Period Temp Pulse Resp BP Sys/Sanders Pulse Ox Last 24 Hr 98.6 F-102.0 F 85-112 16-20 117-156/72-106 94-97 GENERAL: The patient is awake, alert, and fully oriented, in no acute distress, lying in bed. HEAD: Normal with no signs of trauma. EYES: PERRL, extraocular movements intact, sclera anicteric, conjunctiva clear. No ptosis. ENT: Ears normal, nares patent, oropharynx clear without exudates, moist mucous membranes. NECK: Trachea midline, full range of motion, supple. LUNGS: Trace upper airway congestion, decreased breath sounds at bases. No crackles, no accessory muscle use. HEART: Regular rate and rhythm, S1, S2 without murmur, rub or gallop. ABDOMEN: Mild suprapubic discomfort to deep palpation, also in LLQ. Incisions C/ d/i, no drainage, purulence, erythema. Soft, NT, ND. normoactive bowel sounds, no hepatosplenomegaly, no masses. Negative samayoa's. No CVA tenderness. EXTREMITIES: 2+ pulses, warm, well-perfused, no edema. Trace edema BL to knees. NEUROLOGICAL: Cranial nerves II through XII grossly intact. Normal speech, gait not observed. 5/5 strength in all extremities. Sensation to light touch preserved diffusely. PSYCH: Normal mood, normal affect. SKIN: Warm, dry, normal turgor, no rashes or lesions noted Laboratory Results - last 24 hr CBC, BMP 11/29/17 05:35 11/29/17 05:35 11/28/17 05:35 11/28/17 05:35 11/28/17 11/28/17 11/28/17 05:35 05:35 05:35 WBC 8.6 RBC 4.33 Hgb 13.1 Hct 38.5 MCV 88.9 MCH 30.2 MCHC 34.0 RDW 12.6 Plt Count 332 MPV 8.3 Neutrophils % 80.4 Lymphocytes % 8.5 D Monocytes % 7.2 Eosinophils % 3.3 Basophils % 0.6 PTT (Actin FS) D-Dimer 1935 H Sodium 140 Potassium 3.5 Chloride 103 Carbon Dioxide 28 Anion Gap 9 BUN 12 Creatinine 1.9 H Random Glucose 95 Calcium 7.3 L Phosphorus 3.7 Magnesium 1.7 L 11/28/17 13:55 WBC RBC Hgb Hct MCV MCH MCHC RDW Plt Count MPV Neutrophils % Lymphocytes % Monocytes % Eosinophils % Basophils % PTT (Actin FS) 37.6 H D-Dimer Sodium Potassium Chloride Carbon Dioxide Anion Gap BUN Creatinine Random Glucose Calcium Phosphorus Magnesium Active Medications Generic Name Dose Route Start Last Admin Trade Name Thangq PRN Reason Stop Dose Admin Acetaminophen 650 mg 11/26/17 17:50 11/28/17 16:02 Tylenol - PO 650 mg Q6H PRN Administration PAIN LEVEL 6-10 Acetaminophen/Butalbital/Caffeine 1 tablet 11/23/17 20:15 11/28/17 07:58 Fioricet - PO 1 tablet Q6H PRN Administration HEADACHE Amlodipine Besylate 10 mg 11/25/17 10:00 11/28/17 11:06 Norvasc - PO 10 mg DAILY SAMMIE Administration Benzocaine/Menthol 1 each 11/26/17 13:08 Cepacol Lozenge - MM PRN PRN SORE THROAT Docusate Sodium 100 mg 11/24/17 10:00 11/28/17 21:08 Colace - PO Not Given BID [facility] Guaifenesin 10 ml 11/28/17 08:09 Robitussin - PO Q6H PRN COUGH Heparin Sodium (Porcine) 1,000 unit 11/28/17 08:57 Heparin - IVPUSH PRN PRN Heparin Heparin Sodium (Porcine) 5,000 unit 11/28/17 08:57 Heparin - IVPUSH PRN PRN Heparin HEPARIN SOD,PORK IN 0.45% NACL 25,000 units in 500 mls @ 20 mls/hr 11/28/17 09 :00 11/28/17 19:31 Heparin-1/2ns 25,000 Units/500 IVPB Not Given TITR SAMMIE Protocol 1,000 UNITS/HR Dextrose/Sodium Chloride 1,000 mls @ 100 mls/hr 11/28/17 13:15 11/28/17 16:18 D5-1/2ns - IV 100 mls/hr ASDIR SAMMIE Administration Levofloxacin 750 mg in 150 mls @ 100 mls/hr 11/28/17 18:00 11/28/17 20:09 Levaquin 750 Mg Premixed Ivpb - IVPB 100 mls/hr DAILY SAMMIE Administration Labetalol HCl 200 mg 11/26/17 12:19 11/28/17 16:02 Normodyne - PO 200 mg Q6H PRN Administration HYPERTENSION Magnesium Citrate 300 ml 11/26/17 14:01 Citroma - PO Q48H PRN CONSTIPATION Ondansetron HCl 4 mg 11/23/17 20:15 11/26/17 17:30 Zofran Injection IVPUSH 4 mg Q6H PRN Administration NAUSEA AND/OR VOMITING Polyethylene Glycol 17 gm 11/24/17 10:00 11/24/17 12:28 Miralax (For Daily Use) - PO 17 grams DAILY PRN Administration CONSTIPATION Senna 1 tab 11/23/17 22:00 11/28/17 21:08 Senna - PO Not Given BID SAMMIE Simethicone 80 mg 11/23/17 20:15 11/24/17 09:33 Mylicon - PO 80 mg QID PRN Administration GAS Microbiology 11/27/17 15:00 Urine - Urine Clean Catch Urine Culture - Final Contaminated: Please Repeat 11/27/17 17:55 Nasopharyngeal Swab Influenza Types A,B Antigen (BETH) - Final 11/27/17 17:55 Nasopharyngeal Swab - Final CXR 11/20: No acute pathology Abd/Pelvis non-contrast CT 11/20: 1. No evidence of urinary tract calculi or obstructive uropathy. 2. Large L adnexal cyst, otherwise normal CT scan of the abdomen and pelvis with no evidence of acute pathology. Chest CT 11/21 - 1. Essentially clear lungs. 2. Small hiatal hernia. 3. Hyperattenuating fluid level within the gallbladder may be artifactual or secondary to sludge and/or cholelithiasis. Renal U/S 11/20 - IMPRESSION: Bilateral echogenic kidneys compatible with chronic medical renal disease. 10 mm echogenic density in the right renal upper/ midportion without posterior shadowing that may represent an angiomyolipoma. There is no evidence of hydronephrosis in both kidneys. Normal vascular flow in the renal artery and vein of both kidneys Non-Con CT head 11/22 - No evidence of a focal intracranial lesion or hemorrhage seen. TVUS 11/22 - IMPRESSION: Large ovarian/paraovarian cyst is again seen in the lower pelvis, in the midline posterior to the uterus and abutting the right and left ovary, the side of which is not clear on this exam. It is unchanged in size since prior CT scan of the abdomen and pelvis dated 11/20/2012 and has slightly increased in size since prior pelvis ultrasound dated 08/31/2016. No doppler evidence of torsion per addendum, however sensitivity 70% Abdominal U/S 11/22 - IMPRESSION: 1. Questionable right renal mass. CT follow-up recommended. 2. Otherwise normal abdominal sonogram. Please see above discussion. Renal U/s 11/25 - No pathology noted. No hydro CXR 11/25 - No acute pathology noted. Renal u/s 11/27 - IMPRESSION: Both kidneys appear morphologically unremarkable. Right kidney is isoechoic to the adjacent liver parenchyma which is within normal limits. Correlate clinically for further evaluation. LE duplex 11/27 - No evidence of DVTs CXR 11/28 - no pathology noted V/Q scan 11/28 - Low suspicion for PE, however suggestive of LLL PNA. ASSESSMENT/PLAN: 27 yo woman w/ pmh of HTN, lupus nephritis who presents with hypertensive urgency, R flank/back pain and N/V in the setting of one week of non-compliance w/ home BP meds (lisinopril). #R/o PE/Fever/tachycardia -102.0 overnight again; V/Q scan low probability of PE , suggestive of possible LLL PNA. UA neg for infection; elevated Ddimer 1935; cannot received CTPE due to severe anaphylaxic reaction - Day 2/7 levaquin IV. Renal dose. 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 DS DNA + during admission; elevated FENA; Renal U/S 11/27 normal, no hydro; C3/C4 wnl. - Cr stabilized at 1.9; D/c fluids - f/u SPEP in AM - f/u immuno panel - renal consulted, recs appreciated - f/u urine EOS to r/o AIN - daily BMPs, monitor CR - No immunosuppressants as inpatient, but will likely require them for proteinuria and active likely active lupus infection - Outpt renal f/u #HU - - Fiorecet for HU #sore throat/cough - like due to intubation - cepacol lozenges - robitussin #constipation -senna, colace, miralax for constipation -simethacone for gas pain as needed - magnesium citrate for constipation PPX HSQ FEN PO fluids Daily BMPs, trend Cr Regular diet Plan discussed with attending, Dr. Heriberto Mcfadden, PGY1 Visit type - Emergency Visit Emergency Visit: Yes ED Registration Date: 11/20/17 Care time: The patient presented to the Emergency Department on the above date and was hospitalized for further evaluation of their emergent condition. - New Patient This patient is new to me today: No - Critical Care Critical Care patient: No
[2017-11-29 06:38] LABS: BASO % 0.7 % (0-2.0); EOS % 6.2 % (0-4.5); HEMATOCRIT 38.2 % (32.4-45.2); LYMPH % 24.9 % (8-40); MCH 30.7 pg (25.7-33.7); MEAN CELL VOLUME 90.5 fl (80-96); MEAN PLT VOLUME 8.3 fl (7.5-11.1); MONO % 13.7 % (3.8-10.2); NEUT % 54.5 % (42.8-82.8); PLATELET COUNT 302 K/MM3 (134-434); RBC 4.22 M/mm3 (3.60-5.2); RDW 12.7 % (11.6-15.6); WHITE BLOOD COUNT 4.8 K/mm3 (4.0-10.0)
[2017-11-29 06:59] LABS: ANION GAP 9 (8-16); BLOOD UREA NITROGEN 12 mg/dL (7-18); CALCIUM 7.4 mg/dL (8.5-10.1); CHLORIDE 105 mmol/L (98-107); CO2 28 mmol/L (21-32); GLUCOSE,RANDOM 99 mg/dL (74-106); MAGNESIUM 1.9 mg/dL (1.8-2.4); POTASSIUM 3.7 mmol/L (3.5-5.1); SODIUM 142 mmol/L (136-145)
[2017-11-29 07:00] LABS: CREATININE 1.9 mg/dL (0.55-1.02); PHOSPHOROUS 4.2 mg/dL (2.5-4.9)
--- NOTE | 2017-11-29 07:01 | MSN ---
Progress Note (short form) - Note Progress Note: SUBJECTIVE CC: RLQ/LLQ abdominal pressure; post op day 6 ovarian cyst removal & R ureteral stent placement HPI: Pt is a 27 y/o F post op day 6 ovarian cyst removal & R ureteral stent placement with PMHx HTN, lupus nephritis, s/p appendectomy. Pt was seen and examined today. Pt developed fever of 102.0 F overnight ( 15:55) and was given Acetaminophen 650 mg. She also c/o back and rib pain from coughing at beginning of weight shifter. She was given IV ibuprofen but refused infusion after 1 minute due to burning. IV Levaquin 750 mg in 150mls @ 100cc/hr also started due to findings shown on V/Q scan and LLL infiltrate. Today, pt c/o of "bladder pain" and describes it as her bladder feeling full. She states after urinating, her pain from bladder distension remained for a while but it is gone at the moment. She states she has soreness around her L lower incision, increased from yesterday. She states she was coughing all night and was not able to sleep much, however, sitting up helped with the coughing. Pt states no relief with IV Ibuprofen, since did not receive full dose. She is using her incentive spirometer 3-4 times a day and can blow up to 1000. Her sore throat is improved from yesterday. She denies nausea, vomiting, headache, current fever, palpitations, SOB, chest pain. OBJECTIVE Last Vital Signs Temp Pulse Resp BP Pulse Ox 98.6 F 80 16 148/97 97 11/29/17 06:00 11/29/17 06:00 11/29/17 06:00 11/29/17 06:00 11/28/17 21:00 General: Pt was lying down in bed, smiling, in no acute distress. Face: Sinus pressure, tender to palpation in ethmoid and sphenoid (temples) region. Eyes: No scleroicterus. Clear conjunctiva. Throat: Moist mucus membranes. Good dentition. Heart: Regular rate, regular rhythm. S1/S2. No murmurs or gallops appreciated. Lungs: Clear to auscultation anteriorly; decreased breath sounds in base of lower lobes. Equal breath sounds otherwise. No crackles, rales or rhonchi appreciated. Abdomen: Soft, Nondistended, nontender. Normoactive bowel sounds in all four quadrants. Tympanic to percussion in all four quadrants. Incisions on B/L flank clean, dry, no drainage or pus noted. Mild erythema noted directly on L incisions with clean sutures. No pain to light or deep palpation in all four quadrants. Extremities: 2+ radial pulses. 2+ DP pulses. CBC, BMP 11/29/17 05:35 11/29/17 05:35 Laboratory Results - last 24 hr 11/28/17 11/28/17 11/28/17 05:35 13:55 13:55 WBC RBC Hgb Hct MCV MCH MCHC RDW Plt Count MPV Neutrophils % Lymphocytes % Monocytes % Eosinophils % Basophils % PTT (Actin FS) 37.6 H D-Dimer 1935 H Sodium Potassium Chloride Carbon Dioxide Anion Gap BUN Creatinine Random Glucose Calcium Phosphorus Magnesium Complement C3 137 Complement C4 40 11/29/17 11/29/17 05:35 05:35 WBC 4.8 D RBC 4.22 Hgb 13.0 Hct 38.2 MCV 90.5 MCH 30.7 MCHC 34.0 RDW 12.7 Plt Count 302 MPV 8.3 Neutrophils % 54.5 D Lymphocytes % 24.9 D Monocytes % 13.7 H D Eosinophils % 6.2 H D Basophils % 0.7 PTT (Actin FS) D-Dimer Sodium 142 Potassium 3.7 Chloride 105 Carbon Dioxide 28 Anion Gap 9 BUN 12 Creatinine 1.9 H Random Glucose 99 Calcium 7.4 L Phosphorus 4.2 Magnesium 1.9 Complement C3 Complement C4 08/31/16 (previous visit) - Transvaginal US 1. no Doppler evidence of ovarian torsion 2. Nonspecific 8 x 6.7 x 5.3 cm unilocular R ovarian cyst noted which appears increased in size in comparison to prior US study of 12/10/2015. On prior exam, this R ovarian cyst had maximum diameter of approximately 6.4 cm. CXR: No acute pathology Abd/Pelvis non-contrast CT: 1. No evidence of urinary tract calculi or obstructive uropathy. 2. Large L adnexal cyst, otherwise normal CT scan of the abdomen and pelvis with no evidence of acute pathology. Renal U/S 11/20 - IMPRESSION: Bilateral echogenic kidneys compatible with chronic medical renal disease. 10 mm echogenic density in the right renal upper/ midportion without posterior shadowing that may represent an angiomyolipoma. There is no evidence of hydronephrosis in both kidneys. Normal vascular flow in the renal artery and vein of both kidneys Chest CT 11/21 11:06 - IMPRESSION: 1. Essentially clear lungs. 2. Small hiatal hernia. 3. Hyperattenuating fluid level within the gallbladder may be artifactual or secondary to sludge and/or cholelithiasis. Non-Con CT head 11/22 - No evidence of a focal intracranial lesion or hemorrhage seen. VUS 11/22 - IMPRESSION: Large ovarian/paraovarian cyst is again seen in the lower pelvis, in the midline posterior to the uterus and abutting the right and left ovary, the side of which is not clear on this exam. It is unchanged in size since prior CT scan of the abdomen and pelvis dated 11/20/2012 and has slightly increased in size since prior pelvis ultrasound dated 08/31/2016. No doppler evidence of torsion per addendum, however sensitivity 70% Abdominal U/S 11/22 - IMPRESSION: 1. Questionable right renal mass. CT follow-up recommended. 2. Otherwise normal abdominal sonogram. Please see above discussion. US Kidney/Renal 11/25/17 1112 Impression: No hydronephrosis is seen. There is no definite sonographic abnormality on the current exam. Prior ultrasound studies of 11/22/2017 and 11/20/2017 described possible 1 cm right renal echogenic and right renal 2.3 cm lesions which were very likely artifactual in nature versus due to normal variant lobulation. Review of noncontrast CT studies performed on 11/20/2017, 12/10/2015 and 10/09/2009 demonstrate no obvious interval change in regards to the kidneys. However, given the previously described ultrasound reports noncontrast MRI evaluation is suggested to document lack of a focal mass lesion, as an outpatient unless otherwise clinically indicated. 11/27 18:40 No evidence of DVT US/KIDNEY / RENAL US [id number] IMPRESSION: Both kidneys appear morphologically unremarkable. Right kidney is isoechoic to the adjacent liver parenchyma which is within normal limits. Correlate clinically for further evaluation. V/Q Scan 11/28/17: No mismatched perfusion defect to suggest Pulmonary Embolism. Infiltrate on Left lower lobe. Intake & Output 11/26/17 11/27/17 11/28/17 11/29/17 23:59 23:59 23:59 23:59 Intake Total 1820 1940 2250 700 Output Total 4000 3100 4500 2400 Balance -2180 1160 -2250 -1700 Active Medications Generic Name Dose Route Start Last Admin Trade Name Freq PRN Reason Stop Dose Admin Acetaminophen 650 mg 11/26/17 17:50 11/28/17 16:02 Tylenol - PO 650 mg Q6H PRN Administration PAIN LEVEL 6-10 Acetaminophen/Butalbital/Caffeine 1 tablet 11/23/17 20:15 11/28/17 07:58 Fioricet - PO 1 tablet Q6H PRN Administration HEADACHE Amlodipine Besylate 10 mg 11/25/17 10:00 11/28/17 11:06 Norvasc - PO 10 mg DAILY SAMMIE Administration Benzocaine/Menthol 1 each 11/26/17 13:08 Cepacol Lozenge - MM PRN PRN SORE THROAT Docusate Sodium 100 mg 11/24/17 10:00 11/28/17 21:08 Colace - PO Not Given BID SAMMIE Guaifenesin 10 ml 11/28/17 08:09 Robitussin - PO Q6H PRN COUGH Dextrose/Sodium Chloride 1,000 mls @ 100 mls/hr 11/28/17 13:15 11/28/17 16:18 D5-1/2ns - IV 100 mls/hr ASDIR SAMMIE Administration Levofloxacin 750 mg in 150 mls @ 100 mls/hr 11/28/17 18:00 11/28/17 20:09 Levaquin 750 Mg Premixed Ivpb - IVPB 100 mls/hr DAILY SAMMIE Administration Labetalol HCl 200 mg 11/26/17 12:19 11/28/17 16:02 Normodyne - PO 200 mg Q6H PRN Administration HYPERTENSION Magnesium Citrate 300 ml 11/26/17 14:01 Citroma - PO Q48H PRN CONSTIPATION Ondansetron HCl 4 mg 11/23/17 20:15 11/26/17 17:30 Zofran Injection IVPUSH 4 mg Q6H PRN Administration NAUSEA AND/OR VOMITING Polyethylene Glycol 17 gm 11/24/17 10:00 11/24/17 12:28 Miralax (For Daily Use) - PO 17 grams DAILY PRN Administration CONSTIPATION Senna 1 tab 11/23/17 22:00 11/28/17 21:08 Senna - PO Not Given BID SAMMIE Simethicone 80 mg 11/23/17 20:15 11/24/17 09:33 Mylicon - PO 80 mg QID PRN Administration GAS Home Medications Medication Instructions Recorded RX: Lisinopril [Prinivil] 40 mg PO DAILY #30 tablet 02/18/17 ASSESSMENT Pt is a 27 y/o F with PMHx HTN and lupus nephritis who was seen at the ED for chest pain, back pain, n/v, dizziness and decreased PO intake over last 1 week. She was admitted with hypertensive urgency and underwent ovarian cyst removal & R ureteral stent placement on 11/23, now POD 6. PLAN 1. Hospital acquired pneumonia * likely source of fever of 102; CBC wnl, no leukocytosis. Atypical, however, pt has hx lupus * Day 2 abx: IV Levofloxacin 750 mg in 150 mls @100cc/hr daily (Cr clearance 52 ; no dose adjustment for renal fxn at this time). QTC 470. * UA, CXR - no abnormalities; V/Q scan showed infiltrate on LLL. incentive spirometer. * D-dimer elevated 1935; likely 2/2 recent surgery. * Robitussin 10ml PO q6h for symptomatic relief of cough. 2. POD 6 s/p ovarian cyst removal & R ureteral stent placement * pain prior to surgery likely mass effect from R ovarian cyst. Tachycardia likely 2/2 pain * UA and CT were negative for renal pathology. * 11/25 US Kidney/Renal negative for hydronephrosis. Renal US negative for acute pathology. * Norvasc 10mg PO daily, Labetalol 200mg Q6h PRN for BP >150/90; Senna 1 tab PO BID, Colace 100mg PO daily for constipation; PEG 17 g PO daily * Pt has required Labetolol 200mg 1 time in past 24 hr (11/28/17 16:02); B/P range 124-156 systolic, 73-106 diastolic. Will need to keep PRN dosing and adjust standing as needed. * Can D/C Milicon 80 mg PO QID PRN gas; pt is asymptomatic and has not used since 11/24. * pt is off narcotics, on current bowel regimen with good BMs. 3. MARIBEL secondary to AIN. * 11/27 FENA 1.3%; indeterminate * SLE is intrinsic pathology associated with AIN. * UA wnl; UCx contaminated and indeterminate. No physical exam findings of UTI. US no acute pathology. * Pt not on any nephrotoxic drugs sterotypically ass. w/ AIN. * BUN/Cr 11/27 13/1.6; 11/28 12/1.9; 11/29 12/1.9 * BUN/Cr is stable. IVF D51/2NS 1000mls @100cc/hr; kidney is responding and pt can tolerate increased fluids * Repeat kidney bx if renal fxn no improvement. Dr. Roy (primary clinical nurse manager ) will see. 4. Hypertensive urgency upon admission * likely 2/2 multifactorial process * noncompliance with home med Lisinopril x 3 weeks prior to admission; anxiety; vasoconstriction due to hypovolemia; pain. * known hx of lupus nephritis; bx proven. HTN likely associated with illness and lupus. * Zofran 4mg IV q6h PRN n/v. Norvasc 10mg PO daily, Labetalol 200mg Q6h PRN for BP >150/90 (last administered 11/28/17 16:02) * Will need close f/u as outpt for HTN control 5. Lupus nephritis * Will monitor for now, pt not on any home medications. Complicated by current AIN. * TOBIAS negative, Anti DS DNA +, anti SSA/Ro Ab + * nephro consult: pt with nephrotic range proteinuria on ACEI; pt will likely need immunosuppressive medication for management of proteinuria; no changes to current management as inpatient. plan for MARIBEL as per above. * Immunologic studies ordered; will f/u. 6. FEN * fluids: D51/2NS 1000mls @100cc/hr * electrolytes: wnl * nutrition: regular diet. 7. PPX * DVT ppx: Hep 5000U SQ TID; pt ambulating freely * GI ppx: no indications for stress ulcer ppx at this time. 8. Dispo * dispo planning on hold pending normalization of BUN/Cr and no fever for 24 hr.
[2017-11-29] MEDS: DOCUSATE SODIUM 100 MG CAPSULE (FP) PO SCH ×2 (11:02→21:59)
[2017-11-29] MEDS: LEVOFLOXACIN 750 MG IVPB 750 MG/150 ML BAG IVPB SCH (11:02)
[2017-11-29] MEDS: amLODIPine BESYLATE 10 MG TABLET (FP) PO SCH (11:03)
[2017-11-29] MEDS: SENNOSIDES 8.6MG TABLET (FP) PO SCH ×2 (11:03→21:59)
--- NOTE | 2017-11-29 13:19 | PN ---
Progress Note, Physician History of Present Illness: pulmonary alert,feeling better,+ cough,-cp. V/Q scan low-intermediate probability for PE. - Current Medication List Current Medications: Active Medications Acetaminophen (Tylenol -) 650 mg PO Q6H PRN PRN Reason: PAIN LEVEL 6-10 Last Admin: 11/28/17 16:02 Dose: 650 mg Acetaminophen/Butalbital/Caffeine (Fioricet -) 1 tablet PO Q6H PRN PRN Reason: HEADACHE Last Admin: 11/28/17 07:58 Dose: 1 tablet Amlodipine Besylate (Norvasc -) 10 mg PO DAILY [facility] Last Admin: 11/29/17 11:03 Dose: 10 mg Benzocaine/Menthol (Cepacol Lozenge -) 1 each MM PRN PRN PRN Reason: SORE THROAT Docusate Sodium (Colace -) 100 mg PO BID [facility] Last Admin: 11/29/17 11:02 Dose: Not Given Guaifenesin (Robitussin -) 10 ml PO Q6H PRN PRN Reason: COUGH Levofloxacin (Levaquin 750 Mg Premixed Ivpb -) 750 mg in 150 mls @ 100 mls/hr IVPB DAILY [facility] Last Admin: 11/29/17 11:02 Dose: 100 mls/hr Labetalol HCl (Normodyne -) 200 mg PO Q6H PRN PRN Reason: HYPERTENSION Last Admin: 11/28/17 16:02 Dose: 200 mg Magnesium Citrate (Citroma -) 300 ml PO Q48H PRN PRN Reason: CONSTIPATION Ondansetron HCl (Zofran Injection) 4 mg IVPUSH Q6H PRN PRN Reason: NAUSEA AND/OR VOMITING Last Admin: 11/26/17 17:30 Dose: 4 mg Polyethylene Glycol (Miralax (For Daily Use) -) 17 gm PO DAILY PRN PRN Reason: CONSTIPATION Last Admin: 11/24/17 12:28 Dose: 17 grams Senna (Senna -) 1 tab PO BID [facility] Last Admin: 11/29/17 11:03 Dose: Not Given Simethicone (Mylicon -) 80 mg PO QID PRN PRN Reason: GAS Last Admin: 11/24/17 09:33 Dose: 80 mg - Objective Vital Signs: Vital Signs Temperature 99.2 F 11/29/17 10:00 Pulse Rate 85 01/25/18 10:00 Respiratory Rate 19 11/29/17 10:00 Blood Pressure 147/82 11/29/17 10:00 O2 Sat by Pulse Oximetry (%) 97 11/28/17 21:00 Constitutional: Yes: Well Nourished, Calm Eyes: Yes: WNL HENT: Yes: WNL Neck: Yes: WNL Cardiovascular: Yes: Regular Rate and Rhythm, S1, S2 Respiratory: Yes: Diminished Gastrointestinal: Yes: Normal Bowel Sounds, Soft Extremities: Yes: WNL Edema: No Labs: CBC, BMP 11/29/17 05:35 11/29/17 05:35 INR, PTT INR 1.05 (0.82-1.09) 11/23/17 05:35 - ....Imaging Chest X-ray: Report Reviewed, Image Reviewed Other: Other (v/q scan low-intermediate probability for pe) Assessment/Plan Problem List - Problems (1) Fever Code(s): R50.9 - FEVER, UNSPECIFIED (2) Hypertensive emergency Code(s): I16.1 - HYPERTENSIVE EMERGENCY (3) Lupus (systemic lupus erythematosus) Code(s): M32.9 - SYSTEMIC LUPUS ERYTHEMATOSUS, UNSPECIFIED Qualifiers: Systemic lupus erythematosus type: unspecified Systemic lupus erythematosus organ involvement: unspecified Qualified Code(s): M32.9 - Systemic lupus erythematosus, unspecified (4) Lupus nephritis Code(s): M32.14 - GLOMERULAR DISEASE IN SYSTEMIC LUPUS ERYTHEMATOSUS (5) Chills Code(s): R68.83 - CHILLS (WITHOUT FEVER) 6 ? LLL PNEUMONIA 7 ANTIPHOSPHOLIPID ANTIBODY Assessment/Plan CHEST X-RAY PA+LATERAL ANTIBIOTICS CONSIDER HEME EVALUATION FOR SHORT TERM AC POST SURGERY MONITOR LYTES,RENAL FUNCTION MONITOR O2 SATS INCENTIVE SPIROMETER DR WELLS
--- NOTE | 2017-11-29 14:58 | PN ---
Progress Note (short form) - Note Progress Note: Renal follow up for Lupus Nephropathy Pt seen and examined at the bedside awake and alert no acute complaints started on IV Abx for PNA making urine no hematuria or flank pain got IV ibuprofen yesterday night Vital Signs Temperature 99.2 F 11/29/17 10:00 Pulse Rate 123 H 11/29/17 13:25 Respiratory Rate 19 11/29/17 10:00 Blood Pressure 147/82 11/29/17 10:00 O2 Sat by Pulse Oximetry (%) 92 L 11/29/17 13:25 Intake & Output 11/26/17 11/27/17 11/28/17 11/29/17 23:59 23:59 23:59 23:59 Intake Total 1820 1940 2250 1000 Output Total 4000 3100 4500 2400 Balance -2180 -1160 -2250 -1400 NAD tachycardic CTA Trace edema, no clubbing or cyanosis CBC, BMP 11/29/17 05:35 11/29/17 05:35 Current Medications Acetaminophen (Tylenol -) 650 mg PO Q6H PRN PRN Reason: PAIN LEVEL 6-10 Last Admin: 11/28/17 16:02 Dose: 650 mg Acetaminophen/Butalbital/Caffeine (Fioricet -) 1 tablet PO Q6H PRN PRN Reason: HEADACHE Last Admin: 11/28/17 07:58 Dose: 1 tablet Amlodipine Besylate (Norvasc -) 10 mg PO DAILY [facility] Last Admin: 11/29/17 11:03 Dose: 10 mg Benzocaine/Menthol (Cepacol Lozenge -) 1 each MM PRN PRN PRN Reason: SORE THROAT Docusate Sodium (Colace -) 100 mg PO BID [facility] Last Admin: 11/29/17 11:02 Dose: Not Given Guaifenesin (Robitussin -) 10 ml PO Q6H PRN PRN Reason: COUGH Levofloxacin (Levaquin 750 Mg Premixed Ivpb -) 750 mg in 150 mls @ 100 mls/hr IVPB DAILY [facility] Last Admin: 11/29/17 11:02 Dose: 100 mls/hr Labetalol HCl (Normodyne -) 200 mg PO Q6H PRN PRN Reason: HYPERTENSION Last Admin: 11/28/17 16:02 Dose: 200 mg Labetalol HCl (Normodyne -) 100 mg PO BID [facility] Magnesium Citrate (Citroma -) 300 ml PO Q48H PRN PRN Reason: CONSTIPATION Ondansetron HCl (Zofran Injection) 4 mg IVPUSH Q6H PRN PRN Reason: NAUSEA AND/OR VOMITING Last Admin: 11/26/17 17:30 Dose: 4 mg Polyethylene Glycol (Miralax (For Daily Use) -) 17 gm PO DAILY PRN PRN Reason: CONSTIPATION Last Admin: 11/24/17 12:28 Dose: 17 grams Senna (Senna -) 1 tab PO BID [facility] Last Admin: 11/29/17 11:03 Dose: Not Given Simethicone (Mylicon -) 80 mg PO QID PRN PRN Reason: GAS Last Admin: 11/24/17 09:33 Dose: 80 mg 27 year old woman with PMhx of Lupus Nephritis (biopsy proven) with nephrotic syndrome and preserved kidney function, Hypertension and Anti-phosphlipid Ab + ( ? syndrome) presented with flank pain and admitted with hypertensive urgency. #Acute Kidney Injury s/p OR adenxal cyst removal/Hx of Membranous Lupus Nephritis Cr stable at 1.9 today no identifable cause to her MARIBEL apart from relative hypotension during the OR in setting of ACEi pt did recieve Ibuprofen last night, pt should not get any NSAIDs given MARIBEL C3, C4 WNL Prior biopsy report reviewed will check SPEP in AM can d/c IVF as pt is evolemic will trend renal function no acute indication for immunosuppresive therapy #Hypertenson continue Labetalol and Amlodpine titrate to goal of BP < 140/90 #Fevers of unclear etiology V/Q scan negative PNA seen on CXR Abx as per primary team Thank you Taz Buenrostro DO
[2017-11-29] MEDS: LABETALOL HCL 200 MG TABLET (FP) PO PRN (15:03)
--- NOTE | 2017-11-29 16:44 | CONSULT ---
Consult Consult Specialty:: Hematology - History of Present Illness History of Present Illness: is a 27 year with APL positive, Lupus nephritis is here post surgery for an adnexal mass, HTN urgency, now with fevers Hematology consulted for possible discussion of systemic AC Pt seen and examined. Pt is well aware of her disease pathology and treatment. 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 No: Pulmonary Hypertension Pulmonary: Yes: Pneumonia (in past). No: COPD Gastrointestinal: No: Ascites, Cancer, Irritable Bowel Disease, Ulcerative Colitis Renal/: Yes: Renal Inusuff, UTI, Other (lupus nephritis) ...LMP: 10/20/17 ...: No Rheumatology: Yes: Lupus - Past Surgical History Past Surgical History: Yes: Appendectomy, Tonsillectomy Additional Surgical History: Delivery - Alcohol/Substance Use Hx Alcohol Use: No History of Substance Use: reports: None - Smoking History Smoking history: Never smoked Have you smoked in the past 12 months: No Aproximately how many cigarettes per day: 0 - Social History Usual Living Arrangement: With Spouse History of Recent Travel: No Home Medications - Allergies Allergies/Adverse Reactions: Allergies Allergy/AdvReac Type Severity Reaction Status Date / Time clindamycin Allergy Severe ANAPHLACTIC Verified 11/20/17 03:26 REACTION doxycycline Allergy Severe ANAPHYLACTIC Verified 11/20/17 03:26 REACTION Penicillins Allergy Severe ANAPHYLACTIC Verified 11/20/17 03:26 REACTION shellfish derived Allergy Severe anaphylactic Verified 11/20/17 03:26 reaction SEAFOOD Allergy Severe ANAPHYLACTIC Uncoded 11/20/17 03:26 REACTION - Home Medications Home Medications: Ambulatory Orders Lisinopril [Prinivil] 40 mg PO DAILY #30 tablet 02/18/17 Physical Exam Vital Signs: Vital Signs Temperature 99.1 F 11/29/17 14:04 Pulse Rate 92 H 11/29/17 15:05 Respiratory Rate 18 11/29/17 15:05 Blood Pressure 151/100 11/29/17 15:05 O2 Sat by Pulse Oximetry (%) 92 L 11/29/17 13:25 Constitutional: Yes: Well Nourished, No Distress, Calm Eyes: Yes: Conjunctiva Clear HENT: Yes: Atraumatic Neck: Yes: Supple, Trachea Midline Cardiovascular: Yes: Regular Rate and Rhythm Respiratory: Yes: Regular, CTA Bilaterally Gastrointestinal: Yes: Normal Bowel Sounds, Soft Extremities: Yes: WNL Edema: No Labs: CBC, BMP 11/29/17 05:35 11/29/17 05:35 Assessment/Plan Lupus nephritis: Biopsy report reviewed, has foci of ?lympho-proliferative process.. IgGK +, therefore, will order LDH, Uric acid, SPEP, K/L, Ig levels Last CT a/p 11/21 reviewed, no LAD noted Monitor Cr renal f.u noted. 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 never was on any immuno-suppressants since around age 18. with fever, uncontrolled HTN, MARIBEL, would recommend to consider Rheumatology consult. repeat ESR/CRP Prolonged PTT in the setting of Lupus. Fevers: ?PNA, V/Q scan reviewed today's CXR with no infiltrate, consider repeating a CT chest (non-con). despite treating for PNA, if she remains tachy or any hypoxia, tachypneic , will consider therapeutic Anti-cogulation. Thus far as there was no evidence of any thrombosis (even in the pathology of the adnexal mass) , given her hx she would remain at risk for VTE, for now, will c/w DVT ppx , consideration for an extended period (eg 4weeks ) is debated , but will strongly recommend 4-6 weeks ppx if any of the titers which are pending returns back as high .
--- NOTE | 2017-11-29 18:21 | PN ---
Teaching Attending Note Name of Resident: Sunny Mcfadden ATTENDING PHYSICIAN STATEMENT I saw and evaluated the patient. I reviewed the resident's note and discussed the case with the resident. I agree with the resident's findings and plan as documented. SUBJECTIVE:continues to have non productive cough. chills assoc with fever last night. notes pruritis around surgical incisions. denies Cp, SOB, N/V/C/D, hemoptysis OBJECTIVE: Last Vital Signs Temp Pulse Resp BP Pulse Ox 98.8 F 78 18 130/76 92 L 11/29/17 18:02 11/29/17 18:02 11/29/17 18:02 11/29/17 18:02 11/29/17 13:25 General NAD CV S1 s2 RRR no murmur/rub/gallop Lungs CTA B/L No wheezing/rales/rhonchi Abdomen soft NT/ND surgical incisions with good approximations. no drainage, slight erythema surrounding incisions Extremities no pedal edema ASSESSMENT AND PLAN: 27 yo F with PMHX of lupus nephritis, HTN, admitted with hypertensive urgency, right flank pain, nausea, vomitting with decreased PO intake and not taking her lisinopril over last 1 week. Course was complicated by development of R adnexal cyst torsion 1. HTN urgency-improved but still above goal. will start labetolol 100mg BID. in the future should be switched to Acei however can not start at this time. on norvasc. 2. R adnexal cyst torsion- s/p resection 11/23. pain mostly resolved. surgical incisions healing well. pt concerned of pruritis with erythema. will ask continuity director to re-evaluate. pain controlled. will need to f/u with handle machine operator in 1-2 weeks 3. LLL PNA- Tm 102. seen on VQ scan. negative for PE. started on Levaquin. ( allergies to doxy/PCN/clinda), dose adjusted for kidney function. refusing any throat losenge or cholarseptic spray 4. MARIBEL- elevated Fena. Cr stablizied. spoke with renal. will d/c IVF and monitor. no indication for further workup at this time. 5. constipation- resolved. cont stool softeners 6. Lupus nephritis 7. DVT ppx- hep sq
[2017-11-29] MEDS: LABETALOL HCL 100 MG TABLET (FP) PO SCH (21:54)
[2017-11-29] MEDS: HEPARIN NA (PORCINE) 5,000 UNITS/ML 1ML VIAL SQ SCH (21:59)
--- NOTE | 2017-11-30 05:22 | PN ---
Physical Exam: SUBJECTIVE: Patient seen and examined OBJECTIVE: Vital Signs Intake & Output 11/27/17 11/28/17 11/29/17 11/30/17 23:59 23:59 23:59 23:59 Intake Total 1940 2250 1400 Output Total 3100 4500 3200 Balance -1160 -2250 -1800 Period Temp Pulse Resp BP Sys/Sanders Pulse Ox Last 24 Hr 98.3 F-99.2 F 78-123 16-20 130-165/68-112 92-97 GENERAL: The patient is awake, alert, and fully oriented, in no acute distress, lying in bed. HEAD: Normal with no signs of trauma. EYES: PERRL, extraocular movements intact, sclera anicteric, conjunctiva clear. No ptosis. ENT: Ears normal, nares patent, oropharynx clear without exudates, moist mucous membranes. NECK: Trachea midline, full range of motion, supple. LUNGS: Trace upper airway congestion, decreased breath sounds at bases. No crackles, no accessory muscle use. HEART: Regular rate and rhythm, S1, S2 without murmur, rub or gallop. ABDOMEN: Mild suprapubic discomfort to deep palpation, also in LLQ. Incisions C/ d/i, no drainage, purulence, erythema. Soft, NT, ND. normoactive bowel sounds, no hepatosplenomegaly, no masses. Negative samayoa's. No CVA tenderness. EXTREMITIES: 2+ pulses, warm, well-perfused, no edema. Trace edema BL to knees. NEUROLOGICAL: Cranial nerves II through XII grossly intact. Normal speech, gait not observed. 5/5 strength in all extremities. Sensation to light touch preserved diffusely. PSYCH: Normal mood, normal affect. SKIN: Warm, dry, normal turgor, no rashes or lesions noted Laboratory Results - last 24 hr CBC, BMP CBC, BMP 11/30/17 06:31 11/29/17 05:35 11/29/17 05:35 11/26/17 11/28/17 11/29/17 18:00 13:55 05:35 WBC 4.8 D RBC 4.22 Hgb 13.0 Hct 38.2 MCV 90.5 MCH 30.7 MCHC 34.0 RDW 12.7 Plt Count 302 MPV 8.3 Neutrophils % 54.5 D Lymphocytes % 24.9 D Monocytes % 13.7 H D Eosinophils % 6.2 H D Basophils % 0.7 Sodium Potassium Chloride Carbon Dioxide Anion Gap BUN Creatinine Random Glucose Calcium Phosphorus Magnesium Urine Eosinophils None seen Complement C3 137 Complement C4 40 11/29/17 05:35 WBC RBC Hgb Hct MCV MCH MCHC RDW Plt Count MPV Neutrophils % Lymphocytes % Monocytes % Eosinophils % Basophils % Sodium 142 Potassium 3.7 Chloride 105 Carbon Dioxide 28 Anion Gap 9 BUN 12 Creatinine 1.9 H Random Glucose 99 Calcium 7.4 L Phosphorus 4.2 Magnesium 1.9 Urine Eosinophils Complement C3 Complement C4 Active Medications Generic Name Dose Route Start Last Admin Trade Name Freq PRN Reason Stop Dose Admin Acetaminophen 650 mg 11/26/17 17:50 11/28/17 16:02 Tylenol - PO 650 mg Q6H PRN Administration PAIN LEVEL 6-10 Acetaminophen/Butalbital/Caffeine 1 tablet 11/23/17 20:15 11/28/17 07:58 Fioricet - PO 1 tablet Q6H PRN Administration HEADACHE Amlodipine Besylate 10 mg 11/25/17 10:00 11/29/17 11:03 Norvasc - PO 10 mg DAILY [facility] Administration Benzocaine/Menthol 1 each 11/26/17 13:08 Cepacol Lozenge - MM PRN PRN SORE THROAT Docusate Sodium 100 mg 11/24/17 10:00 11/29/17 21:59 Colace - PO Not Given BID SAMMIE Guaifenesin 10 ml 11/28/17 08:09 Robitussin - PO Q6H PRN COUGH Heparin Sodium (Porcine) 5,000 unit 11/29/17 22:00 11/29/17 21:59 Heparin - SQ Not Given TID SAMMIE Levofloxacin 750 mg in 150 mls @ 100 mls/hr 11/28/17 18:00 11/29/17 11:02 Levaquin 750 Mg Premixed Ivpb - IVPB 100 mls/hr DAILY SAMMIE Administration Labetalol HCl 200 mg 11/26/17 12:19 11/29/17 15:03 Normodyne - PO 200 mg Q6H PRN Administration HYPERTENSION Labetalol HCl 100 mg 11/29/17 22:00 11/29/17 21:54 Normodyne - PO 100 mg BID SAMMIE Administration Magnesium Citrate 300 ml 11/26/17 14:01 Citroma - PO Q48H PRN CONSTIPATION Ondansetron HCl 4 mg 11/23/17 20:15 11/26/17 17:30 Zofran Injection IVPUSH 4 mg Q6H PRN Administration NAUSEA AND/OR VOMITING Polyethylene Glycol 17 gm 11/24/17 10:00 11/24/17 12:28 Miralax (For Daily Use) - PO 17 grams DAILY PRN Administration CONSTIPATION Senna 1 tab 11/23/17 22:00 11/29/17 21:59 Senna - PO Not Given BID SAMMIE Simethicone 80 mg 11/23/17 20:15 11/24/17 09:33 Mylicon - PO 80 mg QID PRN Administration GAS Microbiology 11/27/17 15:00 Urine - Urine Clean Catch Urine Culture - Final Contaminated: Please Repeat 11/27/17 17:55 Nasopharyngeal Swab Influenza Types A,B Antigen (BETH) - Final 11/27/17 17:55 Nasopharyngeal Swab - Final CXR 11/20: No acute pathology Abd/Pelvis non-contrast CT 11/20: 1. No evidence of urinary tract calculi or obstructive uropathy. 2. Large L adnexal cyst, otherwise normal CT scan of the abdomen and pelvis with no evidence of acute pathology. Chest CT 11/21 - 1. Essentially clear lungs. 2. Small hiatal hernia. 3. Hyperattenuating fluid level within the gallbladder may be artifactual or secondary to sludge and/or cholelithiasis. Renal U/S 11/20 - IMPRESSION: Bilateral echogenic kidneys compatible with chronic medical renal disease. 10 mm echogenic density in the right renal upper/ midportion without posterior shadowing that may represent an angiomyolipoma. There is no evidence of hydronephrosis in both kidneys. Normal vascular flow in the renal artery and vein of both kidneys Non-Con CT head 11/22 - No evidence of a focal intracranial lesion or hemorrhage seen. TVUS 11/22 - IMPRESSION: Large ovarian/paraovarian cyst is again seen in the lower pelvis, in the midline posterior to the uterus and abutting the right and left ovary, the side of which is not clear on this exam. It is unchanged in size since prior CT scan of the abdomen and pelvis dated 11/20/2012 and has slightly increased in size since prior pelvis ultrasound dated 08/31/2016. No doppler evidence of torsion per addendum, however sensitivity 70% Abdominal U/S 11/22 - IMPRESSION: 1. Questionable right renal mass. CT follow-up recommended. 2. Otherwise normal abdominal sonogram. Please see above discussion. Renal U/s 11/25 - No pathology noted. No hydro CXR 11/25 - No acute pathology noted. Renal u/s 11/27 - IMPRESSION: Both kidneys appear morphologically unremarkable. Right kidney is isoechoic to the adjacent liver parenchyma which is within normal limits. Correlate clinically for further evaluation. LE duplex 11/27 - No evidence of DVTs CXR 11/28 - no pathology noted V/Q scan 11/28 - Low suspicion for PE, however suggestive of LLL PNA. CXR 11/29 -- normal ASSESSMENT/PLAN: 27 yo woman w/ pmh of HTN, lupus nephritis who presents with hypertensive urgency, R flank/back pain and N/V in the setting of one week of non-compliance w/ home BP meds (lisinopril). #R/o PE/Fever/tachycardia -102.0 overnight again; V/Q scan low probability of PE , suggestive of possible LLL PNA. UA neg for infection; elevated Ddimer 1935; cannot received CTPE due to severe anaphylaxic reaction - Day 2/ levaquin IV. Renal dose. - Trend fever curve, WBC - monitor for infectious symptoms - Tylenol for pain control - flu negative - Per pulm, heme onc consult for evaluation of coagulopathy, possible need for AC as outpt given hx of APS, inflammatory state - Pulm consulted, recs appreciated - Monitor respiratory status -ISS #R ovarian cyst/abdominal pain - likely secondary to mass effect from ovarian cyst - POD6, monitor for post-op complications; abdomen coating mixer tender from cough fits - d/c fluids - strict Is and Os - Pain well controlled on tylenol - S/P R renal stent placement - Zofran for N/V - outpt engineer assistant f/u #Hypertensive Urgency - labetalol given once overnight - Labetalol 100mg BID per renal recs - Amlodipine 10mg - cardiac monitoring - cardiology consulted, recs appreciated - tylenol for pain control, fever #Lupus nephritis/MARIBEL - bx confirmed; CRP, ESR elevated. DS DNA + during admission; elevated FENA; Renal U/S 11/27 normal, no hydro; C3/C4 wnl. - Cr stabilized at 1.9; D/c fluids - f/u SPEP in AM - f/u immuno panel - renal consulted, recs appreciated - f/u urine EOS to r/o AIN - daily BMPs, monitor CR - No immunosuppressants as inpatient, but will likely require them for proteinuria and active likely active lupus infection - Outpt renal f/u #HU - - Fiorecet for HU #sore throat/cough - like due to intubation - cepacol lozenges - robitussin #constipation -senna, colace, miralax for constipation -simethacone for gas pain as needed - magnesium citrate for constipation PPX HSQ FEN PO fluids Daily BMPs, trend Cr Regular diet Plan discussed with attending, Dr. Heriberto Mcfadden, PGY1
[2017-11-30] MEDS: HEPARIN NA (PORCINE) 5,000 UNITS/ML 1ML VIAL SQ SCH ×2 (05:55→13:31)
[2017-11-30 08:27] LABS: HEMATOCRIT 43.4 % (32.4-45.2); HEMOGLOBIN 14.6 GM/dL (10.7-15.3); MCH 30.3 pg (25.7-33.7); MCHC 33.6 g/dl (32.0-36.0); MEAN CELL VOLUME 90.3 fl (80-96); MEAN PLT VOLUME 8.7 fl (7.5-11.1); PLATELET COUNT 315 K/MM3 (134-434); RBC 4.81 M/mm3 (3.60-5.2); RDW 12.9 % (11.6-15.6); WHITE BLOOD COUNT 5.4 K/mm3 (4.0-10.0)
[2017-11-30 08:31] LABS: CHLORIDE 105 mmol/L (98-107); POTASSIUM 3.9 mmol/L (3.5-5.1); SODIUM 141 mmol/L (136-145)
[2017-11-30 08:48] LABS: ANION GAP 11 (8-16); BLOOD UREA NITROGEN 11 mg/dL (7-18); CALCIUM 7.9 mg/dL (8.5-10.1); CO2 25 mmol/L (21-32); CREATININE 1.7 mg/dL (0.55-1.02); GLUCOSE,RANDOM 82 mg/dL (74-106); LDH 260 U/L (84-246); URIC ACID 5.9 mg/dL (2.6-7.2)
[2017-11-30] MEDS ORDERED: LEVOFLOXACIN 250 MG IVPB 250 MG/50 ML MG IVPB SCH (10:00)
[2017-11-30] MEDS ORDERED: PT OWN MED DRAWER 7, Y5N ONE (10:00)
[2017-11-30] MEDS ORDERED: LEVOFLOXACIN 250 MG TABLET (FP) PO SCH (10:00)
[2017-11-30] MEDS: LABETALOL HCL 100 MG TABLET (FP) PO SCH (10:05)
[2017-11-30] MEDS: DOCUSATE SODIUM 100 MG CAPSULE (FP) PO SCH (10:05)
[2017-11-30] MEDS: amLODIPine BESYLATE 10 MG TABLET (FP) PO SCH (10:05)
[2017-11-30] MEDS: SENNOSIDES 8.6MG TABLET (FP) PO SCH (10:05)
--- NOTE | 2017-11-30 10:29 | PN ---
Progress Note, Physician Chief Complaint: SUBJECTIVE IMPROVEMENT History of Present Illness: FEELS MUCH IMPROVED. COUGH PERSISTS BUT IS NONPRODUCTIVE AND LESS FREQUENT. - Current Medication List Current Medications: Active Medications Acetaminophen (Tylenol -) 650 mg PO Q6H PRN PRN Reason: PAIN LEVEL 6-10 Last Admin: 11/28/17 16:02 Dose: 650 mg Acetaminophen/Butalbital/Caffeine (Fioricet -) 1 tablet PO Q6H PRN PRN Reason: HEADACHE Last Admin: 11/28/17 07:58 Dose: 1 tablet Amlodipine Besylate (Norvasc -) 10 mg PO DAILY [facility] Last Admin: 11/30/17 10:05 Dose: 10 mg Benzocaine/Menthol (Cepacol Lozenge -) 1 each MM PRN PRN PRN Reason: SORE THROAT Docusate Sodium (Colace -) 100 mg PO BID [facility] Last Admin: 11/30/17 10:05 Dose: Not Given Guaifenesin (Robitussin -) 10 ml PO Q6H PRN PRN Reason: COUGH Heparin Sodium (Porcine) (Heparin -) 5,000 unit SQ TID [facility] Last Admin: 11/30/17 05:55 Dose: 5,000 unit Labetalol HCl (Normodyne -) 200 mg PO Q6H PRN PRN Reason: HYPERTENSION Last Admin: 11/29/17 15:03 Dose: 200 mg Labetalol HCl (Normodyne -) 100 mg PO BID [facility] Last Admin: 11/30/17 10:05 Dose: 100 mg Levofloxacin (Levaquin -) 250 mg PO DAILY@0600 [facility] Last Admin: 11/30/17 10:05 Dose: 250 mg Magnesium Citrate (Citroma -) 300 ml PO Q48H PRN PRN Reason: CONSTIPATION Ondansetron HCl (Zofran Injection) 4 mg IVPUSH Q6H PRN PRN Reason: NAUSEA AND/OR VOMITING Last Admin: 11/26/17 17:30 Dose: 4 mg Polyethylene Glycol (Miralax (For Daily Use) -) 17 gm PO DAILY PRN PRN Reason: CONSTIPATION Last Admin: 11/24/17 12:28 Dose: 17 grams Senna (Senna -) 1 tab PO BID [facility] Last Admin: 11/30/17 10:05 Dose: Not Given Simethicone (Mylicon -) 80 mg PO QID PRN PRN Reason: GAS Last Admin: 11/24/17 09:33 Dose: 80 mg - Objective Vital Signs: Vital Signs Temperature 98.3 F 11/30/17 09:57 Pulse Rate 76 11/30/17 09:57 Respiratory Rate 18 11/30/17 09:57 Blood Pressure 141/73 11/30/17 09:57 O2 Sat by Pulse Oximetry (%) 97 11/29/17 21:00 Constitutional: Yes: Calm Eyes: Yes: EOM Intact HENT: Yes: Normocephalic Neck: Yes: Trachea Midline Cardiovascular: Yes: Regular Rate and Rhythm Respiratory: Yes: CTA Bilaterally Gastrointestinal: Yes: Soft, Other (POST-OP STABLE) Extremities: Yes: WNL Edema: No Neurological: Yes: Alert Labs: CBC, BMP 11/30/17 06:31 11/30/17 06:31 INR, PTT INR 1.05 (0.82-1.09) 11/23/17 05:35 - ....Imaging Chest X-ray: Report Reviewed, Image Reviewed Cat Scan: Report Reviewed, Image Reviewed Other: Report Reviewed (MICRO URINE CULTURE REPEAT WAS NEGATIVE) Problem List - Problems (1) Fever Code(s): R50.9 - FEVER, UNSPECIFIED (2) Hypertensive emergency Code(s): I16.1 - HYPERTENSIVE EMERGENCY (3) Lupus (systemic lupus erythematosus) Code(s): M32.9 - SYSTEMIC LUPUS ERYTHEMATOSUS, UNSPECIFIED Qualifiers: Systemic lupus erythematosus type: unspecified Systemic lupus erythematosus organ involvement: unspecified Qualified Code(s): M32.9 - Systemic lupus erythematosus, unspecified (4) Lupus nephritis Code(s): M32.14 - GLOMERULAR DISEASE IN SYSTEMIC LUPUS ERYTHEMATOSUS (5) Chills Code(s): R68.83 - CHILLS (WITHOUT FEVER) Assessment/Plan CLINICALLY IMPROVING ON LEVAQUIN NO FEVER SINCE THE 24TH URINE MICRO NEGATIVE HEME EVAL APPRECIATED/LABS STILL PENDING CONSIDER NON-CONTRAST CT CHEST IF COUGH/FEVERS RETURN WILL FOLLOW THANK YOU, Shamar BRYAN MD
--- NOTE | 2017-11-30 11:23 | PN ---
Progress Note (short form) - Note Progress Note: Patient seen and examined this am chart reviewed. She feels better, she denies fatigue O/E: Constitutional: Yes: Well Nourished, No Distress, Calm Eyes: Yes: Conjunctiva Clear HENT: Yes: Atraumatic Neck: Yes: Supple, Trachea Midline Cardiovascular: Yes: Regular Rate and Rhythm Respiratory: Yes: Regular, CTA Bilaterally Gastrointestinal: Yes: Normal Bowel Sounds, Soft Extremities: Yes: WNL Edema: No Last Vital Signs Temp Pulse Resp BP Pulse Ox 98.3 F 76 18 141/73 97 11/30/17 09:57 11/30/17 09:57 11/30/17 09:57 11/30/17 09:57 11/29/17 21:00 CBC, BMP 11/30/17 06:31 11/30/17 06:31 Current Medications Generic Name Dose Route Start Last Admin Trade Name Freq PRN Reason Stop Dose Admin Acetaminophen 650 mg 11/26/17 17:50 11/28/17 16:02 Tylenol - PO 650 mg Q6H PRN Administration PAIN LEVEL 6-10 Acetaminophen/Butalbital/Caffeine 1 tablet 11/23/17 20:15 11/28/17 07:58 Fioricet - PO 1 tablet Q6H PRN Administration HEADACHE Amlodipine Besylate 10 mg 11/25/17 10:00 11/30/17 10:05 Norvasc - PO 10 mg DAILY [facility] Administration Aspirin 81 mg 12/01/17 10:00 Asa - PO DAILY [facility] Benzocaine/Menthol 1 each 11/26/17 13:08 Cepacol Lozenge - MM PRN PRN SORE THROAT Docusate Sodium 100 mg 11/24/17 10:00 11/30/17 10:05 Colace - PO Not Given BID [facility] Guaifenesin 10 ml 11/28/17 08:09 Robitussin - PO Q6H PRN COUGH Heparin Sodium (Porcine) 5,000 unit 11/29/17 22:00 11/30/17 05:55 Heparin - SQ 5,000 unit TID SAMMIE Administration Labetalol HCl 200 mg 11/26/17 12:19 11/29/17 15:03 Normodyne - PO 200 mg Q6H PRN Administration HYPERTENSION Labetalol HCl 100 mg 11/29/17 22:00 11/30/17 10:05 Normodyne - PO 100 mg BID SAMMIE Administration Levofloxacin 250 mg 11/30/17 10:00 11/30/17 10:05 Levaquin - PO 250 mg DAILY@0600 SAMMIE Administration Magnesium Citrate 300 ml 11/26/17 14:01 Citroma - PO Q48H PRN CONSTIPATION Ondansetron HCl 4 mg 11/23/17 20:15 11/26/17 17:30 Zofran Injection IVPUSH 4 mg Q6H PRN Administration NAUSEA AND/OR VOMITING Polyethylene Glycol 17 gm 11/24/17 10:00 11/24/17 12:28 Miralax (For Daily Use) - PO 17 grams DAILY PRN Administration CONSTIPATION Senna 1 tab 11/23/17 22:00 11/30/17 10:05 Senna - PO Not Given BID [facility] Simethicone 80 mg 11/23/17 20:15 11/24/17 09:33 Mylicon - PO 80 mg QID PRN Administration GAS Lupus Nephritis HTN s/p surgery for the adnexal mass PNA MARIBEL APL ab+ no h/o CAPS In re to Systemic AC: would recommend post surgical ppx with daily lovenox ( prophylactic dose) at least for a period of 4weeks, along with her baby aspirin. Strongly recommended/advised for Close out patient follow-up with Renal/Rheum/ Heme for her ongoing rheumatological issues. pt in agreement
--- NOTE | 2017-11-30 14:24 | PN ---
Teaching Attending Note Name of Resident: Sunny Mcfadden ATTENDING PHYSICIAN STATEMENT I saw and evaluated the patient. I reviewed the resident's note and discussed the case with the resident. I agree with the resident's findings and plan as documented. SUBJECTIVE:c/o lightheadedness this afternoon. felt weak and unable to get out of bed. denies CP, SOB, fever, chills, N/V/C/D. states cough slightly improved. OBJECTIVE: Last Vital Signs Temp Pulse Resp BP Pulse Ox 98.3 F 76 18 141/73 97 11/30/17 09:57 11/30/17 09:57 11/30/17 09:57 11/30/17 09:57 11/30/17 09:00 General lethargic Lungs CTA B/L no wheezing/rales/rhonchi ASSESSMENT AND PLAN: 27 yo F with PMHX of lupus nephritis, HTN, admitted with hypertensive urgency, right flank pain, nausea, vomitting with decreased PO intake and not taking her lisinopril over last 1 week. Course was complicated by development of R adnexal cyst torsion 1. HTN urgency-now hypotensive for her and causing fatigue. after receiving labetolol her BP dropped to 110/90. will d/c labetolol and monitor. in the future should be switched to Acei however can not start at this time. on norvasc. 2. R adnexal cyst torsion- s/p resection 11/23. pain mostly resolved. surgical incisions healing well. will need to f/u with rn production in 1-2 weeks 3. LLL PNA- afebrile x24H. clinically improved. will increase levaquin to 500mg since kidney function improved. 4. MARIBEL- elevated Fena. Cr slowly trending down off fluids. will need to repeat labs with mail processing machine operator. 5. antiphospholipid syndrome- increase risk for VTE with recent surgery. spoke with hematology. will d/c on lovenox and asa 81mg for 4 weeks. extensive workup sent pending result of labs will need prolonged treatment. d/w pt in detail. will f/u with hematology for results 6. Lupus nephritis- as per pt she spoke with 2 different horse race starter both whom stated she did not require treatment at this time. encouraged her the need to follow up repeat labs done here and with those results follow up [facility] specialist 7. DVT ppx- hep sq 8. will re-evaluate this evening. if feeling improved will discharge home
--- NOTE | 2017-11-30 15:11 | PN ---
Progress Note (short form) - Note Progress Note: Renal follow up for Lupus Nephropathy Pt seen and examined at the bedside earlier today pt reported feeling dizzy and foggy I checked orthostatics at bedside and she was positive BP sitting was 122/87, HR 82 and standing was 108/72 with HR 93 pt did get AM BP meds prior to this episode no LOC, pain, fever, chills Vital Signs Temperature 98.7 F 11/30/17 14:57 Pulse Rate 83 11/30/17 14:57 Respiratory Rate 18 11/30/17 14:57 Blood Pressure 121/71 11/30/17 14:57 O2 Sat by Pulse Oximetry (%) 97 11/30/17 09:00 Intake & Output 11/27/17 11/28/17 11/29/17 11/30/17 23:59 23:59 23:59 23:59 Intake Total 1940 2250 1400 850 Output Total 3100 4500 3200 400 Balance -1160 -2250 -1800 450 NAD tachycardic CTA Trace edema, no clubbing or cyanosis CBC, BMP 11/30/17 06:31 11/30/17 06:31 Current Medications Acetaminophen (Tylenol -) 650 mg PO Q6H PRN PRN Reason: PAIN LEVEL 6-10 Last Admin: 11/28/17 16:02 Dose: 650 mg Acetaminophen/Butalbital/Caffeine (Fioricet -) 1 tablet PO Q6H PRN PRN Reason: HEADACHE Last Admin: 11/28/17 07:58 Dose: 1 tablet Amlodipine Besylate (Norvasc -) 10 mg PO DAILY [facility] Last Admin: 11/30/17 10:05 Dose: 10 mg Aspirin (Asa -) 81 mg PO DAILY [facility] Benzocaine/Menthol (Cepacol Lozenge -) 1 each MM PRN PRN PRN Reason: SORE THROAT Docusate Sodium (Colace -) 100 mg PO BID [facility] Last Admin: 11/30/17 10:05 Dose: Not Given Guaifenesin (Robitussin -) 10 ml PO Q6H PRN PRN Reason: COUGH Heparin Sodium (Porcine) (Heparin -) 5,000 unit SQ TID [facility] Last Admin: 11/30/17 13:31 Dose: 5,000 unit Labetalol HCl (Normodyne -) 200 mg PO Q6H PRN PRN Reason: HYPERTENSION Last Admin: 11/29/17 15:03 Dose: 200 mg Levofloxacin (Levaquin -) 500 mg PO DAILY@0600 [facility] Magnesium Citrate (Citroma -) 300 ml PO Q48H PRN PRN Reason: CONSTIPATION Ondansetron HCl (Zofran Injection) 4 mg IVPUSH Q6H PRN PRN Reason: NAUSEA AND/OR VOMITING Last Admin: 11/26/17 17:30 Dose: 4 mg Polyethylene Glycol (Miralax (For Daily Use) -) 17 gm PO DAILY PRN PRN Reason: CONSTIPATION Last Admin: 11/24/17 12:28 Dose: 17 grams Senna (Senna -) 1 tab PO BID [facility] Last Admin: 11/30/17 10:05 Dose: Not Given Simethicone (Mylicon -) 80 mg PO QID PRN PRN Reason: GAS Last Admin: 11/24/17 09:33 Dose: 80 mg 27 year old woman with PMhx of Lupus Nephritis (biopsy proven) with nephrotic syndrome and preserved kidney function, Hypertension and Anti-phosphlipid Ab + ( ? syndrome) presented with flank pain and admitted with hypertensive urgency. #Acute Kidney Injury s/p OR adenxal cyst removal/Hx of Membranous Lupus Nephritis Cr with mild improvement today pt appears to be evolemic off ACEi because of MARIBEL will need repeat labs and follow up with primary leather stitcher as outpatient #Dizziness/+ Orthostatics hold further labetalol for now fall precautions monitor BP closely throughout the day today #Hypertenson continue Amlodpine titrate to goal of BP ~140/90 #Fevers of unclear etiology V/Q scan negative PNA seen on CXR Abx as per primary team #Anti-phospholipid syndrome no signs of acute thrombosis to be d/c on Lovenox as per Heme Thank you Taz Buenrostro DO
[2017-11-30 18:06] VITALS: BP 127/87; PULSE 84; TEMP 98.6
[2017-11-30] MEDS ORDERED: ENOXAPARIN NA (PORCINE) 40 MG/0.4 ML DISP.SYRIN SQ ONE (19:00)
--- NOTE | 2017-11-30 19:10 | DS ---
Physical Exam: SUBJECTIVE: Patient seen and examined OBJECTIVE: Vital Signs Period Temp Pulse Resp BP Sys/Sanders Pulse Ox Last 24 Hr 98.3 F-98.7 F 73-93 16-20 108-143/68-90 97-97 PHYSICAL EXAM GENERAL: The patient is awake, alert, and fully oriented, in no acute distress. HEAD: Normal with no signs of trauma. EYES: PERRL, extraocular movements intact, sclera anicteric, conjunctiva clear. ENT: Ears normal, nares patent, oropharynx clear without exudates, moist mucous membranes. NECK: Trachea midline, full range of motion, supple. LUNGS: Breath sounds equal, clear to auscultation bilaterally, no wheezes, no crackles, no accessory muscle use. HEART: Regular rate and rhythm, S1, S2 without murmur, rub or gallop. ABDOMEN: Soft, nontender, nondistended, normoactive bowel sounds, no guarding, no rebound, no hepatosplenomegaly, no masses. EXTREMITIES: 2+ pulses, warm, well-perfused, no edema. NEUROLOGICAL: Cranial nerves II through XII grossly intact. Normal speech, gait not observed. PSYCH: Normal mood, normal affect. SKIN: Warm, dry, normal turgor, no rashes or lesions noted. LABS Laboratory Results - last 24 hr 11/26/17 11/30/17 11/30/17 18:00 06:31 06:31 WBC 5.4 RBC 4.81 Hgb 14.6 D Hct 43.4 MCV 90.3 MCH 30.3 MCHC 33.6 RDW 12.9 Plt Count 315 MPV 8.7 ESR PTT (Actin FS) 33.8 Sodium Potassium Chloride Carbon Dioxide Anion Gap BUN Creatinine Random Glucose Uric Acid Calcium LD Total C-Reactive Protein Urine Eosinophils None seen Direct Antiglob Test 11/30/17 11/30/17 11/30/17 06:31 06:31 06:31 WBC RBC Hgb Hct MCV MCH MCHC RDW Plt Count MPV ESR 68 H PTT (Actin FS) Sodium 141 Potassium 3.9 Chloride 105 Carbon Dioxide 25 Anion Gap 11 BUN 11 Creatinine 1.7 H Random Glucose 82 Uric Acid 5.9 Calcium 7.9 L LD Total 260 H C-Reactive Protein 0.9 H Urine Eosinophils Direct Antiglob Test Negative HOSPITAL COURSE: Date of Admission:11/20/17 Date of Discharge: 11/30/17 Discharge Summary Reason For Visit: UNCONTROLLED HYPERTENSION,R/O FLANK PAIN Current Active Problems Fever (Acute) Flank pain (Acute) Hypertensive emergency (Acute) Leukocytosis (Acute) Lupus nephritis (Acute) Pneumonia (Acute) Right flank pain (Acute) Right ovarian cyst (Acute) Lupus (systemic lupus erythematosus) (Chronic) Condition: Fair - Instructions Diet, Activity, Other Instructions: During your stay you were treated for severely elevated blood pressure and surgical removal of R ovarian cyst by Dr. Gautam. Medications: The following medications were added to your regimen. Please take them as described below: Levaquin 500mg, one pill by mouth, once a day, for the next four days (12/01-12/04 ) Norvasc 10mg, one pill by mouth, once a day Aspirin 81mg, one pill by mouth, once a day Lovenox 40mg, one injection once a day, for the next four weeks. Dr. Davis will further adjust or discontinue this medication during your visit. Please continue taking all other home medication as previously prescribed. Please stop taking the following medications until you consult your primary care provider and/or line up machine operator: Lisinopril 40mg Follow-ups: Please schedule an appointment to see your primary care physician, Dr. Cruz, in one week for further management of your outpatient medication regimen. Please schedule a follow-up appointment with your line up machine operator, Dr. Roy, in two weeks for further management of your kidney disease. Their contact information has been provided in this packet. Please call to schedule an appointment. During your stay, you receive a surgical removal of a R ovarian cyst by Dr. Lazo. Please schedule a follow-up appointment in two weeks for post-op check-up. Their contact information has been provided in this packet. Please call to schedule an appointment. You were recently started on lovenox injections for prophylaxis for blood clots by Dr. Davis. Please call to schedule a follow-up appointment with her in two weeks for further management of your anticoagulation therapy. Imaging: You received imaging studies of your abdomen that showed a possible small mass on your R kidney. We recommend for you to receive an MRI of your abdomen as an outpatient. Please follow-up with your primary care physician for coordination of outpatient lab testing. Please return to the hospital if you experience any of the following symptoms: - Prolonged vision changes, dizziness, severe HU or lightheadness - Persistent fevers >102 - Severe pain in your abdomen - Worsening shortness of breath, chest pain - Any new or concerning symptoms Referrals: Rufina Gautam MD [Staff Physician] - 2 Weeks Chris Cruz MD [Primary Care Provider] - 1 Week Althea Davis MD [Staff Physician] - 2 Weeks Ania Roy MD [Staff Physician] - 2 Weeks Disposition: HOME - Home Medications Comprehensive Discharge Medication List: Ambulatory Orders Amlodipine Besylate [Norvasc -] 10 mg PO DAILY #30 tablet 11/30/17 Aspirin [ASA -] 81 mg PO DAILY #30 tab.chew 11/30/17 Enoxaparin [Lovenox -] 40 mg SQ DAILY #30 disp.syrin 11/30/17 Levofloxacin [Levaquin -] 500 mg PO DAILY@0600 #4 tablet 11/30/17
[2017-12-01] MEDS ORDERED: LEVOFLOXACIN 500 MG TABLET (FP) PO SCH (06:00)
[2017-12-01] MEDS ORDERED: ASPIRIN 81 MG CHEWABLE TABLETS PO SCH (10:00)
[2017-12-01] MEDS ORDERED: ENOXAPARIN NA (PORCINE) 40 MG/0.4 ML DISP.SYRIN SQ SCH (10:00)
[2017-12-02 00:07] LABS: FREE KAPPA,SERUM 90.5 mg/L (3.3-19.4)
[2017-12-03 10:08] LABS: DRVVT CONFIRM SECONDS 1.5 ratio (0.8-1.2)
[2017-12-04 16:55] LABS: APTT 29.2 sec (.); B2-GLYCOPROTEIN IGA 14 SAU (.); B2-GLYCOPROTEIN IGG 45 SGU (.); B2-GLYCOPROTEIN IGM <10 SMU (.); CARDIOLIPIN AB IGA <10 APL (.); DRVVT RATIO 1.4 ratio (.); DRVVT SCREEN SECONDS 57.2 sec (.); HEXAGONAL PHOSPHOLIPID NEUTRAL 26 sec (.)
== END 2017-11-30 19:16 | disposition home or self-care (01) | DRG 951 ==
LOC: JER 03:06 → JERBED 09:53 → J4S 11-21 21:20
PROVIDERS: ADMIT Internal Medicine; ATTEND Internal Medicine
PROC: 0UB04ZZ Excision of Right Ovary, Percutaneous Endoscopic Approach (ICD-10-PCS; principal; 2017-11-23 16:00)
DX: I16.1 Hypertensive emergency (principal); M32.14 Glomerular disease in systemic lupus erythematosus; N83.201 Unspecified ovarian cyst, right side; N17.9 Acute kidney failure, unspecified; J18.9 Pneumonia, unspecified organism; D68.61 Antiphospholipid syndrome; M32.9 Systemic lupus erythematosus, unspecified; R00.0 Tachycardia, unspecified; K59.00 Constipation, unspecified; D72.829 Elevated white blood cell count, unspecified; R51 Headache; E78.5 Hyperlipidemia, unspecified; F41.9 Anxiety disorder, unspecified; E83.42 Hypomagnesemia; D27.0 Benign neoplasm of right ovary
CPT/HCPCS: 36415; 70450-TC; 71045-TC; 71046-TC; 71250-TC; 74176; 76700-TC; 76775-TC; 76830-TC; 78582-TC; 80048; 80053; 81003; 81015; 82436; 82550; 82570; 83010; 83615; 83735; 83883; 83935; 84100; 84133; 84155; 84156; 84165; 84300; 84484; 84550; 84702; 84703; 85025; 85027; 85379; 85597; 85610; 85613; 85651; 85730; 85732; 86038; 86140; 86146; 86147; 86160; 86162; 86225; 86235; 86850; 86880; 86900; 86901; 87040; 87086; 87205; 87804; 93005; 93010; 93306-TC; 93970-TC; 94010; 94760; 94761; 99285-25; A9539; A9540; J1644

== ENCOUNTER 2018-03-04 10:25 | Emergency (ER) | payer OTHER | END 2018-03-04 17:00 | disposition home or self-care (01) | LOC: JER 10:25 | PROC: 3E033NZ Introduction of Analgesics, Hypnotics, Sedatives into Peripheral Vein, Percutaneous Approach (ICD-10-PCS; principal; 2018-03-04) | PROC: 3E033GC Introduction of Other Therapeutic Substance into Peripheral Vein, Percutaneous Approach (ICD-10-PCS; 2018-03-04) | PROC: 3E0337Z Introduction of Electrolytic and Water Balance Substance into Peripheral Vein, Percutaneous Approach (ICD-10-PCS; 2018-03-04) | CPT/HCPCS: 36415; 80053; 81003; 81015; 84484; 84703; 85025; 85597; 85651; 85730; 86038; 86146; 86147; 86160; 87040; 87086; 87804; 96361; 96374; 96375; 99281-25; J0131; J7030 ==

== ENCOUNTER 2018-11-02 13:40 | Observation (INO) | payer BC, OTHER ==
[2018-11-02] MEDS ORDERED: SODIUM CHLORIDE 1,000 ML IV STA (16:47)
[2018-11-02] MEDS ORDERED: ASPIRIN 325 MG TABLET PO ONE (16:48)
--- NOTE | 2018-11-02 16:49 | PDOC ---
History of Present Illness <Mirta Riley - Last Filed: 11/02/18 20:24> - History of Present Illness Initial Comments: 11/02/18 18:55 Patient is a 28-year-old female with past medical history of lupus who presents with 1 day of chest pain, shortness of breath, difficulty breathing and edema. She states that her chest pain is located mostly in the left side and radiates up to the jaw. She also is associated left arm numbness with her symptoms. She states that this happens to her frequently and she is known to go into A. fib when this happens. She also endorses palpitations. Denies fevers, chills, flulike symptoms, nausea, vomiting, diarrhea, fever, urgency, lightheadedness and weakness. <Ara Caballero - Last Filed: 11/04/18 08:48> - General Chief Complaint: Pain Stated Complaint: CHEST PAIN Time Seen by Provider: 11/02/18 16:38 Past History <Mirta Riley - Last Filed: 11/02/18 20:24> - Past Medical History Anemia: No Asthma: No Cancer: No Cardiac Disorders: No CVA: No COPD: No CHF: No DVT: No Dementia: No Diabetes: No GI Disorders: No Disorders: Yes (kidney, LEAKS PROTEIN) HTN: Yes Hypercholesterolemia: No Liver Disease: No Seizures: No Thyroid Disease: No Other medical history: lupus - Surgical History Abdominal Surgery: Yes (mass removal from f.t.) Appendectomy: Yes Cardiac Surgery: No Cholecystectomy: No Lung Surgery: No Neurologic Surgery: No Orthopedic Surgery: Yes - Immunization History Immunization Up to Date: Yes - Suicide/Smoking/Psychosocial Hx Smoking Status: No Smoking History: Never smoked Have you smoked in the past 12 months: No Number of Cigarettes Smoked Daily: 0 Hx Alcohol Use: No Drug/Substance Use Hx: No Substance Use Type: None Hx Substance Use Treatment: No <Ara Caballero - Last Filed: 11/04/18 08:48> - Past Medical History Allergies/Adverse Reactions: Allergies Allergy/AdvReac Type Severity Reaction Status Date / Time clindamycin Allergy Severe ANAPHLACTIC Verified 11/02/18 20:15 REACTION doxycycline Allergy Severe ANAPHYLACTIC Verified 11/02/18 20:15 REACTION Penicillins Allergy Severe ANAPHYLACTIC Verified 11/02/18 20:15 REACTION shellfish derived Allergy Severe anaphylactic Verified 11/02/18 20:15 reaction SEAFOOD Allergy Severe ANAPHYLACTIC Uncoded 11/02/18 20:15 REACTION Home Medications: Ambulatory Orders Aspirin [ASA -] 81 mg PO DAILY #30 tab.chew 11/30/17 Cholecalciferol (Vitamin D3) [Vitamin D] 2,000 unit PO DAILY 11/02/18 Vitamin B Complex [B Complex] 1 each PO DAILY 11/02/18 Amlodipine Besylate [Norvasc -] 5 mg PO BID 11/03/18 Lisinopril 10 mg PO BID 11/03/18 Review of Systems - Review of Systems Able to Perform ROS?: Yes Comments:: 11/02/18 18:52 CONSTITUTIONAL: Absent: fever, chills, diaphoresis, generalized weakness, malaise, loss of appetite HEENT: Absent: rhinorrhea, nasal congestion, throat pain, throat swelling, difficulty swallowing, mouth swelling, ear pain, eye pain, visual Changes CARDIOVASCULAR: Present: L sided chest pain, palpitations, edema Absent: loss of consciousness , irregular heart rate RESPIRATORY: Present: shortness of breath Absent: cough, shortness of breath, dyspnea with exertion, orthopnea, wheezing, stridor, hemoptysis GASTROINTESTINAL: Absent: abdominal pain, abdominal distension, nausea, vomiting, diarrhea, constipation, melena, hematochezia GENITOURINARY: Absent: dysuria, frequency, urgency, hesitancy, hematuria, flank pain, genital pain MUSCULOSKELETAL: Absent: myalgia, arthralgia, joint swelling SKIN: Absent: rash, itching, pallor HEMATOLOGIC/IMMUNOLOGIC: Absent: easy bleeding, easy bruising, lymphadenopathy, frequent infections ENDOCRINE: Absent: unexplained weight gain, unexplained weight loss, heat intolerance, cold intolerance NEUROLOGIC: Absent: headache, focal weakness or paresthesias, dizziness, unsteady gait, seizure, mental status changes, bladder or bowel incontinence PSYCHIATRIC: Absent: anxiety, depression, suicidal or homicidal ideation, hallucinations. Is the patient limited Khmer proficient: No <Ara Caballero - Last Filed: 11/04/18 08:48> *Physical Exam - Vital Signs Last Vital Signs Temp Pulse Resp BP Pulse Ox 98.2 F 103 H 20 198/137 H 98 11/02/18 13:42 11/02/18 13:42 11/02/18 13:42 11/02/18 13:42 11/02/18 13:42 <Mirta Riley - Last Filed: 11/02/18 20:24> - Vital Signs Last Vital Signs Temp Pulse Resp BP Pulse Ox 98.2 F 103 H 20 198/137 H 98 11/02/18 13:42 11/02/18 13:42 11/02/18 13:42 11/02/18 13:42 11/02/18 13:42 - Physical Exam Comments: 11/02/18 18:53 GENERAL: Well developed, well nourished. Awake and alert. No acute distress. HEENT: Normocephalic, atraumatic. PERRLA, EOMI. No conjunctival pallor. Sclera are non- icteric. Moist mucous membranes. Oropharynx is clear. NECK: Supple. Full ROM. No JVD. Carotid pulses 2+ and symmetric, without bruits. No thyromegaly. No lymphadenopathy. CARDIOVASCULAR: Tachycardic and regular rhythm. No murmurs, rubs, or gallops. Distal pulses are 2+ and symmetric. PULMONARY: No evidence of respiratory distress. Lungs clear to auscultation bilaterally. No wheezing, rales or rhonchi. ABDOMINAL: Soft. Non-tender. Non-distended. No rebound or guarding. No organomegaly. Normoactive bowel sounds. MUSCULOSKELETAL Normal range of motion at all joints. No bony deformities or tenderness. No CVA tenderness. EXTREMITIES: 2+ pitting edema. No cyanosis. No clubbing.No calf tenderness. SKIN: Warm and dry. Normal capillary refill. No rashes. No jaundice. NEUROLOGICAL: Alert, awake, appropriate. Cranial nerves 2-12 intact. No deficits to light touch and temperature in face, upper extremities and lower extremities. No motor deficits in the in face, upper extremities and lower extremities. Normoreflexic in the upper and lower extremities. Normal speech. Toes are down- going bilaterally. Gait is normal without ataxia. PSYCHIATRIC: Cooperative. Good eye contact. Appropriate mood and affect. <Ara Caballero - Last Filed: 11/04/18 08:48> Moderate Sedation - Procedure Monitoring Vital Signs: Procedure Monitoring Vital Signs Temperature 98.2 F 11/02/18 13:42 Pulse Rate 103 H 11/02/18 13:42 Respiratory Rate 20 11/02/18 13:42 Blood Pressure 198/137 H 11/02/18 13:42 O2 Sat by Pulse Oximetry (%) 98 11/02/18 13:42 <Mirta Riley - Last Filed: 11/02/18 20:24> - Procedure Monitoring Vital Signs: Procedure Monitoring Vital Signs Temperature 98.2 F 11/02/18 13:42 Pulse Rate 103 H 11/02/18 13:42 Respiratory Rate 20 11/02/18 13:42 Blood Pressure 198/137 H 11/02/18 13:42 O2 Sat by Pulse Oximetry (%) 98 11/02/18 13:42 <Ara Caballero - Last Filed: 11/04/18 08:48> ED Treatment Course - LABORATORY CBC & Chemistry Diagram: 11/02/18 18:51 11/02/18 18:51 - ADDITIONAL ORDERS Additional order review: Laboratory Results 11/02/18 19:00 Urine HCG, Qual Negative - Medications Given in the ED: ED Medications Discontinued Medications Generic Name Dose Route Start Last Admin Trade Name Antonio PRN Reason Stop Dose Admin Amlodipine Besylate 5 mg 11/02/18 18:04 11/02/18 18:07 Norvasc - PO 11/02/18 18:05 5 mg ONCE ONE Administration Aspirin 325 mg 11/02/18 16:48 11/02/18 17:48 Asa - PO 11/02/18 16:49 325 mg ONCE ONE Administration Lorazepam 1 mg 11/02/18 18:04 11/02/18 18:07 Ativan - PO 11/02/18 18:05 1 mg ONCE ONE Administration Nifedipine 5 mg 11/02/18 16:51 11/02/18 17:48 Procardia Capsule - PO 11/02/18 16:52 5 mg ONCE ONE Administration <Mirta Riley - Last Filed: 11/02/18 20:24> - LABORATORY CBC & Chemistry Diagram: 11/04/18 05:35 11/04/18 05:35 <Ara Caballero - Last Filed: 11/04/18 08:48> Medical Decision Making - Medical Decision Making The patient was seen and evaluated in conjunction with midlevel provider under my direct supervision, ancillary studies were reviewed. I agree with the plan as outlined by YASMIN Caballero. HPI as outlined. 28 YOF with antiphos lipid syndrome, lupus not on meds presenting with SOB/CP x1 day, cannot walk without difficulty breathing VS wnl. PIV placed by me, difficult stick labs and lytes_with leukocytosis noted, likely inflammatory, no fever or toxic sx. steroid trial for ?lupus flare ECG nonischemic, NSR. dimer elevated, PE workup as inpt. can given lovenox now. admit for SOB workup, suspecting lupus flare vs possible PE, r/o with V/Q scan as not candidate for CT with contrast due to anaphylaxis. pt agreeable to impression and plan. 11/02/18 19:27 11/02/18 20:24 <Mirta Riley - Last Filed: 11/02/18 20:24> - Medical Decision Making 11/02/18 18:56 Patient is a 28-year-old male past medical history of lupus, antiphospholipid syndrom, Who presents to the emergency department today for shortness of breath , left-sided chest pain with radiation to the jaw and arm. On exam blood pressure notable at 198/130. Patient tachycardic over 100. Amlodipine 5 mg ordered. Exam with tachycardic rate normal rhythm S1 and S2 present no murmurs. Lungs sounds clear bilaterally. DDX includes ACS, PE, viral illness arrhythmia Dose of solumedrol given for shortness of breath in the setting of lupus. Patient has contrast ALLERGY cannot receive CTA to rule out PE. If the d-dimer comes back positive we'll need to admit for possible VQ scan. EKG: Rate 83 bpm, normal sinus rhythm with sinus arrhythmia. Normal intervals normal axis, no acute ST-T wave changes. Patient currently pending labs, chest x-ray. I suspect patient will need admission Sign out given to Wayne Harding NP. <Ara Caballero - Last Filed: 11/04/18 08:48> *DC/Admit/Observation/Transfer <Mirta Riley - Last Filed: 11/02/18 20:24> <Ara Caballero - Last Filed: 11/04/18 08:48> Diagnosis at time of Disposition: SOB (shortness of breath) Lupus (systemic lupus erythematosus) Qualifiers: Systemic lupus erythematosus type: unspecified Systemic lupus erythematosus organ involvement: unspecified Qualified Code(s): M32.9 - Systemic lupus erythematosus, unspecified - Discharge Dispostion Condition at time of disposition: Fair
[2018-11-02] MEDS ORDERED: NIFEdipine 10 MG CAPSULE (FP) PO ONE (16:51)
[2018-11-02] MEDS ORDERED: ASPIRIN 325 MG TABLET ONE (17:49)
[2018-11-02] MEDS ORDERED: LORazepam 1 MG TABLET PO ONE (18:04)
[2018-11-02] MEDS ORDERED: amLODIPine BESYLATE 5 MG TABLET (FP) PO ONE (18:04)
[2018-11-02] MEDS ORDERED: amLODIPine BESYLATE 5 MG TABLET (FP) ONE (18:09)
[2018-11-02] MEDS ORDERED: LORazepam 0.5 MG TABLET ONE (18:09)
[2018-11-02] MEDS ORDERED: methylPREDNISolone NA SUCC 125 MG/2 ML VIAL IVPUSH ONE (19:01)
[2018-11-02 19:21] LABS: HCG,QUALITATIVE URINE Negative; URINE APPEARANCE SLCLOUDY; URINE BILIRUBIN NEGATIVE (<2.0 mg/dL); URINE COLOR YELLOW; URINE GLUCOSE (UA) NEGATIVE (NEGATIVE); URINE KETONE NEGATIVE (NEGATIVE); URINE LEUK ESTERASE NEGATIVE (NEGATIVE); URINE NITRITE NEGATIVE (NEGATIVE); URINE PROTEIN 3+ (NEGATIVE); URINE UROBILINOGEN NEGATIVE mg/dL (0.2-1.0)
[2018-11-02 19:35] LABS: INR 0.97 (0.83-1.09); PROTHROMBIN TIME (PATIENT) 11.4 SEC (9.7-13.0)
[2018-11-02 19:38] LABS: BASO % 0.3 % (0-2.0); EOS % 1.8 % (0-4.5); HEMATOCRIT 45.8 % (32.4-45.2); HEMOGLOBIN 15.5 GM/dL (10.7-15.3); LYMPH % 9.3 % (8-40); MCH 29.9 pg (25.7-33.7); MCHC 33.8 g/dl (32.0-36.0); MEAN CELL VOLUME 88.5 fl (80-96); MEAN PLT VOLUME 9.5 fl (7.5-11.1); MONO % 4.8 % (3.8-10.2); NEUT % 83.8 % (42.8-82.8); PLATELET COUNT 372 K/MM3 (134-434); RBC 5.17 M/mm3 (3.60-5.2); RDW 12.5 % (11.6-15.6); WHITE BLOOD COUNT 15.5 K/mm3 (4.0-10.0)
[2018-11-02 19:41] LABS: ALBUMIN 2.4 g/dl (3.4-5.0); ALK PHOS 77 U/L (45-117); ANION GAP 8 MMOL/L (8-16); BILIRUBIN,TOTAL 0.4 mg/dL (0.2-1); BLOOD UREA NITROGEN 16 mg/dL (7-18); CHLORIDE 110 mmol/L (98-107); CO2 22 mmol/L (21-32); CREATININE 1.3 mg/dL (0.55-1.3); GLUCOSE,RANDOM 91 mg/dL (74-106); POTASSIUM 3.8 mmol/L (3.5-5.1); SGOT/AST 18 U/L (15-37); SGPT/ALT 16 U/L (13-61); SODIUM 140 mmol/L (136-145); TOT PROT 5.2 g/dl (6.4-8.2)
[2018-11-02 19:56] LABS: EPI CELLS RARE /HPF (FEW); GRANULAR CASTS 7 /lpf; URINE BACTERIA RARE /hpf (NONE SEEN); URINE HYALINE CAST 13 /lpf; URINE MUCUS MANY
[2018-11-02] MEDS ORDERED: methylPREDNISolone NA SUCC 125 MG/2 ML VIAL ONE (20:00)
[2018-11-02] MEDS ORDERED: ENOXAPARIN NA (PORCINE) 80 MG/0.8 ML DISP.SYRIN SQ ONE ×2 (20:53→21:24)
--- NOTE | 2018-11-02 21:03 | PDOC ---
*Physical Exam - Vital Signs Last Vital Signs Temp Pulse Resp BP Pulse Ox 98.2 F 103 H 20 198/137 H 98 11/02/18 13:42 11/02/18 13:42 11/02/18 13:42 11/02/18 13:42 11/02/18 13:42 - Physical Exam General Appearance: Yes: Appropriately Dressed. No: Apparent Distress Respiratory/Chest: positive: Lungs Clear, Normal Breath Sounds. negative: Respiratory Distress, Accessory Muscle Use Cardiovascular: positive: Regular Rhythm, Regular Rate. negative: S1, S2, Edema , Murmur Gastrointestinal/Abdominal: positive: Normal Bowel Sounds, Soft. negative: Tender ED Treatment Course - LABORATORY CBC & Chemistry Diagram: 11/02/18 18:51 11/02/18 18:51 - ADDITIONAL ORDERS Additional order review: Laboratory Results 11/02/18 11/02/18 11/02/18 19:00 18:51 18:51 PT with INR INR D-Dimer Sodium 140 Potassium 3.8 Chloride 110 H Carbon Dioxide 22 Anion Gap 8 BUN 16 Creatinine 1.3 Creat Clearance w eGFR 48.77 Random Glucose 91 Calcium 8.0 L Total Bilirubin 0.4 AST 18 ALT 16 Alkaline Phosphatase 77 Creatine Kinase Troponin I B-Natriuretic Peptide 740.5 H Total Protein 5.2 L Albumin 2.4 L TSH 3.04 Urine Color Yellow Urine Appearance Slcloudy Urine pH 6.0 Ur Specific [place] 1.025 Urine Protein 3+ H Urine Glucose (UA) Negative Urine Ketones Negative Urine Blood Negative Urine Nitrite Negative Urine Bilirubin Negative Urine Urobilinogen Negative Ur Leukocyte Esterase Negative Urine WBC (Auto) 18 Urine RBC (Auto) 6 Ur Epithelial Cells Rare Urine Bacteria Rare Hyaline Casts 13 Granular Casts 7 Urine Mucus Many Urine HCG, Qual Negative 11/02/18 11/02/18 11/02/18 18:51 18:51 16:38 PT with INR 11.40 INR 0.97 D-Dimer 540 H Sodium Potassium Chloride Carbon Dioxide Anion Gap BUN Creatinine Creat Clearance w eGFR Random Glucose Calcium Total Bilirubin AST ALT Alkaline Phosphatase Creatine Kinase 51 Troponin I < 0.02 B-Natriuretic Peptide Total Protein Albumin TSH Urine Color Urine Appearance Urine pH Ur Specific [place] Urine Protein Urine Glucose (UA) Urine Ketones Urine Blood Urine Nitrite Urine Bilirubin Urine Urobilinogen Ur Leukocyte Esterase Urine WBC (Auto) Urine RBC (Auto) Ur Epithelial Cells Urine Bacteria Hyaline Casts Granular Casts Urine Mucus Urine HCG, Qual 11/02/18 18:51 RBC 5.17 MCV 88.5 MCHC 33.8 RDW 12.5 MPV 9.5 Neutrophils % 83.8 H Lymphocytes % 9.3 D Monocytes % 4.8 Eosinophils % 1.8 D Basophils % 0.3 - Medications Given in the ED: ED Medications Discontinued Medications Generic Name Dose Route Start Last Admin Trade Name Antonio PRN Reason Stop Dose Admin Amlodipine Besylate 5 mg 11/02/18 18:04 11/02/18 18:07 Norvasc - PO 11/02/18 18:05 5 mg ONCE ONE Administration Aspirin 325 mg 11/02/18 16:48 11/02/18 17:48 Asa - PO 11/02/18 16:49 325 mg ONCE ONE Administration Lorazepam 1 mg 11/02/18 18:04 11/02/18 18:07 Ativan - PO 11/02/18 18:05 1 mg ONCE ONE Administration Methylprednisolone Sodium Succinate 125 mg 11/02/18 19:01 11/02/18 20:05 Solu-Medrol - IVPUSH 11/02/18 19:02 125 mg ONCE ONE Administration Nifedipine 5 mg 11/02/18 16:51 11/02/18 17:48 Procardia Capsule - PO 11/02/18 16:52 5 mg ONCE ONE Administration Medical Decision Making - Medical Decision Making 11/02/18 20:58 Received signout from YASMIN tinoco. Briefly this a 28-year-old woman with history of SLE with APS who presents with 1 day of chest pain and shortness of breath. Initial laboratory testing reveals elevated WBC of 15.5 with a BNP of 740.5. Urinalysis and d-dimer are pending. EKG-SR with rate 83. No ischemic changes. D-dimer elevated 540. Unable to perform PE study is patient has anaphylaxis to IV contrast. I will admit the patient to the hospitalist service for continued evaluation of pulmonary embolism as an inpatient. We'll give the patient a dose of full strength Lovenox now. 11/02/18 23:[address] Hernandez to hospitalist service who agrees for admission to [facility] under Dr. Guzman. *DC/Admit/Observation/Transfer Diagnosis at time of Disposition: SOB (shortness of breath) Lupus (systemic lupus erythematosus) Qualifiers: Systemic lupus erythematosus type: unspecified Systemic lupus erythematosus organ involvement: unspecified Qualified Code(s): M32.9 - Systemic lupus erythematosus, unspecified - Discharge Dispostion Condition at time of disposition: Fair Decision to Admit order: Yes - Referrals - Patient Instructions - Post Discharge Activity
--- NOTE | 2018-11-02 22:45 | PN ---
Teaching Attending Note Name of Resident: Lexie Hernandez ATTENDING PHYSICIAN STATEMENT I saw and evaluated the patient. I reviewed the resident's note and discussed the case with the resident. I agree with the resident's findings and plan as documented. SUBJECTIVE: Patient seen and examined; please refer to resident note for further historical details. In summation, this is a 28 y/o CF presenting to the ER with a CC of SOB and prodromal features of her lupus flare (hot flashes, dysphoria, etc.) accompanied by brief SOB when ambulating up 3 steps with atypical CP. She was found to have a positive D-Dimer; she is not requiring O2. She is hemodynamically stable and afebrile. 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 She has a history of +AB for antiphospholipid and has biopsy proven lupus nephritis; hasn't been on immunosuppressive agents since 18. Doesn 't currently follow with PCP or rheum but does see nephro occasionally. Furthermore, she gets her care from an alternative practitioner and is not regularly taking aspirin (takes herbal supplement); was seen by hematology here in the past and discharged on lovenox course. She had similar sx to this in November at another hospital and tells me she had a VQ scan which was negative. She is allergic to IV dye and cannot get CTA. Admit requested to r/o PE. Monitor on telemetry with observation 10 sys ROS done and negative aside from HPI PMH and PSH reviewed Socially she is a nonsmoker, non-drug user. 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 asked; denies h/o AI conditions or clotting disorders Medication list reviewed; pending reconciliation OBJECTIVE: VS, labs, imaging reviewed NAD, AAO, resting comfortably in bed RRR s1/2 no mgr Lungs CTAB with no mgr NT ND +BS CN2-12 wnl, no fnd Normal mood, appropriate behavior Labs reviewed; +D-dimer 500 range, leukocytosis noted. Normal renal function VQ scan pending CXR reviewed Flu, viral PCR pending EKG with small S wave I, inverted T wave and Q wave in lead III ASSESSMENT AND PLAN: This is a 28 y/o female h/o lupus, +Ab antiphospholipid who presents with transient SOB and a +D-dimer; she needs PE r/o 1) Transient SOB with +D-dimer and +Antiphospholipid Ab -Concern for PE; given dye allergy will get VQ scan in the morning. Consult Dr. Andrews. Empiric weight based lovenox. ASA 81mg PO QD started. Advised consistent followup with hematology and rheumatology. Referred to resident clinic as no PCP. Reviewed prior rheumatologic workup. Tele observation. 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 Not septic. Checking ESR/CRP, check flu swab and viral PCR given SOB. Trend CBC 5) Obesity -BMI 31; res counselor when clinically appropriate 6) Elevated BNP -Checking echo to r/o and r-heart strain; not clinically in CHF 7) Atypical CP -Likely noncardiac but of course will monitor on telemetry, trend troponin, check echo for WMAs FENA -PO fluids -PRN replace -Regular diet -As tolerated Full Code
--- NOTE | 2018-11-02 22:49 | HP ---
CHIEF COMPLAINT: shortness of breath PCP: Pt does not have a PCP, but currently is getting treatment by a " Functional Medicine" physician who is located remotely in [place]. Communication is done via video chat. HISTORY OF PRESENT ILLNESS: 28F w/ pmhx of lupus, HTN, anti-phospholipid syndrome, kidney disease presents with shortness of breath that started at 8am today. She reports that she was walking up her 3 porch steps when she suddenly started feeling short of breath. She laid down to rest, but her symptoms persisted. She also reports associated L sided chest pain radiating to her jaw that had subsided only 20 min prior to the interview. Admits to heart palpitations, nausea, cold sweats, dizziness with hot flashes. She denies f/c, abd pain, urinary/bowel symptoms, vision changes, sick contacts. Pt states that when she gets a lupus flare, she feels a constitution of symptoms including everything she had been experiencing today, except for the shortness of breath. Because of this new symptom, this prompted her to go to the ED. ER course was notable for: (1) HR 103, BP 198/137 (on repeat 148/115), WBC 15.5, BUN/Cr 16/1.3. d-Dimer 540 , BNP 740.5, Trop neg (2) U/A showed 3+ Pro, 8 WBC (3) 1L NS bolus, Aspirin 325, Nifedipine 5 mg PO, Amlodipine 5 mg PO, Ativan 1 mg Po, Solumedrol 125 IVP, Lovenox 80 SQ Recent Travel: Denies PAST MEDICAL HISTORY: Lupus, HTN freq UTIs antiphospholipid Ab+ KD PAST SURGICAL HISTORY: Fallopaian tube mass removal (11/22) appendectomy tonsillectomy Social History: Smoking: Denies Alcohol: Denies Drugs: MJ; 1-2x/month Family History: Allergies clindamycin Allergy (Severe, Verified 11/02/18 20:15) ANAPHLACTIC REACTION doxycycline Allergy (Severe, Verified 11/02/18 20:15) ANAPHYLACTIC REACTION Penicillins Allergy (Severe, Verified 11/02/18 20:15) ANAPHYLACTIC REACTION shellfish derived Allergy (Severe, Verified 11/02/18 20:15) anaphylactic reaction SEAFOOD Allergy (Severe, Uncoded 11/02/18 20:15) ANAPHYLACTIC REACTION HOME MEDICATIONS: Home Medications Medication Instructions Recorded Amlodipine Besylate [Norvasc -] 10 mg PO DAILY #30 tablet 11/30/17 Aspirin [ASA -] 81 mg PO DAILY #30 tab.chew 11/30/17 Lisinopril 20 mg PO DAILY #30 tablet 03/04/18 Cholecalciferol (Vitamin D3) 2,000 unit PO DAILY 11/02/18 [Vitamin D] Vitamin B Complex [B Complex] 1 each PO DAILY 11/02/18 REVIEW OF SYSTEMS CONSTITUTIONAL: -f/c, weight loss, appetite HEENT: -throat pain, rhinorhea, ear pin, eye pain CARDIOVASCULAR: +chest pain radiating to L jaw; -lightheadedness, peripheral sharri RESPIRATORY: +sob; -cough, mg, orthopnea, wheezing GASTROINTESTINAL: -abdominal pain, distension, n/v, c/d, melena, hematochezia GENITOURINARY: -dysuria, frequency, hesitancy, hematuria, flank pain MUSCULOSKELETAL: -myalgia, neck pain ENDOCRINE: +hot flashes, -unintentional weight changes NEUROLOGIC: -kenny, dizziness, seizure, mental status changes PHYSICAL EXAMINATION Vital Signs - 24 hr 11/02/18 13:42 Temperature 98.2 F Pulse Rate 103 H Respiratory 20 Rate Blood Pressure 198/137 H O2 Sat by Pulse 98 Oximetry (%) GENERAL: AAOx3. NAD. HEENT: AT/NC. EOMI. Poor dentition. Dry membranes. NECK: Normal range of motion, supple without lymphadenopathy, JVD, or masses. LUNGS: CTA B/L. No wheezes, rhonchi, crackles noted. HEART: RRR. Normal S1, S2. No murmurs noted. ABDOMEN: Soft, NT/ND. No masses/bruit noted. +BS in all 4Q's. MUSCULOSKELETAL: No CVA tenderness. EXTREMITIES: No peripheral edema noted. 5/5 muscle strength in u/l b/l LE. NEUROLOGICAL: Normal speech. CN II-XII intact. PSYCHIATRIC: Cooperative. Good eye contact. Appropriate mood and affect. Laboratory Results - last 24 hr 11/02/18 11/02/18 11/02/18 16:38 18:51 18:51 WBC 15.5 H RBC 5.17 Hgb 15.5 H Hct 45.8 H MCV 88.5 MCH 29.9 MCHC 33.8 RDW 12.5 Plt Count 372 MPV 9.5 Absolute Neuts (auto) 12.9 H Neutrophils % 83.8 H Lymphocytes % 9.3 D Monocytes % 4.8 Eosinophils % 1.8 D Basophils % 0.3 Nucleated RBC % 0 PT with INR 11.40 INR 0.97 D-Dimer Sodium Potassium Chloride Carbon Dioxide Anion Gap BUN Creatinine Creat Clearance w eGFR Random Glucose Calcium Total Bilirubin AST ALT Alkaline Phosphatase Creatine Kinase 51 Troponin I < 0.02 B-Natriuretic Peptide Total Protein Albumin TSH Urine Color Urine Appearance Urine pH Ur Specific [place] Urine Protein Urine Glucose (UA) Urine Ketones Urine Blood Urine Nitrite Urine Bilirubin Urine Urobilinogen Ur Leukocyte Esterase Urine WBC (Auto) Urine RBC (Auto) Ur Epithelial Cells Urine Bacteria Hyaline Casts Granular Casts Urine Mucus Urine HCG, Qual 11/02/18 11/02/18 11/02/18 18:51 18:51 18:51 WBC RBC Hgb Hct MCV MCH MCHC RDW Plt Count MPV Absolute Neuts (auto) Neutrophils % Lymphocytes % Monocytes % Eosinophils % Basophils % Nucleated RBC % PT with INR INR D-Dimer 540 H Sodium 140 Potassium 3.8 Chloride 110 H Carbon Dioxide 22 Anion Gap 8 BUN 16 Creatinine 1.3 Creat Clearance w eGFR 48.77 Random Glucose 91 Calcium 8.0 L Total Bilirubin 0.4 AST 18 ALT 16 Alkaline Phosphatase 77 Creatine Kinase Troponin I B-Natriuretic Peptide 740.5 H Total Protein 5.2 L Albumin 2.4 L TSH 3.04 Urine Color Urine Appearance Urine pH Ur Specific [place] Urine Protein Urine Glucose (UA) Urine Ketones Urine Blood Urine Nitrite Urine Bilirubin Urine Urobilinogen Ur Leukocyte Esterase Urine WBC (Auto) Urine RBC (Auto) Ur Epithelial Cells Urine Bacteria Hyaline Casts Granular Casts Urine Mucus Urine HCG, Qual 11/02/18 19:00 WBC RBC Hgb Hct MCV MCH MCHC RDW Plt Count MPV Absolute Neuts (auto) Neutrophils % Lymphocytes % Monocytes % Eosinophils % Basophils % Nucleated RBC % PT with INR INR D-Dimer Sodium Potassium Chloride Carbon Dioxide Anion Gap BUN Creatinine Creat Clearance w eGFR Random Glucose Calcium Total Bilirubin AST ALT Alkaline Phosphatase Creatine Kinase Troponin I B-Natriuretic Peptide Total Protein Albumin TSH Urine Color Yellow Urine Appearance Slcloudy Urine pH 6.0 Ur Specific [place] 1.025 Urine Protein 3+ H Urine Glucose (UA) Negative Urine Ketones Negative Urine Blood Negative Urine Nitrite Negative Urine Bilirubin Negative Urine Urobilinogen Negative Ur Leukocyte Esterase Negative Urine WBC (Auto) 18 Urine RBC (Auto) 6 Ur Epithelial Cells Rare Urine Bacteria Rare Hyaline Casts 13 Granular Casts 7 Urine Mucus Many Urine HCG, Qual Negative CONSULTS Heme- Dr. Andrews Rheum- Dr. Reddy IMAGING: * CXR: pending ASSESSMENT/PLAN: 28F w/ pmhx lupus, antiphospholipid Ab+ presents with intermitten sob, elevated d-dimer #SOB with elevated d-Dimer and Antiphospholipid Ab; r/o PE -EKG showed slight S1Q3T3 -Pt unable to get CTA due to contrast allergy; V/Q scan in AM -Aspirin 81 mg PO QD -Lovenox 80 mg SQ BID -Heme consult ordered #SLE -not currently on immunosupressive therapy -needs outpatient rheumatology follow up -needs outpatient nephro follow up to manage lupus nephritis #Leukocytosis; not septic -check ESR/CRP for acute inflammatory process -flu swab, viral PCR ordered -trend CBC #Elevated BNP -Echo ordered; evaluate for R heart strain due to concern for PE #Atypical Chest pain -likely not cardiac, but monitor on tele -trend trops -echo ordered -previously seen by photographic reproduction technician, placed on 24 hour monitor; uneventful #HTN Cont home meds: -Norvasc 5 mg PO BID -Lisinopril 10 mg PO BID #Prophylaxis -Lovenox 80 mg SQ BID #FEN -no IVf needed -recheck lytes in AM -sodium controlled diet dispo -admit to tele obs -full code -medications reconciled Visit type - Emergency Visit Emergency Visit: Yes ED Registration Date: 11/02/18 Care time: The patient presented to the Emergency Department on the above date and was hospitalized for further evaluation of their emergent condition. - New Patient This patient is new to me today: Yes Date on this admission: 11/03/18 - Critical Care Critical Care patient: No
[2018-11-03 07:06] LABS: HEMATOCRIT 44.4 % (32.4-45.2); HEMOGLOBIN 15.1 GM/dL (10.7-15.3); MCHC 33.9 g/dl (32.0-36.0); MEAN CELL VOLUME 88.6 fl (80-96); PLATELET COUNT 374 K/MM3 (134-434); RBC 5.01 M/mm3 (3.60-5.2); RDW 12.3 % (11.6-15.6); WHITE BLOOD COUNT 17.3 K/mm3 (4.0-10.0)
[2018-11-03 07:37] LABS: ALBUMIN 2.2 g/dl (3.4-5.0); ALK PHOS 71 U/L (45-117); ANION GAP 7 MMOL/L (8-16); BILIRUBIN,TOTAL 0.2 mg/dL (0.2-1); BLOOD UREA NITROGEN 22 mg/dL (7-18); CALCIUM 8.4 mg/dL (8.5-10.1); CHLORIDE 108 mmol/L (98-107); CO2 21 mmol/L (21-32); CREATININE 1.5 mg/dL (0.55-1.3); GLUCOSE,RANDOM 172 mg/dL (74-106); POTASSIUM 4.6 mmol/L (3.5-5.1); SGOT/AST 15 U/L (15-37); SGPT/ALT 15 U/L (13-61); SODIUM 136 mmol/L (136-145); TOT PROT 5.1 g/dl (6.4-8.2)
[2018-11-03] MEDS: SODIUM CHLORIDE 1,000 ML IV SCH (08:50)
--- NOTE | 2018-11-03 09:49 | PN ---
Physical Exam: SUBJECTIVE: Patient seen and examined in the ER awaiting bed assignment. Patient denies shortness of breath or chest pain. comfortable at rest. states her legs swell up at times. OBJECTIVE: patient was seen by the night team and a vq scan recommended will consult pulm will send out for vascular dopper to r/o dvt will need echo Vital Signs Period Temp Pulse Resp BP Sys/Sanders Pulse Ox Last 24 Hr 98.2 F-98.2 F 90-103 20 158-198/88-137 95-98 GENERAL: The patient is awake, alert, and fully oriented, in no acute distress. HEAD: Normal with no signs of trauma. EYES: PERRL, extraocular movements intact, sclera anicteric, conjunctiva clear. No ptosis. ENT: Ears normal, nares patent, oropharynx clear without exudates NECK: Trachea midline, full range of motion, supple. LUNGS: Breath sounds equal, clear to auscultation bilaterally, no wheezes, no crackles HEART: Regular rate and rhythm ABDOMEN: Soft, nontender, nondistended, normoactive bowel sounds, no guarding, no rebound, no hepatosplenomegaly, no masses. EXTREMITIES: non pitting bilateral edema NEUROLOGICAL: Normal speech, gait not observed. PSYCH: Normal mood, normal affect. SKIN: Warm, dry, normal turgor, no rashes or lesions noted Laboratory Results - last 24 hr 11/02/18 11/02/18 11/02/18 16:38 18:51 18:51 WBC 15.5 H RBC 5.17 Hgb 15.5 H Hct 45.8 H MCV 88.5 MCH 29.9 MCHC 33.8 RDW 12.5 Plt Count 372 MPV 9.5 Absolute Neuts (auto) 12.9 H Neutrophils % 83.8 H Lymphocytes % 9.3 D Monocytes % 4.8 Eosinophils % 1.8 D Basophils % 0.3 Nucleated RBC % 0 ESR PT with INR 11.40 INR 0.97 D-Dimer Sodium Potassium Chloride Carbon Dioxide Anion Gap BUN Creatinine Creat Clearance w eGFR Random Glucose Calcium Total Bilirubin AST ALT Alkaline Phosphatase Creatine Kinase 51 Troponin I < 0.02 C-Reactive Protein B-Natriuretic Peptide Total Protein Albumin TSH Urine Color Urine Appearance Urine pH Ur Specific [place] Urine Protein Urine Glucose (UA) Urine Ketones Urine Blood Urine Nitrite Urine Bilirubin Urine Urobilinogen Ur Leukocyte Esterase Urine WBC (Auto) Urine RBC (Auto) Ur Epithelial Cells Urine Bacteria Hyaline Casts Granular Casts Urine Mucus Urine HCG, Qual 11/02/18 11/02/18 11/02/18 18:51 18:51 18:51 WBC RBC Hgb Hct MCV MCH MCHC RDW Plt Count MPV Absolute Neuts (auto) Neutrophils % Lymphocytes % Monocytes % Eosinophils % Basophils % Nucleated RBC % ESR PT with INR INR D-Dimer 540 H Sodium 140 Potassium 3.8 Chloride 110 H Carbon Dioxide 22 Anion Gap 8 BUN 16 Creatinine 1.3 Creat Clearance w eGFR 48.77 Random Glucose 91 Calcium 8.0 L Total Bilirubin 0.4 AST 18 ALT 16 Alkaline Phosphatase 77 Creatine Kinase Troponin I C-Reactive Protein B-Natriuretic Peptide 740.5 H Total Protein 5.2 L Albumin 2.4 L TSH 3.04 Urine Color Urine Appearance Urine pH Ur Specific [place] Urine Protein Urine Glucose (UA) Urine Ketones Urine Blood Urine Nitrite Urine Bilirubin Urine Urobilinogen Ur Leukocyte Esterase Urine WBC (Auto) Urine RBC (Auto) Ur Epithelial Cells Urine Bacteria Hyaline Casts Granular Casts Urine Mucus Urine HCG, Qual 11/02/18 11/03/18 11/03/18 19:00 06:00 06:25 WBC 17.3 H RBC 5.01 Hgb 15.1 Hct 44.4 MCV 88.6 MCH 30.0 MCHC 33.9 RDW 12.3 Plt Count 374 MPV 9.0 Absolute Neuts (auto) Neutrophils % Lymphocytes % Monocytes % Eosinophils % Basophils % Nucleated RBC % ESR PT with INR INR D-Dimer Sodium 136 Potassium 4.6 Chloride 108 H Carbon Dioxide 21 Anion Gap 7 L BUN 22 H Creatinine 1.5 H Creat Clearance w eGFR 41.35 Random Glucose 172 H Calcium 8.4 L Total Bilirubin 0.2 AST 15 ALT 15 Alkaline Phosphatase 71 Creatine Kinase Troponin I < 0.02 C-Reactive Protein 0.7 H B-Natriuretic Peptide Total Protein 5.1 L Albumin 2.2 L TSH Urine Color Yellow Urine Appearance Slcloudy Urine pH 6.0 Ur Specific [place] 1.025 Urine Protein 3+ H Urine Glucose (UA) Negative Urine Ketones Negative Urine Blood Negative Urine Nitrite Negative Urine Bilirubin Negative Urine Urobilinogen Negative Ur Leukocyte Esterase Negative Urine WBC (Auto) 18 Urine RBC (Auto) 6 Ur Epithelial Cells Rare Urine Bacteria Rare Hyaline Casts 13 Granular Casts 7 Urine Mucus Many Urine HCG, Qual Negative 11/03/18 06:25 WBC RBC Hgb Hct MCV MCH MCHC RDW Plt Count MPV Absolute Neuts (auto) Neutrophils % Lymphocytes % Monocytes % Eosinophils % Basophils % Nucleated RBC % ESR 67 H PT with INR INR D-Dimer Sodium Potassium Chloride Carbon Dioxide Anion Gap BUN Creatinine Creat Clearance w eGFR Random Glucose Calcium Total Bilirubin AST ALT Alkaline Phosphatase Creatine Kinase Troponin I C-Reactive Protein B-Natriuretic Peptide Total Protein Albumin TSH Urine Color Urine Appearance Urine pH Ur Specific [place] Urine Protein Urine Glucose (UA) Urine Ketones Urine Blood Urine Nitrite Urine Bilirubin Urine Urobilinogen Ur Leukocyte Esterase Urine WBC (Auto) Urine RBC (Auto) Ur Epithelial Cells Urine Bacteria Hyaline Casts Granular Casts Urine Mucus Urine HCG, Qual Active Medications Generic Name Dose Route Start Last Admin Trade Name Freq PRN Reason Stop Dose Admin Amlodipine Besylate 5 mg 11/03/18 10:00 Norvasc - PO BID [facility] Aspirin 81 mg 11/03/18 10:00 Asa - PO DAILY [facility] Cholecalciferol 2,000 unit 11/03/18 10:00 Vitamin D3 - PO DAILY [facility] Enoxaparin Sodium 80 mg 11/03/18 10:00 Lovenox - SQ BID [facility] Sodium Chloride 1,000 mls @ 75 mls/hr 11/03/18 08:30 Normal Saline - IV ASDIR [facility] Lisinopril 10 mg 11/03/18 10:00 Prinivil PO BID [facility] Multivitamins 1 each 11/03/18 10:00 Total B With C - PO DAILY [facility] ASSESSMENT/PLAN: Patient is a 28 year old female with a past medical history of lupus, HTN, anti -phospholipid syndrome and kidney disease presents with shortness of breath that started at 8am today. Patient d dimer was noted to be elevated on admission. Although her shortness of breath has resolved, she will need a VQ scan to rule out PE. She is currently being treated with Lovenox BID. Pulm: Shortness of breath, Rule out PE Elevated D dimer and antiphospholipid a/b Unable to get CTA 2/2 to kidney disease and shellfish allergy. Will need vq scan. VQ scan per Pulmonary Tolerating room air, no tachycardia noted Treating with Lovenox 80mg bid until PE can be ruled out. Heme consulted and following Pulmonary consulted for vq scan Rheum: Possible Lupus Patient is not taking any medications for lupus. She is seeking alternative medicine at this time. Rheumatology consulted. Nephrology consulted. Leukocytosis No fevers, no signs of infection. Will send out blood cultures. Monitor vitals signs. Card: Hypertension. On Lisinopril bid, amlodopine bid. Patient states her BP has been elevated at home and her medications have been adjusted. Monitor BP and adjust lisinopril if remains elevated. Chest pain, resolved Echo ordered, No further chest pain. Troponins negative. fen hydration with NS monitor electrolytes low salt diet prophy lovenox bid
--- NOTE | 2018-11-03 11:26 | EKG ---
Test Reason : Blood Pressure : / mmHG Vent. Rate : 083 BPM Atrial Rate : 083 BPM P-R Int : 162 ms QRS Dur : 078 ms QT Int : 386 ms P-R-T Axes : 024 012 008 degrees QTc Int : 453 ms NORMAL SINUS RHYTHM WITH SINUS ARRHYTHMIA POSSIBLE LEFT ATRIAL ENLARGEMENT BORDERLINE ECG WHEN COMPARED WITH ECG OF 22-NOV-2017 22:59, T WAVE INVERSION NO LONGER EVIDENT IN ANTERIOR LEADS Confirmed by CARLOS CHERRY, HAMILTON ([id number]) on 11/03/2018 11:26:28 AM Referred By: Confirmed By:HAMILTON GONZALEZ MD
--- NOTE | 2018-11-03 11:50 | CONSULT ---
Consult Consult Specialty:: hematology Referred by:: ER Reason for Consultation:: Reported history of APLS - History of Present Illness Chief Complaint: Chest pain/SOB History of Present Illness: Patient with reported history of APLS presented to ER yesterday with 1 day history of sudden onset breathlessness and chest discomfort. Reports episodes of palpitations for last several weeks, but otherwise no preceding symptoms. In ER found to have elevated D-dimer. CXR clear. VQ scan pending. Other labs unremarkable. Reports similar episode May 2018 - [facility] - negative VQ scan then. 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 No: Pulmonary Hypertension Pulmonary: Yes: Pneumonia (in past). No: COPD Renal/: Yes: Renal Inusuff, UTI, Other (lupus nephritis) ...LMP: 10/20/17 Rheumatology: Yes: Lupus - Past Surgical History Past Surgical History: Yes: Appendectomy, Tonsillectomy - Alcohol/Substance Use Hx Alcohol Use: No History of Substance Use: reports: None - Smoking History Smoking history: Never smoked Have you smoked in the past 12 months: No Aproximately how many cigarettes per day: 0 - Social History Usual Living Arrangement: With Spouse History of Recent Travel: No Home Medications - Allergies Allergies/Adverse Reactions: Allergies Allergy/AdvReac Type Severity Reaction Status Date / Time clindamycin Allergy Severe ANAPHLACTIC Verified 11/02/18 20:15 REACTION doxycycline Allergy Severe ANAPHYLACTIC Verified 11/02/18 20:15 REACTION Penicillins Allergy Severe ANAPHYLACTIC Verified 11/02/18 20:15 REACTION shellfish derived Allergy Severe anaphylactic Verified 11/02/18 20:15 reaction SEAFOOD Allergy Severe ANAPHYLACTIC Uncoded 11/02/18 20:15 REACTION - Home Medications Home Medications: Ambulatory Orders Aspirin [ASA -] 81 mg PO DAILY #30 tab.chew 11/30/17 Cholecalciferol (Vitamin D3) [Vitamin D] 2,000 unit PO DAILY 11/02/18 Vitamin B Complex [B Complex] 1 each PO DAILY 11/02/18 Amlodipine Besylate [Norvasc -] 5 mg PO BID 11/03/18 Lisinopril 10 mg PO BID 11/03/18 Review of Systems - Review of Systems Constitutional: denies: Chills, Fever, Night Sweats, Unintentional Wgt. Loss Eyes: denies: Recent Change in Vision HENT: reports: No Symptoms Neck: reports: No Symptoms Cardiovascular: reports: Chest Pain, Palpitations, Shortness of Breath Respiratory: denies: Cough, Hemoptysis Gastrointestinal: denies: Abdominal Pain, Nausea, Vomiting Genitourinary: reports: No Symptoms Musculoskeletal: reports: No Symptoms, Muscle Weakness Integumentary: reports: No Symptoms Neurological: reports: No Symptoms Endocrine: denies: Excessive Sweating Hematology/Lymphatic: denies: Easily Bruised, Excessive Bleeding Physical Exam Vital Signs: Vital Signs Temperature 98.2 F 11/03/18 06:56 Pulse Rate 90 11/03/18 06:56 Respiratory Rate 20 11/02/18 13:42 Blood Pressure 158/88 11/03/18 06:56 O2 Sat by Pulse Oximetry (%) 95 11/03/18 06:56 Constitutional: Yes: Well Nourished, No Distress Eyes: Yes: WNL HENT: Yes: Atraumatic Neck: Yes: WNL, Trachea Midline Cardiovascular: Yes: Regular Rate and Rhythm Respiratory: Yes: Regular, Tachypnea. No: Accessory Muscle Use Gastrointestinal: No: Distention Musculoskeletal: Yes: WNL Extremities: Yes: WNL Labs: CBC, BMP 11/03/18 06:25 11/03/18 06:00 Assessment/Plan Patient with reported anticardiolipin Ab positivity, possibly lupus anticoagulant, but with without prior history of thrombosis, or relevant -related complications, presents with symptoms suggestive of PE, and elevated D-dimer. Normal CXR. Not hypoxic. Unremarkable EKG. Unable to undergo CT angio - contrast allergy. Lower extremity dopplers negative. Agree with empiric anticoagulation pending VQ scan. Neutrophilia noted - ?from steroids. No other signs of sepsis. Technically cannot label this patient with APLS in absence of clinical component supportive of the diagnosis. Nevertheless, in light of Ab positivity can assume that her risk of thrombosis is relatively elevated, and so some degree of vigilance is warranted. Will await results of VQ scan.
[2018-11-03] MEDS: ENOXAPARIN NA (PORCINE) 80 MG/0.8 ML DISP.SYRIN SQ SCH ×2 (12:44→21:31)
[2018-11-03] MEDS: VITAMIN B COMPLEX W/C COMBO TABLET (FP) PO SCH (12:44)
[2018-11-03] MEDS: CHOLECALCIFEROL (VITAMIN D3) 1,000 UNIT TABLET (FP) PO SCH (12:44)
[2018-11-03] MEDS: ASPIRIN 81 MG CHEWABLE TABLETS PO SCH (12:44)
[2018-11-03] MEDS: amLODIPine BESYLATE 5 MG TABLET (FP) PO SCH ×2 (12:44→21:32)
[2018-11-03] MEDS: LISINOPRIL 10 MG TABLET (FP) PO SCH ×2 (12:44→21:32)
--- NOTE | 2018-11-03 15:18 | CON.PULM ---
Consult Consult Specialty:: PULMONARY Referred by:: CHRISTOPHER Reason for Consultation:: SOB - History of Present Illness Chief Complaint: SOB MINIMAL EXERTION History of Present Illness: 28F w/ pmhx of lupus, HTN, anti-phospholipid syndrome, kidney disease presents with shortness of breath that started at 8am today. She reports that she was walking up her 3 porch steps when she suddenly started feeling short of breath. She laid down to rest, but her symptoms persisted. She also reports associated L sided chest pain radiating to her jaw that had subsided only 20 min prior to the interview. Admits to heart palpitations, nausea, cold sweats, dizziness with hot flashes. She denies f/c, abd pain, urinary/bowel symptoms, vision changes, sick contacts. Pt states that when she gets a lupus flare, she feels a constitution of symptoms including everything she had been experiencing today, except for the shortness of breath. 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 No: Alzheimer's Cardio/Vascular: Yes: HTN, Hyperlipdemia. No: Pulmonary Hypertension Pulmonary: Yes: Pneumonia (in past). No: Asthma, COPD Renal/: Yes: Renal Inusuff, UTI, Other (lupus nephritis) ...LMP: 10/20/17 ...: No Heme/Onc: No: Anemia Rheumatology: Yes: Lupus - Past Surgical History Past Surgical History: Yes: Appendectomy, Tonsillectomy - Alcohol/Substance Use Hx Alcohol Use: No History of Substance Use: reports: None - Smoking History Smoking history: Never smoked Have you smoked in the past 12 months: No Aproximately how many cigarettes per day: 0 - Social History Usual Living Arrangement: With Spouse ADL: Independent Place of : [facility] History of Recent Travel: No Home Medications - Allergies Allergies/Adverse Reactions: Allergies Allergy/AdvReac Type Severity Reaction Status Date / Time clindamycin Allergy Severe ANAPHLACTIC Verified 11/02/18 20:15 REACTION doxycycline Allergy Severe ANAPHYLACTIC Verified 11/02/18 20:15 REACTION Penicillins Allergy Severe ANAPHYLACTIC Verified 11/02/18 20:15 REACTION shellfish derived Allergy Severe anaphylactic Verified 11/02/18 20:15 reaction SEAFOOD Allergy Severe ANAPHYLACTIC Uncoded 11/02/18 20:15 REACTION - Home Medications Home Medications: Ambulatory Orders Aspirin [ASA -] 81 mg PO DAILY #30 tab.chew 11/30/17 Cholecalciferol (Vitamin D3) [Vitamin D] 2,000 unit PO DAILY 11/02/18 Vitamin B Complex [B Complex] 1 each PO DAILY 11/02/18 Amlodipine Besylate [Norvasc -] 5 mg PO BID 11/03/18 Lisinopril 10 mg PO BID 11/03/18 Family Disease History - Family Disease History Family History: Unremarkable Review of Systems - Review of Systems Constitutional: reports: Lethargy. denies: Fever, Loss of Appetite Eyes: denies: Blurred Vision HENT: denies: Difficult Swallowing Neck: denies: Decreased ROM Cardiovascular: reports: Chest Pain, Palpitations, Shortness of Breath Respiratory: reports: Exercise Intolerance, SOB, SOB on Exertion. denies: Hemoptysis, Wheezing Gastrointestinal: denies: Abdominal Pain Physical Exam Vital Sings: Vital Signs Temperature 97.9 F 11/03/18 12:43 Pulse Rate 88 11/03/18 12:43 Respiratory Rate 18 11/03/18 12:43 Blood Pressure 133/80 11/03/18 12:43 O2 Sat by Pulse Oximetry (%) 98 11/03/18 12:43 Constitutional: Yes: Well Nourished, Calm Eyes: Yes: EOM Intact HENT: Yes: Normocephalic Neck: Yes: Trachea Midline Cardiovascular: Yes: Regular Rate and Rhythm Respiratory: Yes: CTA Bilaterally Gastrointestinal: Yes: Soft Edema: No Labs: CBC, BMP 11/03/18 06:25 11/03/18 06:00 Imaging - Results Chest X-ray: Report Reviewed, Image Reviewed Problem List - Problems (1) Dyspnea Code(s): R06.00 - DYSPNEA, UNSPECIFIED (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 Assessment/Plan LUPUS WITH ANTI-PHOSPHOLIPID SYNDROME ELEVATED D-DIMER WITH GARNER DENIES PLEURITIC CHEST PAIN/DOES NOT HAVE TACHYCARDIA/SPO2 98% ON ROOM AIR RECENT V/Q SCAN (05/2018) NEGATIVE FOR PE WITH SIMILAR SYMPTOMS LOW TO MODERATE INDEX OF SUSPICION FOR PE V/Q SCHEDULED FOR SUNDAY WOULD OBTAIN SPO2 PRE/POST AMB WILL FOLLOW Shamar BRYAN MD
[2018-11-04] MEDS ORDERED: hydrALAZINE HCL 20 MG/ML VIAL IVPUSH ONE (00:57)
[2018-11-04 01:48] VITALS: BMI 32.9
[2018-11-04 06:28] LABS: BASO % 0.9 % (0-2.0); EOS % 0.8 % (0-4.5); HEMATOCRIT 41.3 % (32.4-45.2); HEMOGLOBIN 13.9 GM/dL (10.7-15.3); LYMPH % 12.8 % (8-40); MCHC 33.6 g/dl (32.0-36.0); MEAN CELL VOLUME 89.4 fl (80-96); MEAN PLT VOLUME 9.1 fl (7.5-11.1); MONO % 4.9 % (3.8-10.2); NEUT % 80.6 % (42.8-82.8); PLATELET COUNT 354 K/MM3 (134-434); RBC 4.62 M/mm3 (3.60-5.2); RDW 12.7 % (11.6-15.6); WHITE BLOOD COUNT 20.2 K/mm3 (4.0-10.0)
[2018-11-04 07:31] LABS: ALBUMIN 1.9 g/dl (3.4-5.0); ALK PHOS 63 U/L (45-117); ANION GAP 8 MMOL/L (8-16); BILIRUBIN,TOTAL 0.6 mg/dL (0.2-1); BLOOD UREA NITROGEN 21 mg/dL (7-18); CALCIUM 7.8 mg/dL (8.5-10.1); CHLORIDE 112 mmol/L (98-107); CO2 22 mmol/L (21-32); CREATININE 1.3 mg/dL (0.55-1.3); GLUCOSE,RANDOM 98 mg/dL (74-106); POTASSIUM 3.9 mmol/L (3.5-5.1); SGOT/AST 19 U/L (15-37); SGPT/ALT 15 U/L (13-61); SODIUM 142 mmol/L (136-145); TOT PROT 4.4 g/dl (6.4-8.2)
[2018-11-04] MEDS ORDERED: LISINOPRIL 10 MG TABLET (FP) PO SCH (08:57)
[2018-11-04] MEDS ORDERED: ACETAMINOPHEN 325 MG TABLET (FP) PO PRN (09:17)
[2018-11-04] MEDS: LISINOPRIL 20 MG TABLET (FP) PO SCH ×2 (10:13→21:31)
[2018-11-04] MEDS: ASPIRIN 81 MG CHEWABLE TABLETS PO SCH (10:13)
[2018-11-04] MEDS: SODIUM CHLORIDE 1,000 ML IV SCH (10:14)
[2018-11-04] MEDS: amLODIPine BESYLATE 5 MG TABLET (FP) PO SCH ×2 (10:14→21:31)
[2018-11-04] MEDS: ENOXAPARIN NA (PORCINE) 80 MG/0.8 ML DISP.SYRIN SQ SCH ×2 (10:14→21:31)
[2018-11-04] MEDS: CHOLECALCIFEROL (VITAMIN D3) 1,000 UNIT TABLET (FP) PO SCH (10:14)
[2018-11-04 10:54] LABS: ANISOCYTOSIS 2+; MACROCYTOSIS 0; PLATELET ESTIMATE NORMAL; TEAR DROP CELLS 1+
[2018-11-04] MEDS: VITAMIN B COMPLEX W/C COMBO TABLET (FP) PO SCH (11:11)
--- NOTE | 2018-11-04 14:38 | PN ---
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 Assessment/Plan LUPUS WITH ANTI-PHOSPHOLIPID SYNDROME ELEVATED D-DIMER WITH GARNER DENIES PLEURITIC CHEST PAIN/DOES NOT HAVE TACHYCARDIA/SPO2 98% ON ROOM AIR RECENT V/Q SCAN (05/2018) NEGATIVE FOR PE WITH SIMILAR SYMPTOMS LOW TO MODERATE INDEX OF SUSPICION FOR PE V/Q SCHEDULED FOR SUNDAY WOULD OBTAIN SPO2 PRE/POST DESMOND BRYAN MD Problem List - Problems (1) Dyspnea Code(s): R06.00 - DYSPNEA, UNSPECIFIED (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
--- NOTE | 2018-11-04 14:49 | ECHO ---
Name: ROYAL FITZGERALD Exam:Adult Echocardiogram Study Date: 11/04/2018 09:58 AM Age: 28 yrs Reason For Study: SHORTNESS OF BREATH Height: 62 in Weight: 170 lb BSA: 1.8 m2 MMode/2D Measurements & Calculations IVSd: 0.74 cm Ao root diam: 2.8 cm LVIDd: 4.2 cm LA dimension: 2.6 cm LVIDs: 2.6 cm LVPWd: 0.74 cm EDV(Teich): 77.2 ml ESV(Teich): 25.5 ml Doppler Measurements & Calculations MV E max filiberto: 71.6 cm/sec MV A max filiberto: 55.8 cm/sec MV E/A: 1.3 MV dec time: 0.14 sec Procedure A complete two-dimensional transthoracic echocardiogram was performed (2D, M-mode, Doppler and color flow Doppler). Technically limited study. Left Ventricle The left ventricle is normal in size. Left ventricular systolic function is normal. Ejection Fraction = 60- 65%. No regional wall motion abnormalities noted. Right Ventricle The right ventricle is not well visualized. Atria The left atrial size is normal. Right atrial size is normal. Mitral Valve There is mild mitral annular calcification. There is trace mitral regurgitation. Tricuspid Valve The tricuspid valve is normal in structure and function. No tricuspid regurgitation. Aortic Valve The aortic valve is normal in structure and function. No aortic regurgitation is present. Pulmonic Valve The pulmonic valve is not well visualized. Trace pulmonic valvular regurgitation. Great Vessels The aortic root is normal size. Pericardium/Pleura There is no pericardial effusion. Interpretation Summary Technically limited study The left ventricle is normal in size. Left ventricular systolic function is normal. No regional wall motion abnormalities noted. Ejection Fraction = 60-65%. The right ventricle is not well visualized. The left atrial size is normal. Right atrial size is normal. There is mild mitral annular calcification. There is trace mitral regurgitation. Trace pulmonic valvular regurgitation. There is no pericardial effusion. Previous study is not available for comparison Willy Del Rio MD 11/04/2018 02:48 PM
[2018-11-04 15:32] LABS: URINE APPEARANCE SLCLOUDY; URINE BILIRUBIN NEGATIVE (<2.0 mg/dL); URINE COLOR LTYELLOW; URINE GLUCOSE (UA) NEGATIVE (NEGATIVE); URINE KETONE NEGATIVE (NEGATIVE); URINE LEUK ESTERASE NEGATIVE (NEGATIVE); URINE NITRITE NEGATIVE (NEGATIVE); URINE PROTEIN 3+ (NEGATIVE); URINE UROBILINOGEN NEGATIVE mg/dL (0.2-1.0)
[2018-11-04 15:51] LABS: EPI CELLS RARE /HPF (FEW); URINE BACTERIA RARE /hpf (NONE SEEN); URINE MUCUS RARE
--- NOTE | 2018-11-04 17:44 | CONSULT ---
Consult Consult Specialty:: Rheumatology - History of Present Illness History of Present Illness: 28 y/o female with history of HTN, membranous glomerulonephritis, questionable lupus and possible anti-phospholipid syndrome admitted with uncontrolled hypertension, shortness of breath and chest pain. The patient has a 10 year history of proteinuria. I saw her on in my office. At that time she had a 4 year history of mild skin rash in chest and she was otherwise asymptomatic. Laboratory work-up at that time revealed TOBIAS 1: 40 with speckled pattern and anti-cardiolipin IgG 26. Anticardiolipin IgM, anti -Sm, anti-MEDIA PLANNER / BUYER anti-DNAds, anti-histone, rheumatoid factor and RPR were all negative. Complement was normal (C3: 130, C4: 27 and CH50: 42). Since then the patient did not have a follow-up with me. Kidney biopsy (02/21/08) reported with membranous nephropathy stage 2. Not clear cut mesangial or subendothelial deposits were seen. The differential diagnosis included primary membranous nephropathy vs. a secondary form , such as autoimmune connective tissue disease, tumors, drugs and viral infections. No fibrin thrombi were seen and there was no significant chronic renal injury. 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 Immunofluorescence also showed mesangial deposits. At that time HCV , HBsAg and ANCA were negative and complement was normal. Laboratory work from 02/22/17 revealed anti-DNAds negative, anti-cardiolipin antibody IgG 57.1, IgM negative and [id number] IgG 23 and IgM negative. The patient reports that prior to the present onset of SOB she was asymptomatic. She denies skin rash, oral ulcers, hair loss, photosensitivity, dry eyes, dry mouth, Raynauds phenomenon or fever. She has never had episodes of thrombosis, during her she was treated with Lovanox and otherwise she has been treated with low dose aspirin. On admission her BP was 198/137. Duplex US was negative for DVT and echocardiogram was normal. Laboratory work-up of this admission revealed CBC with WBC 20.3, Hgb 13.9, platelets 354. ESR 67. Creatinine 1.3, urinalysis on admission with protein 3 + and no blood. Today with protein 3+ and blood 1+. 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 No: Alzheimer's Cardio/Vascular: Yes: HTN, Hyperlipdemia. No: Pulmonary Hypertension Pulmonary: Yes: Pneumonia (in past). No: Asthma, COPD Renal/: Yes: Renal Inusuff, UTI, Other (lupus nephritis) ...LMP: 10/20/17 ...: No Rheumatology: Yes: Lupus - Past Surgical History Past Surgical History: Yes: Appendectomy, Tonsillectomy - Alcohol/Substance Use Hx Alcohol Use: No History of Substance Use: reports: None - Smoking History Smoking history: Never smoked Have you smoked in the past 12 months: No Aproximately how many cigarettes per day: 0 - Social History Usual Living Arrangement: With Spouse ADL: Independent History of Recent Travel: No Home Medications - Allergies Allergies/Adverse Reactions: Allergies Allergy/AdvReac Type Severity Reaction Status Date / Time clindamycin Allergy Severe ANAPHLACTIC Verified 11/02/18 20:15 REACTION doxycycline Allergy Severe ANAPHYLACTIC Verified 11/02/18 20:15 REACTION Penicillins Allergy Severe ANAPHYLACTIC Verified 11/02/18 20:15 REACTION shellfish derived Allergy Severe anaphylactic Verified 11/02/18 20:15 reaction SEAFOOD Allergy Severe ANAPHYLACTIC Uncoded 11/02/18 20:15 REACTION - Home Medications Home Medications: Ambulatory Orders Aspirin [ASA -] 81 mg PO DAILY #30 tab.chew 11/30/17 Cholecalciferol (Vitamin D3) [Vitamin D] 2,000 unit PO DAILY 11/02/18 Vitamin B Complex [B Complex] 1 each PO DAILY 11/02/18 Amlodipine Besylate [Norvasc -] 5 mg PO BID 11/03/18 Lisinopril 10 mg PO BID 11/03/18 Review of Systems - Review of Systems Constitutional: reports: Malaise Physical Exam Vital Signs: Vital Signs Temperature 98.2 F 11/04/18 17:05 Pulse Rate 104 H 11/04/18 17:05 Respiratory Rate 18 11/04/18 17:05 Blood Pressure 150/94 11/04/18 17:05 O2 Sat by Pulse Oximetry (%) 98 11/04/18 16:05 Constitutional: Yes: No Distress Eyes: Yes: WNL HENT: Yes: WNL Neck: Yes: WNL Cardiovascular: Yes: WNL Respiratory: Yes: WNL Musculoskeletal: Yes: Other (No active joints.) Labs: CBC, BMP 11/04/18 05:35 11/04/18 05:35 Laboratory Tests 11/02/18 11/02/18 11/02/18 16:38 18:51 18:51 ESR D-Dimer 540 H Random Glucose Calcium Total Bilirubin AST ALT Alkaline Phosphatase Creatine Kinase 51 Troponin I C-Reactive Protein B-Natriuretic Peptide TSH 3.04 Urine Color Urine Appearance Urine pH Ur Specific [place] Urine Protein Urine Glucose (UA) Urine Ketones Urine Blood Urine Nitrite Urine Bilirubin Urine Urobilinogen Ur Leukocyte Esterase Urine WBC (Auto) Urine RBC (Auto) Ur Epithelial Cells Urine Bacteria 11/02/18 11/03/18 11/03/18 18:51 06:00 06:25 ESR 67 H D-Dimer Random Glucose Calcium Total Bilirubin AST ALT Alkaline Phosphatase Creatine Kinase Troponin I < 0.02 C-Reactive Protein 0.7 H B-Natriuretic Peptide 740.5 H TSH Urine Color Urine Appearance Urine pH Ur Specific [place] Urine Protein Urine Glucose (UA) Urine Ketones Urine Blood Urine Nitrite Urine Bilirubin Urine Urobilinogen Ur Leukocyte Esterase Urine WBC (Auto) Urine RBC (Auto) Ur Epithelial Cells Urine Bacteria 11/04/18 11/04/18 05:35 15:15 ESR D-Dimer Random Glucose 98 Calcium 7.8 L Total Bilirubin 0.6 AST 19 ALT 15 Alkaline Phosphatase 63 Creatine Kinase Troponin I C-Reactive Protein B-Natriuretic Peptide TSH Urine Color Ltyellow Urine Appearance Slcloudy Urine pH 5.0 Ur Specific [place] 1.014 Urine Protein 3+ H Urine Glucose (UA) Negative Urine Ketones Negative Urine Blood 1+ H Urine Nitrite Negative Urine Bilirubin Negative Urine Urobilinogen Negative Ur Leukocyte Esterase Negative Urine WBC (Auto) 3 Urine RBC (Auto) 2 Ur Epithelial Cells Rare Urine Bacteria Rare Problem List - Problems (1) Connective tissue disease Assessment/Plan: The patient has membranous glomerulonephritis. The glomerulonephritis can be primary or secondary, i.e to lupus, however she does not have serologic changes or other organ involvement indicative of lupus. She has anti-cardiolipin and beta-2 glycoprotein antibodies, I don't have records of lupus anticoagulant. She does not have history of thrombosis and the renal pathology is NOT suggestive of nephropathy related to anti-phospholipid syndrome. In summary, At this point the patient does NOT have criteria for the diagnosis of lupus or antiphospholipid syndrome. Her admission was related to uncontrolled hypertension. Plan: Lupus anticoagulant. 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 Code(s): N05.2 - UNSP NEPHRITIC SYNDROME W DIFFUSE MEMBRANOUS GLOMRLNEPH
--- NOTE | 2018-11-04 18:23 | PN ---
Progress Note (short form) - Note Progress Note: PROGRESS NOTE: HEMATOLOGY-ONCOLOGY. Still feels unwell attributing it to her labile BP. denies sob, chest pain, fevers, n/v. extensive work-up with 2 renal biopsies, seen by Dr. Roy in the past and well as Dr. Hopson recently, evaluated at [facility] in past but was told on previous rheumatological evaluation that she does not have Lupus. Initial renal biopsy at 18yrs of age with monoclonal IgG1 kappa deposits with normal complement. repeat in 2018 without mesangial or subendohelial deposits. Vital Signs Temperature 98.2 F 11/04/18 17:05 Pulse Rate 104 H 11/04/18 17:05 Respiratory Rate 18 11/04/18 17:05 Blood Pressure 150/94 11/04/18 17:05 O2 Sat by Pulse Oximetry (%) 98 11/04/18 16:05 Pe: NAD, no facial rash no oral lesions CTAB s1, s2 abd soft nontender no LE edema CBCD WBC 20.2 K/mm3 (4.0-10.0) H 11/04/18 05:35 RBC 4.62 M/mm3 (3.60-5.2) 11/04/18 05:35 Hgb 13.9 GM/dL (10.7-15.3) 11/04/18 05:35 Hct 41.3 % (32.4-45.2) 11/04/18 05:35 MCV 89.4 fl (80-96) 11/04/18 05:35 MCHC 33.6 g/dl (32.0-36.0) 11/04/18 05:35 RDW 12.7 % (11.6-15.6) 11/04/18 05:35 Plt Count 354 K/MM3 (134-434) 11/04/18 05:35 MPV 9.1 fl (7.5-11.1) 11/04/18 05:35 CMP Sodium 142 mmol/L (136-145) 11/04/18 05:35 Potassium 3.9 mmol/L (3.5-5.1) 11/04/18 05:35 Chloride 112 mmol/L (98-107) H 11/04/18 05:35 Carbon Dioxide 22 mmol/L (21-32) 11/04/18 05:35 Anion Gap 8 MMOL/L (8-16) 11/04/18 05:35 BUN 21 mg/dL (7-18) H 11/04/18 05:35 Creatinine 1.3 mg/dL (0.55-1.3) 11/04/18 05:35 Creat Clearance w eGFR 48.77 (>60) 11/04/18 05:35 Calcium 7.8 mg/dL (8.5-10.1) L 11/04/18 05:35 Total Bilirubin 0.6 mg/dL (0.2-1) 11/04/18 05:35 AST 19 U/L (15-37) 11/04/18 05:35 ALT 15 U/L (13-61) 11/04/18 05:35 Alkaline Phosphatase 63 U/L (45-117) 11/04/18 05:35 Total Protein 4.4 g/dl (6.4-8.2) L 11/04/18 05:35 Albumin 1.9 g/dl (3.4-5.0) L 11/04/18 05:35 28 yr old woman with anticardiolipin Ab positivity presents with SOB admitted for r/o PE. Problem List: Anticardiolipin Ab positivity Proteinuria r/o PE (unable to complete CTA due to contrast allergy, le DVT neg) A/P pt feels that she has not been provided with a clear diagnosis or plan for her condition after being evaluated by multiple physicians, she is not on steriods. She is under the care a Functional Medicine practioner who placed her on a "wholistic care plan," including "whole diet" appears that her renal biopsies and immunological testing may point to an unsual or rare case, recommended she follow with [facility] for her renal findings and Myeloma Specialist at [facility] for w/u monoclonal gammapathy findings Continue with Lovenox empirically until V/Q can be completed as pt's hx of antiphospholipid ab+ can assume her risk of thrombosis is elevated. Leucocytosis, elevated BP, elevated ESR may indicate flare recommend nephrology evaluation
--- NOTE | 2018-11-04 18:26 | PN ---
Teaching Attending Note Name of Resident: Haylee Buitrago ATTENDING PHYSICIAN STATEMENT I saw and evaluated the patient. I reviewed the resident's note and discussed the case with the resident. I agree with the resident's findings and plan as documented. ASSESSMENT AND PLAN: 28 y/o female with h/o glomerulonephritis with most recent biopsy in 2016 with IgG monoclonal deposits. Patient has seen multiple nephrologists and rheumatologists in past. Immunosppression was recommended PAtient has been under alternative medicine treatments Now with labile HTN, proteinuria, came in with SOB V/Q pending On empiric anticoagulation f/u antiphospholipid panel consult nephrology/rheumatology Recommended that she contimure to follow closely with nephro/rheum
--- NOTE | 2018-11-04 18:46 | PN ---
Physical Exam: SUBJECTIVE: Patient seen and examined at the bedside. In no acute distress, no chest pain, no shortness of breath. Having right flank pain. OBJECTIVE: leukocytosis, blood cultures sent ID consulted VQ scan per pulm. pending Vital Signs Period Temp Pulse Resp BP Sys/Sanders Pulse Ox Last 24 Hr 97.3 F-98.7 F 81-112 16-20 129-164/90-123 97-98 GENERAL: The patient is awake, alert, and fully oriented, in no acute distress. HEAD: Normal with no signs of trauma. EYES: PERRL, extraocular movements intact, sclera anicteric, conjunctiva clear. No ptosis. ENT: Ears normal, nares patent, oropharynx clear without exudates NECK: Trachea midline, full range of motion, supple. LUNGS: Breath sounds equal, clear to auscultation bilaterally, no wheezes, no crackles HEART: Regular rate and rhythm ABDOMEN: Soft, nontender, nondistended, normoactive bowel sounds, no guarding, no rebound, no hepatosplenomegaly, no masses. EXTREMITIES: non pitting bilateral edema NEUROLOGICAL: Normal speech, gait not observed. PSYCH: Normal mood, normal affect. SKIN: Warm, dry, normal turgor, no rashes or lesions noted Laboratory Results - last 24 hr 11/04/18 11/04/18 11/04/18 05:35 05:35 15:15 WBC 20.2 H RBC 4.62 Hgb 13.9 Hct 41.3 MCV 89.4 MCH 30.0 MCHC 33.6 RDW 12.7 Plt Count 354 MPV 9.1 Absolute Neuts (auto) 16.3 H Neutrophils % 80.6 Neutrophils % (Manual) 86.9 H Band Neutrophils % 0.0 Lymphocytes % 12.8 D Lymphocytes % (Manual) 3.0 L Monocytes % 4.9 Monocytes % (Manual) 3 L Eosinophils % 0.8 Eosinophils % (Manual) 1.0 Basophils % 0.9 Basophils % (Manual) 0.0 Myelocytes % (Man) 0 Promyelocytes % (Man) 0 Blast Cells % (Manual) 0 Nucleated RBC % 0 Metamyelocytes 0 Hypochromia 0 Platelet Estimate Normal Platelet Comment Present Polychromasia 0 Poikilocytosis 0 Anisocytosis 2+ Microcytosis 0 Macrocytosis 0 Spherocytes 1+ Tear Drop Cells 1+ Sodium 142 Potassium 3.9 Chloride 112 H Carbon Dioxide 22 Anion Gap 8 BUN 21 H Creatinine 1.3 Creat Clearance w eGFR 48.77 Random Glucose 98 Calcium 7.8 L Total Bilirubin 0.6 AST 19 ALT 15 Alkaline Phosphatase 63 Total Protein 4.4 L Albumin 1.9 L Urine Color Urine Appearance Urine pH Ur Specific [place] Urine Protein Urine Glucose (UA) Urine Ketones Urine Blood Urine Nitrite Urine Bilirubin Urine Urobilinogen Ur Leukocyte Esterase Urine WBC (Auto) Urine RBC (Auto) Ur Epithelial Cells Urine Bacteria Urine Mucus U Random Total Protein 396.0 H Urine Creatinine 11/04/18 11/04/18 15:15 15:15 WBC RBC Hgb Hct MCV MCH MCHC RDW Plt Count MPV Absolute Neuts (auto) Neutrophils % Neutrophils % (Manual) Band Neutrophils % Lymphocytes % Lymphocytes % (Manual) Monocytes % Monocytes % (Manual) Eosinophils % Eosinophils % (Manual) Basophils % Basophils % (Manual) Myelocytes % (Man) Promyelocytes % (Man) Blast Cells % (Manual) Nucleated RBC % Metamyelocytes Hypochromia Platelet Estimate Platelet Comment Polychromasia Poikilocytosis Anisocytosis Microcytosis Macrocytosis Spherocytes Tear Drop Cells Sodium Potassium Chloride Carbon Dioxide Anion Gap BUN Creatinine Creat Clearance w eGFR Random Glucose Calcium Total Bilirubin AST ALT Alkaline Phosphatase Total Protein Albumin Urine Color Ltyellow Urine Appearance Slcloudy Urine pH 5.0 Ur Specific [place] 1.014 Urine Protein 3+ H Urine Glucose (UA) Negative Urine Ketones Negative Urine Blood 1+ H Urine Nitrite Negative Urine Bilirubin Negative Urine Urobilinogen Negative Ur Leukocyte Esterase Negative Urine WBC (Auto) 3 Urine RBC (Auto) 2 Ur Epithelial Cells Rare Urine Bacteria Rare Urine Mucus Rare U Random Total Protein Urine Creatinine 120.0 H Active Medications Generic Name Dose Route Start Last Admin Trade Name Freq PRN Reason Stop Dose Admin Acetaminophen 650 mg 11/04/18 09:17 Tylenol - PO Q6H PRN PAIN LEVEL 4 - 6 Amlodipine Besylate 5 mg 11/03/18 10:00 11/04/18 10:14 Norvasc - PO 5 mg BID SAMMIE Administration Aspirin 81 mg 11/03/18 10:00 11/04/18 10:13 Asa - PO 81 mg DAILY SAMMIE Administration Cholecalciferol 2,000 unit 11/03/18 10:00 11/04/18 10:14 Vitamin D3 - PO 2,000 unit DAILY SAMMIE Administration Enoxaparin Sodium 80 mg 11/03/18 10:00 11/04/18 10:14 Lovenox - SQ 80 mg BID SAMMIE Administration Sodium Chloride 1,000 mls @ 75 mls/hr 11/03/18 08:30 11/04/18 10:14 Normal Saline - IV Not Given ASDIR SAMMIE Lisinopril 20 mg 11/04/18 09:02 11/04/18 10:13 Prinivil PO 20 mg BID SAMMIE Administration Multivitamins 1 each 11/03/18 10:00 11/04/18 11:11 Total B With C - PO Not Given DAILY SAMMIE ASSESSMENT/PLAN: Patient is a 28 year old female with a past medical history of possible SLE, HTN, anti-phospholipid syndrome and kidney disease. She presents with shortness of breath that started at home when going up 4 steps. Patient d dimer was noted to be elevated on admission. Although her shortness of breath has resolved, she will need a VQ scan to rule out PE. She is currently being treated with Lovenox BID. Pulm: Shortness of breath, Rule out PE Elevated D dimer and antiphospholipid a/b Unable to get CTA 2/2 to kidney disease and shellfish allergy. Will need vq scan. VQ scan per Pulmonary No tachycardia, not short of breath, echo: right atrial size normal, ef 60-65%, trace mr, no pericardial effusion Lovenox 80mg bid until PE can be ruled out. Heme consulted and following Pulmonary consulted for vq scan : Right flank pain kidney u/s without acute process. ua with +3 protein UC pending neprhrologist consulted by [facility]. Rheum: Possible Lupus Patient is not taking any medications for lupus. She is seeking alternative medicine at this time. Rheumatology consulted, notes reviewed. Nephrology consulted. Leukocytosis Leukocytosis @ 20 No fevers, no signs of infection. Blood cultures pending Patient with immnocompromised state, ID consulted. Monitor vitals signs. Card: Hypertension. uncontrolled On Lisinopril bid 10mg bid, amlodopine 5mg bid. Patient states her BP has been elevated at home and her medications have been adjusted recently Overnight she was given hydralazine for bp control Will increase lisinopril 20mg bid and monitor. Consider cardiology consult if bp remains elevated. Chest pain, resolved Echo ordered, No further chest pain. Troponins negative. fen hydration with NS monitor electrolytes low salt diet prophy lovenox bid Visit type - Emergency Visit Emergency Visit: Yes ED Registration Date: 11/02/18 Care time: The patient presented to the Emergency Department on the above date and was hospitalized for further evaluation of their emergent condition. - New Patient This patient is new to me today: No - Critical Care Critical Care patient: No - Discharge Referral Referred to [facility] No
[2018-11-05 08:30] LABS: BASO % 0.9 % (0-2.0); HEMATOCRIT 42.3 % (32.4-45.2); LYMPH % 22.3 % (8-40); MCH 29.8 pg (25.7-33.7); MCHC 33.2 g/dl (32.0-36.0); MEAN CELL VOLUME 89.8 fl (80-96); MEAN PLT VOLUME 9.3 fl (7.5-11.1); MONO % 6.5 % (3.8-10.2); NEUT % 66.3 % (42.8-82.8); PLATELET COUNT 347 K/MM3 (134-434); RBC 4.71 M/mm3 (3.60-5.2); RDW 12.7 % (11.6-15.6); WHITE BLOOD COUNT 9.6 K/mm3 (4.0-10.0)
[2018-11-05 08:59] LABS: ALK PHOS 61 U/L (45-117); ANION GAP 9 MMOL/L (8-16); BILIRUBIN,TOTAL 0.6 mg/dL (0.2-1); BLOOD UREA NITROGEN 17 mg/dL (7-18); CALCIUM 7.7 mg/dL (8.5-10.1); CHLORIDE 109 mmol/L (98-107); CO2 23 mmol/L (21-32); CREATININE 1.2 mg/dL (0.55-1.3); GLUCOSE,RANDOM 75 mg/dL (74-106); MAGNESIUM 2.2 mg/dL (1.8-2.4); POTASSIUM 3.9 mmol/L (3.5-5.1); SGOT/AST 24 U/L (15-37); SGPT/ALT 21 U/L (13-61); SODIUM 140 mmol/L (136-145); TOT PROT 4.4 g/dl (6.4-8.2)
[2018-11-05] MEDS ORDERED: PT OWN MED DRAWER 7, Y5N ONE (09:16)
--- NOTE | 2018-11-05 11:00 | CONSULT ---
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 Pt had first renal biopsy in 2007 that showed membrenous nephropathy that was primary or secondary she had a positive TOBIAS and Anti-DS DNA. Pt had refused immnosuppression at that time. 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 She had been following with Dr. Roy as an outpatient who had recommended immunosupressive Tx but pt did not want to pursue that at this time. This admission BP has been up and down and Lisinpirl had been titrated up. She currently feels better. No CP or sob. No fever or chills. No N/V/D. PMhx: as above Allergies: NKDA Family Hx: NC Social Hx: No T/A/D ROS: as per HPI Home Medications Medication Instructions Recorded Aspirin [ASA -] 81 mg PO DAILY #30 tab.chew 11/30/17 Cholecalciferol (Vitamin D3) 2,000 unit PO DAILY 11/02/18 [Vitamin D] Vitamin B Complex [B Complex] 1 each PO DAILY 11/02/18 Amlodipine Besylate [Norvasc -] 5 mg PO BID 11/03/18 Lisinopril 10 mg PO BID 11/03/18 Vital Signs Temperature 98.6 F 11/05/18 10:58 Pulse Rate 83 11/05/18 10:58 Respiratory Rate 16 11/05/18 10:58 Blood Pressure 171/112 H 11/05/18 10:58 O2 Sat by Pulse Oximetry (%) 98 11/04/18 20:00 Intake & Output 11/02/18 11/03/18 11/04/18 11/05/18 23:59 23:59 23:59 23:59 Intake Total 2550 Balance 2550 Weight 77.111 kg 81.647 kg NAD awake and alert neck supple, no JVD RRR, No M/R CTA, no rales or wheeze soft NT/ND no LE edema, clubbing or edema CBC, BMP 11/05/18 06:23 11/05/18 06:23 Current Medications Acetaminophen (Tylenol -) 650 mg PO Q6H PRN PRN Reason: PAIN LEVEL 4 - 6 Amlodipine Besylate (Norvasc -) 5 mg PO BID [facility] Last Admin: 11/05/18 11:04 Dose: 5 mg Aspirin (Asa -) 81 mg PO DAILY [facility] Last Admin: 11/05/18 11:04 Dose: 81 mg Cholecalciferol (Vitamin D3 -) 2,000 unit PO DAILY [facility] Last Admin: 11/05/18 11:04 Dose: 2,000 unit Enoxaparin Sodium (Lovenox -) 80 mg SQ BID [facility] Last Admin: 11/05/18 11:04 Dose: 80 mg Sodium Chloride (Normal Saline -) 1,000 mls @ 75 mls/hr IV ASDIR [facility] Last Admin: 11/05/18 11:03 Dose: Not Given Lisinopril (Prinivil) 20 mg PO BID [facility] Last Admin: 11/05/18 11:04 Dose: 20 mg Multivitamins (Total B With C -) 1 each PO DAILY [facility] Last Admin: 11/05/18 11:05 Dose: 1 each 28 year old woman with hx of CKD, 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 #Hypertensive urgency/emergency #MARIBEL on CKD #CKD #Membrenous nephropathy with proteinuria BP showed improvement with lisinpril 20mg BID and Amlodipine 5mg BID Goal BP is < 130/80 given ckd and proteinuria Can consider addition of BB or diuretic such as HCTZ if BP remains above gaol Renal function is now improved however Cr of 1.2 still represents decrease in function for a young woman and corresponds with CKD Pt with established diagnosis of membrenous nephropathy, tx consists of varying degrees of immunosuppression however pt does not want to do that at this time and wants to use holistic and dietary methods to improve her disease process. The implications of continued high amounts of proteinuira were explained to the patient such as worsening CKD and potential of ESRD. Will need to discuss case with Dr. Roy who had been following her for some time. Pt advised to follow up with glomerulonephritis specialists in [facility] as an outpatient to get a second opinion and more information regarding treatment options. Thank you Will follow Taz Buenrostro DO
[2018-11-05] MEDS: SODIUM CHLORIDE 1,000 ML IV SCH (11:03)
[2018-11-05] MEDS: ENOXAPARIN NA (PORCINE) 80 MG/0.8 ML DISP.SYRIN SQ SCH ×2 (11:04→21:44)
[2018-11-05] MEDS: LISINOPRIL 20 MG TABLET (FP) PO SCH ×2 (11:04→21:44)
[2018-11-05] MEDS: ASPIRIN 81 MG CHEWABLE TABLETS PO SCH (11:04)
[2018-11-05] MEDS: amLODIPine BESYLATE 5 MG TABLET (FP) PO SCH ×2 (11:04→21:44)
[2018-11-05] MEDS: CHOLECALCIFEROL (VITAMIN D3) 1,000 UNIT TABLET (FP) PO SCH (11:04)
[2018-11-05] MEDS: VITAMIN B COMPLEX W/C COMBO TABLET (FP) PO SCH (11:05)
--- NOTE | 2018-11-05 11:14 | PN ---
Progress Note (short form) - Note Progress Note: PULMONARY APPEARS STABLE OFFERS NO COMPLAINTS VSS/ANICTERIC CHEST CLEAR S1S2 BS+ NO EDEMA V/Q PENDINGFOR TOMORROW (1) Dyspnea Code(s): R06.00 - DYSPNEA, UNSPECIFIED (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 Assessment/Plan LUPUS WITH ANTI-PHOSPHOLIPID SYNDROME ELEVATED D-DIMER WITH GARNER DENIES PLEURITIC CHEST PAIN/DOES NOT HAVE TACHYCARDIA/SPO2 98% ON ROOM AIR RECENT V/Q SCAN (05/2018) NEGATIVE FOR PE WITH SIMILAR SYMPTOMS LOW TO MODERATE INDEX OF SUSPICION FOR PE V/Q SCHEDULED FOR SUNDAY SPO2 PRE/POST AMB IS NORMAL Shamar BRYAN MD Problem List - Problems (1) Dyspnea Code(s): R06.00 - DYSPNEA, UNSPECIFIED (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
[2018-11-05] MEDS ORDERED: LABETALOL HCL 100 MG TABLET (FP) PO ONE (14:01)
--- NOTE | 2018-11-05 14:31 | PN ---
Progress Note (short form) - Note Progress Note: Subjective: no cp , no SOB , no fever or chills. no HU , no weakness, numbness or tingling. no visual changes Objective: Vital Signs: Last Vital Signs Temp Pulse Resp BP Pulse Ox 98.6 F 92 H 16 141/112 H 98 11/05/18 10:58 11/05/18 12:41 11/05/18 10:58 11/05/18 12:41 11/04/18 20:00 Laboratory Results - last 24 hr 11/04/18 11/04/18 11/04/18 15:15 15:15 15:15 WBC RBC Hgb Hct MCV MCH MCHC RDW Plt Count MPV Absolute Neuts (auto) Neutrophils % Lymphocytes % Monocytes % Eosinophils % Basophils % Nucleated RBC % Sodium Potassium Chloride Carbon Dioxide Anion Gap BUN Creatinine Creat Clearance w eGFR Random Glucose Calcium Magnesium Total Bilirubin AST ALT Alkaline Phosphatase Total Protein Albumin Urine Color Ltyellow Urine Appearance Slcloudy Urine pH 5.0 Ur Specific [place] 1.014 Urine Protein 3+ H Urine Glucose (UA) Negative Urine Ketones Negative Urine Blood 1+ H Urine Nitrite Negative Urine Bilirubin Negative Urine Urobilinogen Negative Ur Leukocyte Esterase Negative Urine WBC (Auto) 3 Urine RBC (Auto) 2 Ur Epithelial Cells Rare Urine Bacteria Rare Urine Mucus Rare U Random Total Protein 396.0 H Urine Creatinine 120.0 H 11/05/18 11/05/18 06:23 06:23 WBC 9.6 RBC 4.71 Hgb 14.0 Hct 42.3 MCV 89.8 MCH 29.8 MCHC 33.2 RDW 12.7 Plt Count 347 MPV 9.3 Absolute Neuts (auto) 6.3 Neutrophils % 66.3 Lymphocytes % 22.3 D Monocytes % 6.5 Eosinophils % 4.0 D Basophils % 0.9 Nucleated RBC % 0 Sodium 140 Potassium 3.9 Chloride 109 H Carbon Dioxide 23 Anion Gap 9 BUN 17 Creatinine 1.2 Creat Clearance w eGFR 53.49 Random Glucose 75 Calcium 7.7 L Magnesium 2.2 Total Bilirubin 0.6 AST 24 ALT 21 Alkaline Phosphatase 61 Total Protein 4.4 L Albumin 2.0 L Urine Color Urine Appearance Urine pH Ur Specific [place] Urine Protein Urine Glucose (UA) Urine Ketones Urine Blood Urine Nitrite Urine Bilirubin Urine Urobilinogen Ur Leukocyte Esterase Urine WBC (Auto) Urine RBC (Auto) Ur Epithelial Cells Urine Bacteria Urine Mucus U Random Total Protein Urine Creatinine Physical Exam: NAD CV: RRr Lungs: CTAB abd soft, NT, ND ,NL BS Ext : no edema . no erythema . tenderness in L calf Assessment/Plan: 28 y/o lady with h/o nephrotic syndrome, membranous nephropathy, HTN, antiphospholipid syndrome, suspected Lupus, and other medical problems who presented with cp . she was found tohave severe elevation in her BP 1- HTN emergency. with MOOKIE . - cont norvasc 5 mg BID , and lisinoprol 20 BId. - dc IVF - Bp is still npt controlled. give one mg of labetalol and start BID dosing of 100 mg 2- SOB: resolved, no tachycardia. no hypotension , and no pleuritic pain . US of LE with no DVT - cont empiric lovenox - VQ pending - echo reviewed 3- Mookie : resolved . dc IVF 4- Leukocytosis : no evidence of infection . No abx 5- h/o possible lupus, follow as out pt d/w patient and Visit type - Emergency Visit Emergency Visit: Yes ED Registration Date: 11/02/18 Care time: The patient presented to the Emergency Department on the above date and was hospitalized for further evaluation of their emergent condition. - New Patient This patient is new to me today: Yes Date on this admission: 11/05/18 - Critical Care Critical Care patient: No
--- NOTE | 2018-11-05 18:08 | PN ---
Progress Note (short form) - Note Progress Note: Patient seen in follow up. No new complaints. Says her breathlessness is now resolved, now that her BP is controlled. Inpatient Meds reviewed. Current Medications Generic Name Dose Route Start Last Admin Trade Name Frejuan jose PRN Reason Stop Dose Admin Acetaminophen 650 mg 11/04/18 09:17 Tylenol - PO Q6H PRN PAIN LEVEL 4 - 6 Amlodipine Besylate 5 mg 11/03/18 10:00 11/05/18 11:04 Norvasc - PO 5 mg BID SAMMIE Administration Aspirin 81 mg 11/03/18 10:00 11/05/18 11:04 Asa - PO 81 mg DAILY SAMMIE Administration Cholecalciferol 2,000 unit 11/03/18 10:00 11/05/18 11:04 Vitamin D3 - PO 2,000 unit DAILY SAMMIE Administration Enoxaparin Sodium 80 mg 11/03/18 10:00 11/05/18 11:04 Lovenox - SQ 80 mg BID SAMMIE Administration Labetalol HCl 100 mg 11/05/18 22:00 Normodyne - PO BID SAMMIE Lisinopril 20 mg 11/04/18 09:02 11/05/18 11:04 Prinivil PO 20 mg BID SAMMIE Administration Multivitamins 1 each 11/03/18 10:00 11/05/18 11:05 Total B With C - PO 1 each DAILY SAMMIE Administration On Examination: Last Vital Signs Temp Pulse Resp BP Pulse Ox 98.1 F 92 H 18 143/86 98 11/05/18 16:00 11/05/18 16:00 11/05/18 16:00 11/05/18 16:00 11/05/18 12:00 General: In no acute distress, sitting next to bed. Extremities: No pallor or icterus. No pedal edema. No palpable lymphadenopathy. Chest: breathing comfortably Abdomen: Non-distended, non-tender, no palpable organomegaly. Neuro: Alert, oriented, non-focal. Labs: CBC, BMP 11/05/18 06:23 11/05/18 06:23 Assessment. Patient with reported anticardiolipin Ab positivity, possibly lupus anticoagulant, but with without prior history of thrombosis, or relevant -related complications, presents with symptoms suggestive of PE, and elevated D-dimer. Normal CXR. Not hypoxic. Unremarkable EKG. Unable to undergo CT angio - contrast allergy. Lower extremity dopplers negative. Agree with empiric anticoagulation pending VQ scan. Neutrophilia noted - ?from steroids. No other signs of sepsis. Technically cannot label this patient with APLS in absence of clinical component supportive of the diagnosis. Nevertheless, in light of Ab positivity can assume that her risk of thrombosis is relatively elevated, and so some degree of vigilance is warranted. Will await results of VQ scan.
[2018-11-05] MEDS: LABETALOL HCL 100 MG TABLET (FP) PO SCH (21:44)
[2018-11-06 06:22] LABS: BASO % 0.8 % (0-2.0); EOS % 4.7 % (0-4.5); HEMATOCRIT 40.5 % (32.4-45.2); HEMOGLOBIN 13.8 GM/dL (10.7-15.3); MCH 30.4 pg (25.7-33.7); MEAN CELL VOLUME 89.3 fl (80-96); MONO % 6.8 % (3.8-10.2); NEUT % 65.7 % (42.8-82.8); PLATELET COUNT 320 K/MM3 (134-434); RBC 4.53 M/mm3 (3.60-5.2); RDW 12.6 % (11.6-15.6); WHITE BLOOD COUNT 9.3 K/mm3 (4.0-10.0)
[2018-11-06 06:48] LABS: ANION GAP 7 MMOL/L (8-16); BLOOD UREA NITROGEN 14 mg/dL (7-18); CALCIUM 7.5 mg/dL (8.5-10.1); CHLORIDE 111 mmol/L (98-107); CO2 24 mmol/L (21-32); CREATININE 1.1 mg/dL (0.55-1.3); GLUCOSE,RANDOM 89 mg/dL (74-106); POTASSIUM 3.9 mmol/L (3.5-5.1); SODIUM 142 mmol/L (136-145)
[2018-11-06] MEDS ORDERED: PT OWN MED DRAWER 7, Y5N ONE (09:23)
[2018-11-06] MEDS: CHOLECALCIFEROL (VITAMIN D3) 1,000 UNIT TABLET (FP) PO SCH (09:28)
[2018-11-06] MEDS: ENOXAPARIN NA (PORCINE) 80 MG/0.8 ML DISP.SYRIN SQ SCH (09:28)
[2018-11-06] MEDS: VITAMIN B COMPLEX W/C COMBO TABLET (FP) PO SCH (09:28)
[2018-11-06] MEDS: amLODIPine BESYLATE 5 MG TABLET (FP) PO SCH (09:28)
[2018-11-06] MEDS: LISINOPRIL 20 MG TABLET (FP) PO SCH (09:28)
[2018-11-06] MEDS: LABETALOL HCL 100 MG TABLET (FP) PO SCH (09:28)
[2018-11-06] MEDS: ASPIRIN 81 MG CHEWABLE TABLETS PO SCH (09:28)
[2018-11-06] MEDS ORDERED: POTASSIUM CHLORIDE TABS 20 MEQ TABLET.ER (FP) PO ONE (10:00)
--- NOTE | 2018-11-06 11:11 | PN ---
Progress Note (short form) - Note Progress Note: PULMONARY Denies shortness of breath or chest pain. Saturating 99% on room air. Vital Signs Period Temp Pulse Resp BP Sys/Sanders Pulse Ox Last 24 Hr 97.8 F-98.2 F 74-92 18-18 139-151/81-115 98-98 Gen: NAD at rest Heart: RRR Lung: decreased breath sounds at the bases Abd: soft, nontender Ext: no edema CBC, BMP 11/06/18 05:30 11/06/18 05:30 Active Medications Acetaminophen (Tylenol -) 650 mg PO Q6H PRN PRN Reason: PAIN LEVEL 4 - 6 Amlodipine Besylate (Norvasc -) 5 mg PO BID [facility] Last Admin: 11/06/18 09:28 Dose: 5 mg Aspirin (Asa -) 81 mg PO DAILY [facility] Last Admin: 11/06/18 09:28 Dose: 81 mg Cholecalciferol (Vitamin D3 -) 2,000 unit PO DAILY [facility] Last Admin: 11/06/18 09:28 Dose: 2,000 unit Enoxaparin Sodium (Lovenox -) 80 mg SQ BID [facility] Last Admin: 11/06/18 09:28 Dose: 80 mg Labetalol HCl (Normodyne -) 100 mg PO BID [facility] Last Admin: 11/06/18 09:28 Dose: 100 mg Lisinopril (Prinivil) 20 mg PO BID [facility] Last Admin: 11/06/18 09:28 Dose: 20 mg Multivitamins (Total B With C -) 1 each PO DAILY [facility] Last Admin: 11/06/18 09:28 Dose: 1 each A/P Hypertensive Urgency Acute on Chronic Renal Failure Membranous Nephropathy r/o SLE - on empiric anticoagulation - for V/Q scan - can d/c anticoagulation if V/Q scan low probability
--- NOTE | 2018-11-06 12:13 | PN ---
Progress Note (short form) - Note Progress Note: Renal follow up for CKD Pt seen and examined at the bedside awake and alert no acute complaints bp better overnight Vital Signs Temperature 98.0 F 11/06/18 10:00 Pulse Rate 92 H 11/06/18 10:00 Respiratory Rate 18 11/06/18 10:00 Blood Pressure 132/93 11/06/18 10:00 O2 Sat by Pulse Oximetry (%) 98 11/06/18 04:00 Intake & Output 11/03/18 11/04/18 11/05/18 11/06/18 23:59 23:59 23:59 23:59 Intake Total 2550 320 Balance 2550 320 Weight 81.647 kg NAD trace edema in LE CBC, BMP 11/06/18 05:30 11/06/18 05:30 Current Medications Acetaminophen (Tylenol -) 650 mg PO Q6H PRN PRN Reason: PAIN LEVEL 4 - 6 Amlodipine Besylate (Norvasc -) 5 mg PO BID [facility] Last Admin: 11/06/18 09:28 Dose: 5 mg Aspirin (Asa -) 81 mg PO DAILY [facility] Last Admin: 11/06/18 09:28 Dose: 81 mg Cholecalciferol (Vitamin D3 -) 2,000 unit PO DAILY [facility] Last Admin: 11/06/18 09:28 Dose: 2,000 unit Enoxaparin Sodium (Lovenox -) 80 mg SQ BID [facility] Last Admin: 11/06/18 09:28 Dose: 80 mg Labetalol HCl (Normodyne -) 100 mg PO BID [facility] Last Admin: 11/06/18 09:28 Dose: 100 mg Lisinopril (Prinivil) 20 mg PO BID [facility] Last Admin: 11/06/18 09:28 Dose: 20 mg Multivitamins (Total B With C -) 1 each PO DAILY [facility] Last Admin: 11/06/18 09:28 Dose: 1 each 28 year old woman with hx of CKD, 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 #Hypertensive urgency/emergency #MARIBEL on CKD #CKD #Membrenous nephropathy with proteinuria Renal function stable at this tiem continue Lisinopirl, Amlodipine and Labetalol goal BP 130/80 Advised pt to follow up with [facility] Renal department, phone number is to get second opinion and information no acute change in Tx at this time for VQ scan today Taz Buenrostro DO
[2018-11-06] MEDS ORDERED: ONDANSETRON 4 MG/2 ML VIAL IVPUSH PRN (13:27)
[2018-11-06] MEDS ORDERED: ONDANSETRON 4 MG TABLET PO PRN (14:23)
--- NOTE | 2018-11-06 15:27 | DS ---
Physical Examination Vital Signs: Vital Signs Temperature 98.2 F 11/06/18 15:21 Pulse Rate 80 11/06/18 15:21 Respiratory Rate 18 11/06/18 15:21 Blood Pressure 148/98 11/06/18 15:21 O2 Sat by Pulse Oximetry (%) 97 11/06/18 12:00 Constitutional: Yes: Well Nourished, No Distress, Calm Eyes: Yes: Conjunctiva Clear HENT: Yes: Atraumatic, Normocephalic Neck: Yes: Supple, Trachea Midline Cardiovascular: Yes: Regular Rate and Rhythm Respiratory: Yes: WNL, Regular, CTA Bilaterally Gastrointestinal: Yes: Normal Bowel Sounds, Soft ...Rectal Exam: Yes: Deferred Musculoskeletal: Yes: WNL Extremities: Yes: WNL Edema: No Peripheral Pulses WNL: Yes Peripheral Pulses: Left Radial: 2+, Right Radial: 2+, Left Doralis Pedis: 2+, Right Dorsalis Pedis: 2+ Integumentary: Yes: WNL Neurological: Yes: Alert, Oriented ...Motor Strength: WNL Psychiatric: Yes: Alert, Oriented Labs: CBC, BMP 11/06/18 05:30 11/06/18 05:30 Discharge Summary Reason For Visit: SOB, SYSTEMIC LUPUS ERYTHEM Current Active Problems Connective tissue disease (Acute) Dyspnea (Acute) Membranous glomerulonephritis (Acute) Uncontrolled HTN I10 SLE M32.9 Procedures: Principal: CXR 11/02/2018: No acute pathology. B/L LE doppler 11/03: no evidence of DVT. REnal Ultrasound 11/04/2018: Normal kidneys with no evidence of nephrolithiasis, hydronephrosis or acute pathology. VQ scan 11/04: Normal VQ scan Hospital Course: 28-year-old female with past medical history of lupus who presents to ED on with 1 day of chest pain, shortness of breath, difficulty breathing and edema. She states that her chest pain is located mostly in the left side and radiates up to the jaw. She also is associated left arm numbness with her symptoms. She also endorses palpitations. Denies fevers, chills, flulike symptoms, nausea, vomiting, diarrhea, fever, urgency, lightheadedness and weakness. In ED she was given a dose of solu-medrol for SOB in the setting of SLE. Patient has contrast ALLERGY and did not receive CTA to rule out PE. EKG: Rate 83 bpm, normal sinus rhythm with sinus arrhythmia. Normal intervals normal axis , no acute ST-T wave changes. Troponin < 0.02, CRP 0.7(H), ESR 67 (H), DsDNA ab 12 (H), D-dimer 540(H). B-HCg negative She was admitted for further management. During her hospital course, her BP was persistently elevated, therefore her Anti -HTN meds were uptitrated and labetalol added to regimen. VQ scan done on 11/06 was Negative for PE. Lovenox SC d/breana and pt deemed stable for discharge home. Pt commenced menses on 11/06, which were heavier than normal. PM cbc sent to ensure H/H stable prior to discharge. She will need to follow up with PCP (for repeat cbc in light of heavy menses) and see sole ruffer for outpt management. Condition: Good - Instructions Diet, Activity, Other Instructions: low sodium diet Disposition: HOME - Home Medications Comprehensive Discharge Medication List: Ambulatory Orders Aspirin [ASA -] 81 mg PO DAILY #30 tab.chew 11/30/17 Cholecalciferol (Vitamin D3) [Vitamin D3] 2,000 unit PO DAILY 11/02/18 Vitamin B Complex [B Complex] 1 each PO DAILY 11/02/18 Amlodipine Besylate [Norvasc -] 5 mg PO BID 11/03/18 Amlodipine Besylate [Norvasc -] 10 mg PO DAILY 30 Days #30 tablet 11/06/18 Labetalol HCl [Normodyne -] 100 mg PO BID 30 Days #60 tablet 11/06/18 Lisinopril [Prinivil] 20 mg PO BID 30 Days #60 tablet 11/06/18 This patient is new to me today: Yes Date on this admission: 11/06/18 Emergency Visit: Yes ED Registration Date: 11/02/18 Care time: The patient presented to the Emergency Department on the above date and was hospitalized for further evaluation of their emergent condition. Critical Care patient: No - Discharge Referral Referred to [facility] No
[2018-11-06 17:11] VITALS: BP 138/72; PULSE 79; TEMP 98
--- NOTE | 2018-11-06 18:41 | PN ---
Progress Note (short form) - Note Progress Note: Patient seen and examined V/Q scan - negative for P.E. Discussed with patient need for reproducibility of APLS serology at 12 weeks in absence of thrombosis and related issues. Currently no SOB , difficulty breathibng and P.E reveals clear lungs and RSR Last Vital Signs Temp Pulse Resp BP Pulse Ox 98 F 79 20 138/72 97 11/06/18 16:20 11/06/18 16:20 11/06/18 16:20 11/06/18 16:20 11/06/18 12:00 Cor: RSR, No murmurs, No gallops Lungs: Clear to P&A Abd: Soft, Normal bowel sounds, No organomegaly CBC, BMP 11/06/18 05:30 11/06/18 05:30 Current Medications Generic Name Dose Route Start Last Admin Trade Name Freq PRN Reason Stop Dose Admin Acetaminophen 650 mg 11/04/18 09:17 Tylenol - PO Q6H PRN PAIN LEVEL 4 - 6 Amlodipine Besylate 5 mg 11/03/18 10:00 11/06/18 09:28 Norvasc - PO 5 mg BID SAMMIE Administration Aspirin 81 mg 11/03/18 10:00 11/06/18 09:28 Asa - PO 81 mg DAILY SAMMIE Administration Cholecalciferol 2,000 unit 11/03/18 10:00 11/06/18 09:28 Vitamin D3 - PO 2,000 unit DAILY SAMMIE Administration Labetalol HCl 100 mg 11/05/18 22:00 11/06/18 09:28 Normodyne - PO 100 mg BID SAMMIE Administration Lisinopril 20 mg 11/04/18 09:02 11/06/18 09:28 Prinivil PO 20 mg BID SAMMIE Administration Multivitamins 1 each 11/03/18 10:00 11/06/18 09:28 Total B With C - PO 1 each DAILY SAMMIE Administration Ondansetron HCl 4 mg 11/06/18 14:23 11/06/18 14:29 Zofran - PO 4 mg Q6H PRN Administration NAUSEA AND/OR VOMITING Impression: For discharge Patient to follow up with her treating physicians.
[2018-11-06 20:00] LABS: BASO % 0.7 % (0-2.0); EOS % 4.7 % (0-4.5); HEMATOCRIT 40.8 % (32.4-45.2); HEMOGLOBIN 14.6 GM/dL (10.7-15.3); LYMPH % 21.1 % (8-40); MCH 31.8 pg (25.7-33.7); MCHC 35.7 g/dl (32.0-36.0); MEAN CELL VOLUME 88.9 fl (80-96); MEAN PLT VOLUME 8.8 fl (7.5-11.1); MONO % 6.2 % (3.8-10.2); NEUT % 67.3 % (42.8-82.8); PLATELET COUNT 381 K/MM3 (134-434); RBC 4.59 M/mm3 (3.60-5.2); RDW 12.3 % (11.6-15.6); WHITE BLOOD COUNT 8.6 K/mm3 (4.0-10.0)
[2018-11-06 22:10] LABS: COMPLEMENT TOTAL(CH50) 36 U/mL (>41)
== END 2018-11-06 20:22 | disposition home or self-care (01) ==
LOC: JERFT 13:40 → JER 13:40 → JERBED 23:09 → UNDOADMOB 23:20 → JERBED 23:20 → J8W 11-04 01:01
PROVIDERS: ADMIT Internal Medicine; ATTEND Nurse Practitioner Family
PROC: 3E0333Z Introduction of Anti-inflammatory into Peripheral Vein, Percutaneous Approach (ICD-10-PCS; principal; 2018-11-02)
PROC: 3E0337Z Introduction of Electrolytic and Water Balance Substance into Peripheral Vein, Percutaneous Approach (ICD-10-PCS; 2018-11-02)
PROC: 3E013GC Introduction of Other Therapeutic Substance into Subcutaneous Tissue, Percutaneous Approach (ICD-10-PCS; 2018-11-02)
DX: R06.02 Shortness of breath (principal); R07.89 Other chest pain; D68.61 Antiphospholipid syndrome; M32.9 Systemic lupus erythematosus, unspecified; M32.14 Glomerular disease in systemic lupus erythematosus; I16.1 Hypertensive emergency; I12.9 Hypertensive chronic kidney disease with stage 1 through stage 4 chronic kidney disease, or unspecified chronic kidney disease; N18.9 Chronic kidney disease, unspecified; N17.9 Acute kidney failure, unspecified; R79.89 Other specified abnormal findings of blood chemistry; D72.829 Elevated white blood cell count, unspecified; R00.0 Tachycardia, unspecified; M35.9 Systemic involvement of connective tissue, unspecified; N05.2 Unspecified nephritic syndrome with diffuse membranous glomerulonephritis; R80.9 Proteinuria, unspecified; E66.9 Obesity, unspecified; Z68.32 Body mass index [BMI] 32.0-32.9, adult; Z79.82 Long term (current) use of aspirin; Z88.0 Allergy status to penicillin; Z88.1 Allergy status to other antibiotic agents; Z91.013 Allergy to seafood
CPT/HCPCS: 36415; 71046-TC-FY; 76775-TC; 78582-TC; 80048; 80053; 81003; 81015; 82550; 82570; 83735; 83880; 84156; 84443; 84484; 84703; 85025; 85027; 85379; 85610; 85613; 85651; 85732; 86038; 86140; 86162; 86225; 87040; 87086; 93005; 93010; 93306-TC; 93970-TC; 94761; 99284-25; A9539; A9540; G0378; J7030

== ENCOUNTER 2019-07-17 09:42 | Inpatient (IN) | payer BC | END 2019-07-21 11:36 | disposition home or self-care (01) | LOC: J7W 07-19 14:47 → JER 09:42 → JERBED 13:06 → JICU 18:14 ==

== ENCOUNTER 2023-02-20 13:20 | Emergency (ER) | payer BC ==
[2023-02-20 13:46] VITALS: BMI 27.2
[2023-02-20] MEDS ORDERED: SODIUM CHLORIDE 2,028 ML IV ONE (14:08)
[2023-02-20] MEDS ORDERED: VANCOMYCIN 1 GM in D5W (PRE-DOCKED) 1,000 MG/250 ML (RESTRICTED TO ID ONLY IVPB ONE (14:09)
[2023-02-20 16:00] LABS: VENOUS BASE EXCESS -1.7 mmol/L (-2-2); VENOUS O2 SATURATION 30.9 % (70-80); VENOUS PCO2 37.8 mmHg (38-52); VENOUS PH 7.398 (7.310-7.410)
[2023-02-20 16:04] LABS: BASO % 0.2 % (0-2.0); HEMATOCRIT 35.1 % (32.4-45.2); HEMOGLOBIN 12.1 GM/dL (10.7-15.3); LYMPH % 2.5 % (8-40); MCH 31.9 pg (25.7-33.7); MCHC 34.4 g/dl (32.0-36.0); MEAN CELL VOLUME 92.7 fl (80-96); MEAN PLT VOLUME 8.8 fl (7.5-11.1); MONO % 4.4 % (3.8-10.2); NEUT % 92.9 % (42.8-82.8); PLATELET COUNT 283 10^3/uL (134-434); RBC 3.79 M/mm3 (3.60-5.2)
[2023-02-20 16:09] LABS: INR 1.2 (0.83-1.09); PROTHROMBIN TIME (PATIENT) 13.9 SEC (9.7-13.0)
[2023-02-20 16:11] LABS: ACTIVATED PTT 29.4 SECONDS (25.2-36.5)
[2023-02-20] MEDS ORDERED: ONDANSETRON 4 MG/2 ML VIAL IVPUSH ONE (16:14)
[2023-02-20] MEDS ORDERED: ACETAMINOPHEN 1000 MG/100 ML BAG IVPB ONE (16:14)
[2023-02-20 16:32] LABS: CHLORIDE 105 mmol/L (98-107); SODIUM 134 mmol/L (136-145)
[2023-02-20 16:34] LABS: ANION GAP 5 MMOL/L (8-16); BLOOD UREA NITROGEN 12.4 mg/dL (7-18); CALCIUM 9.1 mg/dL (8.5-10.1); CO2 24 mmol/L (21-32); GLUCOSE,RANDOM 106 mg/dL (74-106)
[2023-02-20 16:35] LABS: ALBUMIN 3.8 g/dl (3.4-5.0)
[2023-02-20] MEDS ORDERED: AZTREONAM 2 GM VIAL (RESTRICTED TO ID) IVPB ONE (16:36)
[2023-02-20 16:37] LABS: CREATININE 1.4 mg/dL (0.55-1.3)
[2023-02-20 16:38] LABS: SGOT/AST 33 U/L (15-37); SGPT/ALT 22 U/L (13-61)
[2023-02-20 16:39] LABS: BILIRUBIN,TOTAL 0.6 mg/dL (0.2-1); TOT PROT 7.1 g/dl (6.4-8.2)
[2023-02-20 16:40] LABS: ALK PHOS 94 U/L (45-117)
[2023-02-20] MEDS ORDERED: ACETAMINOPHEN INJECTION 100 ML IVPB ONE (16:52)
[2023-02-20] MEDS ORDERED: VANCOMYCIN/WATER FOR INJ (PEG) 1,000 MG/200 ML BAG IVPB ONE (16:52)
[2023-02-20] MEDS ORDERED: AZTREONAM 2 GM VIAL (RESTRICTED TO ID) ONE (16:52)
[2023-02-20 16:53] LABS: ANISOCYTOSIS 1+; MACROCYTOSIS 0; OVALOCYTE 1+
[2023-02-20 17:21] LABS: EPI CELLS 4 /uL (0-25.1); HYALINE CASTS 0 /uL (0-3.1); URINE APPEARANCE CLEAR; URINE BACTERIA 204 /uL (0-1359); URINE BILIRUBIN NEGATIVE (NEGATIVE); URINE COLOR YELLOW; URINE GLUCOSE (UA) NEGATIVE (NEGATIVE); URINE KETONE 1+ (NEGATIVE); URINE LEUK ESTERASE 1+ (NEGATIVE); URINE NITRITE NEGATIVE (NEGATIVE); URINE PROTEIN 1+ (NEGATIVE); URINE RBC 18 /uL (0-23.9); URINE UROBILINOGEN 0.2 mg/dL (0.2-1.0); URINE WBC 222 /uL (0-25.8)
[2023-02-20 19:21] VITALS: BP 146/93; PULSE 121; RESP 20; TEMP 99.3
== END 2023-02-20 19:30 | disposition short-term general hospital (02) ==
LOC: JER 13:20
PROC: 3E033NZ Introduction of Analgesics, Hypnotics, Sedatives into Peripheral Vein, Percutaneous Approach (ICD-10-PCS; principal; 2023-02-20)
PROC: 3E033GC Introduction of Other Therapeutic Substance into Peripheral Vein, Percutaneous Approach (ICD-10-PCS; 2023-02-20)
PROC: 3E033GC Introduction of Other Therapeutic Substance into Peripheral Vein, Percutaneous Approach (ICD-10-PCS; 2023-02-20)
PROC: 3E033GC Introduction of Other Therapeutic Substance into Peripheral Vein, Percutaneous Approach (ICD-10-PCS; 2023-02-20)
PROC: 3E0337Z Introduction of Electrolytic and Water Balance Substance into Peripheral Vein, Percutaneous Approach (ICD-10-PCS; 2023-02-20)
PROC: 3E0337Z Introduction of Electrolytic and Water Balance Substance into Peripheral Vein, Percutaneous Approach (ICD-10-PCS; 2023-02-20)
DX: U07.1 COVID-19 (principal); A41.9 Sepsis, unspecified organism; R50.9 Fever, unspecified; R00.0 Tachycardia, unspecified; R11.0 Nausea; K13.79 Other lesions of oral mucosa; R53.81 Other malaise; Z94.0 Kidney transplant status
CPT/HCPCS: 0241U-QW; 36415; 71045-TC-FY; 80053; 81003; 82550; 82553; 82803; 83605; 85025; 85610; 85730; 87040; 87086; 87186; 93005; 93010; 99291

== ENCOUNTER 2025-02-05 06:40 | Emergency (ER) | payer OTHER, BC ==
[2025-02-05 06:46] VITALS: BMI 28.5
[2025-02-05] MEDS ORDERED: ACETAMINOPHEN INJECTION 100 ML ONE (07:37)
[2025-02-05] MEDS: LACTATED RINGERS SOLUTION 1000 ML INFUS.BAG IV ONE (07:40)
[2025-02-05] MEDS: ACETAMINOPHEN 500 MG TABLET (FP) PO ONE (07:40)
[2025-02-05 08:32] LABS: HEMOGLOBIN 11.7 g/dL (11.2-15.7); MCHC 32.5 g/dl (32.2-35.5); MEAN CELL VOLUME 91.4 fl (79.4-94.8); MEAN PLT VOLUME 10.1 fl (9.4-12.3); PLATELET COUNT 366 x10^3/uL (182-369)
[2025-02-05 08:39] LABS: EPI CELLS 5 /uL (0-25.1); HYALINE CASTS 0 /uL (0-3.1); PH,URINE 5.5 (5.0-8.0); URINE APPEARANCE TURBID; URINE BACTERIA >9,000 /uL (0-1359); URINE BILIRUBIN NEGATIVE (NEGATIVE); URINE COLOR YELLOW; URINE GLUCOSE (UA) NEGATIVE (NEGATIVE); URINE KETONE NEGATIVE (NEGATIVE); URINE LEUK ESTERASE 2+ (NEGATIVE); URINE NITRITE POSITIVE (NEGATIVE); URINE PROTEIN 3+ (NEGATIVE); URINE RBC 211 /uL (0-23.9); URINE UROBILINOGEN 0.2 mg/dL (0.2-1.0); URINE WBC 6089 /uL (0-25.8)
[2025-02-05 08:55] LABS: POTASSIUM 3.4 mmol/L (3.5-5.1)
[2025-02-05 08:57] LABS: ALBUMIN 4.1 g/dl (3.4-5.0); BLOOD UREA NITROGEN 19.4 mg/dL (7-18); CALCIUM 9.4 mg/dL (8.5-10.1)
[2025-02-05 09:01] LABS: CREATININE 1.7 mg/dL (0.55-1.3)
[2025-02-05 09:02] LABS: BILIRUBIN,TOTAL 0.6 mg/dL (0.2-1); TOT PROT 7.8 g/dl (6.4-8.2)
[2025-02-05 09:29] LABS: VENOUS BASE EXCESS -0.4 mmol/L (-2-2); VENOUS O2 SATURATION 55.2 % (70-80); VENOUS PCO2 35.7 mmHg (38-52); VENOUS PH 7.434 (7.310-7.410)
[2025-02-05 09:32] LABS: INR 1.15 (0.83-1.09); PROTHROMBIN TIME (PATIENT) 12.7 SEC (9.7-13.0)
[2025-02-05 09:34] LABS: ACTIVATED PTT 28.4 SECONDS (25.2-36.5)
[2025-02-05] MEDS ORDERED: CEFTRIAXONE 1 G/50 ML PREMIX 50 ML IVPB ONE (10:33)
[2025-02-05] MEDS ORDERED: SODIUM CHLORIDE 0.9% 500 ML INFUS.BAG IV ONE (11:05)
[2025-02-05 12:56] VITALS: BP 122/88; PULSE 90; RESP 16; TEMP 98.2
== END 2025-02-05 13:01 | disposition short-term general hospital (02) ==
LOC: JER 06:40
DX: A41.9 Sepsis, unspecified organism (principal); R65.20 Severe sepsis without septic shock; N39.0 Urinary tract infection, site not specified; R50.9 Fever, unspecified; R39.15 Urgency of urination; R00.0 Tachycardia, unspecified; N17.9 Acute kidney failure, unspecified
CPT/HCPCS: 0241U-QW; 36415; 71045-TC-FY; 80053; 81003; 82803; 83605; 84484; 84703; 85025; 85610; 85730; 87040; 87086; 87186; 93005; 93010; 99285-25